=== PATIENT | female | born 2000 | race Caucasian/White ===

== ENCOUNTER 2022-11-22 10:46 | Outpatient (OUT) | payer BC, SELFPAY ==
[2022-11-22 11:11] LABS: Basophils Percent Auto 0.5 % (0.2-2.0); Eosinophils Absolute Auto 0.1 10^3/uL (0.0-0.7); Eosinophils Percent Auto 0.8 % (0.9-7.0); Hematocrit 41.2 % (36.0-48.0); Hemoglobin 14.2 g/dL (12.0-16.0); Immature Granulocytes Abs Auto 0.01 10^3/uL (0.00-0.03); Immature Granulocytes Pct Auto 0.1 % (0.0-0.5); Lymphocytes Absolute Auto 2.6 10^3/uL (1.2-3.8); Lymphocytes Percent Auto 35.6 % (20.5-60.0); Mean Corpuscular HGB Conc 34.5 g/dL (29.9-35.2); Mean Corpuscular Hemoglobin 30.4 pg (26.7-34.0); Mean Corpuscular Volume 88.2 fL (81.0-99.0); Mean Platelet Volume 10.8 fL (9.5-13.5); Monocytes Absolute Auto 0.4 10^3/uL (0.3-0.8); Monocytes Percent Auto 4.9 % (1.7-12.0); Neutrophils Absolute Auto 4.2 10^3/uL (1.4-6.5); Neutrophils Percent Auto 58.1 % (43.0-75.0); Platelet Count 220 10^3/uL (150-450); Red Blood Count 4.67 10^6/uL (4.20-5.40); Red Cell Distribution Width 13.2 % (11.0-15.0); White Blood Count 7.3 10^3/uL (4.0-11.0)
[2022-11-22 11:38] LABS: HCG Quantitative <1 mIU/mL; Thyroid Stimulating Hormone 0.968 uIU/mL (0.358-3.740)
[2022-11-22 12:57] LABS: Free T4 1.05 ng/dL (0.76-1.46)
[2022-11-23 04:10] LABS: FSH 6.8 mIU/mL (.); Luteinizing Hormone(LH) 6.7 mIU/mL (.)
[2022-11-25 09:09] LABS: DHEA, Serum 264 ng/dL (31-701)
== END 2022-11-22 10:47 | disposition home or self-care (01) ==
LOC: LAB 10:49
PROVIDERS: PCP Family Medicine; Visit Provider Obstetrics & Gynecology
DX: N92.6 Irregular menstruation, unspecified (principal)
CPT/HCPCS: 36415; 82626; 82627; 83001; 83002; 84439; 84443; 84702; 85025

== ENCOUNTER 2022-11-30 12:55 | Outpatient (OUT) | payer BC, SELFPAY ==
--- NOTE | 2022-11-30 12:58 | US_ITS ---
The [address] [address] Patient Name: NAFISA RIDDLE MRN: [id number] date: 2000 Sex: F Assigned Patient Location: Current Patient Location: US Accession/Order Number: [id number] Exam Date: 11/30/2022 13:00 Report Date: 11/30/2022 14:36 At the request of: NIDA GREY Procedure: US pelvis w/ transvaginal EXAM: US pelvis w/ transvaginal HISTORY: IRREGULAR MENSES COMPARISON: None. TECHNIQUE: Real-time transabdominal and transvaginal imaging of the pelvis. Findings: The uterus measures 7.4 x 2.9 x 3.6 cm and demonstrates unremarkable parenchymal echotexture. No focal intrauterine mass. The endometrium is 0.6 cm thick. No significant fluid within the endometrial canal. The right and left ovaries measure 3.2 x 1.8 x 3.0 and 3.0 x 1.7 x 2.5 cm. There are multiple follicles bilaterally. Blood flow is identified bilaterally. No adnexal mass or free pelvic fluid. US/US pelvis w/ transvaginal IMPRESSION: 1. Multiple bilateral ovarian follicles. Electronically authenticated by: ALEXA RUANO Date: 11/30/2022 14:36
== END 2022-11-30 12:56 | disposition home or self-care (01) ==
LOC: US 12:55
PROVIDERS: PCP Family Medicine; Visit Provider Obstetrics & Gynecology
DX: N92.6 Irregular menstruation, unspecified (principal)
CPT/HCPCS: 76830; 76856

== ENCOUNTER 2023-03-29 20:11 | Outpatient (REF) | payer BC, SELFPAY ==
--- OUTSIDE RECORDS SUMMARY | 2023-03-30 10:12 | XMS_ITS | CCD ---
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 Name Role Phone HOY, ELMER Admitting Unavailable HOY, ELMER Attending Unavailable HOY, ELMER Primary Care Unavailable HOY, ELMER Consulting Unavailable WESTABEBA V Consulting Unavailable HOY, ELMER Admitting Unavailable HOY, ELMER Attending Unavailable HOY, ELMER Primary Care Unavailable HOY, ELMER Consulting Unavailable ABEBA APODACA V Consulting Unavailable Piedad MCDERMOTT, Richard Ayala Primary Care Provider RICHARD DAI Referring RICHARD Fontana Primary Care UnavailNIDA Noland Attending Unavailable Allergies Allergy Classification Reported Allergen(s) Allergy Type Date of Onset Reaction(s) Facility (1 source) Amoxicillin Drug Allergy 06-26-2018 Nausea And Vomiting [facility] (1 source) fexofenadine Drug Allergy 03-12-2019 [facility] Medications Current Medications Medication Drug Class(es) Dates Sig (Normalized) Sig (Original) Ethinyl Estradiol / Ferrous fumarate / Norethindrone (1 source) Estrogen Norethin Abad-Eth Estrad-FE 1-20 MG-MCG(24) CAPS Take by mouth 0 Active Problems Problem Classification Problem Date Documented Da te Episodic/Chronic Abdominal pain (4 sources) Unspecified abdominal pain; Translations: [UNSPECIFIED ABDOMINAL PAIN] Onset: 01-30-2020 Episodic Results Test Name Value Interpretation Reference Range [facility] sam Hemoglobin A1Con 11-06-2022 Glucose [Mass/Vol] 103 mg/dL Normal [facility] Comment on above: Result Comment: The ADA and AACC recommend providing the estimated average glucose result to permit better patient understanding of their HBA1c result. Performed By: #### T SH, CDP, BMP, LIVP #### [address] [place], [place] [phone] Publishing Manager: Abeba Parra MD #### GLYHGB, LIPR #### [address] [address] Publishing Manager: Chapin Bellamy MD HbA1c (Bld) [Mass fraction] 5.2 % Normal 4.0-6.0 [facility] Comment on above: Performed By: #### T SH, CDP, BMP, LIVP #### [address] [place], [place] [phone] Publishing Manager: Abeba Parra MD #### GLYHGB, LIPR #### [address] [phone] Publishing Manager: Chapin Bellamy MD Lipid Profileon 11-05-2022 Cholesterol [Mass/Vol] 130 mg/dL Normal <200 [facility] Comment on above: Result Comment: Cholesterol Guidelines: <200 Desirable 200-240 Borderline >240 Undesirable Performed By: #### T SH, CDP, BMP, LIVP #### [address] [place], [place] [phone] Publishing Manager: Abeba Parra MD #### GLYHGB, LIPR #### [address] [address] Publishing Manager: Chapin Bellamy MD Cholesterol in HDL [Mass/Vol] 61 mg/dL Normal >40 [facility] Comment on above: Result Comment: HDL Guidelines: <40 Undesirable 40-59 Borderline >59 Desirable Performed By: #### T SH, CDP, BMP, LIVP #### [address] [place], [place] [phone] Publishing Manager: Abeba Parra MD #### GLYHGB, LIPR #### [address] [place], [place] [phone] Publishing Manager: Chapin Bellamy MD Cholesterol in LDL [Mass/Vol] 56 mg/dL Normal 0-130 [facility] Comment on above: Result Comment: LDL Guidelines: <100 Desirable 100-129 Near to/above Desirable 130-159 Borderline >159 Undesirable Direct (measured) LDL and calculated LDL are not interchangeable tests. Performed By: #### T SH, CDP, BMP, LIVP #### [facility] [address] [place], [place] [phone] Publishing Manager: Abeba Parra MD #### GLYHGB, LIPR #### [address] [place], [place] [phone] Publishing Manager: Chapin Bellamy MD Cholesterol.total/Ch olesterol in HDL [Mass ratio] 2.1 {ratio} Normal <5 [facility] Comment on above: Performed By: #### T DESTINI, JOAN, BMP, LIVP #### [facility] [address] [place] [address] [address] [place], [place] [phone] Publishing Manager: Abeba Parra MD #### GLYHGTanya, LIPR #### [facility] [address] [place], [place] [phone] Publishing Manager: Chapin Bellamy MD Triglyceride [Mass/Vol] 64 mg/dL Normal <150 [facility] Comment on above: Result Comment: Triglyceride Guidelines: <150 Desirable 150-199 Borderline 200-499 High >499 Very high Based on AHA Guidelines for fasting triglyceride, January 2012. Performed By: #### T SH, JOAN, BMP, LIVP #### [facility] [address] [place], [place] [phone] Publishing Manager: Abeba Parra MD #### GLYHGB, LIPR #### [facility] [address] [place], [place] [phone] Publishing Manager: Chapin Bellamy MD Basic Metabolic Panelon 07-2 Anion gap [Moles/Vol] 11 mmol/L 9 - 17 mmol/L [facility] Calcium [Mass/Vol] 9.7 mg/dL 8.6 - 10. 4 mg/dL [facility] Chloride [Moles/Vol] 107 mmol/L 98 - 107 mmol/L [facility] CO2 [Moles/Vol] 22 mmol/L 20 - 31 mmol/L [facility] Creatinine [Mass/Vol] 0.6 mg/dL 0.5 - 0.9 mg/dL [facility] GFR/1.73 sq M.predicted MDRD (S/P/Bld) [Vol rate/Area] - PINF [facility] Comment on above: These results are not intended for use in patients <18 years of age. eGFR results are calculated without a race factor using the 2020 CKD-EPI equation. Careful clinical correlation is recommended, particularly when comparing to results calculated using previous equations. The CKD-EPI equation is less accurate in patients with extremes of muscle mass, extra-renal metabolism of creatine, excessive creatine ingestion, or following therapy that affects renal tubular secretion. Glucose [Mass/Vol] 85 mg/dL 70 - 99 mg/dL [facility] Interpretation and review of laboratory results Abnormal [facility] Potassium [Moles/Vol] 3.9 mmol/L 3.7 - 5.3 mmol/L [facility] Sodium [Moles/Vol] 140 mmol/L 135 - 144 mmol/L [facility] Urea nitrogen [Mass/Vol] 18 mg/dL 6 - 20 mg/dL [facility] Urea nitrogen/Creatinine [Mass ratio] 30 mg/mg High 9 - 20 [facility] Basic Metabolic Profon 11-04 Anion gap [Moles/Vol] 11 mmol/L Normal -17 [facility] Comment on above: Performed By: #### T SH, CDP, BMP, LIVP #### [facility] [address] [place] [address] Publishing Manager: Abeba Parra MD #### GLYHGB, LIPR #### [facility] [address] [place] [address] Publishing Manager: Chapin Bellamy MD BUN/CRE Ratio 30 High 9-20 [facility] Comment on above: Performed By: #### T SH, CDP, BMP, LIVP #### [facility] [address] [place] [address] [address] [place], [place] [phone] Publishing Manager: Abeba Parra MD #### GLYHGB, LIPR #### [address] [phone] Publishing Manager: Chapin Bellamy MD Calcium [Mass/Vol] 9.7 mg/dL Normal 8.6-10.4 [facility] Comment on above: Performed By: #### T SH, CDP, BMP, LIVP #### [facility] [address] [place] [address] [address] [place] [phone] Publishing Manager: Abeba Parra MD #### GLYHGB, LIPR #### [address] [phone] Publishing Manager: Chapin Bellamy MD Chloride [Moles/Vol] 107 mmol/L Normal 98-107 [facility] Comment on above: Performed By: #### T SH, CDP, BMP, LIVP #### [address] [place] [address] Publishing Manager: Abeba Parra MD #### GLYHGB, LIPR #### [address] [phone] Publishing Manager: Chapin Bellamy MD CO2 [Moles/Vol] 22 mmol/L Normal 20-[address] [facility] Comment on above: Performed By: #### T SH, CDP, BMP, LIVP #### [facility] [address] [place] [address] [address] [place], [place] [phone] Publishing Manager: Abeba Parra MD #### GLYHGB, LIPR #### [address] [address] Publishing Manager: Chapin Bellamy MD Creatinine [Mass/Vol] 0.6 mg/dL Normal 0.5-0.9 [facility] Comment on above: Performed By: #### T SH, CDP, BMP, LIVP #### [facility] [address] [place] [address] Publishing Manager: Abeba Parra MD #### GLYHGB, LIPR #### [address] [place], [place] [phone] Publishing Manager: Chapin Bellamy MD GFR/1.73 sq M.predicted among non-blacks MDRD (S/P/Bld) [Vol rate/Area] mL/min/{1.73_m2} Normal >60 [facility] Comment on above: Result Comment: These results are not intended for use in patients <18 years of age. eGFR results are calculated without a race factor using the 2020 CKD-EPI equation. Careful clinical correlation is recommended, particularly when comparing to results calculated using previous equations. The CKD-EPI equation is less accurate in patients with extremes of muscle mass, extra-renal metabolism of creatine, excessive creatine ingestion, or following therapy that affects renal tubular secretion. Performed By: #### T SH, CDP, BMP, LIVP #### [facility] [address] [place] [address] Publishing Manager: Abeba Parra MD #### GLYHGB, LIPR #### [address] [place], [place] [phone] Publishing Manager: Chapin Bellamy MD Glucose [Mass/Vol] 85 mg/dL Normal 70-99 [facility] Comment on above: Performed By: #### T SH, CDP, BMP, LIVP #### [facility] [address] [place] [address] Publishing Manager: Abeba Parra MD #### GLYHGB, LIPR #### [address] [place], [place] [phone] Publishing Manager: Chapin Bellamy MD Potassium [Moles/Vol] 3.9 mmol/L Normal 3.7-5.3 [facility] Comment on above: Performed By: #### T SH, CDP, BMP, LIVP #### [facility] [address] [place] [address] Publishing Manager: Abeba Parra MD #### GLYHGB, LIPR #### [address] [place], [place] [phone] Publishing Manager: Chapin Bellamy MD Sodium [Moles/Vol] 140 mmol/L Normal 135-144 [facility] Comment on above: Performed By: #### T SH, CDP, BMP, LIVP #### [facility] [address] [place] [address] Publishing Manager: Abeba Parra MD #### GLYHGB, LIPR #### [address] [place], [place] [phone] Publishing Manager: Chapin Bellamy MD Urea nitrogen [Mass/Vol] 18 mg/dL Normal 6-20 [facility] Comment on above: Performed By: #### T SH, CDP, BMP, LIVP #### [facility] [address] [place] [address] [place] [address] Publishing Manager: Abeba Parra MD #### GLYHGB, LIPR #### [address] [place], [place] [phone] Publishing Manager: Chapin Bellamy MD CBC with Auto Differentialon 11-04-2022 Basophils (Bld) [#/Vol] 0.05 10*3/uL [facility] Basophils/100 WBC (Bld) 1 % 0 - 2 % [facility] Eosinophils (Bld) [#/Vol] 0.06 10*3/uL [facility] Eosinophils/100 WBC (Bld) 1 % 1 - 4 % [facility] Erythrocyte distribution width (RBC) [Ratio] 13.0 % 11.8 - 14.4 % [facility] Hematocrit (Bld) [Volume fraction] 43.3 % 36.3 - 47.1 % [facility] Hemoglobin (Bld) [Mass/Vol] 14.2 g/dL 11.9 - 15.1 g/dL [facility] Immature granulocytes (Bld) [#/Vol] [facility] Immature granulocytes/100 WBC (Bld) 0 % 0 [facility] Lymphocytes/100 WBC (Bld) 30 % 24 - 43 % [facility] Lymphocytes/100 WBC (Bld) 3.22 % [facility] MCH (RBC) [Entitic mass] 30.2 pg 25.2 - 33.5 pg [facility] MCHC (RBC) [Mass/Vol] 32.8 g/dL 28.4 - 34.8 g/dL [facility] MCV (RBC) [Entitic vol] 92.1 fL 82.6 - 102.9 fL [facility] Monocytes/100 WBC (Bld) 5 % 3 - 12 % [facility] Monocytes/100 WBC (Bld) 0.50 % [facility] Neutrophils/100 WBC (Bld) 63 % 36 - 65 % [facility] Nucleated RBC/100 WBC (Bld) [Ratio] 0.0 % 0.0 per 100 WBC [facility] Platelet mean volume (Bld) [Entitic vol] 11.0 fL 8.1 - 13.5 fL [facility] Platelets (Bld) [#/Vol] 264 10*3/uL [facility] RBC (Bld) [#/Vol] 4.70 10*6/uL 3.95 - 5.1 1 m/uL [facility] Segmented neutrophils/100 WBC (Bld) 6.95 % [facility] WBC other (Bld) [#/Vol] 10.8 [facility] CBC with Diffon 11-04-2022 Abs. Basophil 0.05 k/uL Normal 0.00-0.20 [facility] Comment on above: Performed By: #### T SH, CDP, BMP, LIVP #### [facility] [address] [place] [address] Publishing Manager: Abeba Parra MD #### GLYHGB, LIPR #### [place] [phone] Publishing Manager: Chapin Bellamy MD Abs.Imm.Granulocyte <0.03 Normal 0.00-0.30 [facility] Comment on above: Performed By: #### T SH, CDP, BMP, LIVP #### [address] [place] [phone] Publishing Manager: Abeba Parra MD #### GLYHGB, LIPR #### [place] [address] Publishing Manager: Chapin Bellamy MD Abs.Neutrophil (Seg) 6.95 k/uL Normal 1.50-8.10 [facility] Comment on above: Performed By: #### T SH, CDP, BMP, LIVP #### [address] [place] [phone] Publishing Manager: Abeba Parra MD #### GLYHGB, LIPR #### [place] [address] Publishing Manager: Chapin Bellamy MD Basophils/100 WBC (Bld) 1 % Normal 0-2 [facility] Comment on above: Performed By: #### T SH, CDP, BMP, LIVP #### [address] [place] [phone] Publishing Manager: Abeba Parra MD #### GLYHGB, LIPR #### [place] [address] Publishing Manager: Chapin Bellamy MD Eosinophils (Bld) [#/Vol] 0.06 10*3/uL Normal 0.00-0.44 [facility] Comment on above: Performed By: #### T SH, CDP, BMP, LIVP #### [address] [place], [place] [phone] Publishing Manager: Abeba Parra MD #### GLYHGB, LIPR #### [address] [place], [place] [phone] Publishing Manager: Chapin Bellamy MD Eosinophils/100 WBC (Bld) 1 % Normal 1-4 [facility] Comment on above: Performed By: #### T SH, CDP, BMP, LIVP #### [address] [place] [address] Publishing Manager: Abeba Parra MD #### GLYHGB, LIPR #### [address] [phone] Publishing Manager: Chapin Bellamy MD Erythrocyte distribution width (RBC) [Ratio] 13.0 % Normal 11.8-14.4 [facility] Comment on above: Performed By: #### T SH, CDP, BMP, LIVP #### [address] [place], [place] [phone] Publishing Manager: Abeba Parra MD #### GLYHGB, LIPR #### [address] [phone] Publishing Manager: Chapin Bellamy MD Hematocrit (Bld) [Volume fraction] 43.3 % Normal 36.3-47.1 [facility] Comment on above: Performed By: #### T SH, CDP, BMP, LIVP #### [address] [place], [place] [phone] Publishing Manager: Abeba Parra MD #### GLYHGB, LIPR #### [address] [phone] Publishing Manager: Chapin Bellamy MD Hemoglobin (Bld) [Mass/Vol] 14.2 g/dL Normal 11.9-15.1 [facility] Comment on above: Performed By: #### T SH, CDP, BMP, LIVP #### [facility] [address] [place], [place] [phone] Publishing Manager: Abeba Parra MD #### GLYHGB, LIPR #### [address] [phone] Publishing Manager: Chapin Bellamy MD Immature granulocytes/100 WBC (Bld) 0 % Normal 0 [facility] Comment on above: Performed By: #### T SH, CDP, BMP, LIVP #### [facility] [address] [place], [place] 7090483 Publishing Manager: Abeba Parra MD #### GLYHGB, LIPR #### [address] [phone] Publishing Manager: Chapin Bellamy MD Lymphocytes (Bld) [#/Vol] 3.22 10*3/uL Normal 1.10-3.70 [facility] Comment on above: Performed By: #### T SH, CDP, BMP, LIVP #### [facility] [address] [place] [phone] Publishing Manager: Abeba Parra MD #### GLYHGB, LIPR #### [address] [phone] Publishing Manager: Chapin Bellamy MD Lymphocytes/100 WBC (Bld) 30 % Normal 24-43 [facility] Comment on above: Performed By: #### T SH, CDP, BMP, LIVP #### [facility] [address] [place], [place] [phone] Publishing Manager: Abeba Parra MD #### GLYHGB, LIPR #### [address] [phone] Publishing Manager: Chapin Bellamy MD MCH (RBC) [Entitic mass] 30.2 pg Normal 25.2-33.5 [facility] Comment on above: Performed By: #### T SH, CDP, BMP, LIVP #### [address] [place] [phone] Publishing Manager: Abeba Parra MD #### GLYHGB, LIPR #### [address] [phone] Publishing Manager: Chapin Bellamy MD MCHC (RBC) [Mass/Vol] 32.8 g/dL Normal 28.4-34.8 [facility] Comment on above: Performed By: #### T SH, CDP, BMP, LIVP #### [address] [place] [phone] Publishing Manager: Abeba Parra MD #### GLYHGTanya, LIPR #### [place] [address] Publishing Manager: Chapin Bellamy MD MCV (RBC) [Entitic vol] 92.1 fL Normal 82.6-102.9 [facility] Comment on above: Performed By: #### T SH, CDP, BMP, LIVP #### [address] [place] [phone] Publishing Manager: Abeba Parra MD #### GLYHGB, LIPR #### [place] [address] Publishing Manager: Chapin Bellamy MD Monocytes (Bld) [#/Vol] 0.50 10*3/uL Normal 0.10-1.20 [facility] Comment on above: Performed By: #### T SH, CDP, BMP, LIVP #### [address] [place] [phone] Publishing Manager: Abeba Parra MD #### GLYHGB, LIPR #### [place] [address] Publishing Manager: Chapin Bellamy MD Monocytes/100 WBC (Bld) 5 % Normal 3-12 [facility] Comment on above: Performed By: #### T SH, CDP, BMP, LIVP #### [facility] [address] [place], [place] [phone] Publishing Manager: Abeba Parra MD #### GLYHGB, LIPR #### [address] [phone] Publishing Manager: Chapin Bellamy MD Neutrophil (Seg) 63 % Normal 36-65 [facility] Comment on above: Performed By: #### T SH, CDP, BMP, LIVP #### [facility] [address] [place] [address] [place] [address] Publishing Manager: Abeba Parra MD #### DAMIANB, LIPR #### [address] [phone] Publishing Manager: Chapin Bellamy MD NRBC Automated 0.0 per 100 WBC Normal 0.0 [facility] Comment on above: Performed By: #### T SH, CDP, BMP, LIVP #### [address] [place] [address] Publishing Manager: Abeba Parra MD #### GIOVANNI, LIPR #### [address] [phone] Publishing Manager: Chapin Bellamy MD Platelet mean volume (Bld) [Entitic vol] 11.0 fL Normal 8.1-13.5 [facility] Comment on above: Performed By: #### T SH, CDP, BMP, LIVP #### [facility] [address] [place] [address] [place] [address] Publishing Manager: Abeba Parra MD #### GLYHGB, LIPR #### [address] [phone] Publishing Manager: Chapin Bellamy MD Platelets (Bld) [#/Vol] 264 10*3/uL Normal 138-453 [facility] Comment on above: Performed By: #### T SH, CDP, BMP, LIVP #### [address] [place], [place] [phone] Publishing Manager: Abeba Parra MD #### GLYHGB, LIPR #### [address] [place] [address] Publishing Manager: Chapin Bellamy MD RBC (Bld) [#/Vol] 4.70 10*6/uL Normal 3.95-5.11 [facility] Comment on above: Performed By: #### T SH, CDP, BMP, LIVP #### [address] [place], [place] [phone] Publishing Manager: Abeba Parra MD #### VERONICAHGTanya, LIPR #### [address] [address] Publishing Manager: Chapin Bellamy MD WBC (Bld) [#/Vol] 10.8 10*3/uL Normal 3.5-11.3 [facility] Comment on above: Performed By: #### T SH, CDP, BMP, LIVP #### [address] [place] [address] Publishing Manager: Abeba Parra MD #### GLYHGB, LIPR #### [address] [place] [address] Publishing Manager: Chapin Bellamy MD Hepatic Function Panelon Albumin [Mass/Vol] 4.2 g/dL 3.5 - 5.2 g/dL [facility] Albumin/Globulin [Mass ratio] 1.3 {ratio} 1.0 - 2.5 [facility] ALP [Catalytic activity/Vol] 80 U/L 35 - 104 U/L [facility] ALT [Catalytic activity/Vol] 23 U/L 5 - 33 U/L [facility] AST [Catalytic activity/Vol] 22 U/L NINF - 32 U/L [facility] Bilirubin [Mass/Vol] 0.5 mg/dL 0.3 - 1.2 mg/dL [facility] Bilirubin.direct [Mass/Vol] mg/dL NINF - 0.3 mg/dL [facility] Bilirubin.indirect [Mass/Vol] Can not be calculated 0.0 - 1.0 mg/dL [facility] Protein [Mass/Vol] 7.4 g/dL 6.4 - 8.3 g/dL [facility] Lipid Panelon 11-04-2022 Cholesterol [Mass/Vol] 130 mg/dL NINF - 200 mg/dL [facility] Comment on above: Cholesterol Guidelines: <200 Desirable 200-240 Borderline >240 Undesirable Cholesterol in HDL [Mass/Vol] 61 mg/dL 40 - PINF mg/dL [facility] Comment on above: HDL Guidelines: <40 Undesirable 40-59 Borderline >59 Desirable Cholesterol in LDL [Mass/Vol] 56 mg/dL 0 - 130 mg/dL [facility] Comment on above: LDL Guidelines: <100 Desirable 100-129 Near to/above Desirable 130-159 Borderline >159 Undesirable Direct (measured) LDL and calculated LDL are not interchangeable tests. Cholesterol.total/Ch olesterol in HDL [Mass ratio] 2.1 {ratio} NINF - 5 [facility] Triglyceride [Mass/Vol] 64 mg/dL NINF - 150 mg/dL [facility] Comment on above: Triglyceride Guidelines: <150 Desirable 150-199 Borderline 200-499 High >499 Very high Based on AHA Guidelines for fasting triglyceride, January 2012. [facility] Liver Profileon 11-04-2022 Albumin [Mass/Vol] 4.2 g/dL Normal 3.5-5.2 [facility] Comment on above: Performed By: #### T SH, CDP, BMP, LIVP #### [facility] [address] [place], [place] [phone] Publishing Manager: Abeba Parra MD #### GLYHGB, LIPR #### [address] [place], [place] [phone] Publishing Manager: Chapin Bellamy MD Albumin/Glob Ratio 1.3 Normal 1.0-2.5 [facility] Comment on above: Performed By: #### T SH, CDP, BMP, LIVP #### [facility] [address] [place] [address] [address] [place], [place] [phone] Publishing Manager: Abeba Parra MD #### GLYHGB, LIPR #### [address] [place], [place] [phone] Publishing Manager: Chapin Bellamy MD Alkaline Phos 80 U/L Normal 35-104 [facility] Comment on above: Performed By: #### T SH, CDP, BMP, LIVP #### [address] [place] [phone] Publishing Manager: Abeba Parra MD #### GLYHGB, LIPR #### [address] [place], [place] [phone] Publishing Manager: Chapin Bellamy MD ALT [Catalytic activity/Vol] 23 U/L Normal 5-33 [facility] Comment on above: Performed By: #### T SH, CDP, BMP, LIVP #### [facility] [address] [place] [address] [address] [place], [place] [phone] Publishing Manager: Abeba Parra MD #### GLYHGB, LIPR #### [address] [place], [place] [phone] Publishing Manager: Chapin Bellamy MD AST [Catalytic activity/Vol] 22 U/L Normal <32 [facility] Comment on above: Performed By: #### T SH, CDP, BMP, LIVP #### [address] [place], [place] [phone] Publishing Manager: Abeba Parra MD #### GLYHGB, LIPR #### [address] [place] [address] Publishing Manager: Chapin Bellamy MD Bilirubin [Mass/Vol] 0.5 mg/dL Normal 0.3-1.2 [facility] Comment on above: Performed By: #### T SH, CDP, BMP, LIVP #### [address] [place], [place] [id number] Publishing Manager: Abeba Parra MD #### GLYHGB, LIPR #### [address] [place], [place] [id number] Publishing Manager: Chapin Bellamy MD Bilirubin, Indirect Can not be calculated Normal 0.0-1 .0 [facility] Comment on above: Performed By: #### T SH, CDP, BMP, LIVP #### [address] [place] [address] Publishing Manager: Abeba Parra MD #### GLYHGB, LIPR #### [address] [place], [place] [id number] Publishing Manager: Chapin Bellamy MD Bilirubin.indirect [Mass/Vol] mg/dL Normal <0.3 [facility] Comment on above: Performed By: #### T SH, CDP, BMP, LIVP #### [address] [place] [address] Publishing Manager: Abeba Parra MD #### GLYHGB, LIPR #### [address] [place], [place] [id number] Publishing Manager: Chapin Bellamy MD Protein [Mass/Vol] 7.4 g/dL Normal 6.4-8.3 [facility] Comment on above: Performed By: #### T SH, CDP, BMP, LIVP #### [address] [place] [address] Publishing Manager: Abeba Parra MD #### GLYHGB, LIPR #### [employer] [address] [place] [address] Publishing Manager: Chapin Bellamy MD No Panel Informationon 11-04 [facility] TSHon 11-04-2022 TSH Qn 1.57 m[IU]/L [facility] Thyroid Stim. Horm.on 2022 Thyroid Stim. Horm. 1.57 uIU/mL Normal 0.30-5.00 [facility] Comment on above: Performed By: #### T SH, CDP, BMP, LIVP #### [facility] [address] [place] [address] Publishing Manager: Abeba Parra MD #### GLYHGB, LIPR #### [employer] [address] [place] [address] Publishing Manager: Chapin Bellamy MD NM HEPATOBILIARY SCAN W EFon 01-30-2020 NM HEPATOBILIARY SCAN W EF EXAMINATION: NM HEPATOBILIARY SCAN W EF HISTORY: Right upper quadrant pain COMPARISON: No relevant comparison available. TECHNIQUE: Radionuclide hepatobiliary imaging was performed after intravenous injection of 4.9 mCi technetium 99m mebrofenin with sequential acquisitions every 1 minute for one hour. Hepatobiliary imaging with gallbladder ejection fraction analysis was then performed with sequential imaging every 1 minute for 60 minutes simultaneously during infusion of 1.7 mcg Sincalide over 60 minutes. FINDINGS: LIVER: Normal, prompt and uniform radiotracer uptake and clearing. BILIARY DUCTS: Normal radioisotopic biliary excretion. GALLBLADDER: Normal with no evidence of cystic duct obstruction. INTESTINE: Normal with no evidence of common biliary ductal obstruction. EJECTION FRACTION: 80 % within 60 minutes. (Normal EF > 38%). OTHER: Negative. IMPRESSION: Normal examination. Electronically authenticated by: ABEBA APODACA Date: 2020-01-30 09:35 Normal [facility] US SINGLE QUAD RT UPPERon US SINGLE QUAD RT UPPER EXAMINATION: US SINGLE QUAD RT UPPER HISTORY: Abdominal pain COMPARISON: No relevant comparison available. FINDINGS: The visualized pancreas is normal in appearance with no focal mass. The liver is normal in size, contour and echotexture with no focal mass. Normal flow identified in the main portal vein with velocity of 36 cm/s. The gallbladder is normal in size, contour and echotexture. No cholelithiasis, gallbladder sludge or pericholecystic fluid. Negative sonographic Patrick sign. The gallbladder wall measures 1.9 mm, normal. The common bile duct measures 2.9 mm, normal. The right kidney is normal in size, contour and echotexture. 9.9 x 4.2 x 4.7 cm. The left renal cortex measures 1.4 cm thick IMPRESSION: Normal exam Electronically authenticated by: ABEBA APODACA Date: 2020-01-22 11:02 Normal [facility] Encounters Encounter Date Encounter Type Care Provider Facility Start: 02-22-2023 End: 02-22-2023 ambulatory NIDA GREY Not Available Start: 11-04-2022 End: 11-05-2022 [facility] Start: 11-04-2022 End: 11-05-2022 Encounter for general adult medical examination without abnormal findings [facility] Start: 11-04-2022 End: 11-04-2022 Subsequent hospital visit by physician Richard Dai MD Work Phone: [facility] Start: 01-30-2020 End: 01-31-2020 Patient encounter procedure ELMER HOY Facility:[facility] Start: 01-22-2020 End: 01-23-2020 Patient encounter procedure ELMER HO Facility: Procedures Date Procedure Procedure Detail Performing Clinician Start: 11-04-2022 Basic metabolic pane l calcium total Richard Dai MD Work Phone: Start: 11-04-2022 Lipid panel Richard Dai MD Work Phone: Plan of Treatment Date Care Activity Detail Author Start: 11-05-2031 DTaP/Tdap/Td vaccine (8 - Td or Tdap) DTaP/Tdap/Td vaccine (8 - Td or Tdap) [facility] Start: 11-08-2022 Influenza vaccination Flu vaccine (# 1) [facility] Start: 2019 Screening for malign ant neoplasm of cervix Pap smear [facility] Start: 02-10-2016 Hepatitis C screening Hepatitis C sc reen [facility] Start: 2014 Screening for Chlamy zulema trachomatis Chlamydia/GC screen [facility] Start: 2013 HIV screening HIV screen [facility] Start: 2010 Depression Screen Depression Screen [facility] Start: 2009 HPV vaccine (1 - 2-d ose series) HPV vaccine (1 - 2-dose series) [facility] Start: 1999 Varicella vaccine (1 of 2 - 2-dose childhood series) Varicella vaccine (1 of 2 - 2-dose childhood series) [facility] Start: 1998 COVID-19 Vaccine (#1) COVID-19 Vacci ne (#1) [facility] End: 11-04-2022 Hemoglobin A1c/Hemoglobin.total in Blood [facility] Work Phone: Comment on above: Once for 1 Occurrenc es starting 11/04/2022 until 11/04/2022 Immunizations Immunization Date Immunization Notes Care Provider Fa cility 11-04-2021 tetanus toxoid, redu sanya diphtheria toxoid, and acellular pertussis vaccine, adsorbed Richard Dai MD Work Phone: [facility] Payers Date Payer Category Payer Unknown [id number] 1998 Unknown [id number] 1998 Unknown [id number] 1998 Unknown [id number] 1998 Unknown [id number] 1959 Unknown [id number] Social History Date Type Detail Facility [facility] [employer] Start: 1998 Sex Assigned At Not on file [facility] [employer] Summary Purpose Family History No Family History Records FoundNo Family History Records FoundNo Family History Records Found Advance Directives No Advanced Directives Records FoundNo Advanced Directives Records FoundNo Advanced Directives Records Found Additional Source Comments INFORMATION SOURCE (unrecogn ized section and content) DATE CREATED AUTHOR 02/04/2020 [facility] DATE CREATED AUTHOR AUTHOR'S ORGANIZ ATION 11/06/2022 [facility] DATE CREATED AUTHOR AUTHOR'S ORGANIZ ATION 02/24/2023 [facility] [employer] Care Teams (unrecognized sec tion and content) [employer] Relationship Specialty Start Date End Date Richard Dai MD [address] [place] [address] PCP - General Family Medicine 11/04/22 FOR RECORDS PERTAINING TO PATIENTS WHO ARE OR HAVE BEEN ENROLLED IN A CHEMICAL DEPENDENCY/SUBSTANCEABUSE PROGRAM, SOME INFORMATION MAY BE OMITTED. This clinical summary was aggregated from multiple sources. Caution should be exercised in using it in the provision of clinical care. This summary normalizes information from multiple sources, and as a consequence, information in this document may materially change the coding, format and clinical context of patient data. In addition, data may be omitted in some cases. CLINICAL DECISIONS SHOULD BE BASED ON THE PRIMARY CLINICAL RECORDS. [facility]. provides no warranty or guarantee of the accuracy or completeness of information in this document.
[2023-04-05 09:08] LABS: Age Gdln ACOG Testing Note (.); IGP, rfx Aptima HPV ASCU Note (.)
== END 2023-03-29 20:12 | disposition home or self-care (01) ==
LOC: LAB 20:11
PROVIDERS: PCP Family Medicine; Visit Provider Obstetrics & Gynecology
DX: Z01.419 Encounter for gynecological examination (general) (routine) without abnormal findings (principal)
CPT/HCPCS: G0145

== ENCOUNTER 2023-08-10 12:30 | Outpatient (OUT) | payer BC, SELFPAY ==
--- NOTE | 2023-08-10 12:35 | US_ITS ---
[address] [address] Patient Name: NAFISA NUÑEZ MRN: [id number] date: 2000 Sex: F Assigned Patient Location: [facility] Current Patient Location: [facility] Accession/Order Number: [id number] Exam Date: 08/10/2023 12:36 Report Date: 08/10/2023 14:22 At the request of: NIDA GREY Procedure: US OB transvaginal EXAMINATION: US OB transvaginal HISTORY: MISSED MENSES COMPARISON: No relevant comparison available. FINDINGS: Transvaginal images Meraz intrauterine gestation Gestational sac: 3.9 cm, 8 weeks 1 day CRL: 1.3 cm, 7 weeks 5 days Yolk sac: 3.7 mm Heart rate: 150 bpm Cervix: Closed, 3.5 cm The uterus is normal, retroverted, retroflexed The ovaries are normal. Right ovarian corpus luteal cyst Clinical age: 7 weeks 6 days Clinical TEE: 03/22/2024 Ultrasound age: 7 weeks 5 days Ultrasound TEE: 03/23/2024 US/US OB transvaginal IMPRESSION: Viable meraz intrauterine gestation measuring 7 weeks 5 days Electronically authenticated by: ABEBA APODACA Date: 08/10/2023 14:22
--- OUTSIDE RECORDS SUMMARY | 2023-08-10 12:35 | XMS_ITS | CCD ---
Author Organization [facility] Care Team Providers Care Director Of Advertising Sales Name Role Phone HOY, ELMER Admitting Unavailable HOY, ELMER Attending Unavailable HOY, ELMER Primary Care Unavailable HOY, ELMER Consulting Unavailable WEST ABEBA V Consulting Unavailable HOY, ELMER Admitting Unavailable HOY, ELMER Attending Unavailable HOY, ELMER Primary Care Unavailable HOY, ELMER Consulting Unavailable ABEBA APODACA V Consulting Unavailable Richard Dai MD Primary Care Provider RICHARD DAI Referring RICHARD Fontana Primary Care UnavailRICHARD Jennings Attending Unavailable NIDA GREY Attending Unavailable NIDA GREY Attending Unavailable Allergies Allergy Classification Reported Allergen(s) Allergy Type Date of Onset Reaction(s) Facility (1 source) Amoxicillin Drug Allergy 06-26-2018 Nausea And Vomiting [facility] (1 source) fexofenadine Drug Allergy 03-12-2019 [facility] Medications Current Medications Medication Drug Class(es) Dates Sig (Normalized) Sig (Original) Ethinyl Estradiol / Ferrous fumarate / Norethindrone (1 source) Estrogen Norethin Abad-Eth Estrad-FE 1-20 MG-MCG(24) CAPS Take by mouth 0 Active Problems Problem Classification Problem Date Documented Da te Episodic/Chronic Abdominal pain (4 sources) Unspecified abdominal pain; Translations: [UNSPECIFIED ABDOMINAL PAIN] Onset: 01-30-2020 Episodic Results Test Name Value Interpretation Reference Range [facility] Hemoglobin A1Con 11-06-2022 Glucose [Mass/Vol] 103 mg/dL Normal [facility] Comment on above: Result Comment: The ADA and AACC recommend providing the estimated average glucose result to permit better patient understanding of their HBA1c result. Performed By: #### T SH, CDP, BMP, LIVP #### [facility] [address] [place], [place] [phone] Cage Unloader: Abeba Parra MD #### GLYHGB, LIPR #### [address] [place], [place] 2012[address] Cage Unloader: Chapin Bellamy MD HbA1c (Bld) [Mass fraction] 5.2 % Normal 4.0-6.0 [facility] Comment on above: Performed By: #### T SH, CDP, BMP, LIVP #### [address] [place], [place] 8[address]83 Cage Unloader: Abeba Parra MD #### GLYHGB, LIPR #### [address] [address] Cage Unloader: Chapin Bellamy MD Lipid Profileon 11-05-2022 Cholesterol [Mass/Vol] 130 mg/dL Normal <200 [facility] Comment on above: Result Comment: Cholesterol Guidelines: <200 Desirable 200-240 Borderline >240 Undesirable Performed By: #### T SH, CDP, BMP, LIVP #### [address] [place], [place] [phone] Cage Unloader: Abeba Parra MD #### GLYHGB, LIPR #### [address] [address] Cage Unloader: Chapin Bellamy MD Cholesterol in HDL [Mass/Vol] 61 mg/dL Normal >40 [facility] Comment on above: Result Comment: HDL Guidelines: <40 Undesirable 40-59 Borderline >59 Desirable Performed By: #### T SH, CDP, BMP, LIVP #### [address] [place], [place] [phone] Cage Unloader: Abeba Parra MD #### GLYHGB, LIPR #### [address] [place], [place] 1195808 Cage Unloader: Chapin Bellamy MD Cholesterol in LDL [Mass/Vol] 56 mg/dL Normal 0-130 [facility] Comment on above: Result Comment: LDL Guidelines: <100 Desirable 100-129 Near to/above Desirable 130-159 Borderline >159 Undesirable Direct (measured) LDL and calculated LDL are not interchangeable tests. Performed By: #### T SH, CDP, BMP, LIVP #### [facility] [address] [place], [place] [id number] Cage Unloader: Abeba Parra MD #### GLYHGB, LIPR #### [facility] [employer] [facility] [place], [place] [phone] Cage Unloader: Chapin Bellamy MD Cholesterol.total/Ch olesterol in HDL [Mass ratio] 2.1 {ratio} Normal <5 [facility] Comment on above: Performed By: #### T DESTINI, JOAN, BMP, LIVP #### [facility] [address] [place] [address] [place] [address] Cage Unloader: Abeba Parra MD #### GLYHGTanya, LIPR #### [facility] [employer] [facility] [place], [place] [phone] Cage Unloader: Chapin Bellamy MD Triglyceride [Mass/Vol] 64 mg/dL Normal <150 [facility] Comment on above: Result Comment: Triglyceride Guidelines: <150 Desirable 150-199 Borderline 200-499 High >499 Very high Based on AHA Guidelines for fasting triglyceride, January 2012. Performed By: #### T DESTINI, JOAN, BMP, LIVP #### [facility] [address] [place] [address] [place] [address] Cage Unloader: Abeba Parra MD #### GLYHGB, LIPR #### [facility] [employer] [facility] [place], [place] [phone] Cage Unloader: Chapin Bellamy MD Basic Metabolic Panelon 07-2 Anion gap [Moles/Vol] 11 mmol/L 9 - 17 mmol/L [facility] Calcium [Mass/Vol] 9.7 mg/dL 8.6 - 10. 4 mg/dL [facility] Chloride [Moles/Vol] 107 mmol/L 98 - 107 mmol/L [facility] CO2 [Moles/Vol] 22 mmol/L 20 - 31 mmol/L [facility] Creatinine [Mass/Vol] 0.6 mg/dL 0.5 - 0.9 mg/dL [facility] GFR/1.73 sq M.predicted MDRD (S/P/Bld) [Vol rate/Area] - PINF [facility] Comment on above: These results are [...] [Mass/Vol] 85 mg/dL 70 - 99 mg/dL [facility] Interpretation and review of laboratory results Abnormal [facility] Potassium [Moles/Vol] 3.9 mmol/L 3.7 - 5.3 mmol/L [facility] Sodium [Moles/Vol] 140 mmol/L 135 - 144 mmol/L [facility] Urea nitrogen [Mass/Vol] 18 mg/dL 6 - 20 mg/dL [facility] Urea nitrogen/Creatinine [Mass ratio] 30 mg/mg High 9 - 20 [facility] Basic Metabolic Profon 11-04 Anion gap [Moles/Vol] 11 mmol/L Normal -17 [facility] Comment on above: Performed By: #### T SH, CDP, BMP, LIVP #### [facility] [address] [place] [address] Cage Unloader: Abeba Parra MD #### GLYHGB, LIPR #### [facility] [address] [place] [address] Cage Unloader: Chapin Bellamy MD BUN/CRE Ratio 30 High 9-20 [facility] Comment on above: Performed By: #### T SH, CDP, BMP, LIVP #### [facility] [address] [place], [place] 534[address]83 Cage Unloader: Abeba Parra MD #### GLYHGB, LIPR #### [address] [id number] Cage Unloader: Chapin Bellamy MD Calcium [Mass/Vol] 9.7 mg/dL Normal 8.6-10.4 [facility] Comment on above: Performed By: #### T SH, CDP, BMP, LIVP #### [facility] [address] [place], [place] 06[address]83 Cage Unloader: Abeba Parra MD #### GLYHGB, LIPR #### [address] [phone] Cage Unloader: Chapin Bellamy MD Chloride [Moles/Vol] 107 mmol/L Normal 98-107 [facility] Comment on above: Performed By: #### T SH, CDP, BMP, LIVP #### [facility] [address] [place], [place] 2009983 Cage Unloader: Abeba Parra MD #### GLYHGB, LIPR #### [address] [phone] Cage Unloader: Chapin Bellamy MD CO2 [Moles/Vol] 22 mmol/L Normal 20-31 [facility] Comment on above: Performed By: #### T SH, CDP, BMP, LIVP #### [facility] [address] [place], [place] [phone] Cage Unloader: Abeba Parra MD #### GLYHGB, LIPR #### [address] [phone] Cage Unloader: Chapin Bellamy MD Creatinine [Mass/Vol] 0.6 mg/dL Normal 0.5-0.9 [facility] Comment on above: Performed By: #### T SH, CDP, BMP, LIVP #### [facility] [address] [place] [address] Cage Unloader: Abeba Parra MD #### GLYHGTanya, LIPR #### [address] [address] [place], [place] 0326208 Cage Unloader: Chapin Bellamy MD GFR/1.73 sq M.predicted among non-blacks MDRD (S/P/Bld) [Vol rate/Area] mL/min/{1.73_m2} Normal >60 [facility] Comment on above: Result Comment: These [...] #### T SH, CDP, BMP, LIVP #### [facility] [address] [place] [address] [place] [address] Cage Unloader: Abeba Parra MD #### GIOVANNI, LIPR #### [address] [place], [place] [phone] Cage Unloader: Chapin Bellamy MD Glucose [Mass/Vol] 85 mg/dL Normal 70-99 [facility] Comment on above: Performed By: #### T SH, CDP, BMP, LIVP #### [facility] [address] [place] [address] Cage Unloader: Abeba Parra MD #### GLYHGB, LIPR #### [address] [phone] Cage Unloader: Chapin Bellamy MD Potassium [Moles/Vol] 3.9 mmol/L Normal 3.7-5.3 [facility] Comment on above: Performed By: #### T SH, CDP, BMP, LIVP #### [facility] [address] [place] [address] Cage Unloader: Abeba Parra MD #### GLYHGB, LIPR #### [address] [place], [place] 8477308 Cage Unloader: Chapin Bellamy MD Sodium [Moles/Vol] 140 mmol/L Normal 135-144 [facility] Comment on above: Performed By: #### T SH, CDP, BMP, LIVP #### [facility] [address] [place] [address] Cage Unloader: Abeba Parra MD #### GLYHGB, LIPR #### [address] [place], [place] [phone] Cage Unloader: Chapin Bellamy MD Urea nitrogen [Mass/Vol] 18 mg/dL Normal 6-20 [facility] Comment on above: Performed By: #### T SH, CDP, BMP, LIVP #### [facility] [address] [place] [address] Cage Unloader: Abeba Parra MD #### GLYHGB, LIPR #### [address] [place], [place] [phone] Cage Unloader: Chapin Bellamy MD CBC with Auto Differentialon 11-04-2022 Basophils (Bld) [#/Vol] 0.05 10*3/uL [facility] Basophils/100 WBC (Bld) 1 % 0 - 2 % [facility] Eosinophils (Bld) [#/Vol] 0.06 10*3/uL [facility] Eosinophils/100 WBC (Bld) 1 % 1 - 4 % [facility] Erythrocyte distribution width (RBC) [Ratio] 13.0 % 11.8 - 14.4 % [facility] Hematocrit (Bld) [Volume fraction] 43.3 % 36.3 - 47.1 % [facility] Hemoglobin (Bld) [Mass/Vol] 14.2 g/dL 11.9 - 15.1 g/dL [facility] Immature granulocytes (Bld) [#/Vol] [facility] Immature granulocytes/100 WBC (Bld) 0 % 0 [facility] Lymphocytes/100 WBC (Bld) 30 % 24 - 43 % [facility] Lymphocytes/100 WBC (Bld) 3.22 % [facility] MCH (RBC) [Entitic mass] 30.2 pg 25.2 - 33.5 pg [facility] MCHC (RBC) [Mass/Vol] 32.8 g/dL 28.4 - 34.8 g/dL [facility] MCV (RBC) [Entitic vol] 92.1 fL 82.6 - 102.9 fL [facility] Monocytes/100 WBC (Bld) 5 % 3 - 12 % [facility] Monocytes/100 WBC (Bld) 0.50 % [facility] Neutrophils/100 WBC (Bld) 63 % 36 - 65 % [facility] Nucleated RBC/100 WBC (Bld) [Ratio] 0.0 % 0.0 per 100 WBC [facility] Platelet mean volume (Bld) [Entitic vol] 11.0 fL 8.1 - 13.5 fL [facility] Platelets (Bld) [#/Vol] 264 10*3/uL [facility] RBC (Bld) [#/Vol] 4.70 10*6/uL 3.95 - 5.1 1 m/uL [facility] Segmented neutrophils/100 WBC (Bld) 6.95 % [facility] WBC other (Bld) [#/Vol] 10.8 [facility] CBC with Diffon 11-04-2022 Abs. Basophil 0.05 k/uL Normal 0.00-0.20 [facility] Comment on above: Performed By: #### T SH, CDP, BMP, LIVP #### [facility] [address] [place] [address] Cage Unloader: Abeba Parra MD #### GLYHGB, LIPR #### [address] [place] [phone] Cage Unloader: Chapin Bellamy MD Abs.Imm.Granulocyte <0.03 Normal 0.00-0.30 [facility] Comment on above: Performed By: #### T SH, CDP, BMP, LIVP #### [address] [place] [address] Cage Unloader: Abeba Parra MD #### GLYHGB, LIPR #### [phone] Cage Unloader: Chapin Bellamy MD Abs.Neutrophil (Seg) 6.95 k/uL Normal 1.50-8.10 [facility] Comment on above: Performed By: #### T SH, CDP, BMP, LIVP #### [address] [place] [address] Cage Unloader: Abeba Parra MD #### GLYHGB, LIPR #### [place] [address] Cage Unloader: Chapin Bellamy MD Basophils/100 WBC (Bld) 1 % Normal 0-2 [facility] Comment on above: Performed By: #### T SH, CDP, BMP, LIVP #### [address] [place] [phone] Cage Unloader: Abeba Parra MD #### GLYHGB, LIPR #### [phone] Cage Unloader: Chapin Bellamy MD Eosinophils (Bld) [#/Vol] 0.06 10*3/uL Normal 0.00-0.44 [facility] Comment on above: Performed By: #### T SH, CDP, BMP, LIVP #### [address] [place] [phone] Cage Unloader: Abeba Parra MD #### GLYHGB, LIPR #### [address] [phone] Cage Unloader: Chapin Bellamy MD Eosinophils/100 WBC (Bld) 1 % Normal 1-4 [facility] Comment on above: Performed By: #### T SH, CDP, BMP, LIVP #### [address] [place] [phone] Cage Unloader: Abeba Parra MD #### GLYHGB, LIPR #### [phone] Cage Unloader: Chapin Bellamy MD Erythrocyte distribution width (RBC) [Ratio] 13.0 % Normal 11.8-14.4 [facility] Comment on above: Performed By: #### T SH, CDP, BMP, LIVP #### [address] [place] [phone] Cage Unloader: Abeba Parra MD #### GLYHGB, LIPR #### [address] [phone] Cage Unloader: Chapin Bellamy MD Hematocrit (Bld) [Volume fraction] 43.3 % Normal 36.3-47.1 [facility] Comment on above: Performed By: #### T SH, CDP, BMP, LIVP #### [address] [place] [address] Cage Unloader: Abeba Parra MD #### GLYHGB, LIPR #### [address] [phone] Cage Unloader: Chapin Bellamy MD Hemoglobin (Bld) [Mass/Vol] 14.2 g/dL Normal 11.9-15.1 [facility] Comment on above: Performed By: #### T SH, CDP, BMP, LIVP #### [facility] [address] [place], [place] 1066683 Cage Unloader: Abeba Parra MD #### GLYHGB, LIPR #### [address] [phone] Cage Unloader: Chapin Bellamy MD Immature granulocytes/100 WBC (Bld) 0 % Normal 0 [facility] Comment on above: Performed By: #### T SH, CDP, BMP, LIVP #### [facility] [address] [place] [phone] Cage Unloader: Abeba Parra MD #### GLYHGB, LIPR #### [address] [phone] Cage Unloader: Chapin Bellamy MD Lymphocytes (Bld) [#/Vol] 3.22 10*3/uL Normal 1.10-3.70 [facility] Comment on above: Performed By: #### T SH, CDP, BMP, LIVP #### [facility] [address] [place] [phone] Cage Unloader: Abeba Parra MD #### GLYHGB, LIPR #### [address] [phone] Cage Unloader: Chapin Bellamy MD Lymphocytes/100 WBC (Bld) 30 % Normal 24-43 [facility] Comment on above: Performed By: #### T SH, CDP, BMP, LIVP #### [facility] [address] [place] [address] [place]. [place], [place] [phone] Cage Unloader: Abeba Parra MD #### GLYHGB, LIPR #### [address] [phone] Cage Unloader: Chapin Bellamy MD MCH (RBC) [Entitic mass] 30.2 pg Normal 25.2-33.5 [facility] Comment on above: Performed By: #### T SH, CDP, BMP, LIVP #### [address] [place] [address] Cage Unloader: Abeba Parra MD #### GLYHGB, LIPR #### [address] [phone] Cage Unloader: Chapin Bellamy MD MCHC (RBC) [Mass/Vol] 32.8 g/dL Normal 28.4-34.8 [facility] Comment on above: Performed By: #### T SH, CDP, BMP, LIVP #### [address] [place] [phone] Cage Unloader: Abeba Parra MD #### GLYHGB, LIPR #### [address] [phone] Cage Unloader: Chapin Bellamy MD MCV (RBC) [Entitic vol] 92.1 fL Normal 82.6-102.9 [facility] Comment on above: Performed By: #### T SH, CDP, BMP, LIVP #### [address] [place] [address] Cage Unloader: Abeba Parra MD #### GLYHGB, LIPR #### [address] [id number] Cage Unloader: Chapin Bellamy MD Monocytes (Bld) [#/Vol] 0.50 10*3/uL Normal 0.10-1.20 [facility] Comment on above: Performed By: #### T SH, CDP, BMP, LIVP #### [address] [place] [address] Cage Unloader: Abeba Parra MD #### GLYHGB, LIPR #### [address] [place], [place] [phone] Cage Unloader: Chapin Bellamy MD Monocytes/100 WBC (Bld) 5 % Normal 3-12 [facility] Comment on above: Performed By: #### T SH, CDP, BMP, LIVP #### [facility] [address] [place], [place] 2020383 Cage Unloader: Abeba Parra MD #### GLYHGB, LIPR #### [address] [phone] Cage Unloader: Chapin Bellamy MD Neutrophil (Seg) 63 % Normal 36-65 [facility] Comment on above: Performed By: #### T SH, CDP, BMP, LIVP #### [address] [place] [address] Cage Unloader: Abeba Parra MD #### GLYHGB, LIPR #### [address] [phone] Cage Unloader: Chapin Bellamy MD NRBC Automated 0.0 per 100 WBC Normal 0.0 [facility] Comment on above: Performed By: #### T SH, CDP, BMP, LIVP #### [address] [place] [address] Cage Unloader: Abeba Parra MD #### GLYHGB, LIPR #### [address] [phone] Cage Unloader: Chapin Bellamy MD Platelet mean volume (Bld) [Entitic vol] 11.0 fL Normal 8.1-13.5 [facility] Comment on above: Performed By: #### T SH, CDP, BMP, LIVP #### [facility] [address] [place] [address] [place] [address] Cage Unloader: Abeba Parra MD #### GLYHGB, LIPR #### [address] [phone] Cage Unloader: Chapin Bellamy MD Platelets (Bld) [#/Vol] 264 10*3/uL Normal 138-453 [facility] Comment on above: Performed By: #### T SH, CDP, BMP, LIVP #### [facility] [address] [place] [address] [place], [place] [phone] Cage Unloader: Abeba Parra MD #### GLYHGB, LIPR #### [address] [place], [place] 23469[address] Cage Unloader: Chapin Bellamy MD RBC (Bld) [#/Vol] 4.70 10*6/uL Normal 3.95-5.11 [facility] Comment on above: Performed By: #### T SH, CDP, BMP, LIVP #### [address] [place] [phone] Cage Unloader: Abeba Parra MD #### GIOVANNI, LIPR #### [address] [address] Cage Unloader: Chapin Bellamy MD WBC (Bld) [#/Vol] 10.8 10*3/uL Normal 3.5-11.3 [facility] Comment on above: Performed By: #### T SH, CDP, BMP, LIVP #### [address] [place] [phone] Cage Unloader: Abeba Parra MD #### GLYHGB, LIPR #### [address] [place] [address] Cage Unloader: Chapin Bellamy MD Hepatic Function Panelon Albumin [Mass/Vol] 4.2 g/dL 3.5 - 5.2 g/dL [facility] Albumin/Globulin [Mass ratio] 1.3 {ratio} 1.0 - 2.5 [facility] ALP [Catalytic activity/Vol] 80 U/L 35 - 104 U/L [facility] ALT [Catalytic activity/Vol] 23 U/L 5 - 33 U/L [facility] AST [Catalytic activity/Vol] 22 U/L NINF - 32 U/L [facility] Bilirubin [Mass/Vol] 0.5 mg/dL 0.3 - 1.2 mg/dL [facility] Bilirubin.direct [Mass/Vol] mg/dL NINF - 0.3 mg/dL [facility] Bilirubin.indirect [Mass/Vol] Can not be calculated 0.0 - 1.0 mg/dL [facility] Protein [Mass/Vol] 7.4 g/dL 6.4 - 8.3 g/dL [facility] Lipid Panelon 11-04-2022 Cholesterol [Mass/Vol] 130 mg/dL NINF - 200 mg/dL [facility] Comment on above: Cholesterol Guidelines: <200 Desirable 200-240 Borderline >240 Undesirable Cholesterol in HDL [Mass/Vol] 61 mg/dL 40 - PINF mg/dL [facility] Comment on above: HDL Guidelines: <40 Undesirable 40-59 Borderline >59 Desirable Cholesterol in LDL [Mass/Vol] 56 mg/dL 0 - 130 mg/dL [facility] Comment on above: LDL Guidelines: <100 Desirable 100-129 Near to/above Desirable 130-159 Borderline >159 Undesirable Direct (measured) LDL and calculated LDL are not interchangeable tests. Cholesterol.total/Ch olesterol in HDL [Mass ratio] 2.1 {ratio} NINF - 5 [facility] Triglyceride [Mass/Vol] 64 mg/dL NINF - 150 mg/dL [facility] Comment on above: Triglyceride Guidelines: <150 Desirable 150-199 Borderline 200-499 High >499 Very high Based on AHA Guidelines for fasting triglyceride, January 2012. [facility] Liver Profileon 11-04-2022 Albumin [Mass/Vol] 4.2 g/dL Normal 3.5-5.2 [facility] Comment on above: Performed By: #### T SH, CDP, BMP, LIVP #### [facility] [address] [place] [address] Cage Unloader: Abeba Parra MD #### GLYHGB, LIPR #### [facility] [address] [place], [place] [phone] Cage Unloader: Chapin Bellamy MD Albumin/Glob Ratio 1.3 Normal 1.0-2.5 [facility] Comment on above: Performed By: #### T SH, CDP, BMP, LIVP #### [facility] [address] [place], [place] [phone] Cage Unloader: Abeba Parra MD #### GLYHGB, LIPR #### [address] [place], [place] [phone] Cage Unloader: Chapin Bellamy MD Alkaline Phos 80 U/L Normal 35-104 [facility] Comment on above: Performed By: #### T SH, CDP, BMP, LIVP #### [facility] [address] [place] [address] [address], [place] [phone] Cage Unloader: Abeba Parra MD #### GLYHGB, LIPR #### [address] [place], [place] [phone] Cage Unloader: Chapin Bellamy MD ALT [Catalytic activity/Vol] 23 U/L Normal 5-33 [facility] Comment on above: Performed By: #### T SH, CDP, BMP, LIVP #### [facility] [address] [place] [address] [place], [place] [phone] Cage Unloader: Abeba Parra MD #### GLYHGB, LIPR #### [facility] [address] [place], [place] [phone] Cage Unloader: Chapin Bellamy MD AST [Catalytic activity/Vol] 22 U/L Normal <32 [facility] Comment on above: Performed By: #### T SH, CDP, BMP, LIVP #### [facility] [address] [place], [place] [phone] Cage Unloader: Abeba Parra MD #### GLYHGB, LIPR #### [facility] [address] [place] [address] Cage Unloader: Chapin Bellamy MD Bilirubin [Mass/Vol] 0.5 mg/dL Normal 0.3-1.2 [facility] Comment on above: Performed By: #### T SH, CDP, BMP, LIVP #### [facility] [address] [place] [address] [place], [place] [phone] Cage Unloader: Abeba Parra MD #### GLYHGB, LIPR #### [address] [place] [address] Cage Unloader: Chapin Bellamy MD Bilirubin, Indirect Can not be calculated Normal 0.0-1 .0 [facility] Comment on above: Performed By: #### T SH, CDP, BMP, LIVP #### [address] [place] [id number] Cage Unloader: Abeba Parra MD #### GLYHGB, LIPR #### [place] [place], [place] [phone] Cage Unloader: Chapin Bellamy MD Bilirubin.indirect [Mass/Vol] mg/dL Normal <0.3 [facility] Comment on above: Performed By: #### T SH, CDP, BMP, LIVP #### [address] [place] [id number] Cage Unloader: Abeba Parra MD #### GLYHGB, LIPR #### [place] [address] [place], [place] [phone] Cage Unloader: Chapin Bellamy MD Protein [Mass/Vol] 7.4 g/dL Normal 6.4-8.3 [facility] Comment on above: Performed By: #### T SH, CDP, BMP, LIVP #### [address] [place] [address] Cage Unloader: Abeba Parra MD #### GLYHGB, LIPR #### [facility] [address] [place] [address] Cage Unloader: Chapin Bellamy MD No Panel Informationon 11-04 [facility] TSHon 11-04-2022 TSH Qn 1.57 m[IU]/L [facility] Thyroid Stim. Horm.on 2022 Thyroid Stim. Horm. 1.57 uIU/mL Normal 0.30-5.00 [facility] Comment on above: Performed By: #### T SH, CDP, BMP, LIVP #### [facility] [address] [place] [address] Cage Unloader: Abeba Parra MD #### GLYHGTanya, LIPR #### [facility] [address] [place] [address] Cage Unloader: Chapin Bellamy MD [place] HEPATOBILIARY SCAN W [...] by: ABEBA APODACA Date: 2020-01-30 09:35 Normal [facility] US SINGLE QUAD RT UPPERon US SINGLE [...] by: ABEBA APODACA Date: 2020-01-22 11:02 Normal [facility] Encounters Encounter Date Encounter Type Care Provider Facility Start: 04-24-2023 End: 04-24-2023 ambulatory RICHARD DAI Not Available Start: 03-29-2023 End: 03-29-2023 ambulatory NIDA GREY Not Available Start: 02-22-2023 End: 02-22-2023 ambulatory NIDA MATILDA Not Available Start: 11-04-2022 End: 11-05-2022 ambulatory RICHARD DAI [facility] Start: 11-04-2022 End: 11-05-2022 Encounter for general adult medical examination without abnormal findings [facility] Start: 11-04-2022 End: 11-04-2022 Subsequent hospital visit by physician Richard Dai MD Work Phone: [facility] Start: 01-30-2020 End: 01-31-2020 Patient encounter procedure [facility] Facility:[facility] Start: 01-22-2020 End: 01-23-2020 Patient encounter procedure [facility] Facility:[facility] Procedures Date Procedure Procedure Detail Performing Clinician Start: 11-04-2022 Basic metabolic pane l calcium total Richard Dai MD Work Phone: Start: 11-04-2022 Lipid panel Richard Dai MD Work Phone: Plan of Treatment Date Care Activity Detail Author Start: 11-05-2031 DTaP/Tdap/Td vaccine (8 - Td or Tdap) DTaP/Tdap/Td vaccine (8 - Td or Tdap) [facility] Start: 11-08-2022 Influenza vaccination Flu vaccine (# 1) [facility] Start: 2019 Screening for malign ant neoplasm of cervix Pap smear [facility] Start: 02-10-2016 Hepatitis C screening Hepatitis C sc reen [facility] Start: 2014 Screening for Chlamy zulema trachomatis Chlamydia/GC screen [facility] Start: 2013 HIV screening HIV screen [facility] Start: 2010 Depression Screen Depression Screen [facility] Start: 2009 HPV vaccine (1 - 2-d ose series) HPV vaccine (1 - 2-dose series) [facility] Start: 1999 Varicella vaccine (1 of 2 - 2-dose childhood series) Varicella vaccine (1 of 2 - 2-dose childhood series) [facility] Start: 1998 COVID-19 Vaccine (#1) COVID-19 Vacci ne (#1) [facility] End: 11-04-2022 Hemoglobin A1c/Hemoglobin.total in Blood [facility] Work Phone: Comment on above: Once for 1 Occurrenc es starting 11/04/2022 until 11/04/2022 Immunizations Immunization Date Immunization Notes Care Provider Dayami sparks 11-04-2021 tetanus toxoid, redu asnya diphtheria toxoid, and acellular pertussis vaccine, adsorbed Richard Dai MD Work Phone: [facility] Payers Date Payer Category Payer Unknown [id number] 1998 Unknown [id number] 1998 Unknown [id number] [id number] [id number] 1998 Unknown [id number] [id number] 1998 Unknown [id number] 2.16.84 [id number] 1998 Unknown [id number] 1998 Unknown [id number] 1959 Unknown [id number] Social History Date Type Detail Facility Tobacco smoking stat [facility] Tobacco smoking consumption unknown [facility] Start: 2000 Sex Assigned At Not on file [facility] Summary Purpose Family History No Family History Records FoundNo Family History Records FoundNo Family History Records Found Advance Directives No Advanced Directives Records FoundNo Advanced Directives Records FoundNo Advanced Directives Records Found Additional Source Comments INFORMATION SOURCE (unrecogn ized section and content) DATE CREATED AUTHOR 02/04/2020 [facility] DATE CREATED AUTHOR AUTHOR'S ORGANIZ ATION 11/06/2022 [facility] DATE CREATED AUTHOR AUTHOR'S ORGANIZ ATION 04/24/2023 [facility] [employer] Care Teams (unrecognized sec tion and content) 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 [employer] provides no warranty or guarantee of the accuracy or completeness of information in this document.
== END 2023-08-10 12:31 | disposition home or self-care (01) ==
LOC: NOMS 12:31
PROVIDERS: PCP Family Medicine; Visit Provider Obstetrics & Gynecology
DX: Z34.91 Encounter for supervision of normal pregnancy, unspecified, first trimester (principal); Z3A.01 Less than 8 weeks gestation of pregnancy; N92.6 Irregular menstruation, unspecified
CPT/HCPCS: 76817

== ENCOUNTER 2023-08-31 08:30 | Outpatient (OUT) | payer BC, SELFPAY ==
--- OUTSIDE RECORDS SUMMARY | 2023-08-31 08:40 | XMS_ITS | CCD ---
Author Organization [facility] Care Team Providers Care Human Services Program Specialist Name Role Phone HOY ELMER Admitting Unavailable HOY, ELMER Attending Unavailable [...] Amoxicillin Drug Allergy 06-26-2018 Nausea And Vomiting [facility] (1 source) fexofenadine Drug Allergy 03-12-2019 [facility] Medications Current Medications Medication Drug Class(es) Dates Sig (Normalized) Sig (Original) Ethinyl Estradiol / Ferrous fumarate / Norethindrone (1 source) Estrogen Norethin Abad-Eth Estrad-FE 1-20 MG-MCG(24) CAPS Take by mouth 0 Active Problems Problem Classification Problem Date Documented Da te Episodic/Chronic Abdominal pain (4 sources) Unspecified abdominal pain; Translations: [UNSPECIFIED ABDOMINAL PAIN] Onset: 01-30-2020 Episodic Results Test Name Value Interpretation Reference Range Facil ity Hemoglobin A1Con 11-06-2022 Glucose [Mass/Vol] 103 mg/dL Normal [facility] Comment on above: Result Comment: The ADA and AACC recommend providing the estimated average glucose result to permit better patient understanding of their HBA1c result. Performed By: #### T SH, CDP, BMP, LIVP #### [address] [place], [place] [id number] Rig Welder: Abeba Parra MD #### GLYHGB, LIPR #### [address] [address] Rig Welder: Chapin Bellamy MD HbA1c (Bld) [Mass fraction] 5.2 % Normal 4.0-6.0 [facility] Comment on above: Performed By: #### T SH, CDP, BMP, LIVP #### [address] [place], [place] [phone] Rig Welder: Abeba Parra MD #### GLYHGB, LIPR #### [address] [id number] Rig Welder: Chapin Bellamy MD Lipid Profileon 11-05-2022 Cholesterol [Mass/Vol] 130 mg/dL Normal <200 [facility] Comment on above: Result Comment: Cholesterol Guidelines: <200 Desirable 200-240 Borderline >240 Undesirable Performed By: #### T SH, CDP, BMP, LIVP #### [address] [place], [place] [phone] Rig Welder: Abeba Parra MD #### GLYHGB, LIPR #### [address] [address] Rig Welder: Chapin Bellamy MD Cholesterol in HDL [Mass/Vol] 61 mg/dL Normal >40 [facility] Comment on above: Result Comment: HDL Guidelines: <40 Undesirable 40-59 Borderline >59 Desirable Performed By: #### T SH, CDP, BMP, LIVP #### [address] [place], [place] [phone] Rig Welder: Abeba Parra MD #### GLYHGB, LIPR #### [address] [address] [place], [place] [phone] Rig Welder: Chapin Bellamy MD Cholesterol in LDL [Mass/Vol] 56 mg/dL Normal 0-130 [facility] Comment on above: Result Comment: LDL Guidelines: <100 Desirable 100-129 Near to/above Desirable 130-159 Borderline >159 Undesirable Direct (measured) LDL and calculated LDL are not interchangeable tests. Performed By: #### T SH, CDP, BMP, LIVP #### [facility] [address] [place], [place] [phone] Rig Welder: Abeba Parra MD #### GLYHGB, LIPR #### [facility] [address] [place], [place] [phone] Rig Welder: Chapin Bellamy MD Cholesterol.total/Ch olesterol in HDL [Mass ratio] 2.1 {ratio} Normal <5 [facility] Comment on above: Performed By: #### T DESTINI, CDP, BMP, LIVP #### [facility] [address] [place] [address] [place] [address] Rig Welder: Abeba Parra MD #### GLYHGTanya, LIPR #### [facility] [address] [place], [place] [phone] Rig Welder: Chapin Bellamy MD Triglyceride [Mass/Vol] 64 mg/dL Normal <150 [facility] Comment on above: Result Comment: Triglyceride Guidelines: <150 Desirable 150-199 Borderline 200-499 High >499 Very high Based on AHA Guidelines for fasting triglyceride, January 2012. Performed By: #### T DESTINI, JOAN, BMP, LIVP #### [facility] [address] [place] [address] [place] [address] Rig Welder: Abeba Parra MD #### GLYHGB, LIPR #### [facility] [address] [place], [place] [phone] Rig Welder: Chapin Bellamy MD Basic Metabolic Panelon 07-2 Anion gap [Moles/Vol] 11 mmol/L 9 - 17 mmol/L [facility] Calcium [Mass/Vol] 9.7 mg/dL 8.6 - 10. 4 mg/dL [facility] Chloride [Moles/Vol] 107 mmol/L 98 - 107 mmol/L [facility] CO2 [Moles/Vol] 22 mmol/L 20 - 31 mmol/L [facility] Creatinine [Mass/Vol] 0.6 mg/dL 0.5 - 0.9 mg/dL [facility] GFR/1.73 sq M.predicted MDRD (S/P/Bld) [Vol rate/Area] - PINF [facility] Comment on above: These results are not [...] [Mass/Vol] 85 mg/dL 70 - 99 mg/dL [facility] Interpretation and review of laboratory results Abnormal [facility] Potassium [Moles/Vol] 3.9 mmol/L 3.7 - 5.3 mmol/L [facility] Sodium [Moles/Vol] 140 mmol/L 135 - 144 mmol/L [facility] Urea nitrogen [Mass/Vol] 18 mg/dL 6 - 20 mg/dL [facility] Urea nitrogen/Creatinine [Mass ratio] 30 mg/mg High 9 - 20 [facility] Basic Metabolic Profon 11-04 Anion gap [Moles/Vol] 11 mmol/L Normal -17 [facility] Comment on above: Performed By: #### T SH, CDP, BMP, LIVP #### [facility] [address] [place] [address] Rig Welder: Abeba Parra MD #### GLYHGB, LIPR #### [facility] [address] [place] [address] Rig Welder: Chapin Bellamy MD BUN/CRE Ratio 30 High 9-20 [facility] Comment on above: Performed By: #### T SH, CDP, BMP, LIVP #### [facility] [address] [place], [place] [phone] Rig Welder: Abeba Parra MD #### GLYHGB, LIPR #### [address] [phone] Rig Welder: Chapin Bellamy MD Calcium [Mass/Vol] 9.7 mg/dL Normal 8.6-10.4 [facility] Comment on above: Performed By: #### T SH, CDP, BMP, LIVP #### [facility] [address] [place] [phone] Rig Welder: Abeba Parra MD #### GLYHGB, LIPR #### [address] [phone] Rig Welder: Chapin Bellamy MD Chloride [Moles/Vol] 107 mmol/L Normal 98-107 [facility] Comment on above: Performed By: #### T SH, CDP, BMP, LIVP #### [address] [place] [phone] Rig Welder: Abeba Parra MD #### GLYHGB, LIPR #### [address] [phone] Rig Welder: Chapin Bellamy MD CO2 [Moles/Vol] 22 mmol/L Normal 20-31 [facility] Comment on above: Performed By: #### T SH, CDP, BMP, LIVP #### [facility] [address] [place], [place] [phone] Rig Welder: Abeba Parra MD #### GLYHGB, LIPR #### [address] [address] Rig Welder: Chapin Bellamy MD Creatinine [Mass/Vol] 0.6 mg/dL Normal 0.5-0.9 [facility] Comment on above: Performed By: #### T SH, CDP, BMP, LIVP #### [facility] [address] [place] [address] Rig Welder: Abeba Parra MD #### GLYHGB, LIPR #### [address] [place], [place] [phone] Rig Welder: Chapin Bellamy MD GFR/1.73 sq M.predicted among non-blacks MDRD (S/P/Bld) [Vol rate/Area] mL/min/{1.73_m2} Normal >60 [facility] Comment on above: Result Comment: These [...] #### T SH, CDP, BMP, LIVP #### [facility] [address] [place] [address] [place] [address] Rig Welder: Abeba Parra MD #### GLYHGB, LIPR #### [address] [place], [place] [phone] Rig Welder: Chapin Bellamy MD Glucose [Mass/Vol] 85 mg/dL Normal 70-99 [facility] Comment on above: Performed By: #### T SH, CDP, BMP, LIVP #### [facility] [address] [place] [address] [place] [address] Rig Welder: Abeba Parra MD #### GLYHGB, LIPR #### [address] [place], [place] [phone] Rig Welder: Chapin Bellamy MD Potassium [Moles/Vol] 3.9 mmol/L Normal 3.7-5.3 [facility] Comment on above: Performed By: #### T SH, CDP, BMP, LIVP #### [facility] [address] [place] [address] Rig Welder: Abeba Parra MD #### GLYHGB, LIPR #### [address] [phone] Rig Welder: Chapin Bellamy MD Sodium [Moles/Vol] 140 mmol/L Normal 135-144 [facility] Comment on above: Performed By: #### T SH, CDP, BMP, LIVP #### [facility] [address] [place] [address] Rig Welder: Abeba Parra MD #### GLYHGB, LIPR #### [address] [address] Rig Welder: Chapin Bellamy MD Urea nitrogen [Mass/Vol] 18 mg/dL Normal 6-20 [facility] Comment on above: Performed By: #### T SH, CDP, BMP, LIVP #### [facility] [address] [place] [address] Rig Welder: Abeba Parra MD #### GLYHGB, LIPR #### [address] [address] Rig Welder: Chapin Bellamy MD CBC with Auto Differentialon 11-04-2022 Basophils (Bld) [#/Vol] 0.05 10*3/uL [facility] Basophils/100 WBC (Bld) 1 % 0 - 2 % [facility] Eosinophils (Bld) [#/Vol] 0.06 10*3/uL [facility] Eosinophils/100 WBC (Bld) 1 % 1 - 4 % [facility] Erythrocyte distribution width (RBC) [Ratio] 13.0 % 11.8 - 14.4 % [facility] Hematocrit (Bld) [Volume fraction] 43.3 % 36.3 - 47.1 % [facility] Hemoglobin (Bld) [Mass/Vol] 14.2 g/dL 11.9 - 15.1 g/dL [facility] Immature granulocytes (Bld) [#/Vol] [facility] Immature granulocytes/100 WBC (Bld) 0 % 0 [facility] Lymphocytes/100 WBC (Bld) 30 % 24 - 43 % [facility] Lymphocytes/100 WBC (Bld) 3.22 % [facility] MCH (RBC) [Entitic mass] 30.2 pg 25.2 - 33.5 pg [facility] MCHC (RBC) [Mass/Vol] 32.8 g/dL 28.4 - 34.8 g/dL [facility] MCV (RBC) [Entitic vol] 92.1 fL 82.6 - 102.9 fL [facility] Monocytes/100 WBC (Bld) 5 % 3 - 12 % [facility] Monocytes/100 WBC (Bld) 0.50 % [facility] Neutrophils/100 WBC (Bld) 63 % 36 - 65 % [facility] Nucleated RBC/100 WBC (Bld) [Ratio] 0.0 % 0.0 per 100 WBC [facility] Platelet mean volume (Bld) [Entitic vol] 11.0 fL 8.1 - 13.5 fL [facility] Platelets (Bld) [#/Vol] 264 10*3/uL [facility] RBC (Bld) [#/Vol] 4.70 10*6/uL 3.95 - 5.1 1 m/uL [facility] Segmented neutrophils/100 WBC (Bld) 6.95 % [facility] WBC other (Bld) [#/Vol] 10.8 [facility] CBC with Diffon 11-04-2022 Abs. Basophil 0.05 k/uL Normal 0.00-0.20 [facility] Comment on above: Performed By: #### T SH, CDP, BMP, LIVP #### [facility] [address] [place] [address] Rig Welder: Abeba Parra MD #### GLYHGB, LIPR #### [place] [phone] Rig Welder: Chapin Bellamy MD Abs.Imm.Granulocyte <0.03 Normal 0.00-0.30 [facility] Comment on above: Performed By: #### T SH, CDP, BMP, LIVP #### [address] [place] [phone] Rig Welder: Abeba Parra MD #### GLYHGB, LIPR #### [place] [phone] Rig Welder: Chapin Bellamy MD Abs.Neutrophil (Seg) 6.95 k/uL Normal 1.50-8.10 [facility] Comment on above: Performed By: #### T SH, CDP, BMP, LIVP #### [address] [place] [phone] Rig Welder: Abeba Parra MD #### GLYHGB, LIPR #### [place] [address] Rig Welder: Chapin Bellamy MD Basophils/100 WBC (Bld) 1 % Normal 0-2 [facility] Comment on above: Performed By: #### T SH, CDP, BMP, LIVP #### [facility] [address] [place] [address] [place] [phone] Rig Welder: Abeba Parra MD #### GLYHGB, LIPR #### [place] [address] Rig Welder: Chapin Bellamy MD Eosinophils (Bld) [#/Vol] 0.06 10*3/uL Normal 0.00-0.44 [facility] Comment on above: Performed By: #### T SH, CDP, BMP, LIVP #### [facility] [address] [place], [place] [phone] Rig Welder: Abeba Parra MD #### GLYHGB, LIPR #### [address] [place], [place] [phone] Rig Welder: Chapin Bellamy MD Eosinophils/100 WBC (Bld) 1 % Normal 1-4 [facility] Comment on above: Performed By: #### T SH, CDP, BMP, LIVP #### [address] [place] [address] Rig Welder: Abeba Parra MD #### GLYHGB, LIPR #### [address] [phone] Rig Welder: Chapin Bellamy MD Erythrocyte distribution width (RBC) [Ratio] 13.0 % Normal 11.8-14.4 [facility] Comment on above: Performed By: #### T SH, CDP, BMP, LIVP #### [address] [place] [phone] Rig Welder: Abeba Parra MD #### GLYHGB, LIPR #### [address] [phone] Rig Welder: Chapin Bellamy MD Hematocrit (Bld) [Volume fraction] 43.3 % Normal 36.3-47.1 [facility] Comment on above: Performed By: #### T SH, CDP, BMP, LIVP #### [address] [place], [place] 1759183 Rig Welder: Abeba Parra MD #### GLYHGB, LIPR #### [address] [phone] Rig Welder: Chapin Bellamy MD Hemoglobin (Bld) [Mass/Vol] 14.2 g/dL Normal 11.9-15.1 [facility] Comment on above: Performed By: #### T SH, CDP, BMP, LIVP #### [facility] [address] [place], [place] [phone] Rig Welder: Abeba Parra MD #### GLYHGB, LIPR #### [address] [place], [place] [phone] Rig Welder: Chapin Bellamy MD Immature granulocytes/100 WBC (Bld) 0 % Normal 0 [facility] Comment on above: Performed By: #### T SH, CDP, BMP, LIVP #### [facility] [address] [place], [place] [phone] Rig Welder: Abeba Parra MD #### GLYHGB, LIPR #### [address] [phone] Rig Welder: Chapin Bellamy MD Lymphocytes (Bld) [#/Vol] 3.22 10*3/uL Normal 1.10-3.70 [facility] Comment on above: Performed By: #### T SH, CDP, BMP, LIVP #### [facility] [address] [place] [phone] Rig Welder: Abeba Parra MD #### GLYHGB, LIPR #### [address] [address] Rig Welder: Chapin Bellamy MD Lymphocytes/100 WBC (Bld) 30 % Normal 24-43 [facility] Comment on above: Performed By: #### T SH, CDP, BMP, LIVP #### [facility] [address] [place], [place] [phone] Rig Welder: Abeba Parra MD #### GLYHGB, LIPR #### [address] [phone] Rig Welder: Chapin Bellamy MD MCH (RBC) [Entitic mass] 30.2 pg Normal 25.2-33.5 [facility] Comment on above: Performed By: #### T SH, CDP, BMP, LIVP #### [address] [place] [phone] Rig Welder: Abeba Parra MD #### GLYHGB, LIPR #### [address] [phone] Rig Welder: Chapin Bellamy MD MCHC (RBC) [Mass/Vol] 32.8 g/dL Normal 28.4-34.8 [facility] Comment on above: Performed By: #### T SH, CDP, BMP, LIVP #### [address] [place] [phone] Rig Welder: Abeba Parra MD #### GLYHGB, LIPR #### [place] [address] Rig Welder: Chapin Bellamy MD MCV (RBC) [Entitic vol] 92.1 fL Normal 82.6-102.9 [facility] Comment on above: Performed By: #### T SH, CDP, BMP, LIVP #### [address] [place] [phone] Rig Welder: Abeba Parra MD #### GLYHGB, LIPR #### [place] [address] Rig Welder: Chapin Bellamy MD Monocytes (Bld) [#/Vol] 0.50 10*3/uL Normal 0.10-1.20 [facility] Comment on above: Performed By: #### T SH, CDP, BMP, LIVP #### [facility] [address] [place] [address] Dr. [place] [phone] Rig Welder: Abeba Parra MD #### GLYHGB, LIPR #### [place] [phone] Rig Welder: Chapin Bellamy MD Monocytes/100 WBC (Bld) 5 % Normal 3-12 [facility] Comment on above: Performed By: #### T SH, CDP, BMP, LIVP #### [facility] [address] [place] [address] [place] [address] Rig Welder: Abeba Parra MD #### GLYHGB, LIPR #### [address] [phone] Rig Welder: Chapin Bellamy MD Neutrophil (Seg) 63 % Normal 36-65 [facility] Comment on above: Performed By: #### T SH, CDP, BMP, LIVP #### [facility] [address] [place] [address] [place] [address] Rig Welder: Abeba Parra MD #### DAMIANB, LIPR #### [address] [phone] Rig Welder: Chapin Bellamy MD NRBC Automated 0.0 per 100 WBC Normal 0.0 [facility] Comment on above: Performed By: #### T SH, CDP, BMP, LIVP #### [address] [place] [address] Rig Welder: Abeba Parra MD #### VERONICAHGB, LIPR #### [address] [phone] Rig Welder: Chapin Bellamy MD Platelet mean volume (Bld) [Entitic vol] 11.0 fL Normal 8.1-13.5 [facility] Comment on above: Performed By: #### T SH, CDP, BMP, LIVP #### [facility] [address] [place] [address] [place] [address] Rig Welder: Abeba Parra MD #### GLYHGB, LIPR #### [address] [phone] Rig Welder: Chapin Bellamy MD Platelets (Bld) [#/Vol] 264 10*3/uL Normal 138-453 [facility] Comment on above: Performed By: #### T SH, CDP, BMP, LIVP #### [facility] [address] [place] [address] [address]. [place], [place] [phone] Rig Welder: Abeba Parra MD #### GLYHGB, LIPR #### [address] [place], [place] [phone] Rig Welder: Chapin Bellamy MD RBC (Bld) [#/Vol] 4.70 10*6/uL Normal 3.95-5.11 [facility] Comment on above: Performed By: #### T SH, CDP, BMP, LIVP #### [address] [place], [place] [phone] Rig Welder: Abeba Parra MD #### GIOVANNI, LIPR #### [address] [phone] Rig Welder: Chapin Bellamy MD WBC (Bld) [#/Vol] 10.8 10*3/uL Normal 3.5-11.3 [facility] Comment on above: Performed By: #### T SH, CDP, BMP, LIVP #### [address] [place] [phone] Rig Welder: Abeba Parra MD #### GLYHGB, LIPR #### [address] [place], [place] [phone] Rig Welder: Chapin Bellamy MD Hepatic Function Panelon Albumin [Mass/Vol] 4.2 g/dL 3.5 - 5.2 g/dL [facility] Albumin/Globulin [Mass ratio] 1.3 {ratio} 1.0 - 2.5 [facility] ALP [Catalytic activity/Vol] 80 U/L 35 - 104 U/L [facility] ALT [Catalytic activity/Vol] 23 U/L 5 - 33 U/L [facility] AST [Catalytic activity/Vol] 22 U/L NINF - 32 U/L [facility] Bilirubin [Mass/Vol] 0.5 mg/dL 0.3 - 1.2 mg/dL [facility] Bilirubin.direct [Mass/Vol] mg/dL NINF - 0.3 mg/dL [facility] Bilirubin.indirect [Mass/Vol] Can not be calculated 0.0 - 1.0 mg/dL [facility] Protein [Mass/Vol] 7.4 g/dL 6.4 - 8.3 g/dL [facility] Lipid Panelon 11-04-2022 Cholesterol [Mass/Vol] 130 mg/dL NINF - 200 mg/dL [facility] Comment on above: Cholesterol Guidelines: <200 Desirable 200-240 Borderline >240 Undesirable Cholesterol in HDL [Mass/Vol] 61 mg/dL 40 - PINF mg/dL [facility] Comment on above: HDL Guidelines: <40 Undesirable 40-59 Borderline >59 Desirable Cholesterol in LDL [Mass/Vol] 56 mg/dL 0 - 130 mg/dL [facility] Comment on above: LDL Guidelines: <100 Desirable 100-129 Near to/above Desirable 130-159 Borderline >159 Undesirable Direct (measured) LDL and calculated LDL are not interchangeable tests. Cholesterol.total/Ch olesterol in HDL [Mass ratio] 2.1 {ratio} NINF - 5 [facility] Triglyceride [Mass/Vol] 64 mg/dL NINF - 150 mg/dL [facility] Comment on above: Triglyceride Guidelines: <150 Desirable 150-199 Borderline 200-499 High >499 Very high Based on AHA Guidelines for fasting triglyceride, January 2012. [facility] Liver Profileon 11-04-2022 Albumin [Mass/Vol] 4.2 g/dL Normal 3.5-5.2 [facility] Comment on above: Performed By: #### T SH, CDP, BMP, LIVP #### [facility] [address] [place], [place] 2016283 Rig Welder: Abeba Parra MD #### GLYHGB, LIPR #### [address] [place], [place] [phone] Rig Welder: Chapin Bellamy MD Albumin/Glob Ratio 1.3 Normal 1.0-2.5 [facility] Comment on above: Performed By: #### T SH, CDP, BMP, LIVP #### [facility] [address] [place], [place] [phone] Rig Welder: Abeba Parra MD #### GLYHGB, LIPR #### [address] [place], [place] [phone] Rig Welder: Chapin Bellamy MD Alkaline Phos 80 U/L Normal 35-104 [facility] Comment on above: Performed By: #### T SH, CDP, BMP, LIVP #### [address] [place] [phone] Rig Welder: Abeba Parra MD #### GLYHGB, LIPR #### [address] [place], [place] [phone] Rig Welder: Chapin Bellamy MD ALT [Catalytic activity/Vol] 23 U/L Normal 5-33 [facility] Comment on above: Performed By: #### T SH, CDP, BMP, LIVP #### [facility] [address] [place] [address] Dr. [place] [phone] Rig Welder: Aebba Parra MD #### GLYHGB, LIPR #### [address] [place], [place] [phone] Rig Welder: Chapin Bellamy MD AST [Catalytic activity/Vol] 22 U/L Normal <32 [facility] Comment on above: Performed By: #### T SH, CDP, BMP, LIVP #### [facility] [address] [place] [address] [place] [address] Rig Welder: Abeba Parra MD #### GLYHGB, LIPR #### [place] [place] [address] Rig Welder: Chapin Bellamy MD Bilirubin [Mass/Vol] 0.5 mg/dL Normal 0.3-1.2 [facility] Comment on above: Performed By: #### T SH, CDP, BMP, LIVP #### [facility] [address] [place] [address] [address] [place], [place] [phone] Rig Welder: Abeba Parra MD #### GLYHGB, LIPR #### [place] [place] [address] Rig Welder: Chapin Bellamy MD Bilirubin, Indirect Can not be calculated Normal 0.0-1 .0 [facility] Comment on above: Performed By: #### T SH, CDP, BMP, LIVP #### [address] [place] [phone] Rig Welder: Abeba Parra MD #### GLYHGB, LIPR #### [address] [phone] Rig Welder: Chapin Bellamy MD Bilirubin.indirect [Mass/Vol] mg/dL Normal <0.3 [facility] Comment on above: Performed By: #### T SH, CDP, BMP, LIVP #### [address] [place] [phone] Rig Welder: Abeba Parra MD #### GLYHGB, LIPR #### [place] [address] [place], [place] [phone] Rig Welder: Chapin Bellamy MD Protein [Mass/Vol] 7.4 g/dL Normal 6.4-8.3 [facility] Comment on above: Performed By: #### T SH, CDP, BMP, LIVP #### [address] [place] [address] Rig Welder: Abeba Parra MD #### GLYHGTanya, LIPR #### [employer] [address] [place] [address] Rig Welder: Chapin Bellamy MD No Panel Informationon 11-04 [facility] TSHon 11-04-2022 TSH Qn 1.57 m[IU]/L [facility] Thyroid Stim. Horm.on 2022 Thyroid Stim. Horm. 1.57 uIU/mL Normal 0.30-5.00 [facility] Comment on above: Performed By: #### T SH, CDP, BMP, LIVP #### [facility] [address] [place] [address] Rig Welder: Abeba Parra MD #### GLYHGTanya, LIPR #### [employer] [address] [place] [address] Rig Welder: Chapin Bellamy MD [place] HEPATOBILIARY SCAN W [...] by: ABEBA APODACA Date: 2020-01-30 09:35 Normal [facility] US SINGLE QUAD RT UPPERon US SINGLE [...] by: ABEBA APODACA Date: 2020-01-22 11:02 Normal [facility] Encounters Encounter Date Encounter Type Care Provider Facility Start: 08-10-2023 End: 08-10-2023 ambulatory RICHARD DAI Not Available Start: 04-24-2023 End: 04-24-2023 ambulatory RICHARD DAI Not Available Start: 03-29-2023 End: 03-29-2023 ambulatory NIDA MATILDA Not Available Start: 02-22-2023 End: 02-22-2023 ambulatory NIDA MATILDA Not Available Start: 11-04-2022 End: 11-05-2022 ambulatory [facility] Start: 11-04-2022 End: 11-05-2022 Encounter for general adult medical examination without abnormal findings [facility] Start: 11-04-2022 End: 11-04-2022 Subsequent hospital visit by physician Richard Dai MD Work Phone: [facility] Start: 01-30-2020 End: 01-31-2020 Patient encounter [...] DTaP/Tdap/Td vaccine (8 - Td or Tdap) [facility] Start: 11-08-2022 Influenza vaccination Flu vaccine (# 1) [facility] Start: 2019 Screening for malign ant neoplasm of cervix Pap smear [facility] Start: 02-10-2016 Hepatitis C screening Hepatitis C sc reen [facility] Start: 2014 Screening for Chlamy zulema trachomatis Chlamydia/GC screen [facility] Start: 2013 HIV screening HIV screen [facility] Start: 2010 Depression Screen Depression Screen [facility] Start: 2009 HPV vaccine (1 - 2-d ose series) HPV vaccine (1 - 2-dose series) [facility] Start: 1999 Varicella vaccine (1 of 2 - 2-dose childhood series) Varicella vaccine (1 of 2 - 2-dose childhood series) [facility] Start: 1998 COVID-19 Vaccine (#1) COVID-19 Vacci ne (#1) [facility] End: 11-04-2022 Hemoglobin A1c/Hemoglobin.total in Blood [facility] Work Phone: Comment on above: Once for 1 Occurrenc es starting 11/04/2022 until 11/04/2022 Immunizations Immunization Date Immunization Notes Care Provider Fa cility 11-04-2021 tetanus toxoid, redu sanya diphtheria toxoid, and acellular pertussis vaccine, adsorbed Richard Dai MD Work Phone: [facility] Payers Date Payer Category Payer Unknown [id number] 1998 Unknown [id number] 2.16.84 [id number] 1998 Unknown [id number] 2.16.84 [id number] 1998 Unknown [id number] 2.16.8 [id number] 1998 Unknown [id number] 2.16.84 [id number] 1998 Unknown [id number] 2.16.84 [id number] 1998 Unknown [id number] 2.16.840 .[id number] 1998 Unknown [id number] 2.16.840 .[id number] 1959 Unknown [id number] Social History Date Type Detail Facility Tobacco smoking stat [facility] Tobacco smoking consumption unknown [facility] [employer] [facility] Start: 1998 Sex Assigned At Not on file B ON [employer] Summary Purpose Family History No Family History Records FoundNo Family History Records FoundNo Family History Records Found Advance Directives No Advanced Directives Records FoundNo Advanced Directives Records FoundNo Advanced Directives Records Found Additional Source Comments INFORMATION SOURCE (unrecogn ized section and content) DATE CREATED AUTHOR 02/04/2020 [facility] DATE CREATED AUTHOR AUTHOR'S ORGANIZ ATION [facility] DATE CREATED AUTHOR AUTHOR'S ORGANIZ ATION 08/12/2023 [facility] [employer] Care Teams (unrecognized sec tion and content) 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 [employer] [facility] provides no warranty or guarantee of the accuracy or completeness of information in this document.
[2023-08-31 09:05] LABS: Basophils Percent Auto 0.4 % (0.2-2.0); Eosinophils Percent Auto 0.4 % (0.9-7.0); Hemoglobin 13.7 g/dL (12.0-16.0); Immature Granulocytes Abs Auto 0.04 10^3/uL (0.00-0.03); Immature Granulocytes Pct Auto 0.4 % (0.0-0.5); Lymphocytes Absolute Auto 2.7 10^3/uL (1.2-3.8); Mean Corpuscular HGB Conc 34.3 g/dL (29.9-35.2); Mean Corpuscular Hemoglobin 30.2 pg (26.7-34.0); Mean Corpuscular Volume 88.1 fL (81.0-99.0); Monocytes Absolute Auto 0.3 10^3/uL (0.3-0.8); Monocytes Percent Auto 3.5 % (1.7-12.0); Neutrophils Absolute Auto 6.5 10^3/uL (1.4-6.5); Neutrophils Percent Auto 67.3 % (43.0-75.0); Platelet Count 224 10^3/uL (150-450); Red Blood Count 4.54 10^6/uL (4.20-5.40); Red Cell Distribution Width 12.4 % (11.0-15.0); White Blood Count 9.7 10^3/uL (4.0-11.0)
[2023-08-31 09:50] LABS: Estimated Average Glucose 94 mg/dL; Glycohemoglobin A1C 4.9 % (4.5-6.2)
[2023-09-01 06:10] LABS: HBsAg Screen Negative (Negative); HCV Ab Non Reactive (Non Reactive); HIV Ab/p24 Ag Screen Non Reactive (Non Reactive)
[2023-09-01 07:08] LABS: Rubella Antibodies, IgG 1.01 index (Immune >0.99)
[2023-09-01 11:09] LABS: Rapid Plasma Reagin, Quant Non Reactive titer (NonRea<1:1)
== END 2023-08-31 08:31 | disposition home or self-care (01) ==
LOC: LAB 08:31
PROVIDERS: PCP Family Medicine; Visit Provider Obstetrics & Gynecology
DX: N92.6 Irregular menstruation, unspecified (principal)
CPT/HCPCS: 36415; 83036; 85025; 86592; 86762; 86803; 86850; 86900; 86901; 87086; 87340; 87389

== ENCOUNTER 2023-10-08 08:04 | Emergency (ER) | payer BC, SELFPAY ==
[2023-10-08 08:10] VITALS: BP 135/99; PULSE 92; TEMP 36.6; O2SAT 100; BMI 34.9
--- OUTSIDE RECORDS SUMMARY | 2023-10-08 08:14 | XMS_ITS ---
Patient Summarization (C-CDA 2.1 CCD) Created on: October 08, 2023 NAFISA NUÑEZ : 2000 Sex: Female Author Organization Sample organization Care Team Providers Care Cheese Weigher Name Role Phone HOY, ELMER Admitting Unavailable HOY, ELMER Attending Unavailable HOY, ELMER Primary Care Unavailable HOY, ELMER Consulting Unavailable WEST, ABEBA V Consulting Unavailable HOY, ELMER Admitting Unavailable HOY, ELMER Attending Unavailable HOY, ELMER Primary Care Unavailable HOY, ELMER Consulting Unavailable WEST, ABEBA V Consulting Unavailable Suhas MCDERMOTT, Richard Ayala Primary Care Provider RICHARD DAI Referring Unavailregis e SUHAS, RICHARD AYALA Primary Care UnavailRICHARD Jennings Attending Unavailable MATILDA, NIDA Attending Unavailable MATILDA, NIDA Attending Unavailable MATILDA, NIDA Attending Unavailable Allergies Allergy Classification Reported Allergen(s) Allergy Type Date of Onset Reaction(s) Facility (1 source) Amoxicillin Drug Allergy 06-26-[facility] (1 source) fexofenadine Drug Allergy 03-12-2019 [facility] CounterStorm [facility] Encounters Encounter Date Encounter Type Care Provider Facility Start: 09-11-2023 End: 09-11-2023 ambulatory NIDA MATILDA Not Available Start: 08-10-2023 End: 08-10-2023 ambulatory RICHARD DAI Not Available Start: 04-24-2023 End: 04-24-2023 ambulatory RICHARD DAI Not Available Start: 03-29-2023 End: 03-29-2023 ambulatory NIDA MATILDA Not Available Start: 02-22-2023 End: 02-22-2023 ambulatory NIDA MATILDA Not Available Start: 11-04-2022 End: 11-05-2022 ambulatory RICHARD [facility] Start: 11-04-2022 End: 11-05-2022 Encounter for general adult medical examination without abnormal findings RICHARD Lowry[facility] Start: 11-04-2022 End: 11-04-2022 Subsequent hospital visit by physician Richard Dai MD Work Phone: [facility] Start: 01-30-2020 End: 01-31-2020 Patient encounter procedure ELMER WESLEY Facility:[facility]1 Start: 01-22-2020 End: 01-23-2020 Patient encounter procedure ELMER WESLEY Facility:[facility] Immunizations Immunization Date Immunization Notes Care Provider Fa cility 11-04-2021 tetanus toxoid, redu sanya diphtheria toxoid, and acellular pertussis vaccine, adsorbed Richard aDi MD Work Phone: [facility] Medications Current Medications Medication Drug Class(es) Dates Sig (Normalized) Sig (Original) Ethinyl Estradiol / Ferrous fumarate / Norethindrone (1 source) Estrogen Norethin Abad-Eth Estrad-FE 1-20 MG-MCG(24) CAPS Take by mouth 0 Active Payers Date Payer Category Payer Unknown [id number] 2000 Unknown [id number] [id number] [id number] 2000 Unknown [id number] 2.16.84 [id number] 2000 Unknown [id number] 2.16.8 [id number] 2000 Unknown [id number] 2.16.84 [id number] 1998 Unknown [id number] 2.16.84 [id number] 1998 Unknown [id number] 2.16.84 [id number] 1998 Unknown [id number] 1998 Unknown [id number] 1959 Unknown [id number] Plan of Treatment Date Care Activity Detail Author Start: 11-05-2031 DTaP/Tdap/Td vaccine (8 - Td or Tdap) DTaP/Tdap/Td vaccine (8 - Td or Tdap) [facility] Start: 11-08-2022 Influenza vaccination Flu vaccine (# 1) [facility] Start: 2019 Screening for malign ant neoplasm of cervix Pap smear [facility] Start: 02-10-2016 Hepatitis C screening Hepatitis C sc reen [facility] Start: 2014 Screening for Chlamy zulema trachomatis Chlamydia/GC screen [facility] Start: 2013 HIV screening HIV screen [facility] Start: 2010 Depression Screen Depression Screen [facility] Start: 2009 HPV vaccine (1 - 2-d ose series) HPV vaccine (1 - 2-dose series) [facility] Start: 1999 Varicella vaccine (1 of 2 - 2-dose childhood series) Varicella vaccine (1 of 2 - 2-dose childhood series) [facility] Start: 1998 COVID-19 Vaccine (#1) COVID-19 Vacci ne (#1) [facility] End: 11-04-2022 Hemoglobin A1c/Hemoglobin.total in Blood [facility] Work Phone: Comment on above: Once for 1 Occurrenc es starting 11/04/2022 until 11/04/2022 Problems Problem Classification Problem Date Documented Da te Episodic/Chronic Abdominal pain (4 sources) Unspecified abdominal pain; Translations: [UNSPECIFIED ABDOMINAL PAIN] Onset: 01-30-2020 Episodic Procedures Date Procedure Procedure Detail Performing Clinician Start: 11-04-2022 Basic metabolic pane l calcium total Richard Dai MD Work Phone: Start: 11-04-2022 Lipid panel Richard Dai MD Work Phone: Results Test Name Value Interpretation Reference Range Facil ity Hemoglobin A1Con 11-06-2022 Glucose [Mass/Vol] 103 mg/dL Normal [facility] Comment on above: Result Comment: The ADA and AACC recommend providing the estimated average glucose result to permit better patient understanding of their HBA1c result. Performed By: #### T SH, CDP, BMP, LIVP #### [address] [place], [place] [phone] Senior Support Engineer: Abeba Parra MD #### GLYHGB, LIPR #### [address] [address] Senior Support Engineer: Chapin Bellamy MD HbA1c (Bld) [Mass fraction] 5.2 % Normal 4.0-6.0 [facility] Comment on above: Performed By: #### T SH, CDP, BMP, LIVP #### [address] [place] [address] Senior Support Engineer: Abeba Parra MD #### GLYHGB, LIPR #### [address] [address] Senior Support Engineer: Chapin Bellamy MD Lipid Profileon 11-05-2022 Cholesterol [Mass/Vol] 130 mg/dL Normal <200 [facility] Comment on above: Result Comment: Cholesterol Guidelines: <200 Desirable 200-240 Borderline >240 Undesirable Performed By: #### T SH, CDP, BMP, LIVP #### [address] [place], [place] [phone] Senior Support Engineer: Abeba Parra MD #### GLYHGB, LIPR #### [address] [address] Senior Support Engineer: Chapin Bellamy MD Cholesterol in HDL [Mass/Vol] 61 mg/dL Normal >40 [facility] Comment on above: Result Comment: HDL Guidelines: <40 Undesirable 40-59 Borderline >59 Desirable Performed By: #### T SH, CDP, BMP, LIVP #### [address] [place] [address] Senior Support Engineer: Abeba Parra MD #### GLYHGB, LIPR #### [facility] [address] [place] [address] Senior Support Engineer: Chapin Bellamy MD Cholesterol in LDL [Mass/Vol] 56 mg/dL Normal 0-130 [facility] Comment on above: Result Comment: LDL Guidelines: <100 Desirable 100-129 Near to/above Desirable 130-159 Borderline >159 Undesirable Direct (measured) LDL and calculated LDL are not interchangeable tests. Performed By: #### T SH, CDP, BMP, LIVP #### [facility] [address] [place] [address] [place] [address] Senior Support Engineer: Abeba Parra MD #### GLYHGB, LIPR #### [address] [address] Senior Support Engineer: Chapin Bellamy MD Cholesterol.total/Ch olesterol in HDL [Mass ratio] 2.1 {ratio} Normal <5 [facility] Comment on above: Performed By: #### T SH, CDP, BMP, LIVP #### [address] [place], [place] [phone] Senior Support Engineer: Abeba Parra MD #### GLYHGB, LIPR #### [address] [address] Senior Support Engineer: Chapin Bellamy MD Triglyceride [Mass/Vol] 64 mg/dL Normal <150 [facility] Comment on above: Result Comment: Triglyceride Guidelines: <150 Desirable 150-199 Borderline 200-499 High >499 Very high Based on AHA Guidelines for fasting triglyceride, January 2012. Performed By: #### T SH, CDP, BMP, LIVP #### [facility] [address] [place] [address] Senior Support Engineer: Abeba Parra MD #### GLYHGB, LIPR #### [facility] [place] [address] Senior Support Engineer: Chapin Bellamy MD Basic Metabolic Panelon 10-09 Anion gap [Moles/Vol] 11 mmol/L 9 - 17 mmol/L [facility] Calcium [Mass/Vol] 9.7 mg/dL 8.6 - 10. 4 mg/dL [facility] Chloride [Moles/Vol] 107 mmol/L 98 - 107 mmol/L [facility] CO2 [Moles/Vol] 22 mmol/L 20 - 31 mmol/L [facility] Creatinine [Mass/Vol] 0.6 mg/dL 0.5 - 0.9 mg/dL [facility] GFR/1.73 sq M.predicted MDRD (S/P/Bld) [Vol rate/Area] - PINF [facility] Comment on above: These results are not [...] [Mass/Vol] 85 mg/dL 70 - 99 mg/dL [facility] Interpretation and review of laboratory results Abnormal [facility] Potassium [Moles/Vol] 3.9 mmol/L 3.7 - 5.3 mmol/L [facility] Sodium [Moles/Vol] 140 mmol/L 135 - 144 mmol/L [facility] Urea nitrogen [Mass/Vol] 18 mg/dL 6 - 20 mg/dL [facility] Urea nitrogen/Creatinine [Mass ratio] 30 mg/mg High - [facility] Basic Metabolic Profon 11-04 Anion gap [Moles/Vol] 11 mmol/L Normal - [facility] Comment on above: Performed By: #### T SH, CDP, BMP, LIVP #### [facility] [address] [place] [address] Senior Support Engineer: Abeba Parra MD #### GLYHGB, LIPR #### [place] [address] [place] [address] Senior Support Engineer: Chapin Bellamy MD BUN/CRE Ratio 30 High 9-20 [facility] Comment on above: Performed By: #### T SH, CDP, BMP, LIVP #### [facility] [address] [place] [address] [address] [place], [place] [phone] Senior Support Engineer: Abeba Parra MD #### GLYHGB, LIPR #### [address] [address] Senior Support Engineer: Chapin Bellamy MD Calcium [Mass/Vol] 9.7 mg/dL Normal 8.6-10.4 [facility] Comment on above: Performed By: #### T SH, CDP, BMP, LIVP #### [address] [place] [phone] Senior Support Engineer: Abeba Parra MD #### GLYHGB, LIPR #### [address] [phone] Senior Support Engineer: Chapin Bellamy MD Chloride [Moles/Vol] 107 mmol/L Normal 98-107 [facility] Comment on above: Performed By: #### T SH, CDP, BMP, LIVP #### [facility] [address] [place] [address] [address] [phone] Senior Support Engineer: Abeba Parra MD #### GLYHGB, LIPR #### [address] [address] Senior Support Engineer: Chapin Bellamy MD CO2 [Moles/Vol] 22 mmol/L Normal 20-31 [facility] Comment on above: Performed By: #### T SH, CDP, BMP, LIVP #### [facility] [address] [place] [address] [place], [place] [phone] Senior Support Engineer: Abeba Parra MD #### GLYHGB, LIPR #### [address] [place], [place] [phone] Senior Support Engineer: Chapin Bellamy MD Creatinine [Mass/Vol] 0.6 mg/dL Normal 0.5-0.9 [facility] Comment on above: Performed By: #### T SH, CDP, BMP, LIVP #### [facility] [address] [place] [address] [place] [address] Senior Support Engineer: Abeba Parra MD #### GLYHGB, LIPR #### [address] [place] [address] Senior Support Engineer: Chapin Bellamy MD GFR/1.73 sq M.predicted among non-blacks MDRD (S/P/Bld) [Vol rate/Area] mL/min/{1.73_m2} Normal >60 [facility] Comment on above: Result Comment: These [...] #### T SH, CDP, BMP, LIVP #### [address] [place] [address] Senior Support Engineer: Abeba Parra MD #### GLYHGB, LIPR #### [address] [place], [place] [phone] Senior Support Engineer: Chapin Bellamy MD Glucose [Mass/Vol] 85 mg/dL Normal 70-99 [facility] Comment on above: Performed By: #### T SH, CDP, BMP, LIVP #### [address] [place] [address] Senior Support Engineer: Abeba Parra MD #### GLYHGB, LIPR #### [address] [place] [place], [place] [phone] Senior Support Engineer: Chapin Bellamy MD Potassium [Moles/Vol] 3.9 mmol/L Normal 3.7-5.3 [facility] Comment on above: Performed By: #### T SH, CDP, BMP, LIVP #### [facility] [address] [place] [phone] Senior Support Engineer: Abeba Parra MD #### GLYHGB, LIPR #### [address] [phone] Senior Support Engineer: Chapin Bellamy MD Sodium [Moles/Vol] 140 mmol/L Normal 135-144 [facility] Comment on above: Performed By: #### T SH, CDP, BMP, LIVP #### [facility] [address] [place] [address] [place] [phone] Senior Support Engineer: Abeba Parra MD #### GLYHGB, LIPR #### [address] [phone] Senior Support Engineer: Chapin Bellamy MD Urea nitrogen [Mass/Vol] 18 mg/dL Normal 6-20 [facility] Comment on above: Performed By: #### T SH, CDP, BMP, LIVP #### [facility] [address] [place] [address] [place] [address] Senior Support Engineer: Abeba Parra MD #### GLYHGB, LIPR #### [address] [phone] Senior Support Engineer: Chapin Bellamy MD CBC with Auto Differentialon 11-04-2022 Basophils (Bld) [#/Vol] 0.05 10*3/uL [facility] Basophils/100 WBC (Bld) 1 % 0 - 2 % [facility] Eosinophils (Bld) [#/Vol] 0.06 10*3/uL [facility] Eosinophils/100 WBC (Bld) 1 % 1 - 4 % [facility] Erythrocyte distribution width (RBC) [Ratio] 13.0 % 11.8 - 14.4 % [facility] Hematocrit (Bld) [Volume fraction] 43.3 % 36.3 - 47.1 % [facility] Hemoglobin (Bld) [Mass/Vol] 14.2 g/dL 11.9 - 15.1 g/dL [facility] Immature granulocytes (Bld) [#/Vol] [facility] Immature granulocytes/100 WBC (Bld) 0 % 0 [facility] Lymphocytes/100 WBC (Bld) 30 % 24 - 43 % [facility] Lymphocytes/100 WBC (Bld) 3.22 % [facility] MCH (RBC) [Entitic mass] 30.2 pg 25.2 - 33.5 pg [facility] MCHC (RBC) [Mass/Vol] 32.8 g/dL 28.4 - 34.8 g/dL [facility] MCV (RBC) [Entitic vol] 92.1 fL 82.6 - 102.9 fL [facility] Monocytes/100 WBC (Bld) 5 % 3 - 12 % [facility] Monocytes/100 WBC (Bld) 0.50 % [facility] Neutrophils/100 WBC (Bld) 63 % 36 - 65 % [facility] Nucleated RBC/100 WBC (Bld) [Ratio] 0.0 % 0.0 per 100 WBC [facility] Platelet mean volume (Bld) [Entitic vol] 11.0 fL 8.1 - 13.5 fL [facility] Platelets (Bld) [#/Vol] 264 10*3/uL [facility] RBC (Bld) [#/Vol] 4.70 10*6/uL 3.95 - 5.1 1 m/uL [facility] Segmented neutrophils/100 WBC (Bld) 6.95 % [facility] WBC other (Bld) [#/Vol] 10.8 [facility] CBC with Diffon 11-04-2022 Abs. Basophil 0.05 k/uL Normal 0.00-0.20 [facility] Comment on above: Performed By: #### T SH, CDP, BMP, LIVP #### [address] [place] [address] Senior Support Engineer: Abeba Parra MD #### GLYHGB, LIPR #### [address] [address] Senior Support Engineer: Chapin Bellamy MD Abs.Imm.Granulocyte <0.03 Normal 0.00-0.30 [facility] Comment on above: Performed By: #### T SH, CDP, BMP, LIVP #### [address] [place] [address] Senior Support Engineer: Abeba Parra MD #### GLYHGB, LIPR #### [place] [address] Senior Support Engineer: Chapin Bellamy MD Abs.Neutrophil (Seg) 6.95 k/uL Normal 1.50-8.10 [facility] Comment on above: Performed By: #### T SH, CDP, BMP, LIVP #### [address] [place] [place] [address] Senior Support Engineer: Abeba Parra MD #### GLYHGTanya, LIPR #### [place] [address] Senior Support Engineer: Chapin Bellamy MD Basophils/100 WBC (Bld) 1 % Normal 0-2 [facility] Comment on above: Performed By: #### T SH, CDP, BMP, LIVP #### [address] [place] [phone] Senior Support Engineer: Abeba Parra MD #### GLYHGB, LIPR #### [place] [address] Senior Support Engineer: Chapin Bellamy MD Eosinophils (Bld) [#/Vol] 0.06 10*3/uL Normal 0.00-0.44 [facility] Comment on above: Performed By: #### T SH, CDP, BMP, LIVP #### [facility] [address] [place], [place] [phone] Senior Support Engineer: Abeba Parra MD #### GLYHGB, LIPR #### [address] [phone] Senior Support Engineer: Chapin Bellamy MD Eosinophils/100 WBC (Bld) 1 % Normal 1-4 [facility] Comment on above: Performed By: #### T SH, CDP, BMP, LIVP #### [address] [place] [phone] Senior Support Engineer: Abeba Parra MD #### GIOVANNI, LIPR #### [address] [phone] Senior Support Engineer: Chapin Bellamy MD Erythrocyte distribution width (RBC) [Ratio] 13.0 % Normal 11.8-14.4 [facility] Comment on above: Performed By: #### T SH, CDP, BMP, LIVP #### [address] [place] [phone] Senior Support Engineer: Abeba Parra MD #### GLYHGTanya, LIPR #### [address] [phone] Senior Support Engineer: Chapin Bellamy MD Hematocrit (Bld) [Volume fraction] 43.3 % Normal 36.3-47.1 [facility] Comment on above: Performed By: #### T SH, CDP, BMP, LIVP #### [address] [place] [address] Senior Support Engineer: Abeba Parra MD #### GLYHGB, LIPR #### [address] [phone] Senior Support Engineer: Chapin Bellamy MD Hemoglobin (Bld) [Mass/Vol] 14.2 g/dL Normal 11.9-15.1 [facility] Comment on above: Performed By: #### T SH, CDP, BMP, LIVP #### [facility] [address] [place] [address] Dr. [place] [phone] Senior Support Engineer: Abeba Parra MD #### GLYHGB, LIPR #### [address] [address] Senior Support Engineer: Chapin Bellamy MD Immature granulocytes/100 WBC (Bld) 0 % Normal 0 [facility] Comment on above: Performed By: #### T SH, CDP, BMP, LIVP #### [facility] [address] [place] [address] Dr. [place] [phone] Senior Support Engineer: Abeba Parra MD #### GLYHGB, LIPR #### [address] [address] Senior Support Engineer: Chapin Bellamy MD Lymphocytes (Bld) [#/Vol] 3.22 10*3/uL Normal 1.10-3.70 [facility] Comment on above: Performed By: #### T SH, CDP, BMP, LIVP #### [address] [place] [phone] Senior Support Engineer: Abeba Parra MD #### GLYHGB, LIPR #### [address] [phone] Senior Support Engineer: Chapin Bellamy MD Lymphocytes/100 WBC (Bld) 30 % Normal 24-43 [facility] Comment on above: Performed By: #### T SH, CDP, BMP, LIVP #### [facility] [address] [place] [address] Dr. [place] [phone] Senior Support Engineer: Abeba Parra MD #### GLYHGB, LIPR #### [address] [place] [place], [place] [phone] Senior Support Engineer: Chapin Bellamy MD MCH (RBC) [Entitic mass] 30.2 pg Normal 25.2-33.5 [facility] Comment on above: Performed By: #### T SH, CDP, BMP, LIVP #### [address] [place] [address] Senior Support Engineer: Abeba Parra MD #### GLYHGB, LIPR #### [address] [phone] Senior Support Engineer: Chapin Bellamy MD MCHC (RBC) [Mass/Vol] 32.8 g/dL Normal 28.4-34.8 [facility] Comment on above: Performed By: #### T SH, CDP, BMP, LIVP #### [address] [place] [phone] Senior Support Engineer: Abeba Parra MD #### GLYHGB, LIPR #### [place] [phone] Senior Support Engineer: Chapin Bellamy MD MCV (RBC) [Entitic vol] 92.1 fL Normal 82.6-102.9 [facility] Comment on above: Performed By: #### T SH, CDP, BMP, LIVP #### [address] [place] [phone] Senior Support Engineer: Abeba Parra MD #### GLYHGB, LIPR #### [place] [phone] Senior Support Engineer: Chapin Bellamy MD Monocytes (Bld) [#/Vol] 0.50 10*3/uL Normal 0.10-1.20 [facility] Comment on above: Performed By: #### T SH, CDP, BMP, LIVP #### [address] [place] [phone] Senior Support Engineer: Abeba Parra MD #### GLYHGB, LIPR #### [address] [place] [place], [place] [phone] Senior Support Engineer: Chapin Bellamy MD Monocytes/100 WBC (Bld) 5 % Normal 3-12 [facility] Comment on above: Performed By: #### T SH, CDP, BMP, LIVP #### [address] [place] [address] Senior Support Engineer: Abeba Parra MD #### GLYHGB, LIPR #### [address] [phone] Senior Support Engineer: Chapin Bellamy MD Neutrophil (Seg) 63 % Normal 36-65 [facility] Comment on above: Performed By: #### T SH, CDP, BMP, LIVP #### [address] [place] [phone] Senior Support Engineer: Abeba Parra MD #### GLYHGB, LIPR #### [address] [phone] Senior Support Engineer: Chapin Bellamy MD NRBC Automated 0.0 per 100 WBC Normal 0.0 [facility] Comment on above: Performed By: #### T SH, CDP, BMP, LIVP #### [address] [place] [address] Senior Support Engineer: Abeba Parra MD #### GLYHGB, LIPR #### [address] [phone] Senior Support Engineer: Chapin Bellamy MD Platelet mean volume (Bld) [Entitic vol] 11.0 fL Normal 8.1-13.5 [facility] Comment on above: Performed By: #### T SH, CDP, BMP, LIVP #### [address] [place] [phone] Senior Support Engineer: Abeba Parra MD #### GLYHGB, LIPR #### [address] [place] [place] [address] Senior Support Engineer: Chapin Bellamy MD Platelets (Bld) [#/Vol] 264 10*3/uL Normal 138-453 [facility] Comment on above: Performed By: #### T SH, CDP, BMP, LIVP #### [address] [place], [place] [phone] Senior Support Engineer: Abeba Parra MD #### GLYHGB, LIPR #### [address] [place] [place] [address] Senior Support Engineer: Chapin Bellamy MD RBC (Bld) [#/Vol] 4.70 10*6/uL Normal 3.95-5.11 [facility] Comment on above: Performed By: #### T SH, CDP, BMP, LIVP #### [address] [place], [place] [phone] Senior Support Engineer: Abeba Parra MD #### GLYHGB, LIPR #### [address] [place] [place] [address] Senior Support Engineer: Chapin Bellamy MD WBC (Bld) [#/Vol] 10.8 10*3/uL Normal 3.5-11.3 [facility] Comment on above: Performed By: #### T SH, CDP, BMP, LIVP #### [address] [place], [place] [phone] Senior Support Engineer: Abeba Parra MD #### GLYHGB, LIPR #### [address] [place] [place], [place] [phone] Senior Support Engineer: Chapin Bellamy MD Hepatic Function Panelon Albumin [Mass/Vol] 4.2 g/dL 3.5 - 5.2 g/dL [facility] Albumin/Globulin [Mass ratio] 1.3 {ratio} 1.0 - 2.5 [facility] ALP [Catalytic activity/Vol] 80 U/L 35 - 104 U/L [facility] ALT [Catalytic activity/Vol] 23 U/L 5 - 33 U/L [facility] AST [Catalytic activity/Vol] 22 U/L NINF - 32 U/L [facility] Bilirubin [Mass/Vol] 0.5 mg/dL 0.3 - 1.2 mg/dL [facility] Bilirubin.direct [Mass/Vol] mg/dL NINF - 0.3 mg/dL [facility] Bilirubin.indirect [Mass/Vol] Can not be calculated 0.0 - 1.0 mg/dL [facility] Protein [Mass/Vol] 7.4 g/dL 6.4 - 8.3 g/dL [facility] Lipid Panelon 11-04-2022 Cholesterol [Mass/Vol] 130 mg/dL NINF - 200 mg/dL [facility] Comment on above: Cholesterol Guidelines: <200 Desirable 200-240 Borderline >240 Undesirable Cholesterol in HDL [Mass/Vol] 61 mg/dL 40 - PINF mg/dL [facility] Comment on above: HDL Guidelines: <40 Undesirable 40-59 Borderline >59 Desirable Cholesterol in LDL [Mass/Vol] 56 mg/dL 0 - 130 mg/dL [facility] Comment on above: LDL Guidelines: <100 Desirable 100-129 Near to/above Desirable 130-159 Borderline >159 Undesirable Direct (measured) LDL and calculated LDL are not interchangeable tests. Cholesterol.total/Ch olesterol in HDL [Mass ratio] 2.1 {ratio} NINF - 5 [facility] Triglyceride [Mass/Vol] 64 mg/dL NINF - 150 mg/dL [facility] Comment on above: Triglyceride Guidelines: <150 Desirable 150-199 Borderline 200-499 High >499 Very high Based on AHA Guidelines for fasting triglyceride, January 2012. [facility] Liver Profileon 11-04-2022 Albumin [Mass/Vol] 4.2 g/dL Normal 3.5-5.2 [facility] Comment on above: Performed By: #### T SH, CDP, BMP, LIVP #### [facility] [address] [place] [address] Senior Support Engineer: Abeba Parra MD #### GLYHGB, LIPR #### [id number] [place], [place] [id number] Senior Support Engineer: Chapin Bellamy MD Albumin/Glob Ratio 1.3 Normal 1.0-2.5 [facility] Comment on above: Performed By: #### T SH, CDP, BMP, LIVP #### [facility] [address] [place], [place] [id number] Senior Support Engineer: Abeba Parra MD #### GLYHGB, LIPR #### [address] [phone] Senior Support Engineer: Chapin Bellamy MD Alkaline Phos 80 U/L Normal 35-104 [facility] Comment on above: Performed By: #### T SH, CDP, BMP, LIVP #### [facility] [address] [place], [place] [phone] Senior Support Engineer: Abeba Parra MD #### GLYHGB, LIPR #### [address] [place], [place] [id number] Senior Support Engineer: Chapin Bellamy MD ALT [Catalytic activity/Vol] 23 U/L Normal 5-33 [facility] Comment on above: Performed By: #### T SH, CDP, BMP, LIVP #### [facility] [address] [place] [address] Senior Support Engineer: Abeba Parra MD #### GLYHGB, LIPR #### [address] [place] [address] Senior Support Engineer: Chapin Bellamy MD AST [Catalytic activity/Vol] 22 U/L Normal <32 [facility] Comment on above: Performed By: #### T SH, CDP, BMP, LIVP #### [facility] [address] [place] [address] Dr[place], [place] [phone] Senior Support Engineer: Abeba Parra MD #### GLYHGB, LIPR #### [address] [address] Senior Support Engineer: Chapin Bellamy MD Bilirubin [Mass/Vol] 0.5 mg/dL Normal 0.3-1.2 [facility] Comment on above: Performed By: #### T SH, CDP, BMP, LIVP #### [facility] [address] [place] [address] [address] [place], [place] [phone] Senior Support Engineer: Abeba Parra MD #### GLYHGB, LIPR #### [address] [phone] Senior Support Engineer: Chapin Bellamy MD Bilirubin, Indirect Can not be calculated Normal 0.0-1 .0 [facility] Comment on above: Performed By: #### T SH, CDP, BMP, LIVP #### [facility] [address] [place] [address] [address] [place], [place] [phone] Senior Support Engineer: Abeba Parra MD #### GLYHGB, LIPR #### [address] [phone] Senior Support Engineer: Chapin Bellamy MD Bilirubin.indirect [Mass/Vol] mg/dL Normal <0.3 [facility] Comment on above: Performed By: #### T SH, CDP, BMP, LIVP #### [facility] [address] [place] [address] [address] [place], [place] [phone] Senior Support Engineer: Abeba Parra MD #### GLYHGB, LIPR #### [address] [phone] Senior Support Engineer: Chapin Bellamy MD Protein [Mass/Vol] 7.4 g/dL Normal 6.4-8.3 [facility] Comment on above: Performed By: #### T DESTINI, JOAN, BMP, LIVP #### [facility] [address] [place] [address] [place] [address] Senior Support Engineer: Abeba Parra MD #### GIOVANNI, LIPR #### [facility] [place] [address] Senior Support Engineer: Chapin Bellamy MD No Panel Informationon 11-04 [facility] TSHon 11-04-2022 TSH Qn 1.57 m[IU]/L [facility] Thyroid Stim. Horm.on 2022 Thyroid Stim. Horm. 1.57 uIU/mL Normal 0.30-5.00 [facility] Comment on above: Performed By: #### T DESTINI, JOAN, BMP, LIVP #### [address] [place] [address] Senior Support Engineer: Abeba Parra MD #### GIOVANNI, LIPR #### [address] [place] [address] Senior Support Engineer: Chapin Bellamy MD NM HEPATOBILIARY SCAN W [...] by: ABEBA APODACA Date: 2020-01-30 09:35 Normal [facility] QUAD RT UPPERon US SINGLE QUAD RT [...] by: ABEBA APODACA Date: 2020-01-22 11:02 Normal [facility] Social History Date Type Detail Facility Start: 2000 Sex Assigned At Not on file [facility] Tobacco smoking stat [facility] Tobacco smoking consumption unknown [facility] Summary Purpose Family History No Family History Records FoundNo Family History Records FoundNo Family History Records Found Advance Directives No Advanced Directives Records FoundNo Advanced Directives Records FoundNo Advanced Directives Records Found Additional Source Comments INFORMATION SOURCE (unrecogn ized section and content) DATE CREATED AUTHOR 02/04/2020 [facility] DATE CREATED AUTHOR AUTHOR'S ORGANIZ ATION 11/06/2022 [facility] DATE CREATED AUTHOR AUTHOR'S ORGANIZ ATION 09/12/2023 [facility] [employer] Care Teams (unrecognized sec tion and content) 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 [employer] [facility] provides no warranty or guarantee of the accuracy or completeness of information in this document.
--- NOTE | 2023-10-08 08:23 | ED_ITS ---
HPI - General Chief complaint: Vaginal Bleeding Stated complaint: 16 weeks w some bleeding Time Seen by Provider: 10/08/23 08:11 Source: patient and family Mode of arrival: walk-in Limitations: no limitations History of Present Illness HPI Narrative: 23-year-old female who is about 16 weeks presents for vaginal bleeding. Started yesterday after intercourse. She states yesterday it was heavier than a regular period but it lightened up. She does not complain of any lower abdominal pain or cramping. She has had no problems like this feels far in her . No fever or dysuria. Related Data Home Medications ?Medication ?Instructions ?Recorded ?Confirmed No Known Home Medications 10/08/23 10/08/23 Allergies Allergy/AdvReac Type Severity Reaction Status Date / Time amoxicillin AdvReac Mild Verified 10/08/23 08:13 fexofenadine [From Princess] AdvReac Mild Verified 10/08/23 08:13 Review of Systems ROS Narrative A ten point review of systems is negative except as noted above. Exam Narrative Exam Narrative: Nurses note and vital signs reviewed and patient is not hypoxic. General: The patient appears well and in no apparent distress. Patient is resting comfortably on cart. Skin: Warm, dry, no pallor noted. There is no rash noted. Head: Normocephalic, atraumatic Eye: Normal conjunctiva, no drainage Ears, Nose, Mouth, and Throat: oral mucosa is moist. Nares patent. Cardiovascular: Regular Rate and Rhythm Respiratory: Patient is in no distress, no accessory muscle use, lungs are clear to auscultation, no wheezing, rales or rhonchi Back: non-tender GI: Soft and nontender Musculoskeletal: The patient has no evidence of calf tenderness, no pitting edema, symmetrical pulses noted bilaterally Neurological: A&O, normal speech Psychiatric: Cooperative Constitutional Vital Signs, click to edit/add: Last Vital Signs Temp 97.9 F 10/08/23 08:10 Pulse 80 10/08/23 10:43 Resp 18 10/08/23 10:43 BP 123/67 10/08/23 10:43 Pulse Ox 99 10/08/23 10:43 O2 Del Method Room Air 10/08/23 08:10 Course Vital Signs Vital signs: Vital Signs Temperature 97.9 F 10/08/23 08:10 Pulse Rate 92 H 10/08/23 08:10 Respiratory Rate 18 10/08/23 08:10 Blood Pressure 135/99 H 10/08/23 08:10 Pulse Oximetry 100 10/08/23 08:10 Oxygen Delivery Method Room Air 10/08/23 08:10 Temperature 97.9 F 10/08/23 08:10 Pulse Rate 80 10/08/23 10:43 Respiratory Rate 18 10/08/23 10:43 Blood Pressure 123/67 10/08/23 10:43 Pulse Oximetry 99 10/08/23 10:43 Oxygen Delivery Method Room Air 10/08/23 08:10 MDM - OB/Uterine Contractions MDM Narrative Medical decision making narrative: Ultrasound shows no abnormalities. Blood type is a positive. She has an appointment with her director surface transportation in 2 days and she will keep that appointment. Findings are discussed with the patient and her family. Differential Diagnosis Differential diagnosis: Likely other (Miscarriage, threatened miscarriage, vaginal bleeding in ) Lab Data Attestation: I reviewed the patient's lab results. Labs: Lab Results 10/08/23 10/08/23 Range/Units 08:15 08:33 WBC 11.9 H (4.0-11.0) 10^3/uL RBC 4.37 (4.20-5.40) 10^6/uL Hgb 13.3 (12.0-16.0) g/dL Hct 39.4 (36.0-48.0) % MCV 90.2 (81.0-99.0) fL MCH 30.4 (26.7-34.0) pg MCHC 33.8 (29.9-35.2) g/dL RDW 13.1 (11.0-15.0) % Plt Count 204 (150-450) 10^3/uL MPV 11.2 (9.5-13.5) fL Neut % (Auto) 74.5 (43.0-75.0) % Lymph % (Auto) 21.0 (20.5-60.0) % [place] % (Auto) 3.2 (1.7-12.0) % Eos % (Auto) 0.7 L (0.9-7.0) % Baso % (Auto) 0.3 (0.2-2.0) % Neut # (Auto) 8.8 H (1.4-6.5) 10^3/uL Lymph # (Auto) 2.5 (1.2-3.8) 10^3/uL [place] # (Auto) 0.4 (0.3-0.8) 10^3/uL Eos # (Auto) 0.1 (0.0-0.7) 10^3/uL Baso # (Auto) 0.0 (0.0-0.1) 10^3/uL Abs Immat Gran (auto) 0.04 H (0.00-0.03) 10^3/uL Imm/Tot Granulo (auto) 0.3 (0.0-0.5) % Sodium 137 (136-145) mmol/L Potassium 3.6 (3.5-5.1) mmol/L Chloride 104 (98-107) mmol/L Carbon Dioxide 21.1 (21.0-32.0) mmol/L Anion Gap 15.5 BUN 7.0 (7.0-18.0) mg/dL Creatinine 0.62 (0.55-1.02) mg/dL Est GFR ( Amer) >60 (>=60) Est GFR (Non-Af Amer) >60 (>=60) BUN/Creatinine Ratio 11.3 Glucose 90 (74-106) mg/dL Calcium 8.7 (8.5-10.1) mg/dL Urine Color Lt. yellow (YELLOW) Urine Clarity Clear (CLEAR) Urine pH 7.0 (5.0-9.0) Ur Specific [place] 1.020 (1.005-1.025) Urine Protein Negative (NEG/TRACE) mg/dL Urine Glucose (UA) Negative (NEGATIVE) mg/dL Urine Ketones Negative (NEGATIVE) mg/dL Urine Occult Blood Moderate A (NEGATIVE) Urine Nitrite Negative (NEGATIVE) Urine Bilirubin Negative (NEGATIVE) Urine Urobilinogen 0.2 (0.2-1.0) EU/dL Ur Leukocyte Esterase Negative (NEGATIVE) Urine RBC 2-5 A (0-2) #/HPF Urine WBC 2-5 A (NONE SEEN) #/HPF Ur Squamous Epith Cells Rare (NONE/RARE) #/LPF Urine Crystals None seen (None Seen) #/HPF Urine Bacteria Trace A (NONE SEEN) #/HPF Urine Casts None seen (NONE SEEN) #/LPF Urine Mucus None seen (NONE SEEN) Ur Culture Indicated? No Imaging Data Pelvic ultrasound: Radiologist's impression: ITS Impressions Obstetrics Ultrasound 10/08/23 08:50 IMPRESSION: Single viable intrauterine . Recommend dedicated second trimester at 20-22 weeks. Electronically authenticated by: JUAN OMALLEY Date: 10/08/2023 11:01 Discharge Plan Discharge Stand Alone Forms: Portal Instructions Chief Complaint: Vaginal Bleeding Clinical Impression: Vaginal bleeding in Patient Disposition: Home, Self-Care Time of Disposition Decision: 11:40 Condition: Good Mode of Transportation: Private Vehicle Prescriptions / Home Meds: No Action No Known Home Medications Print Language: Slovenian Instructions: Threatened Miscarriage (ED) Referrals: Richard Herbert MD [Primary Care Provider] - 1 week
[2023-10-08 08:46] LABS: Basophils Percent Auto 0.3 % (0.2-2.0); Eosinophils Absolute Auto 0.1 10^3/uL (0.0-0.7); Eosinophils Percent Auto 0.7 % (0.9-7.0); Hematocrit 39.4 % (36.0-48.0); Hemoglobin 13.3 g/dL (12.0-16.0); Immature Granulocytes Abs Auto 0.04 10^3/uL (0.00-0.03); Immature Granulocytes Pct Auto 0.3 % (0.0-0.5); Lymphocytes Absolute Auto 2.5 10^3/uL (1.2-3.8); Mean Corpuscular HGB Conc 33.8 g/dL (29.9-35.2); Mean Corpuscular Hemoglobin 30.4 pg (26.7-34.0); Mean Corpuscular Volume 90.2 fL (81.0-99.0); Mean Platelet Volume 11.2 fL (9.5-13.5); Monocytes Absolute Auto 0.4 10^3/uL (0.3-0.8); Monocytes Percent Auto 3.2 % (1.7-12.0); Neutrophils Absolute Auto 8.8 10^3/uL (1.4-6.5); Neutrophils Percent Auto 74.5 % (43.0-75.0); Platelet Count 204 10^3/uL (150-450); Red Blood Count 4.37 10^6/uL (4.20-5.40); Red Cell Distribution Width 13.1 % (11.0-15.0); White Blood Count 11.9 10^3/uL (4.0-11.0)
--- NOTE | 2023-10-08 08:50 | US_ITS ---
The [address] [address] Patient Name: NAFISA NUÑEZ MRN: [id number] date: 2000 Sex: F Assigned Patient Location: ER Current Patient Location: ER Accession/Order Number: [id number] Exam Date: 10/08/2023 09:40 Report Date: 10/08/2023 11:01 At the request of: AMADO PINK Procedure: US OB limited ULTRASOUND OB LIMITED HISTORY: with vaginal bleeding. COMPARISON: Ultrasound 08/10/2023 FINDINGS: There is a single intrauterine with the fetus in the breech presentation. The placenta is located posteriorly and appears intact. There are heart tones of 150 bpm. The anatomy was not imaged on this exam. US/US OB limited IMPRESSION: Single viable intrauterine . Recommend dedicated second trimester at 20-22 weeks. Electronically authenticated by: JUAN OMALLEY Date: 10/08/2023 11:01
[2023-10-08 08:54] LABS: Anion Gap 15.5; BUN Creatinine Ratio 11.3; Calcium 8.7 mg/dL (8.5-10.1); Carbon Dioxide 21.1 mmol/L (21.0-32.0); Chloride 104 mmol/L (98-107); Estimated GFR (African America >60 (>=60); Estimated GFR (Non-African Ame >60 (>=60); Glucose 90 mg/dL (74-106); Potassium 3.6 mmol/L (3.5-5.1); Sodium 137 mmol/L (136-145)
[2023-10-08 09:08] VITALS: BP 120/82; PULSE 85; O2SAT 99
[2023-10-08 09:54] LABS: Bilirubin Urine NEGATIVE (NEGATIVE); Blood Urine MODERATE (NEGATIVE); Clarity Urine CLEAR (CLEAR); Color Urine LT. YELLOW (YELLOW); Glucose Urine UA NEGATIVE (NEGATIVE); Ketones Urine NEGATIVE (NEGATIVE); Leukocyte Esterase Urine NEGATIVE (NEGATIVE); Nitrite Urine NEGATIVE (NEGATIVE); Protein Urine NEGATIVE (NEG/TRACE); Urobilinogen Urine 0.2 EU/dL (0.2-1.0)
[2023-10-08 09:57] LABS: Urine Microscopic Indicated YES
[2023-10-08 10:11] LABS: Bacteria Urine TRACE #/HPF (NONE SEEN); Cast Seen? NONE SEEN #/LPF (NONE SEEN); Crystals Seen? None Seen #/HPF (None Seen); Mucus Urine NONE SEEN (NONE SEEN); Squamous Epithelial Cell Urine RARE #/LPF (NONE/RARE); Urine Culture Indicated NO
[2023-10-08 10:43] VITALS: BP 123/67; PULSE 80; O2SAT 99
[2023-10-08 11:46] VITALS: BP 115/82; PULSE 84; O2SAT 99
== END 2023-10-08 11:48 | disposition home or self-care (01) ==
PROVIDERS: Emergency Provider Emergency Medicine; PCP Family Medicine
DX: O20.9 Hemorrhage in early pregnancy, unspecified (principal); Z3A.16 16 weeks gestation of pregnancy
CPT/HCPCS: 36415; 76815; 80048; 81001; 85025; 99284

== ENCOUNTER 2023-10-16 08:24 | Outpatient (OUT) | payer BC, SELFPAY ==
--- NOTE | 2023-10-16 08:26 | US_ITS ---
[address] [address] Patient Name: NAFISA NUÑZE MRN: [id number] date: 2000 Sex: F Assigned Patient Location: [facility] Current Patient Location: [facility] Accession/Order Number: [id number] Exam Date: 10/16/2023 08:27 Report Date: 10/16/2023 09:02 At the request of: NIDA GREY Procedure: US OB cervical length EXAMINATION: US OB cervical length HISTORY: VAGINAL SPOTTING COMPARISON: No relevant comparison available. FINDINGS: Closed cervix measuring 3.5 cm in length Clinical age: 17 weeks 3 days US/US OB cervical length IMPRESSION: Closed cervix measuring 3.5 cm Electronically authenticated by: ABEBA APODACA Date: 10/16/2023 09:02
--- OUTSIDE RECORDS SUMMARY | 2023-10-16 08:33 | XMS_ITS ---
Patient Summarization (C-CDA 2.1 CCD) Created on: October 16, 2023 NAFISA NUÑEZ : 2000 Sex: Female Author Organization Sample organization Care Team Providers Care Hvac Installer Name Role Phone HOY, ELMER Admitting Unavailable HOY, ELMER Attending Unavailable HOY, ELMER Primary Care Unavailable HOY, ELMER Consulting Unavailable WEST, ABEBA V Consulting Unavailable HOY, ELMER Admitting Unavailable HOY, ELMER Attending Unavailable HOY, ELMER Primary Care Unavailable HOY, ELMER Consulting Unavailable WEST, ABEBA V Consulting Unavailable Suhas MCDERMOTT, Richard Ayala Primary Care Provider RICHARD DAI Referring Unavailabl e SUHAS, RICHARD AYALA Primary Care Unavailabl e RICHARD DIA Attending Unavailable MATILDA, NIDA Attending Unavailable MATILDA, NIDA Attending Unavailable MATILDA, NIDA Attending Unavailable MATILDA, NIDA Attending Unavailable Allergies Allergy Classification Reported Allergen(s) Allergy Type Date of Onset Reaction(s) Facility (1 source) Amoxicillin Drug Allergy 06-26-2018 Nausea And Vomiting [facility] fexofenadine Drug Allergy 03-12-2019 [facility] Encounters Encounter Date Encounter Type Care Provider Facility Start: 10-10-2023 End: 10-10-2023 ambulatory NIDA MATILDA Not Available Start: 09-11-2023 End: 09-11-2023 ambulatory NIDA MATILDA Not Available Start: 08-10-2023 End: 08-10-2023 ambulatory RICHARD DAI Not Available Start: 04-24-2023 End: 04-24-2023 ambulatory RICHARD DAI Not Available Start: 03-29-2023 End: 03-29-2023 ambulatory NIDA MATILDA Not Available Start: 02-22-2023 End: 02-22-2023 ambulatory NIDA MATILDA Not Available Start: 11-04-2022 End: 11-05-2022 ambulatory RICHARD Mera [facility] Start: 11-04-2022 End: 11-05-2022 Encounter for general adult medical examination without abnormal findings RICHARD Mera [facility] Start: 11-04-2022 End: 11-04-2022 Subsequent hospital visit by physician Richard Dai MD Work Phone: [facility] Start: 01-30-2020 End: 01-31-2020 Patient encounter procedure ELMER WESLEY Facility:H1 Start: 01-22-2020 End: 01-23-2020 Patient encounter procedure ELMER WESLEY Facility:H1 Immunizations Immunization Date Immunization Notes Care Provider Fa cility 11-04-2021 tetanus toxoid, redu sanya diphtheria toxoid, and acellular pertussis vaccine, adsorbed Richard Dai MD Work Phone: [facility] Medications Current Medications Medication Drug Class(es) Dates Sig (Normalized) Sig (Original) Ethinyl Estradiol / Ferrous fumarate / Norethindrone (1 source) Estrogen Norethin Abad-Eth Estrad-FE 1-20 MG-MCG(24) CAPS Take by mouth 0 Active Payers Date Payer Category Payer Unknown [id number] 2000 Unknown [id number] [id number] [id number] 2000 Unknown [id number] 2.16.84 [id number] 2000 Unknown [id number] 2.16.8 [id number] 2000 Unknown [id number] 2.16.84 [id number] 2000 Unknown [id number] 2.16.84 [id number] 2000 Unknown [id number] 2.16.84 [id number] 1998 Unknown [id number] 2.16.84 [id number] 1998 Unknown [id number] 1998 Unknown [id number] 1959 Unknown [id number] Plan of Treatment Date Care Activity Detail Author Start: 11-05-2031 DTaP/Tdap/Td vaccine (8 - Td or Tdap) DTaP/Tdap/Td vaccine (8 - Td or Tdap) [facility] [employer] Start: 11-08-2022 Influenza vaccination Flu vaccine (# 1) [facility] Start: 2019 Screening for malign ant neoplasm of cervix Pap smear [facility] Start: 02-10-2016 Hepatitis C screening Hepatitis C sc reen [facility] Start: 2014 Screening for Chlamy zulema trachomatis Chlamydia/GC screen [facility] Start: 2013 HIV screening HIV screen [facility] Start: 2010 Depression Screen Depression Screen [facility] Start: 2009 HPV vaccine (1 - 2-d ose series) HPV vaccine (1 - 2-dose series) [facility] Start: 1999 Varicella vaccine (1 of 2 - 2-dose childhood series) Varicella vaccine (1 of 2 - 2-dose childhood series) [facility] Start: 1998 COVID-19 Vaccine (#1) COVID-19 Vacci ne (#1) [facility] End: 11-04-2022 Hemoglobin A1c/Hemoglobin.total in Blood [facility] Work Phone: Comment on above: Once for 1 Occurrenc es starting 11/04/2022 until 11/04/2022 Problems Problem Classification Problem Date Documented Da te Episodic/Chronic Abdominal pain (4 sources) Unspecified abdominal pain; Translations: [UNSPECIFIED ABDOMINAL PAIN] Onset: 01-30-2020 Episodic Procedures Date Procedure Procedure Detail Performing Clinician Start: 07-28-2023 Basic metabolic pane l calcium total Richard Spencer Naderer MD Work Phone: Start: 11-04-2022 Lipid panel Richard Dai MD Work Phone: Results Test Name Value Interpretation Reference Range Facil ity Hemoglobin A1Con 11-06-2022 Glucose [Mass/Vol] 103 mg/dL Normal [facility] Comment on above: Result Comment: The ADA and AACC recommend providing the estimated average glucose result to permit better patient understanding of their HBA1c result. Performed By: #### T SH, CDP, BMP, LIVP #### [facility] [address] [place] [address] [place] [address] Casing Runner: Abeba Parra MD #### GLYHGB, LIPR #### [address] [phone] Casing Runner: Chapin Bellamy MD HbA1c (Bld) [Mass fraction] 5.2 % Normal 4.0-6.0 [facility] Comment on above: Performed By: #### T SH, CDP, BMP, LIVP #### [facility] [address] [place] [address] Casing Runner: Abeba Parra MD #### GLYHGB, LIPR #### [address] [phone] Casing Runner: Chapin Bellamy MD Lipid Profileon 11-05-2022 Cholesterol [Mass/Vol] 130 mg/dL Normal <200 [facility] Comment on above: Result Comment: Cholesterol Guidelines: <200 Desirable 200-240 Borderline >240 Undesirable Performed By: #### T SH, CDP, BMP, LIVP #### [facility] [address] [place] [address] Casing Runner: Abeba Parra MD #### GLYHGB, LIPR #### [address] [phone] Casing Runner: Chapin Bellamy MD Cholesterol in HDL [Mass/Vol] 61 mg/dL Normal >40 [facility] Comment on above: Result Comment: HDL Guidelines: <40 Undesirable 40-59 Borderline >59 Desirable Performed By: #### T DESTINI, CDP, BMP, LIVP #### [facility] [address] [place] [address] [address] [place], [place] [phone] Casing Runner: Abeba Parra MD #### GLYHGB, LIPR #### [facility] [employer] [address] [place], [place] [phone] Casing Runner: Chapin Bellamy MD Cholesterol in LDL [Mass/Vol] 56 mg/dL Normal 0-130 [facility] Comment on above: Result Comment: LDL Guidelines: <100 Desirable 100-129 Near to/above Desirable 130-159 Borderline >159 Undesirable Direct (measured) LDL and calculated LDL are not interchangeable tests. Performed By: #### T DESTINI, JOAN, BMP, LIVP #### [address] [place], [place] [phone] Casing Runner: Abeba Parra MD #### GLYHGTanya, LIPR #### [facility] [employer] [facility] [place], [place] [phone] Casing Runner: Chapin Bellamy MD Cholesterol.total/Ch olesterol in HDL [Mass ratio] 2.1 {ratio} Normal <5 [facility] Comment on above: Performed By: #### T DESTINI, JOAN, BMP, LIVP #### [facility] [address] [place] [address] [address]. [place], [place] [phone] Casing Runner: Abeba Parra MD #### GLYHGB, LIPR #### [facility] [employer] [address] [place], [place] [phone] Casing Runner: Chapin Bellamy MD Triglyceride [Mass/Vol] 64 mg/dL Normal <150 [facility] Comment on above: Result Comment: Triglyceride Guidelines: <150 Desirable 150-199 Borderline 200-499 High >499 Very high Based on AHA Guidelines for fasting triglyceride, January 2012. Performed By: #### T SH, CDP, BMP, LIVP #### [facility] [address] [place] [address] Casing Runner: Abeba Parra MD #### GLYHGB, LIPR #### [facility] [address] [place], [place] [phone] Casing Runner: Chapin Bellamy MD Basic Metabolic Panelon - Anion gap [Moles/Vol] 11 mmol/L 9 - 17 mmol/L [facility] [employer] Calcium [Mass/Vol] 9.7 mg/dL 8.6 - 10. 4 mg/dL [facility] Chloride [Moles/Vol] 107 mmol/L 98 - 107 mmol/L [facility] CO2 [Moles/Vol] 22 mmol/L 20 - 31 mmol/L [facility] Creatinine [Mass/Vol] 0.6 mg/dL 0.5 - 0.9 mg/dL [facility] [employer] GFR/1.73 sq M.predicted MDRD (S/P/Bld) [Vol rate/Area] - PINF [facility] Comment on above: These results are [...] [Mass/Vol] 85 mg/dL 70 - 99 mg/dL [facility] [employer] [facility] Interpretation and review of laboratory results Abnormal [facility] [employer] [facility] Potassium [Moles/Vol] 3.9 mmol/L 3.7 - 5.3 mmol/L [facility] Sodium [Moles/Vol] 140 mmol/L 135 - 144 mmol/L [facility] [employer] [facility] Urea nitrogen [Mass/Vol] 18 mg/dL 6 - 20 mg/dL [facility] Urea nitrogen/Creatinine [Mass ratio] 30 mg/mg High 9 - 20 [facility] [employer] [facility] Basic Metabolic Profon 11-04 Anion gap [Moles/Vol] 11 mmol/L Normal 9-17 [facility] Comment on above: Performed By: #### T SH, CDP, BMP, LIVP #### [facility] [address] [place], [place] [phone] Casing Runner: Abeba Parra MD #### GLYHGB, LIPR #### [address] [phone] Casing Runner: Chapin Bellamy MD BUN/CRE Ratio 30 High 9-20 [facility] Comment on above: Performed By: #### T SH, CDP, BMP, LIVP #### [facility] [address] [place], [place] [phone] Casing Runner: Abeba Parra MD #### GLYHGB, LIPR #### [address] [phone] Casing Runner: Chapin Bellamy MD Calcium [Mass/Vol] 9.7 mg/dL Normal 8.6-10.4 [facility] Comment on above: Performed By: #### T SH, CDP, BMP, LIVP #### [address] [place], [place] [phone] Casing Runner: Abeba Parra MD #### GLYHGTanya, LIPR #### [address] [address] Casing Runner: Chapin Bellamy MD Chloride [Moles/Vol] 107 mmol/L Normal 98-107 [facility] Comment on above: Performed By: #### T SH, CDP, BMP, LIVP #### [facility] [address] [place] [address] [address]. [place], [place] [phone] Casing Runner: Abeba Parra MD #### GLYHGB, LIPR #### [address] [phone] Casing Runner: Chapin Bellamy MD CO2 [Moles/Vol] 22 mmol/L Normal 20-31 [facility] Comment on above: Performed By: #### T SH, CDP, BMP, LIVP #### [facility] [address] [place], [place] [phone] Casing Runner: Abeba Parra MD #### GLYHGB, LIPR #### [address] [phone] Casing Runner: Chapin Bellamy MD Creatinine [Mass/Vol] 0.6 mg/dL Normal 0.5-0.9 [facility] Comment on above: Performed By: #### T SH, CDP, BMP, LIVP #### [address] [place] [address] Casing Runner: Abeba Parra MD #### GLYHGB, LIPR #### [address] [phone] Casing Runner: Chapin Bellamy MD GFR/1.73 sq M.predicted among non-blacks MDRD (S/P/Bld) [Vol rate/Area] mL/min/{1.73_m2} Normal >60 [facility] Comment on above: Result Comment: These [...] T SH, CDP, BMP, LIVP #### [facility] [address] [place] [address] Casing Runner: Abeba Parra MD #### GLYHGB, LIPR #### [address] [place], [place] [phone] Casing Runner: Chapin Bellamy MD Glucose [Mass/Vol] 85 mg/dL Normal 70-99 [facility] Comment on above: Performed By: #### T SH, CDP, BMP, LIVP #### [address] [place] [phone] Casing Runner: Abeba Parra MD #### GLYHGB, LIPR #### [address] [phone] Casing Runner: Chapin Bellamy MD Potassium [Moles/Vol] 3.9 mmol/L Normal 3.7-5.3 [facility] Comment on above: Performed By: #### T SH, CDP, BMP, LIVP #### [address] [place] [phone] Casing Runner: Abeba Parra MD #### GLYHGB, LIPR #### [address] [phone] Casing Runner: Chapin Bellamy MD Sodium [Moles/Vol] 140 mmol/L Normal 135-144 [facility] Comment on above: Performed By: #### T SH, CDP, BMP, LIVP #### [address] [place] [phone] Casing Runner: Abeba Parra MD #### GLYHGB, LIPR #### [address] [address] Casing Runner: Chapin Bellamy MD Urea nitrogen [Mass/Vol] 18 mg/dL Normal 6-20 [facility] Comment on above: Performed By: #### T SH, CDP, BMP, LIVP #### [address] [place] [phone] Casing Runner: Abeba Parra MD #### GLYHGB, LIPR #### [address] [phone] Casing Runner: Chapin Bellamy MD CBC with Auto Differentialon 11-04-2022 Basophils (Bld) [#/Vol] 0.05 10*3/uL [facility] Basophils/100 WBC (Bld) 1 % 0 - 2 % [facility] Eosinophils (Bld) [#/Vol] 0.06 10*3/uL [facility] Eosinophils/100 WBC (Bld) 1 % 1 - 4 % [facility] Erythrocyte distribution width (RBC) [Ratio] 13.0 % 11.8 - 14.4 % [facility] Hematocrit (Bld) [Volume fraction] 43.3 % 36.3 - 47.1 % [facility] Hemoglobin (Bld) [Mass/Vol] 14.2 g/dL 11.9 - 15.1 g/dL [facility] Immature granulocytes (Bld) [#/Vol] [facility] Immature granulocytes/100 WBC (Bld) 0 % 0 [facility] Lymphocytes/100 WBC (Bld) 30 % 24 - 43 % [facility] Lymphocytes/100 WBC (Bld) 3.22 % [facility] MCH (RBC) [Entitic mass] 30.2 pg 25.2 - 33.5 pg [facility] MCHC (RBC) [Mass/Vol] 32.8 g/dL 28.4 - 34.8 g/dL [facility] MCV (RBC) [Entitic vol] 92.1 fL 82.6 - 102.9 fL [facility] Monocytes/100 WBC (Bld) 5 % 3 - 12 % [facility] Monocytes/100 WBC (Bld) 0.50 % [facility] Neutrophils/100 WBC (Bld) 63 % 36 - 65 % [facility] Nucleated RBC/100 WBC (Bld) [Ratio] 0.0 % 0.0 per 100 WBC [facility] Platelet mean volume (Bld) [Entitic vol] 11.0 fL 8.1 - 13.5 fL [facility] Platelets (Bld) [#/Vol] 264 10*3/uL [facility] RBC (Bld) [#/Vol] 4.70 10*6/uL 3.95 - 5.1 1 m/uL [facility] Segmented neutrophils/100 WBC (Bld) 6.95 % [facility] WBC other (Bld) [#/Vol] 10.8 [facility] CBC with Diffon 11-04-2022 Abs. Basophil 0.05 k/uL Normal 0.00-0.20 [facility] Comment on above: Performed By: #### T SH, CDP, BMP, LIVP #### [facility] [address] [place] [address] [place] [phone] Casing Runner: Abeba Parra MD #### GLYHGB, LIPR #### [address] [address] Casing Runner: Chapin Bellamy MD Abs.Imm.Granulocyte <0.03 Normal 0.00-0.30 [facility] Comment on above: Performed By: #### T SH, CDP, BMP, LIVP #### [address] [place] [phone] Casing Runner: Abeba Parra MD #### GIOVANNI, LIPR #### [address] [address] Casing Runner: Chapin Bellamy MD Abs.Neutrophil (Seg) 6.95 k/uL Normal 1.50-8.10 [facility] Comment on above: Performed By: #### T SH, CDP, BMP, LIVP #### [address] [place] [address] Casing Runner: Abeba Parra MD #### GLYHGB, LIPR #### [address] [phone] Casing Runner: Chapin Bellamy MD Basophils/100 WBC (Bld) 1 % Normal 0-2 [facility] Comment on above: Performed By: #### T SH, CDP, BMP, LIVP #### [address] [place], [place] [phone] Casing Runner: Abeba Parra MD #### GLYHGB, LIPR #### [place] [phone] Casing Runner: Chapin Bellamy MD Eosinophils (Bld) [#/Vol] 0.06 10*3/uL Normal 0.00-0.44 [facility] Comment on above: Performed By: #### T SH, CDP, BMP, LIVP #### [facility] [address] [place] [address] [place] [phone] Casing Runner: Abeba Parra MD #### GIOVANNI, LIPR #### [place] [phone] Casing Runner: Chapin Bellamy MD Eosinophils/100 WBC (Bld) 1 % Normal 1-4 [facility] Comment on above: Performed By: #### T SH, CDP, BMP, LIVP #### [facility] [address] [place] [address] [place] [phone] Casing Runner: Abeba Parra MD #### VERONICAHGTanya, LIPR #### [place] [address] Casing Runner: Chapin Bellamy MD Erythrocyte distribution width (RBC) [Ratio] 13.0 % Normal 11.8-14.4 [facility] Comment on above: Performed By: #### T SH, CDP, BMP, LIVP #### [facility] [address] [place] [address] [place] [phone] Casing Runner: Abeba Parra MD #### GLYHGB, LIPR #### [place] [phone] Casing Runner: Chapin Bellamy MD Hematocrit (Bld) [Volume fraction] 43.3 % Normal 36.3-47.1 [facility] Comment on above: Performed By: #### T SH, CDP, BMP, LIVP #### [facility] [address] [place], [place] [phone] Casing Runner: Abeba Parra MD #### GLYHGB, LIPR #### [address] [place], [place] [phone] Casing Runner: Chapin Bellamy MD Hemoglobin (Bld) [Mass/Vol] 14.2 g/dL Normal 11.9-15.1 [facility] Comment on above: Performed By: #### T SH, CDP, BMP, LIVP #### [facility] [address] [place], [place] [phone] Casing Runner: Abeba Parra MD #### GLYHGB, LIPR #### [address] [phone] Casing Runner: Chapin Bellamy MD Immature granulocytes/100 WBC (Bld) 0 % Normal 0 [facility] Comment on above: Performed By: #### T SH, CDP, BMP, LIVP #### [facility] [address] [place] [address] Casing Runner: Abeba Parra MD #### GLYHGB, LIPR #### [address] [phone] Casing Runner: Chapin Bellamy MD Lymphocytes (Bld) [#/Vol] 3.22 10*3/uL Normal 1.10-3.70 [facility] Comment on above: Performed By: #### T SH, CDP, BMP, LIVP #### [facility] [address] [place] [address] Casing Runner: Abeba Parra MD #### GLYHGB, LIPR #### [address] [place], [place] 4721708 Casing Runner: Chapin Bellamy MD Lymphocytes/100 WBC (Bld) 30 % Normal 24-43 [facility] Comment on above: Performed By: #### T SH, CDP, BMP, LIVP #### [facility] [address] [place] [address] [place]. [place] [phone] Casing Runner: Abeba Parra MD #### GLYHGB, LIPR #### [address] [phone] Casing Runner: Chapin Bellamy MD MCH (RBC) [Entitic mass] 30.2 pg Normal 25.2-33.5 [facility] Comment on above: Performed By: #### T SH, CDP, BMP, LIVP #### [address] [place] [phone] Casing Runner: Abeba Parra MD #### GLYHGB, LIPR #### [address] [phone] Casing Runner: Chapin Bellamy MD MCHC (RBC) [Mass/Vol] 32.8 g/dL Normal 28.4-34.8 [facility] Comment on above: Performed By: #### T SH, CDP, BMP, LIVP #### [address] [place] [phone] Casing Runner: Abeba Parra MD #### GLYHGB, LIPR #### [address] [phone] Casing Runner: Chapin Bellamy MD MCV (RBC) [Entitic vol] 92.1 fL Normal 82.6-102.9 [facility] Comment on above: Performed By: #### T SH, CDP, BMP, LIVP #### [address] [place] [address] Casing Runner: Abeba Parra MD #### GLYHGB, LIPR #### [address] [phone] Casing Runner: Chapin Bellamy MD Monocytes (Bld) [#/Vol] 0.50 10*3/uL Normal 0.10-1.20 [facility] Comment on above: Performed By: #### T SH, CDP, BMP, LIVP #### [facility] [address] [place], [place] [phone] Casing Runner: Abeba Parra MD #### GLYHGB, LIPR #### [address] [phone] Casing Runner: Chapin Bellamy MD Monocytes/100 WBC (Bld) 5 % Normal 3-12 [facility] Comment on above: Performed By: #### T SH, CDP, BMP, LIVP #### [address] [place] [phone] Casing Runner: Abeba Parra MD #### GLYHGTanya, LIPR #### [address] [phone] Casing Runner: Chapin Bellamy MD Neutrophil (Seg) 63 % Normal 36-65 [facility] Comment on above: Performed By: #### T SH, CDP, BMP, LIVP #### [address] [place] [phone] Casing Runner: Abeba Parra MD #### GLYHGB, LIPR #### [address] [address] Casing Runner: Chapin Bellamy MD NRBC Automated 0.0 per 100 WBC Normal 0.0 [facility] Comment on above: Performed By: #### T SH, CDP, BMP, LIVP #### [address] [place] [phone] Casing Runner: Abeba Parra MD #### GLYHGB, LIPR #### [address] [address] Casing Runner: Chapin Bellamy MD Platelet mean volume (Bld) [Entitic vol] 11.0 fL Normal 8.1-13.5 [facility] Comment on above: Performed By: #### T SH, CDP, BMP, LIVP #### [facility] [address] [place], [place] [phone] Casing Runner: Abeba Parra MD #### GLYHGB, LIPR #### [address] [phone] Casing Runner: Chapin Bellamy MD Platelets (Bld) [#/Vol] 264 10*3/uL Normal 138-453 [facility] Comment on above: Performed By: #### T SH, CDP, BMP, LIVP #### [address] [place] [phone] Casing Runner: Abeba Parra MD #### GLYHGB, LIPR #### [address] [address] Casing Runner: Chapin Bellamy MD RBC (Bld) [#/Vol] 4.70 10*6/uL Normal 3.95-5.11 [facility] Comment on above: Performed By: #### T SH, CDP, BMP, LIVP #### [address] [place], [id number] Casing Runner: Abeba Parra MD #### GLYHGB, LIPR #### [address] [phone] Casing Runner: Chapin Bellamy MD WBC (Bld) [#/Vol] 10.8 10*3/uL Normal 3.5-11.3 [facility] Comment on above: Performed By: #### T SH, CDP, BMP, LIVP #### [facility] [address] [place] [address] [address]. [place] [phone] Casing Runner: Abeba Parra MD #### GLYHGB, LIPR #### [employer] [address] [place] [address] Casing Runner: Chapin Bellamy MD Hepatic Function Panelon Albumin [Mass/Vol] 4.2 g/dL 3.5 - 5.2 g/dL [facility] Albumin/Globulin [Mass ratio] 1.3 {ratio} 1.0 - 2.5 [facility] [employer] ALP [Catalytic activity/Vol] 80 U/L 35 - 104 U/L [facility] ALT [Catalytic activity/Vol] 23 U/L 5 - 33 U/L [facility] AST [Catalytic activity/Vol] 22 U/L NINF - 32 U/L [facility] Bilirubin [Mass/Vol] 0.5 mg/dL 0.3 - 1.2 mg/dL [facility] [employer] Bilirubin.direct [Mass/Vol] mg/dL NINF - 0.3 mg/dL [facility] Bilirubin.indirect [Mass/Vol] Can not be calculated 0.0 - 1.0 mg/dL [facility] [employer] Protein [Mass/Vol] 7.4 g/dL 6.4 - 8.3 g/dL [facility] [employer] Lipid Panelon 11-04-2022 Cholesterol [Mass/Vol] 130 mg/dL NINF - 200 mg/dL [facility] Comment on above: Cholesterol Guidelines: <200 Desirable 200-240 Borderline >240 Undesirable Cholesterol in HDL [Mass/Vol] 61 mg/dL 40 - PINF mg/dL [facility] [employer] Comment on above: HDL Guidelines: <40 Undesirable 40-59 Borderline >59 Desirable Cholesterol in LDL [Mass/Vol] 56 mg/dL 0 - 130 mg/dL [facility] Comment on above: LDL Guidelines: <100 Desirable 100-129 Near to/above Desirable 130-159 Borderline >159 Undesirable Direct (measured) LDL and calculated LDL are not interchangeable tests. Cholesterol.total/Ch olesterol in HDL [Mass ratio] 2.1 {ratio} NINF - 5 [facility] Triglyceride [Mass/Vol] 64 mg/dL NINF - 150 mg/dL [facility] Comment on above: Triglyceride Guidelines: <150 Desirable 150-199 Borderline 200-499 High >499 Very high Based on AHA Guidelines for fasting triglyceride, January 2012. [facility] Liver Profileon 11-04-2022 Albumin [Mass/Vol] 4.2 g/dL Normal 3.5-5.2 [facility] Comment on above: Performed By: #### T SH, CDP, BMP, LIVP #### [facility] [address] [place] [address] [address] [place], [place] [phone] Casing Runner: Abeba Parra MD #### GLYHGB, LIPR #### [id number] [place], [place] [id number] Casing Runner: Chapin Bellamy MD Albumin/Glob Ratio 1.3 Normal 1.0-2.5 [facility] Comment on above: Performed By: #### T SH, CDP, BMP, LIVP #### [address] [place] [address] Casing Runner: Abeba Parra MD #### GLYHGB, LIPR #### [address] [id number] Casing Runner: Chapin Bellamy MD Alkaline Phos 80 U/L Normal 35-104 [facility] Comment on above: Performed By: #### T SH, CDP, BMP, LIVP #### [facility] [address] [place] [address] [address] [place] [phone] Casing Runner: Abeba Parra MD #### GLYHGB, LIPR #### [id number] [place], [place] [phone] Casing Runner: Chapin Bellamy MD ALT [Catalytic activity/Vol] 23 U/L Normal 5-33 [facility] Comment on above: Performed By: #### T SH, CDP, BMP, LIVP #### [facility] [address] [place] [address] [place] [address] Casing Runner: Abeba Parra MD #### GLYHGB, LIPR #### [id number] [place] [address] Casing Runner: Chapin Bellamy MD AST [Catalytic activity/Vol] 22 U/L Normal <32 [facility] Comment on above: Performed By: #### T SH, CDP, BMP, LIVP #### [address] [place], [place] [phone] Casing Runner: Abeba Parra MD #### GLYHGB, LIPR #### [address] [address] Casing Runner: Chapin Bellamy MD Bilirubin [Mass/Vol] 0.5 mg/dL Normal 0.3-1.2 [facility] Comment on above: Performed By: #### T SH, CDP, BMP, LIVP #### [address] [place] [phone] Casing Runner: Abeba Parra MD #### GLYHGB, LIPR #### [address] [address] Casing Runner: Chapin Bellamy MD Bilirubin, Indirect Can not be calculated Normal 0.0-1 .0 [facility] Comment on above: Performed By: #### T SH, CDP, BMP, LIVP #### [address] [place], [place] [phone] Casing Runner: Abeba Parra MD #### GLYHGB, LIPR #### [id number] [place], [place] [phone] Casing Runner: Chapin Bellamy MD Bilirubin.indirect [Mass/Vol] mg/dL Normal <0.3 [facility] Comment on above: Performed By: #### T SH, CDP, BMP, LIVP #### [address] [place], [place] [phone] Casing Runner: Abeba Parra MD #### GLYHGB, LIPR #### [address] [place] [address] Casing Runner: Chapin Bellamy MD Protein [Mass/Vol] 7.4 g/dL Normal 6.4-8.3 [facility] Comment on above: Performed By: #### T DESTINI, CDP, BMP, LIVP #### [address] [place] [address] Casing Runner: Abeba Parra MD #### GLYHGB, LIPR #### [id number] [place] [address] Casing Runner: Chapin Bellamy MD No Panel Informationon 11-04 [facility] TSHon 11-04-2022 TSH Qn 1.57 m[IU]/L [facility] Thyroid Stim. Horm.on 2022 Thyroid Stim. Horm. 1.57 uIU/mL Normal 0.30-5.00 [facility] Comment on above: Performed By: #### T DESTINI, JOAN, BMP, LIVP #### [address] [place] [address] Casing Runner: Abeba Parra MD #### GLYHGB, LIPR #### [address] [place] [address] Casing Runner: Chapin Bellamy MD NM HEPATOBILIARY SCAN W [...] by: ABEBA APODACA Date: 2020-01-30 09:35 Normal [facility] US SINGLE QUAD RT UPPERon US SINGLE [...] by: ABEBA APODACA Date: 2020-01-22 11:02 Normal [facility] Social History Date Type Detail Facility Start: 2000 Sex Assigned At Not on file [facility] Tobacco smoking stat [facility] Tobacco smoking consumption unknown [facility] Summary Purpose Family History No Family History Records FoundNo Family History Records FoundNo Family History Records Found Advance Directives No Advanced Directives Records FoundNo Advanced Directives Records FoundNo Advanced Directives Records Found Additional Source Comments INFORMATION SOURCE (unrecogn ized section and content) DATE CREATED AUTHOR 02/04/2020 [facility] DATE CREATED AUTHOR AUTHOR'S ORGANIZ ATION 11/06/2022 [facility] DATE CREATED AUTHOR AUTHOR'S ORGANIZ ATION 10/12/2023 [facility] [employer] Care Teams (unrecognized sec tion and content) H[employer] Installer Relationship Specialty Start Date End Date Richard Dai MD [address] [place] [address] PCP - General Family Medicine 11/04/22 FOR [...] BE BASED ON THE PRIMARY CLINICAL RECORDS. [facility] [employer] [facility]. provides no warranty or guarantee of the accuracy or completeness of information in this document.
== END 2023-10-16 08:25 | disposition home or self-care (01) ==
LOC: NOMS 08:25
PROVIDERS: PCP Family Medicine; Visit Provider Obstetrics & Gynecology
DX: N89.8 Other specified noninflammatory disorders of vagina (principal); Z36.86 Encounter for antenatal screening for cervical length; N93.9 Abnormal uterine and vaginal bleeding, unspecified; Z3A.17 17 weeks gestation of pregnancy
CPT/HCPCS: 76817

== ENCOUNTER 2023-11-06 14:32 | Outpatient (OUT) | payer BC, SELFPAY ==
--- NOTE | 2023-11-06 14:34 | US_ITS ---
[address] [address] Patient Name: NAFISA NUÑEZ MRN: [id number] date: 2000 Sex: F Assigned [facility] Current Patient Location: Accession/Order Number: [id number] Exam Date: 11/06/2023 14:34 Report Date: 11/07/2023 05:09 At the request of: NIDA GREY Procedure: US OB cervical length EXAMINATION: US OB anatomy, US OB cervical length HISTORY: ANATOMY COMPARISON: No relevant comparison available. TECHNIQUE: Transabdominal sonographic examination was performed for obstetrical and evaluation. FINDINGS: Number: 1 Heart Rate: 154 bpm H.B. /min Amniotic Fluid Volume: Subjectively normal Placental Location: POSTERIOR with lower margin 5.7 cm from os. Cervix Length: 3.96 cm ; closed. ANATOMY: Normal Structures -cerebellum, choroid plexus, cisterna magna, lateral cerebral ventricles, orbits, midline falx, hard palate, stomach, kidneys, bladder, umbilical cord insertion into abdomen, three-vessel cord, cervical spine, thoracic spine, lumbar spine, sacral spine, right upper extremity, left upper extremity, right lower extremity, left lower extremity. SUBOPTIMALLY SEEN: Four-chamber heart and cardiac outflow tracts. ABNORMALITIES: None BIOMETRY: BPD: 4.79 cm; 20 weeks 3 days; 51.90 % HC: 17.97 cm; 20 weeks 3 days; 40.30 % AC: 15.34 cm; 20 weeks 4 days 47.50 % FL: 3.28 cm; 20 weeks 2 days; 35.20 % EFW:360.71 g; 43.90 % FL/AC: 21.38 FL/BPD: 68.48 HC/AC: 1.17 GESTATIONAL AGE: Age by EDC: 20 weeks 3 days Age by current US: 20 weeks 3 days TEE by current US: 2024-03-22 TEE by EDC: 2024-03-22 US/US OB cervical length IMPRESSION: 1. Single live intrauterine with growth detailed above. 2. Suboptimal visualization of the four-chamber heart and cardiac outflow tracts due to position. Electronically authenticated by: CYNTHIA LIMA Date: 11/07/2023 05:09
--- NOTE | 2023-11-06 14:34 | US_ITS ---
[address] [address] Patient Name: NAFISA NUÑEZ MRN: [id number] date: 2000 Sex: F Assigned Patient Location: [facility] Current Patient Location: Accession/Order Number: [id number] Exam Date: 11/06/2023 14:35 Report Date: 11/07/2023 05:09 At the request of: NIDA GREY Procedure: US OB anatomy EXAMINATION: US OB anatomy, US OB cervical length HISTORY: ANATOMY COMPARISON: No relevant comparison available. TECHNIQUE: Transabdominal sonographic examination was performed for obstetrical and evaluation. FINDINGS: Number: 1 Heart Rate: 154 bpm H.B. /min Amniotic Fluid Volume: Subjectively normal Placental Location: POSTERIOR with lower margin 5.7 cm from os. Cervix Length: 3.96 cm ; closed. ANATOMY: Normal Structures -cerebellum, choroid plexus, cisterna magna, lateral cerebral ventricles, orbits, midline falx, hard palate, stomach, kidneys, bladder, umbilical cord insertion into abdomen, three-vessel cord, cervical spine, thoracic spine, lumbar spine, sacral spine, right upper extremity, left upper extremity, right lower extremity, left lower extremity. SUBOPTIMALLY SEEN: Four-chamber heart and cardiac outflow tracts. ABNORMALITIES: None BIOMETRY: BPD: 4.79 cm; 20 weeks 3 days; 51.90 % HC: 17.97 cm; 20 weeks 3 days; 40.30 % AC: 15.34 cm; 20 weeks 4 days 47.50 % FL: 3.28 cm; 20 weeks 2 days; 35.20 % EFW:360.71 g; 43.90 % FL/AC: 21.38 FL/BPD: 68.48 HC/AC: 1.17 GESTATIONAL AGE: Age by EDC: 20 weeks 3 days Age by current US: 20 weeks 3 days TEE by current US: 2024-03-22 TEE by EDC: 2024-03-22 US/US OB anatomy IMPRESSION: 1. Single live intrauterine with growth detailed above. 2. Suboptimal visualization of the four-chamber heart and cardiac outflow tracts due to position. Electronically authenticated by: CYNTHIA LIMA Date: 11/07/2023 05:09
== END 2023-11-06 14:33 | disposition home or self-care (01) ==
LOC: NOMS 14:32
PROVIDERS: PCP Family Medicine; Visit Provider Obstetrics & Gynecology
DX: Z34.92 Encounter for supervision of normal pregnancy, unspecified, second trimester (principal); Z3A.20 20 weeks gestation of pregnancy; Z36.89 Encounter for other specified antenatal screening
CPT/HCPCS: 76805; 76817

== ENCOUNTER 2023-12-22 09:05 | Outpatient (OUT) | payer BC, SELFPAY ==
--- OUTSIDE RECORDS SUMMARY | 2023-12-22 09:21 | XMS_ITS | CCD ---
Author Organization [facility] Inform ion Partnership [facility] Care Team Providers Care Clinical Instructor Name Role Phone HOY, ELMER Admitting Unavailable HOY, ELMER Attending Unavailable HOY, ELMER Primary Care Unavailable HOY, ELMER Consulting Unavailable ABEBA APODACA V Consulting Unavailable HOY, ELMER Admitting Unavailable HOY, ELMER Attending Unavailable HOY, ELMER Primary Care Unavailable HOY, ELMER Consulting Unavailable ABEBA APODACA V Consulting Unavailable Richard Dai MD Primary Care Provider RICHARD DAI Referring Le DAI, RICHARD AYALA Primary Care UnavailRICHARD Jennings Attending Unavailable MATILDA, NIDA Attending Unavailable MATILDA, NIDA Attending Unavailable MATILDA, NIDA Attending Unavailable FRANK VAZQUEZ Attending Unavailable MATILDA, NIDA Attending Unavailable MATILDA, NIDA Attending Unavailable Allergies Allergy Classification Reported Allergen(s) Allergy Type Date of Onset Reaction(s) Facility (1 source) Amoxicillin Drug Allergy 06-26-2018 Nausea And Vomiting [facility] (1 source) fexofenadine Drug Allergy 03-12-2019 [facility] Medications Current Medications Medication Drug [...] A1Con 11-06-2022 Glucose [Mass/Vol] 103 mg/dL Normal [facility] Comment on above: Result Comment: The ADA and AACC recommend providing the estimated average glucose result to permit better patient understanding of their HBA1c result. Performed By: #### T SH, CDP, BMP, LIVP #### [address] [place], [place] [phone] Assessment Expert: Abeba Parra MD #### GLYHGB, LIPR #### [address] [phone] Assessment Expert: Chapin Bellamy MD HbA1c (Bld) [Mass fraction] 5.2 % Normal 4.0-6.0 [facility] Comment on above: Performed By: #### T SH, CDP, BMP, LIVP #### [address] [place], [place] [phone] Assessment Expert: Abeba Parra MD #### GLYHGB, LIPR #### [address] [phone] Assessment Expert: Chapin Bellamy MD Lipid Profileon 11-05-2022 Cholesterol [Mass/Vol] 130 mg/dL Normal <200 [facility] Comment on above: Result Comment: Cholesterol Guidelines: <200 Desirable 200-240 Borderline >240 Undesirable Performed By: #### T SH, CDP, BMP, LIVP #### [address] [place], [place] [phone] Assessment Expert: Abeba Parra MD #### GLYHGB, LIPR #### [address] [address] Assessment Expert: Chapin Bellamy MD Cholesterol in HDL [Mass/Vol] 61 mg/dL Normal >40 [facility] Comment on above: Result Comment: HDL Guidelines: <40 Undesirable 40-59 Borderline >59 Desirable Performed By: #### T SH, CDP, BMP, LIVP #### [address] [place], [place] [phone] Assessment Expert: Abeba Parra MD #### GLYHGB, LIPR #### [facility] [employer] [address] [place] [address] Assessment Expert: Chapin Bellamy MD Cholesterol in LDL [Mass/Vol] 56 mg/dL Normal 0-130 [facility] Comment on above: Result Comment: LDL Guidelines: <100 Desirable 100-129 Near to/above Desirable 130-159 Borderline >159 Undesirable Direct (measured) LDL and calculated LDL are not interchangeable tests. Performed By: #### T SH, CDP, BMP, LIVP #### [facility] [address] [place] [address] Dr[address] [place], [place] [phone] Assessment Expert: Abeba Parra MD #### GLYHGB, LIPR #### [phone] [place] [address] Assessment Expert: Chapin Bellamy MD Cholesterol.total/Ch olesterol in HDL [Mass ratio] 2.1 {ratio} Normal <5 [facility] Comment on above: Performed By: #### T DESTINI, CDP, BMP, LIVP #### [facility] [address] [place] [address] [address] [place], [place] [phone] Assessment Expert: Abeba Parra MD #### VERONICAHGTanya, LIPR #### [facility] [employer] [address] [place] [address] Assessment Expert: Chapin Bellamy MD Triglyceride [Mass/Vol] 64 mg/dL Normal <150 [facility] Comment on above: Result Comment: Triglyceride Guidelines: <150 Desirable 150-199 Borderline 200-499 High >499 Very high Based on AHA Guidelines for fasting triglyceride, January 2012. Performed By: #### T SH, CDP, BMP, LIVP #### [facility] [address] [place] [address] Dr[address] [place], [place] [phone] Assessment Expert: Abeba Parra MD #### GLYHGB, LIPR #### [facility] [address] [place] [address] Assessment Expert: Chapin Bellamy MD Basic Metabolic Panelon 07-2 Anion gap [Moles/Vol] 11 mmol/L 9 - 17 mmol/L [facility] Calcium [Mass/Vol] 9.7 mg/dL 8.6 - 10. 4 mg/dL [facility] Chloride [Moles/Vol] 107 mmol/L 98 - 107 mmol/L [facility] CO2 [Moles/Vol] 22 mmol/L 20 - 31 mmol/L [facility] Creatinine [Mass/Vol] 0.6 mg/dL 0.5 - 0.9 mg/dL [facility] GFR/1.73 sq M.predicted MDRD (S/P/Bld) [Vol rate/Area] - PINF [facility] Comment on above: These results [...] [Mass/Vol] 85 mg/dL 70 - 99 mg/dL [facility] Interpretation and review of laboratory results Abnormal [facility] Potassium [Moles/Vol] 3.9 mmol/L 3.7 - 5.3 mmol/L [facility] Sodium [Moles/Vol] 140 mmol/L 135 - 144 mmol/L [facility] Urea nitrogen [Mass/Vol] 18 mg/dL 6 - 20 mg/dL [facility] Urea nitrogen/Creatinine [Mass ratio] 30 mg/mg High - [facility] Basic Metabolic Profon 11-04 Anion gap [Moles/Vol] 11 mmol/L Normal 12-25 [facility] Comment on above: Performed By: #### T SH, CDP, BMP, LIVP #### [facility] [address] [place] [address] Assessment Expert: Abbea Parra MD #### GLYHGB, LIPR #### [facility] [employer] [address] [place] [address] Assessment Expert: Chapin Bellamy MD BUN/CRE Ratio 30 High 9-20 [facility] Comment on above: Performed By: #### T SH, CDP, BMP, LIVP #### [facility] [address] [place], [place] 1091783 Assessment Expert: Abeba Parra MD #### GLYHGB, LIPR #### [address] [address] Assessment Expert: Chapin Bellamy MD Calcium [Mass/Vol] 9.7 mg/dL Normal 8.6-10.4 [facility] Comment on above: Performed By: #### T SH, CDP, BMP, LIVP #### [facility] [address] [place] [address] [place], [place] [phone] Assessment Expert: Abeba Parra MD #### GLYHGB, LIPR #### [address] [address] Assessment Expert: Chapin Bellamy MD Chloride [Moles/Vol] 107 mmol/L Normal 98-107 [facility] Comment on above: Performed By: #### T SH, CDP, BMP, LIVP #### [facility] [address] [place] [address] [address] [place], [place] [phone] Assessment Expert: Abeba Parra MD #### GLYHGB, LIPR #### [address] [address] Assessment Expert: Chapin Bellamy MD CO2 [Moles/Vol] 22 mmol/L Normal 20-31 [facility] Comment on above: Performed By: #### T SH, CDP, BMP, LIVP #### [facility] [address] [place] [address] Dr. [place], [place] [phone] Assessment Expert: Abeba Parra MD #### GLYHGB, LIPR #### [address] [phone] Assessment Expert: Chapin Bellamy MD Creatinine [Mass/Vol] 0.6 mg/dL Normal 0.5-0.9 [facility] Comment on above: Performed By: #### T SH, CDP, BMP, LIVP #### [facility] [address] [place] [address] Dr. [place], [place] [phone] Assessment Expert: Abeba Parra MD #### GLYHGB, LIPR #### [phone] [place], [place] [phone] Assessment Expert: Chapin Bellamy MD GFR/1.73 sq M.predicted among non-blacks MDRD (S/P/Bld) [Vol rate/Area] mL/min/{1.73_m2} Normal >60 [facility] Comment on above: Result Comment: These results [...] renal tubular secretion. Performed By: #### T DESTINI, CDP, BMP, LIVP #### [address] [place], [place] [phone] Assessment Expert: Abeba Parra MD #### GLYALDEN, LIPR #### [address] [address] Assessment Expert: Chapin Bellamy MD Glucose [Mass/Vol] 85 mg/dL Normal 70-99 [facility] Comment on above: Performed By: #### T SH, CDP, BMP, LIVP #### [address] [place], [place] 2075583 Assessment Expert: Abeba Parra MD #### GLYHGB, LIPR #### [address] [address] Assessment Expert: Chapin Bellamy MD Potassium [Moles/Vol] 3.9 mmol/L Normal 3.7-5.3 [facility] Comment on above: Performed By: #### T SH, CDP, BMP, LIVP #### [facility] [address] [place] [address] Assessment Expert: Abeba Parra MD #### GLYHGB, LIPR #### [address] [place], [place] 3600108 Assessment Expert: Chapin Bellamy MD Sodium [Moles/Vol] 140 mmol/L Normal 135-144 [facility] Comment on above: Performed By: #### T SH, CDP, BMP, LIVP #### [facility] [address] [place] [address] [place] [address] Assessment Expert: Abeba Parra MD #### GLYHGB, LIPR #### [address] [place], [place] [phone] Assessment Expert: Chapin Bellamy MD Urea nitrogen [Mass/Vol] 18 mg/dL Normal 6-20 [facility] Comment on above: Performed By: #### T SH, CDP, BMP, LIVP #### [facility] [address] [place] [address] [place] [address] Assessment Expert: Abeba Parra MD #### GLYHGB, LIPR #### [phone] [place], [place] [phone] Assessment Expert: Chapin Bellamy MD CBC with Auto Differentialon 11-04-2022 Basophils (Bld) [#/Vol] 0.05 10*3/uL [facility] Basophils/100 WBC (Bld) 1 % 0 - 2 % [facility] Eosinophils (Bld) [#/Vol] 0.06 10*3/uL [facility] Eosinophils/100 WBC (Bld) 1 % 1 - 4 % [facility] Erythrocyte distribution width (RBC) [Ratio] 13.0 % 11.8 - 14.4 % [facility] Hematocrit (Bld) [Volume fraction] 43.3 % 36.3 - 47.1 % [facility] Hemoglobin (Bld) [Mass/Vol] 14.2 g/dL 11.9 - 15.1 g/dL [facility] Immature granulocytes (Bld) [#/Vol] [facility] Immature granulocytes/100 WBC (Bld) 0 % 0 [facility] Lymphocytes/100 WBC (Bld) 30 % 24 - 43 % [facility] Lymphocytes/100 WBC (Bld) 3.22 % [facility] MCH (RBC) [Entitic mass] 30.2 pg 25.2 - 33.5 pg [facility] MCHC (RBC) [Mass/Vol] 32.8 g/dL 28.4 - 34.8 g/dL [facility] MCV (RBC) [Entitic vol] 92.1 fL 82.6 - 102.9 fL [facility] Monocytes/100 WBC (Bld) 5 % 3 - 12 % [facility] Monocytes/100 WBC (Bld) 0.50 % [facility] Neutrophils/100 WBC (Bld) 63 % 36 - 65 % [facility] Nucleated RBC/100 WBC (Bld) [Ratio] 0.0 % 0.0 per 100 WBC [facility] Platelet mean volume (Bld) [Entitic vol] 11.0 fL 8.1 - 13.5 fL [facility] Platelets (Bld) [#/Vol] 264 10*3/uL [facility] RBC (Bld) [#/Vol] 4.70 10*6/uL 3.95 - 5.1 1 m/uL [facility] Segmented neutrophils/100 WBC (Bld) 6.95 % [facility] WBC other (Bld) [#/Vol] 10.8 [facility] CBC with Diffon 11-04-2022 Abs. Basophil 0.05 k/uL Normal 0.00-0.20 [facility] Comment on above: Performed By: #### T SH, CDP, BMP, LIVP #### [facility] [address] [place] [address] [address]. [place], [place] [phone] Assessment Expert: Abeba Parra MD #### GLYHGB, LIPR #### [address] [phone] Assessment Expert: Chapin Bellamy MD Abs.Imm.Granulocyte <0.03 Normal 0.00-0.30 [facility] Comment on above: Performed By: #### T SH, CDP, BMP, LIVP #### [address] [place] 0573483 Assessment Expert: Abeba Parar MD #### GLYHGB, LIPR #### [address] [phone] Assessment Expert: Chapin Bellamy MD Abs.Neutrophil (Seg) 6.95 k/uL Normal 1.50-8.10 [facility] Comment on above: Performed By: #### T SH, CDP, BMP, LIVP #### [address] [place] 0573483 Assessment Expert: Abeba Parra MD #### GLYHGB, LIPR #### [address] [address] Assessment Expert: Chapin Bellamy MD Basophils/100 WBC (Bld) 1 % Normal 0-2 [facility] Comment on above: Performed By: #### T SH, CDP, BMP, LIVP #### [address] [place], [place] 8792483 Assessment Expert: Abeba Parra MD #### GLYHGB, LIPR #### [address] [phone] Assessment Expert: Chapin Bellamy MD Eosinophils (Bld) [#/Vol] 0.06 10*3/uL Normal 0.00-0.44 [facility] Comment on above: Performed By: #### T SH, CDP, BMP, LIVP #### [facility] [address] [place] [address] Dr[place] [phone] Assessment Expert: Abeba Parra MD #### GLYHGB, LIPR #### [address] [phone] Assessment Expert: Chapin Bellamy MD Eosinophils/100 WBC (Bld) 1 % Normal 1-4 [facility] Comment on above: Performed By: #### T SH, CDP, BMP, LIVP #### [address] [place] 0573483 Assessment Expert: Abeba Parra MD #### GLYHGB, LIPR #### [address] [phone] Assessment Expert: Chapin Bellamy MD Erythrocyte distribution width (RBC) [Ratio] 13.0 % Normal 11.8-14.4 [facility] Comment on above: Performed By: #### T SH, CDP, BMP, LIVP #### [address] [place] 0573483 Assessment Expert: Abeba Parra MD #### GLYHGB, LIPR #### [address] [phone] Assessment Expert: Chapin Bellamy MD Hematocrit (Bld) [Volume fraction] 43.3 % Normal 36.3-47.1 [facility] Comment on above: Performed By: #### T SH, CDP, BMP, LIVP #### [address] [place] [address] Assessment Expert: Abeba Parra MD #### GLYHGB, LIPR #### [address] [phone] Assessment Expert: Chpain Bellamy MD Hemoglobin (Bld) [Mass/Vol] 14.2 g/dL Normal 11.9-15.1 [facility] Comment on above: Performed By: #### T SH, CDP, BMP, LIVP #### [facility] [address] [place] [address] [place], [place] [phone] Assessment Expert: Abeba Parra MD #### GLYHGB, LIPR #### [address] [phone] Assessment Expert: Chapin Bellamy MD Immature granulocytes/100 WBC (Bld) 0 % Normal 0 [facility] Comment on above: Performed By: #### T SH, CDP, BMP, LIVP #### [address] [place] 0573483 Assessment Expert: Abeba Parra MD #### VERONICAHGTanya, LIPR #### [address] [phone] Assessment Expert: Chapin Bellamy MD Lymphocytes (Bld) [#/Vol] 3.22 10*3/uL Normal 1.10-3.70 [facility] Comment on above: Performed By: #### T SH, CDP, BMP, LIVP #### [address] [place] 0573483 Assessment Expert: Abeba Parra MD #### GLYHGTanya, LIPR #### [address] [address] Assessment Expert: hCapin Bellamy MD Lymphocytes/100 WBC (Bld) 30 % Normal 24-43 [facility] Comment on above: Performed By: #### T SH, CDP, BMP, LIVP #### [address] [place] 0573483 Assessment Expert: Abeba Parra MD #### GLYHGB, LIPR #### [address] [phone] Assessment Expert: Chapin Bellamy MD MCH (RBC) [Entitic mass] 30.2 pg Normal 25.2-33.5 [facility] Comment on above: Performed By: #### T SH, CDP, BMP, LIVP #### [address] [place], [place] 5308883 Assessment Expert: Abeba Parra MD #### GLYHGB, LIPR #### [address] [place], [place] [phone] Assessment Expert: Chapin Bellamy MD MCHC (RBC) [Mass/Vol] 32.8 g/dL Normal 28.4-34.8 [facility] Comment on above: Performed By: #### T SH, CDP, BMP, LIVP #### [address] [place] 0573483 Assessment Expert: Abeba Parra MD #### GLYHGB, LIPR #### [address] [phone] Assessment Expert: Chapin Bellamy MD MCV (RBC) [Entitic vol] 92.1 fL Normal 82.6-102.9 [facility] Comment on above: Performed By: #### T SH, CDP, BMP, LIVP #### [address] [place], [facility] Assessment Expert: Abeba Parra MD #### GLYHGB, LIPR #### [address] [place], [place] 8765808 Assessment Expert: Chapin Bellamy MD Monocytes (Bld) [#/Vol] 0.50 10*3/uL Normal 0.10-1.20 [facility] Comment on above: Performed By: #### T SH, CDP, BMP, LIVP #### [address] [place] 0573483 Assessment Expert: Abeba Parra MD #### GLYHGB, LIPR #### [address] [place], [place] [phone] Assessment Expert: Chapin Bellamy MD Monocytes/100 WBC (Bld) 5 % Normal 3-12 [facility] Comment on above: Performed By: #### T SH, CDP, BMP, LIVP #### [facility] [address] [place] 0573483 Assessment Expert: Abeba Parra MD #### GLYHGB, LIPR #### [address] [phone] Assessment Expert: Chapin Bellamy MD Neutrophil (Seg) 63 % Normal 36-65 [facility] Comment on above: Performed By: #### T SH, CDP, BMP, LIVP #### [facility] [address] [place] [address] [place] 0573483 Assessment Expert: Abeba Prara MD #### GLYHGB, LIPR #### [address] [phone] Assessment Expert: Chapin Bellamy MD NRBC Automated 0.0 per 100 WBC Normal 0.0 [facility] Comment on above: Performed By: #### T SH, CDP, BMP, LIVP #### [facility] [address] [place] [address] [place] [place] [phone] Assessment Expert: Abeba Parra MD #### GLYHGB, LIPR #### [address] [id number] Assessment Expert: Chapin Bellamy MD Platelet mean volume (Bld) [Entitic vol] 11.0 fL Normal 8.1-13.5 [facility] Comment on above: Performed By: #### T SH, CDP, BMP, LIVP #### [facility] [address] [place] [address] Assessment Expert: Abeba Parra MD #### GLYHGB, LIPR #### [facility] [address] [place] [address] Assessment Expert: Chapin Bellamy MD Platelets (Bld) [#/Vol] 264 10*3/uL Normal 138-453 [facility] Comment on above: Performed By: #### T SH, CDP, BMP, LIVP #### [address] [place], [place] 1863683 Assessment Expert: Abeba Parra MD #### GLYHGB, LIPR #### [address] [place], [place] 7944208 Assessment Expert: Chapin Bellamy MD RBC (Bld) [#/Vol] 4.70 10*6/uL Normal 3.95-5.11 [facility] Comment on above: Performed By: #### T SH, CDP, BMP, LIVP #### [address] [place], [place] [phone] Assessment Expert: Abeba Parra MD #### GLYHGB, LIPR #### [address] [place] [address] Assessment Expert: Chapin Bellamy MD WBC (Bld) [#/Vol] 10.8 10*3/uL Normal 3.5-11.3 [facility] Comment on above: Performed By: #### T SH, CDP, BMP, LIVP #### [address] [place], [place] 1555783 Assessment Expert: Abeba Parra MD #### GLYHGB, LIPR #### [address] [place] [address] Assessment Expert: Chapin Bellamy MD Hepatic Function Panelon Albumin [Mass/Vol] 4.2 g/dL 3.5 - 5.2 g/dL [facility] Albumin/Globulin [Mass ratio] 1.3 {ratio} 1.0 - 2.5 [facility] ALP [Catalytic activity/Vol] 80 U/L 35 - 104 U/L [facility] ALT [Catalytic activity/Vol] 23 U/L 5 - 33 U/L [facility] AST [Catalytic activity/Vol] 22 U/L NINF - 32 U/L [facility] Bilirubin [Mass/Vol] 0.5 mg/dL 0.3 - 1.2 mg/dL [facility] Bilirubin.direct [Mass/Vol] mg/dL NINF - 0.3 mg/dL [facility] Bilirubin.indirect [Mass/Vol] Can not be calculated 0.0 - 1.0 mg/dL [facility] Protein [Mass/Vol] 7.4 g/dL 6.4 - 8.3 g/dL [facility] Lipid Panelon 11-04-2022 Cholesterol [Mass/Vol] 130 mg/dL NINF - 200 mg/dL [facility] Comment on above: Cholesterol Guidelines: <200 Desirable 200-240 Borderline >240 Undesirable Cholesterol in HDL [Mass/Vol] 61 mg/dL 40 - PINF mg/dL [facility] Comment on above: HDL Guidelines: <40 Undesirable 40-59 Borderline >59 Desirable Cholesterol in LDL [Mass/Vol] 56 mg/dL 0 - 130 mg/dL [facility] Comment on above: LDL Guidelines: <100 Desirable 100-129 Near to/above Desirable 130-159 Borderline >159 Undesirable Direct (measured) LDL and calculated LDL are not interchangeable tests. Cholesterol.total/Ch olesterol in HDL [Mass ratio] 2.1 {ratio} NINF - 5 [facility] Triglyceride [Mass/Vol] 64 mg/dL NINF - 150 mg/dL [facility] Comment on above: Triglyceride Guidelines: <150 Desirable 150-199 Borderline 200-499 High >499 Very high Based on AHA Guidelines for fasting triglyceride, January 2012. [facility] Liver Profileon 11-04-2022 Albumin [Mass/Vol] 4.2 g/dL Normal 3.5-5.2 [facility] Comment on above: Performed By: #### T SH, CDP, BMP, LIVP #### [facility] [address] [place], [place] [phone] Assessment Expert: Abeba Parra MD #### GLYHGB, LIPR #### [address] [place], [place] 1908908 Assessment Expert: Chapin Bellamy MD Albumin/Glob Ratio 1.3 Normal 1.0-2.5 [facility] Comment on above: Performed By: #### T SH, CDP, BMP, LIVP #### [facility] [address] [place], [place] [phone] Assessment Expert: Abeba Parra MD #### GLYHGB, LIPR #### [address] [phone] Assessment Expert: Chapin Bellamy MD Alkaline Phos 80 U/L Normal 35-104 [facility] Comment on above: Performed By: #### T SH, CDP, BMP, LIVP #### [facility] [address] [place], [place] [phone] Assessment Expert: Abeba Parra MD #### GLYHGB, LIPR #### [address] [place], [place] [phone] Assessment Expert: Chapin Bellamy MD ALT [Catalytic activity/Vol] 23 U/L Normal 5-33 [facility] Comment on above: Performed By: #### T SH, CDP, BMP, LIVP #### [facility] [address] [place], [place] 4789983 Assessment Expert: Abeba Parra MD #### GLYHGB, LIPR #### [address] [place], [place] 2662008 Assessment Expert: Chapin Bellamy MD AST [Catalytic activity/Vol] 22 U/L Normal <32 [facility] Comment on above: Performed By: #### T SH, CDP, BMP, LIVP #### [facility] [address] [place], [place] [phone] Assessment Expert: Abeba Parra MD #### GLYHGB, LIPR #### [address] [id number] Assessment Expert: Chapin Bellamy MD Bilirubin [Mass/Vol] 0.5 mg/dL Normal 0.3-1.2 [facility] Comment on above: Performed By: #### T SH, CDP, BMP, LIVP #### [facility] [address] [place] [address] [place], [place] [phone] Assessment Expert: Abeba Parra MD #### GLYHGB, LIPR #### [address] [phone] Assessment Expert: Chapin Bellamy MD Bilirubin, Indirect Can not be calculated Normal 0.0-1 .0 [facility] Comment on above: Performed By: #### T SH, CDP, BMP, LIVP #### [facility] [address] [place] [address] [place], [place] [phone] Assessment Expert: Abeba Parra MD #### GLYHGB, LIPR #### [address] [phone] Assessment Expert: Chapin Bellamy MD Bilirubin.indirect [Mass/Vol] mg/dL Normal <0.3 [facility] Comment on above: Performed By: #### T SH, CDP, BMP, LIVP #### [facility] [address] [place] [address] [place], [place] [phone] Assessment Expert: Abeba Parra MD #### GLYHGB, LIPR #### [address] [id number] Assessment Expert: Chapin Bellamy MD Protein [Mass/Vol] 7.4 g/dL Normal 6.4-8.3 [facility] Comment on above: Performed By: #### T SH, CDP, BMP, LIVP #### [facility] [address] [place] [address] Assessment Expert: Abeba Parra MD #### GIOVANNI, LIPR #### [facility] [address] [place] [address] Assessment Expert: Chapin Bellamy MD No Panel Informationon 11-04 [facility] TSHon 11-04-2022 TSH Qn 1.57 m[IU]/L [facility] Thyroid Stim. Horm.on 2022 Thyroid Stim. Horm. 1.57 uIU/mL Normal 0.30-5.00 [facility] Comment on above: Performed By: #### T JOAN GEORGES BMP, LIVP #### [address] [address] [place] [address] Assessment Expert: Abeba Parra MD #### GIOVANNI, LIPR #### [facility] [place] [address] Assessment Expert: Chapin Bellamy MD [place] HEPATOBILIARY SCAN W [...] by: ABEBA APODACA Date: 2020-01-30 09:35 Normal [facility] US SINGLE QUAD RT UPPERon [...] by: ABEBA APODACA Date: 2020-01-22 11:02 Normal [facility] Encounters Encounter Date Encounter Type Care Provider Facility Start: 12-04-2023 End: 12-04-2023 ambulatory NIDA MATILDA Not Available Start: 11-06-2023 End: 11-06-2023 ambulatory FRANK VAZQUEZ Not Available Start: 10-10-2023 End: 10-10-2023 ambulatory NIDA MATILDA Not Available Start: 09-11-2023 End: 09-11-2023 ambulatory NIDA MATILDA Not Available Start: 08-10-2023 End: 08-10-2023 ambulatory RICHARD DAI Not Available Start: 04-24-2023 End: 04-24-2023 ambulatory RICHARD DAI Not Available Start: 03-29-2023 End: 03-29-2023 ambulatory NIDA MATILDA Not Available Start: 02-22-2023 End: 02-22-2023 ambulatory NIDA MATILDA Not Available Start: 11-04-2022 End: 11-05-2022 ambulatory RICHARD DAI [facility] Start: 11-04-2022 End: 11-05-2022 Encounter for general adult medical examination without abnormal findings RICHARD DAI [facility] Start: 11-04-2022 End: 11-04-2022 Subsequent hospital visit by physician Richard Dai MD Work Phone: [facility] Start: 01-30-2020 End: 01-31-2020 Patient encounter procedure ELMER HOY Facility:[facility] Start: 01-22-2020 End: 01-23-2020 Patient encounter procedure ELMER WESLEY Facility:[facility] Procedures Date Procedure Procedure Detail Performing Clinician Start: 11-04-2022 Basic metabolic pane l calcium total Richard Dai MD Work Phone: Start: 11-04-2022 Lipid panel Richard Dai MD Work Phone: Plan of Treatment Date Care Activity Detail Author Start: 11-05-2031 DTaP/Tdap/Td vaccine (8 - Td or Tdap) DTaP/Tdap/Td vaccine (8 - Td or Tdap) [facility] Start: 11-08-2022 Influenza vaccination Flu vaccine (# 1) [facility] Start: 2019 Screening for malign ant neoplasm of cervix Pap smear [facility] Start: 02-10-2016 Hepatitis C screening Hepatitis C sc reen [facility] Start: 2014 Screening for Chlamy zulema trachomatis Chlamydia/GC screen [facility] Start: 2013 HIV screening HIV screen [facility] Start: 2010 Depression Screen Depression Screen [facility] Start: 2009 HPV vaccine (1 - 2-d ose series) HPV vaccine (1 - 2-dose series) [facility] Start: 1999 Varicella vaccine (1 of 2 - 2-dose childhood series) Varicella vaccine (1 of 2 - 2-dose childhood series) [facility] Start: 1998 COVID-19 Vaccine (#1) COVID-19 Vacci ne (#1) [facility] End: 11-04-2022 Hemoglobin A1c/Hemoglobin.total in Blood [facility] Work Phone: Comment on above: Once for 1 Occurrenc es starting 11/04/2022 until 11/04/2022 Immunizations Immunization Date Immunization Notes Care Provider Fa cility 11-04-2021 tetanus toxoid, redu sanya diphtheria toxoid, and acellular pertussis vaccine, adsorbed Richard Dai MD Work Phone: [facility] Payers Date Payer Category Payer Unknown [id number] 1998 Unknown [id number] 2.16.84 [id number] 1998 Unknown [id number] 2.16.84 [id number] 1998 Unknown [id number] 2.16.8 [id number] 1998 Unknown [id number] 2.16.84 [id number] 1998 Unknown [id number] 2.16.84 [id number] 1998 Unknown [id number] 2.16.84 [id number] 1998 Unknown [id number] 2.16.84 [id number] 1998 Unknown [id number] 2.16.84 [id number] 1998 Unknown [id number] 2.16.84 [id number] 1998 Unknown [id number] 2.16.840 .[id number] 1998 Unknown [id number] 2.16.840 .[id number] 1959 Unknown [id number] Social History Date Type Detail Facility [facility] Start: 2000 Sex Assigned At Not on file B ON [facility] Summary Purpose Family History No Family History Records FoundNo Family History Records FoundNo Family History Records Found Advance Directives No Advanced Directives Records FoundNo Advanced Directives Records FoundNo Advanced Directives Records Found Additional Source Comments INFORMATION SOURCE (unrecogn ized section and content) DATE CREATED AUTHOR 02/04/2020 [facility] DATE CREATED AUTHOR AUTHOR'S ORGANIZ ATION 11/06/2022 [facility] DATE CREATED AUTHOR AUTHOR'S ORGANIZ ATION 12/06/2023 [facility] [place] Care Teams (unrecognized sec tion and content) Clinical Instructor Relationship Specialty Start Date End Date Richard Dai MD [address] [place] [address] PCP - General Family Medicine 11/04/22 FOR [...] BE BASED ON THE PRIMARY CLINICAL RECORDS. [email or web address] [facility]. provides no warranty or guarantee of the accuracy or completeness of information in this document.
[2023-12-22 09:44] LABS: Basophils Percent Auto 0.3 % (0.2-2.0); Eosinophils Absolute Auto 0.1 10^3/uL (0.0-0.7); Eosinophils Percent Auto 0.5 % (0.9-7.0); Hematocrit 39.8 % (36.0-48.0); Hemoglobin 13.2 g/dL (12.0-16.0); Immature Granulocytes Abs Auto 0.07 10^3/uL (0.00-0.03); Immature Granulocytes Pct Auto 0.6 % (0.0-0.5); Lymphocytes Percent Auto 16.4 % (20.5-60.0); Mean Corpuscular HGB Conc 33.2 g/dL (29.9-35.2); Mean Corpuscular Hemoglobin 31.1 pg (26.7-34.0); Mean Corpuscular Volume 93.9 fL (81.0-99.0); Mean Platelet Volume 10.8 fL (9.5-13.5); Monocytes Absolute Auto 0.4 10^3/uL (0.3-0.8); Monocytes Percent Auto 2.8 % (1.7-12.0); Neutrophils Absolute Auto 9.9 10^3/uL (1.4-6.5); Neutrophils Percent Auto 79.4 % (43.0-75.0); Platelet Count 193 10^3/uL (150-450); Red Blood Count 4.24 10^6/uL (4.20-5.40); Red Cell Distribution Width 13.2 % (11.0-15.0); White Blood Count 12.4 10^3/uL (4.0-11.0)
[2023-12-22 10:34] LABS: Glucose 1 Hour 112 mg/dL (<130)
== END 2023-12-22 09:06 | disposition home or self-care (01) ==
LOC: LAB 09:06
PROVIDERS: PCP Family Medicine; Visit Provider Obstetrics & Gynecology
DX: Z13.1 Encounter for screening for diabetes mellitus (principal)
CPT/HCPCS: 36415; 82950; 85025

== ENCOUNTER 2024-01-15 14:01 | Outpatient (OUT) | payer BC, SELFPAY ==
--- NOTE | 2024-01-15 14:03 | US_ITS ---
[address] [address] Patient Name: NAFISA NUÑEZ MRN: [id number] date: 2000 Sex: F Assigned Patient Location: [facility] Current Patient Location: [facility] Accession/Order Number: [id number] Exam Date: 01/15/2024 14:03 Report Date: 01/15/2024 15:06 At the request of: NIDA GREY Procedure: US OB growth EXAMINATION: US OB growth HISTORY: LARGE FOR GESTATIONAL AGE COMPARISON: No relevant comparison available. FINDINGS: Heart Rate: 154 bpm Amniotic Fluid Volume: 12.2 cm. Largest fluid pocket 4.0 cm Number: 1 Position: CEPHALIC BIOMETRY: BPD: 7.68 cm; 30 weeks 6 days; 50.40 % HC: 28.67 cm; 31 weeks 4 days; 44.50 % AC: 26.45 cm; 30 weeks 4 days; 50 % FL: 5.79 cm; 30 weeks 2 days; 31.40 % EFW: 1602.81 g; 42.80 %, 3 lbs. 9 oz. FL/AC: 21.89 FL/BPD: 75.39 HC/AC: 1.08 GESTATIONAL AGE: Age by EDC: 30 weeks 3 days TEE by EDC: 2024-03-22 Age by US: 30 weeks 6 days TEE by US: 2024-03-19 US/US OB growth IMPRESSION: Normal interval growth Electronically authenticated by: ABEBA APODACA Date: 01/15/2024 15:06
--- NOTE | 2024-01-15 14:03 | US_ITS ---
[address] [address] Patient Name: NAFISA NUÑEZ MRN: [id number] date: 2000 Sex: F Assigned Patient Location: [facility] Current Patient Location: [facility] Accession/Order Number: [id number] Exam Date: 01/15/2024 14:03 Report Date: 01/15/2024 15:06 At the request of: NIDA GREY Procedure: US OB incomplete anatomy EXAM: US OB incomplete anatomy HISTORY: SUBVISUALIZED 4 CHAMBER HEART AND OUTFLOW TRACTS COMPARISON: 11/06/2023. TECHNIQUE: Transabdominal FINDINGS: position: Cephalic presentation, longitudinal lie Heart rate: 154 beats minute Normal observed anatomy: Four-chamber heart, RVOT, LVOT US/US OB incomplete anatomy IMPRESSION: Normal observed anatomy Electronically authenticated by: ABEBA APODACA Date: 01/15/2024 15:06
== END 2024-01-15 14:02 | disposition home or self-care (01) ==
LOC: NOMS 14:01
PROVIDERS: PCP Family Medicine; Visit Provider Obstetrics & Gynecology
DX: O36.63X0 Maternal care for excessive fetal growth, third trimester, not applicable or unspecified (principal); Z3A.30 30 weeks gestation of pregnancy; Z36.2 Encounter for other antenatal screening follow-up
CPT/HCPCS: 76815; 76816

== ENCOUNTER 2024-02-14 08:02 | Outpatient (OUT) | payer BC, SELFPAY ==
--- NOTE | 2024-02-14 | US_ITS ---
[address] [address] Patient Name: NAFISA NUÑEZ MRN: [id number] date: 2000 Sex: F Assigned Patient Location: [facility] Current Patient Location: [facility] Accession/Order Number: [id number] Exam Date: 02/14/2024 08:05 Report Date: 02/14/2024 08:50 At the request of: FRANK VAZQUEZ Procedure: US OB growth EXAMINATION: US OB growth HISTORY: LARGE FOR GESTATIONAL AGE COMPARISON: No relevant comparison available. FINDINGS: Heart Rate: 150 bpm Amniotic Fluid Volume: 14.1 cm, largest fluid pocket 4.5 cm Number: 1 Position: Cephalic presentation, longitudinal lie BIOMETRY: BPD: 8.59 cm; 34 weeks 4 days; 48.60 % HC: 31.67 cm; 35 weeks 4 days; 36.50 % AC: 30.88 cm; 34 weeks 6 days; 59.30 % FL: 6.59 cm; 34 weeks 0 days; 22.60 % EFW: 2485.10 g; 43.60 %, 5 lbs. 8 oz. FL/AC: 21.34 FL/BPD: 76.72 HC/AC: 1.03 GESTATIONAL AGE: Age by EDC: 34 weeks 5 days TEE by EDC: 2024-03-22 Age by US: 34 weeks 5 days TEE by US: 2024-03-22 US/US OB growth IMPRESSION: Normal interval growth Electronically authenticated by: ABEBA APODACA Date: 02/14/2024 08:50
--- OUTSIDE RECORDS SUMMARY | 2024-02-14 08:15 | XMS_ITS | CCD ---
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 Name Role Phone HOY, ELMER Admitting Unavailable HOY, ELMER Attending Unavailable HOY, ELMER Primary Care Unavailable HOY, ELMER Consulting Unavailable WEST, ABEBA V Consulting Unavailable HOY, ELMER Admitting Unavailable HOY, ELMER Attending Unavailable HOY, ELMER Primary Care Unavailable HOY, ELMER Consulting Unavailable WEST, ABEBA V Consulting Unavailable Richard Dai MD Primary Care Provider RICHARD DAI Referring UnavailRICHARD Desai Primary Care UnavailRichard Desai MD Unavailable Richard Dai MD Primary Care Provider [phone] RICHARD DAI Attending Unavailable ALISSON, NIDA Attending Unavailable ALISSON, NIDA Attending Unavailable ALISSON, NIDA Attending Unavailable GEORGE, VENICE Attending Unavailable ALISSON, NIDA Attending Unavailable ALISSON, NIDA Attending Unavailable ALISSON, NIDA Attending Unavailable GEORGE, VENICE Attending Unavailable ALISSON, NIDA Attending Unavailable GEORGE, VENICE Attending Unavailable Allergies Allergy Classification Reported Allergen(s) Allergy Type Date of Onset Reaction(s) Facility (10 sources) Amoxicillin Drug Allergy 9 Nausea And Vomiting, GI intolerance [facility] (10 sources) fexofenadine Drug Allergy 9 GI intolerance [facility] (9 sources) Hypochlorite Drug Allergy 8 Itching, Rash, Swelling [facility] Medications Current Medications Medication Drug Class(es) Dates Sig (Normalized) Sig (Original) Ethinyl Estradiol / Ferrous fumarate / Norethindrone (1 source) Estrogen Norethin Abad-Eth Estrad-FE 1-20 MG-MCG(24) CAPS Take by mouth 0 Active omeprazole 20 mg delayed release oral capsule (9 sources) Proton Pump Inhibitor Start: 12-07-2023 End: 12-06-2024 take 1 capsule by mouth once before mealtime omeprazole (PriLOSEC) [address] capsule Indications: Heartburn during in second trimester Take 1 capsule (20 mg) by mouth in the morning. Take before meals. Do not crush or chew.. 30 capsule 11 12/07/2023 12/06/2024 Active Problems Active Problems Problem Classification Problem Date Documented Da te Episodic/Chronic Abdominal pain (4 sources) Unspecified abdominal pain; Translations: [UNSPECIFIED ABDOMINAL PAIN] Onset: 01-30-2020 Episodic Other complications of (2 sources) Excessive growth affecting management of mother; Translations: [Maternal care for excessive growth, third trimester, not applicable or unspecified] 02-12-2024 Episodic Other endocrine disorders (9 sources) Polycystic ovary syndrome; Translations: [Polycystic ovarian syndrome] Onset: 04-24-2023 04-24-2023 Chronic Other female genital disorders (9 sources) Vaginal bleeding; Translations: [Abnormal uterine and vaginal bleeding, unspecified] Onset: 10-10-2023 10-10-2023 Chronic Other nutritional; endocrine; and metabolic disorders (9 sources) Body mass index 30+ - obesity; Translations: [Obesity, unspecified] Onset: 04-24-2023 04-24-2023 Chronic Other and delivery including normal (8 sources) Third trimester ; Translations: [Encounter for supervision of normal , unspecified, third trimester] Onset: 02-12-2024 01-15-2024 Episodic Other upper respiratory disease (9 sources) Allergic rhinitis due to pollen; Translations: [Allergic rhinitis due to pollen] Onset: 04-24-2023 04-24-2023 Chronic Residual codes; unclassified (2 sources) Gestation period, 30 weeks; Translations: [30 weeks gestation of ] 01-15-2024 Episodic Residual codes; unclassified (7 sources) Gestation period, 32 weeks; Translations: [32 weeks gestation of ] Onset: 01-30-2024 01-29-2024 Episodic Residual codes; unclassified (4 sources) Gestation period, 34 weeks; Translations: [34 weeks gestation of ] Onset: 02-12-2024 02-12-2024 Episodic Past or Other Problems Problem Classification Problem Date Documented Da te Episodic/Chronic Gastritis and duodenitis (9 sources) Acute superficial gastritis; Translations: [Acute gastritis without bleeding] Onset: 04-24-2023 04-24-2023 Episodic Mycoses (9 sources) Mycosis; Translations: [Candidiasis, unspecified] Onset: 09-11-2023 09-11-2023 Episodic Residual codes; unclassified (9 sources) Gestation period, 12 weeks; Translations: [12 weeks gestation of ] Onset: 09-11-2023 09-11-2023 Episodic Sprains and strains (9 sources) Strain of thoracic region; Translations: [Strain of muscle and tendon of back wall of thorax, initial encounter] Onset: 04-24-2023 04-24-2023 Episodic Results Test Name Value Interpretation Reference Range Facility Urinalysis macro (dipstick) panel (U)on 02-12-2024 Bilirubin, UA Negative Negative - 4(70) +++ mg/dL [facility] Blood, UA Negative Negative - 50 Gonzalez/mcL [facility] Clarity, UA Clear [facility] re Color, UA Yellow [facility] Glucose, UA Negative Negative - 1999(110) ++++ mg/dL [facility] Interpretation and review of laboratory results Abnormal [facility] Ketones, UA Negative Negative - 160(16) ++++ mg/dL [facility] Leukocytes, UA Trace Negative - 500+++ Meera/mcL [facility] Nitrite, UA Negative Negative - Positive [facility] pH, UA 6.5 5 - 9 [facility] e Protein, UA Negative Negative - 1999(20) ++++ mg/dL [facility] Spec Grav, UA 1.02 1 - 1.03 [facility] Urobilinogen, UA 0.2 0.2 - 12 mg/dL [facility] Urinalysis macro (dipstick) panel (U)on 01-29-2024 Bilirubin, UA Negative Negative - 4(70) +++ mg/dL [facility] Blood, UA Negative Negative - 50 Gonzalez/mcL [facility] Clarity, UA Clear [facility] re Color, UA Yellow [facility] Glucose, UA Negative Negative - 1999(110) ++++ mg/dL [facility] Interpretation and review of laboratory results Normal [facility] Ketones, UA Negative Negative - 160(16) ++++ mg/dL [facility] Leukocytes, UA Negative Negative - 500+++ Meera/mcL [facility] Healthcare Nitrite, UA Negative Negative - Positive [facility] pH, UA 6.5 5 - 9 [facility] Protein, UA Negative Negative - 1999(20) ++++ mg/dL [facility] Healthcare Spec Grav, UA 1.025 1 - 1.03 [facility] care Urobilinogen, UA 0.2 0.2 - 12 mg/dL [facility] Urinalysis macro (dipstick) panel (U)on 01-15-2024 Bilirubin, UA Negative Negative - 4(70) +++ mg/dL [facility] Blood, UA Negative Negative - 50 Gonzalez/mcL [facility] Clarity, UA Clear [facility] Health[facility] re Color, UA Yellow [facility] Glucose, UA Negative Negative - 1999(110) ++++ mg/dL [facility] Interpretation and review of laboratory results Normal [facility] Ketones, UA Negative Negative - 160(16) ++++ mg/dL [facility] Leukocytes, UA Negative Negative - 500+++ Meera/mcL [facility] Nitrite, UA Negative Negative - Positive [facility] pH, UA 6.5 5 - [address] [facility] Protein, UA Negative Negative - 1999(20) ++++ mg/dL [facility] Spec Grav, UA 1.025 1 - 1.03 [facility] Urobilinogen, UA 0.2 0.2 - 12 mg/dL [facility] Hemoglobin A1Con 11-06-2022 Glucose [Mass/Vol] 103 mg/dL Normal [facility] Comment on above: Result Comment: The ADA and AACC recommend providing the estimated average glucose result to permit better patient understanding of their HBA1c result. Performed By: #### T SH, CDP, BMP, LIVP #### [facility] [address] [place] [address] Fishing Vessel Mate: Abeba Parra MD #### GLYHGB, LIPR #### [address] [address] Fishing Vessel Mate: Chapin Bellamy MD HbA1c (Bld) [Mass fraction] 5.2 % Normal 4.0-6.0 [facility] Comment on above: Performed By: #### T SH, CDP, BMP, LIVP #### [facility] [address] [place] [address] [place] [place], [place] [id number] Fishing Vessel Mate: Abeba Parra MD #### GLYHGB, LIPR #### [address] [place], [place] [id number] Fishing Vessel Mate: Chapin Bellamy MD Lipid Profileon 11-05-2022 Cholesterol [Mass/Vol] 130 mg/dL Normal <200 [facility] Comment on above: Result Comment: Cholesterol Guidelines: <200 Desirable 200-240 Borderline >240 Undesirable Performed By: #### T SH, CDP, BMP, LIVP #### [address] [place], [place] [id number] Fishing Vessel Mate: Abeba Parra MD #### GLYHGB, LIPR #### [address] [place], [place] [phone] Fishing Vessel Mate: Chapin Bellamy MD Cholesterol in HDL [Mass/Vol] 61 mg/dL Normal >40 [facility] Comment on above: Result Comment: HDL Guidelines: <40 Undesirable 40-59 Borderline >59 Desirable Performed By: #### T SH, CDP, BMP, LIVP #### [facility] [address] [place] [address] [address] [place], [place] [id number] Fishing Vessel Mate: Abeba Parra MD #### GLYHGB, LIPR #### [address] [place], [place] [id number] Fishing Vessel Mate: Chapin Bellamy MD Cholesterol in LDL [Mass/Vol] 56 mg/dL Normal 0-130 [facility] Comment on above: Result Comment: LDL Guidelines: <100 Desirable 100-129 Near to/above Desirable 130-159 Borderline >159 Undesirable Direct (measured) LDL and calculated LDL are not interchangeable tests. Performed By: #### T SH, CDP, BMP, LIVP #### [facility] [address] [place], [place] [id number] Fishing Vessel Mate: Abeba Parra MD #### GLYHGB, LIPR #### [facility] [address] [place], [place] [phone] Fishing Vessel Mate: Chapin Bellamy MD Cholesterol.total/Ch olesterol in HDL [Mass ratio] 2.1 {ratio} Normal <5 [facility] Comment on above: Performed By: #### T SH, CDP, BMP, LIVP #### [facility] [address] [place] [address] Fishing Vessel Mate: Abeba Parra MD #### GLYHGB, LIPR #### [address] [place], [place] [id number] Fishing Vessel Mate: Chapin Bellamy MD Triglyceride [Mass/Vol] 64 mg/dL Normal <150 [facility] Comment on above: Result Comment: Triglyceride Guidelines: <150 Desirable 150-199 Borderline 200-499 High >499 Very high Based on AHA Guidelines for fasting triglyceride, January 2012. Performed By: #### T DESTINI, CDP, BMP, LIVP #### [address] [place] [address] Fishing Vessel Mate: Abeba Parra MD #### GLYHGTanya, LIPR #### [facility] [employer] [facility] [place], [place] [id number] Fishing Vessel Mate: Chapin Bellamy MD Basic Metabolic Panelon 07-2 Anion gap [Moles/Vol] 11 mmol/L 9 - 17 mmol/L [facility] Calcium [Mass/Vol] 9.7 mg/dL 8.6 - 10. 4 mg/dL [facility] Chloride [Moles/Vol] 107 mmol/L 98 - 10 7 mmol/L [facility] CO2 [Moles/Vol] 22 mmol/L 20 - 31 mmol/L [facility] Creatinine [Mass/Vol] 0.6 mg/dL 0.5 - 0.9 mg/dL [facility] GFR/1.73 sq M.predicted MDRD (S/P/Bld) [Vol rate/Area] - PINF [facility] Comment on above: These results are [...] [Mass/Vol] 85 mg/dL 70 - 99 mg/dL [facility] Interpretation and review of laboratory results Abnormal [facility] Potassium [Moles/Vol] 3.9 mmol/L 3.7 - 5.3 mmol/L [facility] Sodium [Moles/Vol] 140 mmol/L 135 - 144 mmol/L [facility] Urea nitrogen [Mass/Vol] 18 mg/dL 6 - 20 mg/dL [facility] Urea nitrogen/Creatinine [Mass ratio] 30 mg/mg High 9 - 20 [facility] Basic Metabolic Profon 11-04 Anion gap [Moles/Vol] 11 mmol/L Normal - [facility] Comment on above: Performed By: #### T SH, CDP, BMP, LIVP #### [facility] [address] [place] [address] [place] [address] Fishing Vessel Mate: Abeba Parra MD #### GLYHGB, LIPR #### [facility] [employer] [address] [place] [address] Fishing Vessel Mate: Chapin Bellamy MD BUN/CRE Ratio 30 High -20 [facility] Comment on above: Performed By: #### T SH, CDP, BMP, LIVP #### [facility] [address] [place] [address] Fishing Vessel Mate: Abeba Parra MD #### GLYHGB, LIPR #### [address] [place] [address] Fishing Vessel Mate: Chapin Bellamy MD Calcium [Mass/Vol] 9.7 mg/dL Normal 8.6-10.4 [facility] Comment on above: Performed By: #### T SH, CDP, BMP, LIVP #### [facility] [address] [place], [place] [phone] Fishing Vessel Mate: Abeba Parra MD #### GLYHGB, LIPR #### [address] [place], [place] [phone] Fishing Vessel Mate: Chapin Bellamy MD Chloride [Moles/Vol] 107 mmol/L Normal 98-107 [facility] Comment on above: Performed By: #### T SH, CDP, BMP, LIVP #### [facility] [address] [place] [address] [place] [address] Fishing Vessel Mate: Abeba Parra MD #### GLYHGB, LIPR #### [address] [id number] Fishing Vessel Mate: Chapin Bellamy MD CO2 [Moles/Vol] 22 mmol/L Normal 20-31 [facility] Comment on above: Performed By: #### T SH, CDP, BMP, LIVP #### [facility] [address] [place] [address] [place] [address] Fishing Vessel Mate: Abeba Parra MD #### GLYHGB, LIPR #### [address] [place], [place] [address] Fishing Vessel Mate: Chapin Bellamy MD Creatinine [Mass/Vol] 0.6 mg/dL Normal 0.5-0.9 [facility] Comment on above: Performed By: #### T SH, CDP, BMP, LIVP #### [facility] [address] [place] [address] Fishing Vessel Mate: Abeba Parra MD #### GLYHGB, LIPR #### [address] [place], [place] [phone] Fishing Vessel Mate: Chapin Bellamy MD GFR/1.73 sq M.predicted among non-blacks MDRD (S/P/Bld) [Vol rate/Area] mL/min/{1.73_m2} Normal >60 [facility] Comment on above: Result Comment: [...] #### T SH, CDP, BMP, LIVP #### [address] [place] [address] Fishing Vessel Mate: Abeba Parra MD #### GLYHGB, LIPR #### [address] [address] [place], [place] [phone] Fishing Vessel Mate: Chapin Bellamy MD Glucose [Mass/Vol] 85 mg/dL Normal 70-99 [facility] Comment on above: Performed By: #### T SH, CDP, BMP, LIVP #### [address] [place] [address] Fishing Vessel Mate: Abeba Parra MD #### GLYHGB, LIPR #### [address] [place], [place] [phone] Fishing Vessel Mate: Chapin Bellamy MD Potassium [Moles/Vol] 3.9 mmol/L Normal 3.7-5.3 [facility] Comment on above: Performed By: #### T SH, CDP, BMP, LIVP #### [facility] [address] [place] [address] [place] [address] Fishing Vessel Mate: Abeba Parra MD #### GLYHGB, LIPR #### [address] [place], [place] [phone] Fishing Vessel Mate: Chapin Bellamy MD Sodium [Moles/Vol] 140 mmol/L Normal 135-144 [facility] Comment on above: Performed By: #### T SH, CDP, BMP, LIVP #### [facility] [address] [place], [place] [address] Fishing Vessel Mate: Abeba Prara MD #### GLYHGB, LIPR #### [facility] [employer] [address] [place], [place] [phone] Fishing Vessel Mate: Chapin Bellamy MD Urea nitrogen [Mass/Vol] 18 mg/dL Normal 6-20 [facility] Comment on above: Performed By: #### T SH, CDP, BMP, LIVP #### [facility] [address] [place] [address] Fishing Vessel Mate: Abeba Parra MD #### GLYHGB, LIPR #### [facility] [address] [place], [place] [phone] Fishing Vessel Mate: Chapin Bellamy MD CBC with Auto Differentialon 11-04-2022 Basophils (Bld) [#/Vol] 0.05 10*3/uL [facility] Basophils/100 WBC (Bld) 1 % 0 - 2 % [facility] Eosinophils (Bld) [#/Vol] 0.06 10*3/uL [facility] Eosinophils/100 WBC (Bld) 1 % 1 - 4 % [facility] Erythrocyte distribution width (RBC) [Ratio] 13.0 % 11.8 - 14.4 % [facility] Hematocrit (Bld) [Volume fraction] 43.3 % 36.3 - 47.1 % [facility] Hemoglobin (Bld) [Mass/Vol] 14.2 g/dL 11.9 - 15.1 g/dL [facility] Immature granulocytes (Bld) [#/Vol] [facility] Immature granulocytes/100 WBC (Bld) 0 % 0 [facility] Lymphocytes/100 WBC (Bld) 30 % 24 - 43 % [facility] Lymphocytes/100 WBC (Bld) 3.22 % [facility] MCH (RBC) [Entitic mass] 30.2 pg 25.2 - 33.5 pg [facility] MCHC (RBC) [Mass/Vol] 32.8 g/dL 28.4 - 34.8 g/dL [facility] MCV (RBC) [Entitic vol] 92.1 fL 82.6 - 102.9 fL [facility] Monocytes/100 WBC (Bld) 5 % 3 - 12 % [facility] Monocytes/100 WBC (Bld) 0.50 % [facility] Neutrophils/100 WBC (Bld) 63 % 36 - 65 % [facility] Nucleated RBC/100 WBC (Bld) [Ratio] 0.0 % 0.0 per 100 WBC [facility] Platelet mean volume (Bld) [Entitic vol] 11.0 fL 8.1 - 13.5 fL [facility] Platelets (Bld) [#/Vol] 264 10*3/uL [facility] RBC (Bld) [#/Vol] 4.70 10*6/uL 3.95 - 5.1 1 m/uL [facility] Segmented neutrophils/100 WBC (Bld) 6.95 % [facility] WBC other (Bld) [#/Vol] 10.8 [facility] CBC with Diffon 11-04-2022 Abs. Basophil 0.05 k/uL Normal 0.00-0.20 [facility] Comment on above: Performed By: #### T SH, CDP, BMP, LIVP #### [facility] [address] [place] [address] Fishing Vessel Mate: Abeba Parra MD #### GLYHGB, LIPR #### [facility] [employer] [address] [place] [address] Fishing Vessel Mate: Chapin Bellamy MD Abs.Imm.Granulocyte <0.03 Normal 0.00-0.30 [facility] Comment on above: Performed By: #### T SH, CDP, BMP, LIVP #### [facility] [address] [place] [address] [address] [place] [phone] Fishing Vessel Mate: Abeba Parra MD #### GLYHGB, LIPR #### [address] [id number] Fishing Vessel Mate: Chapin Bellamy MD Abs.Neutrophil (Seg) 6.95 k/uL Normal 1.50-8.10 [facility] Comment on above: Performed By: #### T SH, CDP, BMP, LIVP #### [address] [place] [address]83 Fishing Vessel Mate: Abeba Parra MD #### GLYHGB, LIPR #### [id number] Fishing Vessel Mate: Chapin Bellamy MD Basophils/100 WBC (Bld) 1 % Normal 0-2 [facility] Comment on above: Performed By: #### T SH, CDP, BMP, LIVP #### [address] [place] [address]83 Fishing Vessel Mate: Abeba Parra MD #### GLYHGB, LIPR #### [id number] Fishing Vessel Mate: Chapin Bellamy MD Eosinophils (Bld) [#/Vol] 0.06 10*3/uL Normal 0.00-0.44 [facility] Comment on above: Performed By: #### T SH, CDP, BMP, LIVP #### [address] [place] [address] Fishing Vessel Mate: Abeba Parra MD #### GLYHGB, LIPR #### [address] [id number] Fishing Vessel Mate: Chapin Bellamy MD Eosinophils/100 WBC (Bld) 1 % Normal 1-4 [facility] Comment on above: Performed By: #### T SH, CDP, BMP, LIVP #### [address] [place] [address]83 Fishing Vessel Mate: Abeba Parra MD #### GLYHGB, LIPR #### [address] [id number] Fishing Vessel Mate: Chapin Bellamy MD Erythrocyte distribution width (RBC) [Ratio] 13.0 % Normal 11.8-14.4 [facility] Comment on above: Performed By: #### T SH, CDP, BMP, LIVP #### [address] [place] [address]83 Fishing Vessel Mate: Abeba Parra MD #### GIOVANNI, LIPR #### [address] [phone] Fishing Vessel Mate: Chapin Bellamy MD Hematocrit (Bld) [Volume fraction] 43.3 % Normal 36.3-47.1 [facility] Comment on above: Performed By: #### T SH, CDP, BMP, LIVP #### [address] [place] [address]83 Fishing Vessel Mate: Abeba Parra MD #### GLYALDEN, LIPR #### [address] [address] Fishing Vessel Mate: Chapin Bellamy MD Hemoglobin (Bld) [Mass/Vol] 14.2 g/dL Normal 11.9-15.1 [facility] Comment on above: Performed By: #### T SH, CDP, BMP, LIVP #### [address] [place] [address] Fishing Vessel Mate: Abeba Parra MD #### GLYHGTanya, LIPR #### [address] [address] Fishing Vessel Mate: Chapin Bellamy MD Immature granulocytes/100 WBC (Bld) 0 % Normal 0 [facility] Comment on above: Performed By: #### T SH, CDP, BMP, LIVP #### [facility] [address] [place] [address] [place] [place], [place] [phone] Fishing Vessel Mate: Abeba Parra MD #### GLYHGB, LIPR #### [address] [address] Fishing Vessel Mate: Chapin Bellamy MD Lymphocytes (Bld) [#/Vol] 3.22 10*3/uL Normal 1.10-3.70 [facility] Comment on above: Performed By: #### T SH, CDP, BMP, LIVP #### [facility] [address] [place] [address] [address] [place] [address]7083 Fishing Vessel Mate: Abeba Parra MD #### GLYHGB, LIPR #### [address] [address] Fishing Vessel Mate: Chapin Bellamy MD Lymphocytes/100 WBC (Bld) 30 % Normal 24-43 [facility] Comment on above: Performed By: #### T SH, CDP, BMP, LIVP #### [facility] [address] [place] [address] [address] [place] [address]83 Fishing Vessel Mate: Abeba Parra MD #### GLYHGB, LIPR #### [address] [address] Fishing Vessel Mate: Chapin Bellamy MD MCH (RBC) [Entitic mass] 30.2 pg Normal 25.2-33.5 [facility] Comment on above: Performed By: #### T SH, CDP, BMP, LIVP #### [facility] [address] [place] [address] [address] [place] [address]83 Fishing Vessel Mate: Abeba Parra MD #### GLYHGB, LIPR #### [address] [place], [place] [phone] Fishing Vessel Mate: Chapin Bellamy MD MCHC (RBC) [Mass/Vol] 32.8 g/dL Normal 28.4-34.8 [facility] Comment on above: Performed By: #### T SH, CDP, BMP, LIVP #### [address] [place] [address]7083 Fishing Vessel Mate: Abeba Parra MD #### GLYHGB, LIPR #### [place] [id number] Fishing Vessel Mate: Chapin Bellamy MD MCV (RBC) [Entitic vol] 92.1 fL Normal 82.6-102.9 [facility] Comment on above: Performed By: #### T SH, CDP, BMP, LIVP #### [address] [place] [address]7083 Fishing Vessel Mate: Abeba Parra MD #### GLYHGB, LIPR #### [place] [address] Fishing Vessel Mate: Chapin Bellamy MD Monocytes (Bld) [#/Vol] 0.50 10*3/uL Normal 0.10-1.20 [facility] Comment on above: Performed By: #### T SH, CDP, BMP, LIVP #### [address] [place] [address]7083 Fishing Vessel Mate: Abeba Parra MD #### GLYHGB, LIPR #### [place] [address] Fishing Vessel Mate: Chapin Bellamy MD Monocytes/100 WBC (Bld) 5 % Normal 3-12 [facility] Comment on above: Performed By: #### T SH, CDP, BMP, LIVP #### [address] [place] [address] Fishing Vessel Mate: Abeba Parra MD #### GLYHGB, LIPR #### [address] [place], [place] 150[address]8 Fishing Vessel Mate: Chapin Bellamy MD Neutrophil (Seg) 63 % Normal 36-65 [facility] Comment on above: Performed By: #### T SH, CDP, BMP, LIVP #### [address] [place] [address]7083 Fishing Vessel Mate: Abeba Parra MD #### GLYHGB, LIPR #### [place] [id number] Fishing Vessel Mate: Chapin Bellamy MD NRBC Automated 0.0 per 100 WBC Normal 0.0 [facility] Comment on above: Performed By: #### T SH, CDP, BMP, LIVP #### [address] [place] [address]7083 Fishing Vessel Mate: Abeba Parra MD #### GLYHGB, LIPR #### [place] [id number] Fishing Vessel Mate: Chapin Bellamy MD Platelet mean volume (Bld) [Entitic vol] 11.0 fL Normal 8.1-13.5 [facility] Comment on above: Performed By: #### T SH, CDP, BMP, LIVP #### [address] [place] [address]7083 Fishing Vessel Mate: Abeba Parra MD #### GLYHGB, LIPR #### [place] [phone] Fishing Vessel Mate: Chapin Bellamy MD Platelets (Bld) [#/Vol] 264 10*3/uL Normal 138-453 [facility] Comment on above: Performed By: #### T SH, CDP, BMP, LIVP #### [address] [place] [address] Fishing Vessel Mate: Abeba Parra MD #### GLYHGB, LIPR #### [address] [place], [place] [id number] [employer]ishing [employer]essel Mate: Chapin Bellamy MD RBC (Bld) [#/Vol] 4.70 10*6/uL Normal 3.95-5.11 [facility] Comment on above: Performed By: #### T SH, CDP, BMP, LIVP #### [address] [place] [address] Fishing Vessel Mate: Abeba Parra MD #### GLYHGB, LIPR #### [address] [place], [place] [id number] Fishing [employer]essel Mate: Chapin Bellamy MD WBC (Bld) [#/Vol] 10.8 10*3/uL Normal 3.5-11.3 [facility] Comment on above: Performed By: #### T SH, CDP, BMP, LIVP #### [address] [place] [address] Fishing Vessel Mate: Abeba Parra MD #### GLYHGB, LIPR #### [address] [place], [place] [id number] Fishing Vessel Mate: Chapin Bellamy MD Hepatic Function Panelon Albumin [Mass/Vol] 4.2 g/dL 3.5 - 5.2 g/dL [facility] Albumin/Globulin [Mass ratio] 1.3 {ratio} 1.0 - 2.5 [facility] ALP [Catalytic activity/Vol] 80 U/L 35 - 104 U/L [facility] ALT [Catalytic activity/Vol] 23 U/L 5 - 33 U/L [facility] AST [Catalytic activity/Vol] 22 U/L NINF - 32 U/L [facility] Bilirubin [Mass/Vol] 0.5 mg/dL 0.3 - 1 .2 mg/dL [facility] Bilirubin.direct [Mass/Vol] mg/dL NINF - 0.3 mg/dL [facility] Bilirubin.indirect [Mass/Vol] Can not be calculated 0.0 - 1.0 mg/dL [facility] Protein [Mass/Vol] 7.4 g/dL 6.4 - 8.3 g/dL [facility] Lipid Panelon 11-04-2022 Cholesterol [Mass/Vol] 130 mg/dL NINF - 200 mg/dL [facility] Comment on above: Cholesterol Guidelines: <200 Desirable 200-240 Borderline >240 Undesirable Cholesterol in HDL [Mass/Vol] 61 mg/dL 40 - PINF mg/dL [facility] Comment on above: HDL Guidelines: <40 Undesirable 40-59 Borderline >59 Desirable Cholesterol in LDL [Mass/Vol] 56 mg/dL 0 - 130 mg/dL [facility] Comment on above: LDL Guidelines: <100 Desirable 100-129 Near to/above Desirable 130-159 Borderline >159 Undesirable Direct (measured) LDL and calculated LDL are not interchangeable tests. Cholesterol.total/Ch olesterol in HDL [Mass ratio] 2.1 {ratio} NINF - 5 [facility] Triglyceride [Mass/Vol] 64 mg/dL NINF - 150 mg/dL [facility] Comment on above: Triglyceride Guidelines: <150 Desirable 150-199 Borderline 200-499 High >499 Very high Based on AHA Guidelines for fasting triglyceride, January 2012. [facility] Liver Profileon 11-04-2022 Albumin [Mass/Vol] 4.2 g/dL Normal 3.5-5.2 [facility] Comment on above: Performed By: #### T SH, CDP, BMP, LIVP #### [facility] [address] [place] [address] Fishing Vessel Mate: Abeba Parra MD #### GLYHGB, LIPR #### [facility] [place] [employer] [place] [address] Fishing Vessel Mate: Chapin Bellamy MD Albumin/Glob Ratio 1.3 Normal 1.0-2.5 [facility] Comment on above: Performed By: #### T SH, CDP, BMP, LIVP #### [facility] [address] [place], [place] [id number] Fishing Vessel Mate: Abeba Parra MD #### GLYHGB, LIPR #### [address] [place], [place] [id number] Fishing Vessel Mate: Chapin Bellamy MD Alkaline Phos 80 U/L Normal 35-104 [facility] Comment on above: Performed By: #### T SH, CDP, BMP, LIVP #### [facility] [address] [place], [place] [id number] Fishing Vessel Mate: Abeba Parra MD #### GLYHGB, LIPR #### [address] [id number] Fishing Vessel Mate: Chapin Bellamy MD ALT [Catalytic activity/Vol] 23 U/L Normal 5-33 [facility] Comment on above: Performed By: #### T SH, CDP, BMP, LIVP #### [facility] [address] [place], [place] [id number] Fishing Vessel Mate: Abeba Parra MD #### GLYHGB, LIPR #### [address] [place] [address] Fishing Vessel Mate: Chapin Bellamy MD AST [Catalytic activity/Vol] 22 U/L Normal <32 [facility] Comment on above: Performed By: #### T SH, CDP, BMP, LIVP #### [facility] [address] [place], [place] [phone] Fishing Vessel Mate: Abeba Parra MD #### GLYHGB, LIPR #### [address] [place] [address] Fishing Vessel Mate: Chapin Bellamy MD Bilirubin [Mass/Vol] 0.5 mg/dL Normal 0.3-1.2 [facility] Comment on above: Performed By: #### T SH, CDP, BMP, LIVP #### [facility] [address] [place] [address] Fishing Vessel Mate: Abeba Parra MD #### GLYHGB, LIPR #### [address] [place], [place] [id number] Fishing Vessel Mate: Chapin Bellamy MD Bilirubin, Indirect Can not be calculated Normal 0.0-1 .0 [facility] Comment on above: Performed By: #### T SH, CDP, BMP, LIVP #### [facility] [address] [place] [address] Fishing Vessel Mate: Abeba Parra MD #### GLYHGB, LIPR #### [address] [id number] Fishing Vessel Mate: Chapin Bellamy MD Bilirubin.indirect [Mass/Vol] mg/dL Normal <0.3 [facility] Comment on above: Performed By: #### T SH, CDP, BMP, LIVP #### [facility] [address] [place] [address] Fishing Vessel Mate: Abeba Parra MD #### GLYHGB, LIPR #### [address] [place], [place] [phone] Fishing Vessel Mate: Chapin Bellamy MD Protein [Mass/Vol] 7.4 g/dL Normal 6.4-8.3 [facility] Comment on above: Performed By: #### T SH, CDP, BMP, LIVP #### [facility] [address] [place] [address] Fishing Vessel Mate: Abeba Parra MD #### GLYHGB, LIPR #### [address] [place], [place] [id number] Fishing Vessel Mate: Chapin Bellamy MD No [facility]22 TSH Qn 1.57 m[IU]/L LAFA ESPANA [facility] Thyroid Stim. Horm.on 2022 Thyroid Stim. Horm. 1.57 uIU/mL Normal 0.30-5.00 [facility] Comment on above: Performed By: #### T SH, CDP, BMP, LIVP #### [facility] [address] [place] [address] Fishing Vessel Mate: Abeba Parra MD #### GLYHGB, LIPR #### [facility] [place] [employer] [address] [place], [place] [phone] Fishing Vessel Mate: Chapin Bellamy MD [place] HEPATOBILIARY SCAN W [...] by: ABEBA APODACA Date: 2020-01-30 09:35 Normal [facility] US SINGLE QUAD RT UPPERon US [...] by: ABEBA APODACA Date: 2020-01-22 11:02 Normal [facility] Vital Signs Date Time Vital Sign Value Performing Clinician Peteri melba 02-12-2024 16:31-0500 Body mass index (BMI) [Ratio] 39.77 kg/m2 [employer] Work Phone: [facility] 02-12-2024 16:31-0500 Body weight 108.41 kg [employer] Work Phone: [facility] 02-12-2024 16:31-0500 Diastolic blood pressure 78 mm[Hg] [employer] Work Phone: [facility] 02-12-2024 16:31-0500 Systolic blood pressure 124 mm[Hg] [employer] Work Phone: [facility] 01-29-2024 16:01-0400 Body mass index (BMI) [Ratio] 38.77 kg/m2 Nida Alisson DO Work Phone: [facility] 01-29-2024 16:01-0400 Body weight 105.69 kg Nida Alisson DO Work Phone: [facility] 01-29-2024 16:01-0400 Diastolic blood pressure 70 mm[Hg] Nida Alisson DO Work Phone: [facility] 01-29-2024 16:01-0400 Systolic blood pressure 118 mm[Hg] Nida Alisson DO Work Phone: [facility] 01-15-2024 14:56-0400 Body mass index (BMI) [Ratio] 38.11 kg/m2 [employer] Work Phone: [facility] 01-15-2024 14:56-0400 Body weight 103.87 kg [employer] Work Phone: [facility] 01-15-2024 14:56-0400 Diastolic blood pressure 74 mm[Hg] [employer] Work Phone: [facility] 01-15-2024 14:56-0400 Systolic blood pressure 120 mm[Hg] [employer] Work Phone: [facility] Encounters Encounter Date Encounter Type Care Provider Facility Start: 02-12-2024 End: 02-12-2024 flow sheet [employer] Work Phone: [facility] Comment on above: 34 weeks gestation o f ; Third trimester ; Excessive growth affecting management of in third trimester, single or unspecified fetus Start: 02-12-2024 End: 02-12-2024 ambulatory VENICE VAZQUEZ Not Available Start: 02-12-2024 End: 02-12-2024 Bamboo flowsheet [employer] Work Phone: [facility] Start: 02-12-2024 End: 02-12-2024 Bamboo flowsheet [employer] Work Phone: [facility] Start: 01-29-2024 End: 01-29-2024 ambulatory NIDA ALISSON Not Available Start: 01-29-2024 End: 01-29-2024 flow sheet Nida Alisson DO Work Phone: [facility] Comment on above: Third trimester preg yefri; 32 weeks gestation of Start: 01-29-2024 End: 01-29-2024 Bamboo flowsheet Nida Alisson DO Work Phone: [facility] Start: 01-29-2024 End: 01-29-2024 Bamboo flowsheet Nida Alisson DO Work Phone: [facility] Start: 01-15-2024 End: 01-15-2024 flow sheet [employer] Work Phone: [facility] Comment on above: 30 weeks gestation o f ; Third trimester Start: 01-15-2024 End: 01-15-2024 ambulatory VENICE VAZQUEZ Not Available Start: 01-15-2024 End: 01-15-2024 Bamboo flowsheet [employer] Work Phone: [facility] Start: 01-15-2024 End: 01-15-2024 Bamboo flowsheet [employer] Work Phone: [facility] Start: 01-01-2024 End: 01-01-2024 ambulatory NIDA ALISSON Not Available Start: 12-04-2023 End: 12-04-2023 ambulatory NIDA ALISSON Not Available Start: 11-06-2023 End: 11-06-2023 ambulatory VENICE VAZQUEZ Not Available Start: 10-10-2023 End: 10-10-2023 ambulatory NIDA ALISSON Not Available Start: 09-11-2023 End: 09-11-2023 ambulatory NIDA ALISSON Not Available Start: 08-10-2023 End: 08-10-2023 ambulatory RICHARD DAI Not Available Start: 04-24-2023 End: 04-24-2023 ambulatory RICHARD DAI Not Available Start: 03-29-2023 End: 03-29-2023 ambulatory NIDA ALISSON Not Available Start: 02-22-2023 End: 02-22-2023 ambulatory NIDA ALISSON Not Available Start: 11-04-2022 End: 11-05-2022 ambulatory RICHARD DAI [facility] Start: 11-04-2022 End: 11-05-2022 Encounter for general adult medical examination without abnormal findings RICHARD DAI [facility] Start: 11-04-2022 End: 11-04-2022 Subsequent hospital visit by physician Richard Dai MD Work Phone: [facility] Start: 01-30-2020 End: 01-31-2020 Patient encounter procedure ELMER HOY Facility:[facility] Start: 01-22-2020 End: 01-23-2020 Patient encounter procedure ELMER HOY Facility:[facility] Procedures Date Procedure Procedure Detail Performing Clinician Start: 02-12-2024 Urnls dip stick/tabl et rgnt non-auto w/o micrscp [employer] Work Phone: Start: 01-29-2024 Urnls dip stick/tabl et rgnt non-auto w/o micrscp Nida Vinson DO Work Phone: Start: 01-15-2024 Urnls dip stick/tabl et rgnt non-auto w/o micrscp [employer] Work Phone: Start: 11-04-2022 Basic metabolic pane l calcium total Richard Dai MD Work Phone: Start: 11-04-2022 Lipid panel Richard Dai MD Work Phone: Plan of Treatment Date Care Activity Detail Author Start: 11-05-2031 DTaP/Tdap/Td vaccine (8 - Td or Tdap) DTaP/Tdap/Td vaccine (8 - Td or Tdap) [facility] Start: 04-18-2024 End: 04-18-2024 Patient encounter procedure 04/18/2024 11:00 AM EST Office Visit [facility] [address] [place] [phone] Nida Vinson, DO [address] [place] [address] [facility] Start: 02-28-2024 End: 02-28-2024 Patient encounter procedure 02/28/2024 8:30 AM EST Routine [facility] [address] [place], [place] [phone] [place] [employer] PA [address] [place] [place] [address] [facility] Start: 02-26-2024 End: 02-26-2024 Patient encounter procedure 02/26/2024 1:30 PM EST Routine [facility] [address] [place], [place] [phone] Nida Vinson, DO [address] [place] [address] [facility] Start: 02-14-2024 End: 02-14-2024 Professional / ancillary services management 02/14/2024 8:00 AM EST Ancillary Procedure [facility] [address] [place] [phone] [facility] Start: 02-12-2024 End: 02-12-2024 Patient encounter procedure [facility] Comment on above: Arrived Start: 02-12-2024 End: 02-11-2025 US for US OB SCAN FOR GROWTH Imaging Routine Excessive growth affecting management of in third trimester, single or unspecified fetus Expected: 02/12/2024 (Approximate), Expires: 02/11/2025 [facility] Work Phone: Comment on above: Expected: 02/12/2024 (Approximate), Expires: 02/11/2025 Start: 01-29-2024 End: 01-29-2024 Patient encounter procedure 01/29/2024 3:10 PM EDT Routine [facility] [address] [place] [phone] Nida Vinson DO [address] [place], [place] [phone] [facility] Start: 01-15-2024 End: 01-15-2024 Patient encounter procedure 01/15/2024 3:20 PM EDT Routine [facility] [address] [place] [phone] [place] Vazquez PA [address] [place] [address] Arrived [facility] Comment on above: Arrived Start: 12-10-2023 Influenza vaccination Influenza Vacc ine (#1) [facility] Start: 11-08-2022 Influenza vaccination Flu vaccine (# 1) [facility] Start: 2019 Screening for malign ant neoplasm of cervix Pap smear [facility] Start: 02-10-2016 Hepatitis C screening Hepatitis C sc reen [facility] Start: 2014 Screening for Chlamy zulema trachomatis Chlamydia/GC screen [facility] Start: 2013 HIV screening HIV screen [facility] Start: 2010 Depression Screen Depression Screen [facility] Start: 2009 HPV vaccine (1 - 2-d ose series) HPV vaccine (1 - 2-dose series) [facility] Start: 1999 Varicella vaccine (1 of 2 - 2-dose childhood series) Varicella vaccine (1 of 2 - 2-dose childhood series) [facility] Start: 1998 COVID-19 Vaccine (#1) COVID-19 Vacci ne (#1) [facility] End: 11-04-2022 Hemoglobin A1c/Hemoglobin.total in Blood [facility] Work Phone: Comment on above: Once for 1 Occurrenc es starting 11/04/2022 until 11/04/2022 Immunizations Immunization Date Immunization Notes Care Provider Fa [facility] 11-04-2021 tetanus toxoid, redu sanya diphtheria toxoid, and acellular pertussis vaccine, adsorbed Richard Dai MD Work Phone: [facility] 11-12-2015 meningococcal polysaccharide (groups A, C, Y and W-135) diphtheria toxoid conjugate vaccine (MCV4P) [employer] Work Phone: [facility] 05-24-2011 poliovirus vaccine, inactivated [employer] Work Phone: [facility] 07-19-2010 tetanus toxoid, redu sanya diphtheria toxoid, and acellular pertussis vaccine, adsorbed [employer] Work Phone: [facility] 08-13-2003 diphtheria, tetanus toxoids and acellular pertussis vaccine, unspecified formulation [employer] Work Phone: [facility] 08-13-2003 measles, mumps and rubella virus vaccine [employer] Work Phone: [facility] 09-15-1999 diphtheria, tetanus toxoids and acellular pertussis vaccine, unspecified formulation [employer] Work Phone: [facility] 09-15-1999 haemophilus influenz ae type b vaccine, HbOC conjugate [employer] Work Phone: [facility] 02-24-1999 measles, mumps and rubella virus vaccine [employer] Work Phone: [facility] 02-24-1999 trivalent poliovirus vaccine, live, oral [employer] Work Phone: [facility] 1998 diphtheria, tetanus toxoids and acellular pertussis vaccine, unspecified formulation [employer] Work Phone: [facility] 1998 haemophilus influenz ae type b conjugate and Hepatitis B vaccine [employer] Work Phone: [facility] 1998 trivalent poliovirus vaccine, live, oral [employer] Work Phone: [facility] 1998 diphtheria, tetanus toxoids and acellular pertussis vaccine, unspecified formulation [employer] Work Phone: [facility] 1998 haemophilus influenz ae type b vaccine, HbOC conjugate [employer] Work Phone: [facility] 1998 trivalent poliovirus vaccine, live, oral [employer] Work Phone: [facility] 1998 diphtheria, tetanus toxoids and acellular pertussis vaccine, unspecified formulation [employer] Work Phone: [facility] 1998 haemophilus influenz ae type b vaccine, conjugate unspecified formulation [employer] Work Phone: [facility] 1998 hepatitis B vaccine, pediatric or pediatric/adolescent dosage [employer] Work Phone: [facility] 1998 poliovirus vaccine, inactivated [employer] Work Phone: [facility] 1998 hepatitis B vaccine, pediatric or pediatric/adolescent dosage [employer] Work Phone: [facility] Payers Date Payer Category Payer [employer] BCBS [id number] 2022 Unknown BCBS BCBS [id number] 2022-Present [phone] [id number] [place] [id number] 2022 Unknown [id number]. [id number] 1998 Unknown [id number] 2.16.840.1.928437.3.579. 2.593 1998 Unknown [id number] 2.16.840.1.321638.3.579. 2.593 1998 Unknown [id number] 2.16.840.1.567122.3.579. 2.173 1998 Unknown [id number] 2.16.840.1.808628.3.579. 2.1259 1998 Unknown [id number] 2.16.840.1.869515.3.579. 2.1259 1998 Unknown [id number] 2.16.840.1.905575.3.579. 2.1259 1998 Unknown [id number] 2.16.840.1.826884.3.579. 2.1259 1998 Unknown [id number] 2.16.840.1.867937.3.579. 2.9 1998 Unknown [id number] 2.16.840.1.066075.3.579. 2.1259 1998 Unknown [id number] 2.16.840.1.229441.3.579. 2.9 1998 Unknown [id number] 2.16.840.1.920866.3.579. 2.9 1998 Unknown [id number] 2.16.840.1.477426.3.579. 2.1259 1998 Unknown [id number] 2.16.840.1.198854.3.579. 2.9 1998 Unknown [id number] 2.16.840.1.461645.3.579. 2.9 1998 Unknown [id number] 2.16.840.1.731167.3.579. 2.1259 1959 Unknown [id number] Social History Date Type Detail Facility Tobacco smoking stat [facility] Tobacco smoking consumption [facility] Start: 1998 Sex Assigned At Not on file [facility] Start: 11-18-2022 Tobacco smoking status [facility] Never smoked tobacco [facility] Start: 11-18-2022 Tobacco use and exposure Smokeless tobacco non-user [facility] Start: 01-01-2024 End: 01-15-2024 Alcoholic beverage intake [facility]-drinker (finding) [facility] Start: 04-20-2023 End: 04-24-2023 History of Social function [facility] Start: 04-20-2023 End: 04-24-2023 Humiliation, Afraid, Rape, and Kick questionnaire [HARK] [facility] Within the last year , have you been afraid of your partner or ex-partner? No [facility] Do you belong to any clubs or organizations such as taoist groups, unions, fraternal or athletic groups, or school groups? Yes [facility] Are you now , , , , never or living with a partner? [facility] How often to you hav e a drink containing alcohol? Monthly or less [facility] How many standard dr inks containing alcohol do you have on a typical day? Patient does not drink [facility] How often do you hav e 6 or more drinks on 1 occasion? Never [facility] How hard is it for y ou to pay for the very basics like food, housing, medical care, and heating Not very hard [facility] Do you feel stress - tense, restless, nervous, or anxious, or unable to sleep at night because your mind is troubled all the time - these days [OSQ] Very much [facility] (I/We) worried wheth er (my/our) food would run out before (I/we) got money to buy more. Never true [facility] Start: 11-18-2022 Alcohol Comment Caffeine: coffee on occasion [facility] Start: 06-30-2023 [facility] History of Present illness Narrative 02-12-2024 DEEPA An - 02/12/2024 3:30 PM EST Note Date & Type Note Facility 02-12-2024 History of Presen t illness Narrative Reason for Appointment: Patient ID: Yenny Nuñez is a 24 y.o. female who presents for No chief complaint on file. Patient presents today for Return OB appointment. MEDICATIONS Current Outpatient Medications Medication Instructions omeprazole (PRILOSEC) 20 mg, Oral, Daily before breakfast, Do not crush or chew. ALLERGIES Allergies Allergen Reactions Princess [Fexofenadine] GI intolerance Amoxicillin GI intolerance Shakes, chills Sodium Hypochlorite Itching, Rash and Swelling PROBLEMS Active Ambulatory Problems Diagnosis Date Noted Obesity (BMI 30-39.9) 04/24/2023 PCOS (polycystic ovarian syndrome) 04/24/2023 Seasonal allergic rhinitis due to pollen 04/24/2023 Rhomboid muscle strain, initial encounter 04/24/2023 Acute superficial gastritis without hemorrhage 04/24/2023 Yeast infection 09/11/2023 12 weeks gestation of 09/11/2023 Vaginal spotting 10/10/2023 32 weeks gestation of 01/30/2024 34 weeks gestation of 02/12/2024 Third trimester 02/12/2024 Resolved Ambulatory Problems Diagnosis Date Noted No Resolved Ambulatory Problems Past Medical History: Diagnosis Date Depression (CMS/HCC) Scoliosis HISTORY PAST MEDICAL HISTORY SOCIAL HISTORY Past Medical History: Diagnosis Date Depression (CMS/HCC) PCOS (polycystic ovarian syndrome) Scoliosis Seasonal allergic rhinitis due to pollen Social History Tobacco Use Smoking status: Never Smokeless tobacco: Never Substance Use Topics Alcohol use: Not Currently Comment: Caffeine: coffee on occasion Drug use: Never FAMILY HISTORY Family History Problem Relation Name Age of Onset Diabetes Father Orestes Gar Depression Father Orestes Gar Other (spinal stenosis) Father Orestes Gar Asthma Father Orestes Gar Depression Brother Sulaiman Gar Depression Paternal Grandfather Arpan Gar SURGICAL HISTORY Past Surgical History: Procedure Laterality Date EXCISION INGROWN TOENAIL Bilateral PAP SMEAR 03/10/2021 nilm REVIEW OF SYSTEMS Review of Systems: Review of Systems Constitutional: Negative. HENT: Negative. Eyes: Negative. Respiratory: Negative. Cardiovascular: Negative. Gastrointestinal: Negative. Genitourinary: Negative. Musculoskeletal: Negative. Skin: Negative. Neurological: Negative. All other systems reviewed and are negative. Hematological: Negative. Endocrine: Negative. Allergic/Immunologic: Negative. OBJECTIVE Objective: Physical Exam Constitutional: Appearance: Normal appearance. She is well-developed and normal weight. HENT: Head: Normocephalic. Cardiovascular: Rate and Rhythm: Normal rate and regular rhythm. Pulses: Normal pulses. Pulmonary: Effort: Pulmonary effort is normal. Breath sounds: Normal breath sounds. Abdominal: General: Bowel sounds are normal. There is no distension. Palpations: Abdomen is soft. Tenderness: There is no abdominal tenderness. There is no guarding or rebound. Musculoskeletal: General: No swelling. Normal range of motion. Right lower leg: No edema. Left lower leg: No edema. Neurological: General: No focal deficit present. Mental Status: She is alert and oriented to person, place, and time. Skin: General: Skin is warm and dry. Psychiatric: Mood and Affect: Mood normal. Behavior: Behavior normal. Thought Content: Thought content normal. Judgment: Judgment normal. Vitals and nursing note reviewed. Exam conducted with a psychological science professor present. Vitals: Estimated body mass index is 39.77 kg/m as calculated from the following: Height as of 04/24/23: 5' 5 . Weight as of this encounter: 239 lb. BP: 124/78 Patient's last menstrual period was 06/16/2023. ASSESSMENT & PLAN ICD-10-CM 1. 34 weeks gestation of Z3A.34 2. Third trimester Z34.93 Return OB: Patient presents today for a routine obstetrics appointment. Patient is currently 34w3d . Patient states she is doing well but has complaints of being tired due to current . Patient has verbalizes frequent movement. Pt complains of having severe depression and crying spells more than the norm. Pt states that since she started Omeprazole she noticed those symptoms and as soon as she stopped it last week no more symptoms. Pt did state she has H/O depression in college however, never took medication. Pt was advised if she would want to be put on Celexa while and she declined to be put on any medication. labor precautions was discussed/given and patient was instructed to perform kick counts three times a day. No orders of the defined types were placed in this encounter. Follow Up: Patient is to return to office in 2 week for routine OB appointment. Documented by Jaymie Shaw LPN on behalf of: DEEPA An documented in this encounter [facility] History of Present illness Narrative 01-29-2024 Jaymie Shaw LPN - 01/29/2024 3:10 PM EDT Note Date & Type Note Facility 01-29-2024 History of Presen t illness Narrative Reason for Appointment: Patient ID: Yenny Nuñez is a 23 y.o. female who presents for Routine Visit Patient presents today for Return OB appointment. MEDICATIONS Current Outpatient Medications Medication Instructions omeprazole (PRILOSEC) 20 mg, Oral, Daily before breakfast, Do not crush or chew. ALLERGIES Allergies Allergen Reactions Princess [Fexofenadine] GI intolerance Amoxicillin GI intolerance Shakes, chills Sodium Hypochlorite Itching, Rash and Swelling PROBLEMS Active Ambulatory Problems Diagnosis Date Noted Obesity (BMI 30-39.9) 04/24/2023 PCOS (polycystic ovarian syndrome) 04/24/2023 Seasonal allergic rhinitis due to pollen 04/24/2023 Rhomboid muscle strain, initial encounter 04/24/2023 Acute superficial gastritis without hemorrhage 04/24/2023 Yeast infection 09/11/2023 12 weeks gestation of 09/11/2023 Vaginal spotting 10/10/2023 Resolved Ambulatory Problems Diagnosis Date Noted No Resolved Ambulatory Problems Past Medical History: Diagnosis Date Depression (CMS/HCC) Scoliosis HISTORY PAST MEDICAL HISTORY SOCIAL HISTORY Past Medical History: Diagnosis Date Depression (CMS/HCC) PCOS (polycystic ovarian syndrome) Scoliosis Seasonal allergic rhinitis due to pollen Social History Tobacco Use Smoking status: Never Smokeless tobacco: Never Substance Use Topics Alcohol use: Not Currently Comment: Caffeine: coffee on occasion Drug use: Never FAMILY HISTORY Family History Problem Relation Name Age of Onset Diabetes Father Orestes Gar Depression Father Orestes Gar Other (spinal stenosis) Father Orestes Gar Asthma Father Orestes Gar Depression Brother Sulaiman Gar Depression Paternal Grandfather Arpan Gar SURGICAL HISTORY Past Surgical History: Procedure Laterality Date EXCISION INGROWN TOENAIL Bilateral PAP SMEAR 03/10/2021 nilm REVIEW OF SYSTEMS Review of Systems: Review of Systems All other systems reviewed and are negative. OBJECTIVE Objective: Physical Exam Constitutional: Appearance: Normal appearance. She is well-developed. Cardiovascular: Rate and Rhythm: Normal rate and regular rhythm. Pulmonary: Effort: Pulmonary effort is normal. Breath sounds: Normal breath sounds. Abdominal: General: Bowel sounds are normal. There is no distension. Palpations: Abdomen is soft. Tenderness: There is no abdominal tenderness. There is no guarding or rebound. Musculoskeletal: General: No swelling. Normal range of motion. Right lower leg: No edema. Left lower leg: No edema. Neurological: Mental Status: She is alert and oriented to person, place, and time. Skin: General: Skin is warm and dry. Psychiatric: Mood and Affect: Mood normal. Behavior: Behavior normal. Vitals and nursing note reviewed. Exam conducted with a psychological science professor present. Vitals: Estimated body mass index is 38.77 kg/m as calculated from the following: Height as of 04/24/23: 5' 5 . Weight as of this encounter: 233 lb. BP: 118/70 Patient's last menstrual period was 06/16/2023. ASSESSMENT & PLAN ICD-10-CM 1. Third trimester Z34.93 POCT urinalysis dipstick manually resulted 2. 32 weeks gestation of Z3A.32 POCT urinalysis dipstick manually resulted Patient presents today for a routine obstetrics appointment. Patient is currently 32w3d with a Estimated Date of Delivery: 03/22/24. Patient had growth scan done on 01/15/24. Patient to return to clinic in 2 weeks. Discussed items in regards to delivery. Patient desires to try Nitrous for pain control. Patient inquired about Vitamin K injection or oral. Discussed Tdap with patient and spouse. Patient and spouse advised that they can obtain vaccine at their local pharmacy. Discussed kick counts. Discussed long distance drives for work, and patient advised if she is able to work remotely after 36 weeks that is beneficial, but if patient is unable to it is understandable. Documented by Jaymie Shaw LPN on behalf of: Nida Vinson DO documented in this encounter [facility] Evaluation note Note Date & Type Note Facility Evaluation note Diagnosis 30 weeks gestation of Third trimester state, incidental documented in this encounter [facility] Evaluation note Note Date & Type Note Facility Evaluation note Diagnosis Rhomboid muscle strain, initial encounter- Primary Acute superficial gastritis without hemorrhage Third trimester state, incidental 32 weeks gestation of documented in this encounter [facility] Evaluation note Note Date & Type Note Facility Evaluation note Diagnosis Rhomboid muscle strain, initial encounter- Primary Acute superficial gastritis without hemorrhage 34 weeks gestation of Third trimester state, incidental Excessive growth affecting management of in third trimester, single or unspecified fetus documented in this encounter [facility] History of Present illness Narrative DEEPA An - 01/15/2024 3:20 PM EDT Note Date & Type Note Facility History of Present illness Narrative Reason for Appointment: Patient ID: Yenny Nuñez is a 23 y.o. female who presents for Routine Visit Patient presents today for Return OB appointment. MEDICATIONS Current Outpatient Medications Medication Instructions omeprazole (PRILOSEC) 20 mg, Oral, Daily before breakfast, Do not crush or chew. ALLERGIES Allergies Allergen Reactions Princess [Fexofenadine] GI intolerance Amoxicillin GI intolerance Shakes, chills Sodium Hypochlorite Itching, Rash and Swelling PROBLEMS Active Ambulatory Problems Diagnosis Date Noted Obesity (BMI 30-39.9) 04/24/2023 PCOS (polycystic ovarian syndrome) 04/24/2023 Seasonal allergic rhinitis due to pollen 04/24/2023 Rhomboid muscle strain, initial encounter 04/24/2023 Acute superficial gastritis without hemorrhage 04/24/2023 Yeast infection 09/11/2023 12 weeks gestation of 09/11/2023 Vaginal spotting 10/10/2023 Resolved Ambulatory Problems Diagnosis Date Noted No Resolved Ambulatory Problems Past Medical History: Diagnosis Date Depression (CMS/HCC) Scoliosis HISTORY PAST MEDICAL HISTORY SOCIAL HISTORY Past Medical History: Diagnosis Date Depression (CMS/HCC) PCOS (polycystic ovarian syndrome) Scoliosis Seasonal allergic rhinitis due to pollen Social History Tobacco Use Smoking status: Never Smokeless tobacco: Never Substance Use Topics Alcohol use: Not Currently Comment: Caffeine: coffee on occasion Drug use: Never FAMILY HISTORY Family History Problem Relation Name Age of Onset Diabetes Father Orestes Gar Depression Father Orestes Gar Other (spinal stenosis) Father Orestes Gar Asthma Father Orestes Gar Depression Brother Sulaiman Gar Depression Paternal Grandfather Arpan Gar SURGICAL HISTORY Past Surgical History: Procedure Laterality Date EXCISION INGROWN TOENAIL Bilateral PAP SMEAR 03/10/2021 nilm REVIEW OF SYSTEMS Review of Systems: Review of Systems Constitutional: Negative. HENT: Negative. Eyes: Negative. Respiratory: Negative. Cardiovascular: Negative. Gastrointestinal: Negative. Genitourinary: Negative. Musculoskeletal: Negative. Skin: Negative. Neurological: Negative. All other systems reviewed and are negative. Hematological: Negative. Endocrine: Negative. Allergic/Immunologic: Negative. OBJECTIVE Objective: Physical Exam Constitutional: Appearance: Normal appearance. She is well-developed. Cardiovascular: Rate and Rhythm: Normal rate and regular rhythm. Pulmonary: Effort: Pulmonary effort is normal. Breath sounds: Normal breath sounds. Abdominal: General: Bowel sounds are normal. There is no distension. Palpations: Abdomen is soft. Tenderness: There is no abdominal tenderness. There is no guarding or rebound. Musculoskeletal: General: No swelling. Normal range of motion. Right lower leg: No edema. Left lower leg: No edema. Neurological: Mental Status: She is alert and oriented to person, place, and time. Skin: General: Skin is warm and dry. Psychiatric: Mood and Affect: Mood normal. Behavior: Behavior normal. Vitals and nursing note reviewed. Exam conducted with a psychological science professor present. Vitals: Estimated body mass index is 38.11 kg/m as calculated from the following: Height as of 04/24/23: 5' 5 . Weight as of this encounter: 229 lb. BP: 120/74 Patient's last menstrual period was 06/16/2023. ASSESSMENT & PLAN ICD-10-CM 1. 30 weeks gestation of Z3A.30 POCT urinalysis dipstick manually resulted 2. Third trimester Z34.93 POCT urinalysis dipstick manually resulted Return OB: Patient presents today for a routine obstetrics appointment. Patient is currently 30w3d . Patient states she is doing well but has complaints of being tired due to current . Patient has verbalizes frequent movement. labor precautions was discussed/given and patient was instructed to perform kick counts three times a day. Orders Placed This Encounter Procedures POCT urinalysis dipstick manually resulted Follow Up: Patient is to return to office in 2 week for routine OB appointment. Documented by Rosi Martinez LPN on behalf of: DEEPA An documented in this encounter [facility] Summary Purpose Family History No Family History Records FoundNo Family History Records FoundNo Family History Records Found Advance Directives No Advanced Directives Records FoundNo Advanced Directives Records FoundNo Advanced Directives Records Found Additional Source Comments INFORMATION SOURCE (unrecogn ized section and content) DATE CREATED AUTHOR 02/04/2020 [facility] DATE CREATED AUTHOR AUTHOR'S ORGANIZ ATION 11/06/2022 [facility] DATE CREATED AUTHOR AUTHOR'S ORGANIZ ATION 02/13/2024 [facility] Care Teams (unrecognized sec tion and content) [employer] Relationship Specialty Start Date End Date Richard Dai MD [address] [place] [address] PCP - General Family Medicine 11/04/22 [employer] Relationship Specialty Start Date End Date Richard Dai MD [address] [place] [address] PCP - [facility] 03/10/23 Richard Dai MD [address] [place] [address] PCP - General Family Medicine 09/11/23 [employer] Relationship Specialty Start Date End Date Richard Dai MD [address] [place] [address] PCP - [facility] 03/10/23 Richard Dai MD [address] [place] [address] PCP - General Family Medicine 09/11/23 [employer] Relationship Specialty Start Date End Date Richard Dai MD [address] [place] [phone] PCP - [facility] 03/10/23 Richard Dai MD [address] [place] [phone] PCP - General Family Medicine 09/11/23 [employer] Relationship Specialty Start Date End Date Richard Dia MD [address] [place] [phone] PCP - [facility] 03/10/23 Richard Dai MD [address] [place] [address] PCP - General Family Medicine 09/11/23 [employer] Relationship Specialty Start Date End Date Richard Dai MD [address] [place] [address] PCP - [facility] [employer] 03/10/23 Richard Dai MD [address] [place] [address] PCP - General Family Medicine 09/11/23 Reason for Visit (unrecogniz ed section and content) Reason Comments Routine Visit FOR RECORDS PERTAINING TO PATIENTS WHO ARE [...] BE BASED ON THE PRIMARY CLINICAL RECORDS. [email or web address] provides no warranty or guarantee of the accuracy or completeness of information in this document.
== END 2024-02-14 08:03 | disposition home or self-care (01) ==
LOC: NOMS 08:02
PROVIDERS: PCP Family Medicine; Visit Provider Physician Assistant
DX: O36.63X0 Maternal care for excessive fetal growth, third trimester, not applicable or unspecified (principal); Z3A.34 34 weeks gestation of pregnancy
CPT/HCPCS: 76816

== ENCOUNTER 2024-02-26 21:20 | Outpatient (REF) | payer BC, SELFPAY ==
--- OUTSIDE RECORDS SUMMARY | 2024-02-26 21:24 | XMS_ITS | CCD ---
Author Organization [facility] Care Team Providers Care Dental Detail Representative Name Role Phone HOY, ELMER Admitting Unavailable [...] Dai MD Primary Care Provider RICHARD DAI Attending Unavailable ALISSON, NIDA Attending [...] Allergy 9 Nausea And Vomiting, GI intolerance [facility] (10 sources) fexofenadine Drug Allergy 9 GI intolerance [facility] (9 sources) Hypochlorite Drug Allergy 8 [...] UA Negative Negative - 4(70) +++ mg/dL [facility] Blood, UA Negative Negative - 50 Gonzalez/mcL [facility] Clarity, UA Clear [facility] Healthca re Color, UA Yellow [facility] Healthcar e Glucose, UA Negative Negative - 1999(110) ++++ mg/dL [facility] Interpretation and review of laboratory results Abnormal [facility] Ketones, UA Negative Negative - 160(16) ++++ mg/dL [facility] Leukocytes, UA Trace Negative - 500+++ Meera/mcL [facility] Nitrite, UA Negative Negative - Positive [facility] pH, UA 6.5 5 - 9 [facility] with [facility] e Protein, UA Negative Negative - 1999(20) ++++ mg/dL [facility] Spec Grav, UA 1.02 1 - 1.03 [facility] Urobilinogen, UA 0.2 0.2 - 12 mg/dL [facility] Urinalysis macro (dipstick) panel (U)on 01-29-2024 Bilirubin, UA Negative Negative - 4(70) +++ mg/dL [facility] Blood, UA Negative Negative - 50 Gonzalez/mcL [facility] Clarity, UA Clear [facility] Healthca re Color, UA Yellow [facility] Health[facility] e Glucose, UA Negative Negative - 1999(110) ++++ mg/dL [facility] Interpretation and review of laboratory results Normal [facility] Ketones, UA Negative Negative - 160(16) ++++ mg/dL [facility] Leukocytes, UA Negative Negative - 500+++ Meera/mcL [facility] Healthcare Nitrite, UA Negative Negative - Positive [facility] pH, UA 6.5 5 - 9 [facility] Health[facility] e Protein, UA Negative Negative - 1999(20) ++++ mg/dL [facility] Healthcare Spec Grav, UA 1.025 1 - 1.03 [facility] care Urobilinogen, UA 0.2 0.2 - 12 mg/dL [facility] Urinalysis macro (dipstick) panel (U)on 01-15-2024 Bilirubin, UA Negative Negative - 4(70) +++ mg/dL [facility] Blood, UA Negative Negative - 50 Gonzalez/mcL [facility] Clarity, UA Clear [facility] Healtht[facility] re Color, UA Yellow [facility] Health[facility] e Glucose, UA Negative Negative - 1999(110) ++++ mg/dL [facility] Interpretation and review of laboratory results Normal [facility] Ketones, UA Negative Negative - 160(16) ++++ mg/dL [facility] Leukocytes, UA Negative Negative - 500+++ Meera/mcL [facility] Nitrite, UA Negative Negative - Positive [facility] pH, UA 6.5 5 - 9 [facility] Health[facility] e Protein, UA Negative Negative - 1999(20) ++++ mg/dL [facility] Spec Grav, UA 1.025 1 - 1.03 [facility] Urobilinogen, UA 0.2 0.2 - 12 mg/dL [facility] Hemoglobin A1Con 11-06-2022 Glucose [Mass/Vol] 103 mg/dL Normal [facility] Comment on above: Result Comment: The ADA and AACC recommend providing the estimated average glucose result to permit better patient understanding of their HBA1c result. Performed By: #### T SH, CDP, BMP, LIVP #### [facility] [address] [place] [address] It Architecture Analyst: Abeba Parra MD #### GLYHGB, LIPR #### [address] [address] It Architecture Analyst: Chapin Bellamy MD HbA1c (Bld) [Mass fraction] 5.2 % Normal 4.0-6.0 [facility] Comment on above: Performed By: #### T SH, CDP, BMP, LIVP #### [facility] [address] [place] [address] Dr. [place], [place] [id number] It Architecture Analyst: Abeba Parra MD #### GLYHGB, LIPR #### [address] [place], [place] [address] It Architecture Analyst: Chapin Bellamy MD Lipid Profileon 11-05-2022 Cholesterol [Mass/Vol] 130 mg/dL Normal <200 [facility] Comment on above: Result Comment: Cholesterol Guidelines: <200 Desirable 200-240 Borderline >240 Undesirable Performed By: #### T SH, CDP, BMP, LIVP #### [address] [place], [place] [id number] It Architecture Analyst: Abeba Parra MD #### GLYHGB, LIPR #### [address] [place], [place] [id number] It Architecture Analyst: Chapin Bellamy MD Cholesterol in HDL [Mass/Vol] 61 mg/dL Normal >40 [facility] Comment on above: Result Comment: HDL Guidelines: <40 Undesirable 40-59 Borderline >59 Desirable Performed By: #### T SH, CDP, BMP, LIVP #### [facility] [address] [place] [address] Dr. [place], [place] [id number] It Architecture Analyst: Abeba Parra MD #### GLYHGB, LIPR #### [address] [place], [place] [id number] It Architecture Analyst: Chapin Bellamy MD Cholesterol in LDL [Mass/Vol] 56 mg/dL Normal 0-130 [facility] Comment on above: Result Comment: LDL Guidelines: <100 Desirable 100-129 Near to/above Desirable 130-159 Borderline >159 Undesirable Direct (measured) LDL and calculated LDL are not interchangeable tests. Performed By: #### T SH, CDP, BMP, LIVP #### [facility] [address] [place], [place] [id number] It Architecture Analyst: Abeba Parra MD #### GLYHGB, LIPR #### [facility] [address] [place], [place] [id number] It Architecture Analyst: Chapin Bellamy MD Cholesterol.total/Ch olesterol in HDL [Mass ratio] 2.1 {ratio} Normal <5 [facility] Comment on above: Performed By: #### T SH, CDP, BMP, LIVP #### [facility] [address] [place] [address] It Architecture Analyst: Abeba Parra MD #### GLYHGB, LIPR #### [address] [place], [place] [id number] It Architecture Analyst: Chapin Bellamy MD Triglyceride [Mass/Vol] 64 mg/dL Normal <150 [facility] Comment on above: Result Comment: Triglyceride Guidelines: <150 Desirable 150-199 Borderline 200-499 High >499 Very high Based on AHA Guidelines for fasting triglyceride, January 2012. Performed By: #### T DESTINI, CDP, BMP, LIVP #### [address] [place] [address] It Architecture Analyst: Abeba Parra MD #### GLYHGTanya, LIPR #### [facility] [employer] [facility] [place], [place] [id number] It Architecture Analyst: Chapin Bellamy MD Basic Metabolic Panelon 07-2 Anion gap [Moles/Vol] 11 mmol/L 9 - 17 mmol/L [facility] Calcium [Mass/Vol] 9.7 mg/dL 8.6 - 10. 4 mg/dL [facility] Chloride [Moles/Vol] 107 mmol/L 98 - 10 7 mmol/L [facility] CO2 [Moles/Vol] 22 mmol/L 20 - 31 mmol/L [facility] Creatinine [Mass/Vol] 0.6 mg/dL 0.5 - 0.9 mg/dL [facility] GFR/1.73 sq M.predicted MDRD (S/P/Bld) [Vol rate/Area] - PINF [facility] Comment on above: These results are [...] [Mass/Vol] 85 mg/dL 70 - 99 mg/dL [facility] Interpretation and review of laboratory results Abnormal [facility] Potassium [Moles/Vol] 3.9 mmol/L 3.7 - 5.3 mmol/L [facility] Sodium [Moles/Vol] 140 mmol/L 135 - 144 mmol/L [facility] Urea nitrogen [Mass/Vol] 18 mg/dL 6 - 20 mg/dL [facility] Urea nitrogen/Creatinine [Mass ratio] 30 mg/mg High 9 - 20 [facility] Basic Metabolic Profon 11-04 Anion gap [Moles/Vol] 11 mmol/L Normal - [facility] Comment on above: Performed By: #### T SH, CDP, BMP, LIVP #### [facility] [address] [place] [address] [place] [address] It Architecture Analyst: Abeba Parra MD #### GLYHGB, LIPR #### [facility] [employer] [address] [place] [address] It Architecture Analyst: Chapin Bellamy MD BUN/CRE Ratio 30 High -20 [facility] Comment on above: Performed By: #### T SH, CDP, BMP, LIVP #### [facility] [address] [place] [address] It Architecture Analyst: Abeba Parra MD #### GLYHGB, LIPR #### [address] [place] [address] It Architecture Analyst: Chapin Bellamy MD Calcium [Mass/Vol] 9.7 mg/dL Normal 8.6-10.4 [facility] Comment on above: Performed By: #### T SH, CDP, BMP, LIVP #### [facility] [address] [place], [place] [id number] It Architecture Analyst: Abeba Parra MD #### GLYHGB, LIPR #### [address] [place], [place] [id number] It Architecture Analyst: Chapin Bellamy MD Chloride [Moles/Vol] 107 mmol/L Normal 98-107 [facility] Comment on above: Performed By: #### T SH, CDP, BMP, LIVP #### [facility] [address] [place] [address] [place] [address] It Architecture Analyst: Abeba Parra MD #### GLYHGB, LIPR #### [address] [id number] It Architecture Analyst: Chapin Bellamy MD CO2 [Moles/Vol] 22 mmol/L Normal 20-31 [facility] Comment on above: Performed By: #### T SH, CDP, BMP, LIVP #### [facility] [address] [place] [address] [place] [address] It Architecture Analyst: Abeba Parra MD #### GLYHGB, LIPR #### [address] [place], [place] [id number] It Architecture Analyst: Chapin Bellamy MD Creatinine [Mass/Vol] 0.6 mg/dL Normal 0.5-0.9 [facility] Comment on above: Performed By: #### T SH, CDP, BMP, LIVP #### [facility] [address] [place] [address] It Architecture Analyst: Abeba Parra MD #### GLYHGB, LIPR #### [address] [address] [place], [place] 8590808 It Architecture Analyst: Chapin Bellamy MD GFR/1.73 sq M.predicted among non-blacks MDRD (S/P/Bld) [Vol rate/Area] mL/min/{1.73_m2} Normal >60 [facility] Comment on above: Result Comment: These [...] #### T SH, CDP, BMP, LIVP #### [address] [place] [address] It Architecture Analyst: Abeba Parra MD #### GLYHGB, LIPR #### [address] [place], [place] [phone] It Architecture Analyst: Chapin Bellamy MD Glucose [Mass/Vol] 85 mg/dL Normal 70-99 [facility] Comment on above: Performed By: #### T SH, CDP, BMP, LIVP #### [address] [place] [address] It Architecture Analyst: Abeba Parra MD #### GLYHGB, LIPR #### [address] [place], [place] 17901[address] It Architecture Analyst: Chapin Bellamy MD Potassium [Moles/Vol] 3.9 mmol/L Normal 3.7-5.3 [facility] Comment on above: Performed By: #### T SH, CDP, BMP, LIVP #### [facility] [address] [place] [address] [place] [address] It Architecture Analyst: Abeba Parra MD #### GLYHGB, LIPR #### [address] [place], [place] [id number] It Architecture Analyst: Chapin Bellamy MD Sodium [Moles/Vol] 140 mmol/L Normal 135-144 [facility] Comment on above: Performed By: #### T SH, CDP, BMP, LIVP #### [facility] [address] [place], [place] [phone] It Architecture Analyst: Abeba Parra MD #### GLYHGB, LIPR #### [facility] [employer] [address] [place], [place] [id number] It Architecture Analyst: Chapin Bellamy MD Urea nitrogen [Mass/Vol] 18 mg/dL Normal 6-20 [facility] Comment on above: Performed By: #### T SH, CDP, BMP, LIVP #### [facility] [address] [place] [address] It Architecture Analyst: Abeba Parra MD #### GLYHGB, LIPR #### [facility] [address] [place], [place] [id number] It Architecture Analyst: Chapin Bellamy MD CBC with Auto Differentialon 11-04-2022 Basophils (Bld) [#/Vol] 0.05 10*3/uL [facility] Basophils/100 WBC (Bld) 1 % 0 - 2 % [facility] Eosinophils (Bld) [#/Vol] 0.06 10*3/uL [facility] Eosinophils/100 WBC (Bld) 1 % 1 - 4 % [facility] Erythrocyte distribution width (RBC) [Ratio] 13.0 % 11.8 - 14.4 % [facility] Hematocrit (Bld) [Volume fraction] 43.3 % 36.3 - 47.1 % [facility] Hemoglobin (Bld) [Mass/Vol] 14.2 g/dL 11.9 - 15.1 g/dL [facility] Immature granulocytes (Bld) [#/Vol] [facility] Immature granulocytes/100 WBC (Bld) 0 % 0 [facility] Lymphocytes/100 WBC (Bld) 30 % 24 - 43 % [facility] Lymphocytes/100 WBC (Bld) 3.22 % [facility] MCH (RBC) [Entitic mass] 30.2 pg 25.2 - 33.5 pg [facility] MCHC (RBC) [Mass/Vol] 32.8 g/dL 28.4 - 34.8 g/dL [facility] MCV (RBC) [Entitic vol] 92.1 fL 82.6 - 102.9 fL [facility] Monocytes/100 WBC (Bld) 5 % 3 - 12 % [facility] Monocytes/100 WBC (Bld) 0.50 % [facility] Neutrophils/100 WBC (Bld) 63 % 36 - 65 % [facility] Nucleated RBC/100 WBC (Bld) [Ratio] 0.0 % 0.0 per 100 WBC [facility] Platelet mean volume (Bld) [Entitic vol] 11.0 fL 8.1 - 13.5 fL [facility] Platelets (Bld) [#/Vol] 264 10*3/uL [facility] RBC (Bld) [#/Vol] 4.70 10*6/uL 3.95 - 5.1 1 m/uL [facility] Segmented neutrophils/100 WBC (Bld) 6.95 % [facility] WBC other (Bld) [#/Vol] 10.8 [facility] CBC with Diffon 11-04-2022 Abs. Basophil 0.05 k/uL Normal 0.00-0.20 [facility] Comment on above: Performed By: #### T SH, CDP, BMP, LIVP #### [facility] [address] [place] [address] It Architecture Analyst: Abeba Parra MD #### GLYHGB, LIPR #### [facility] [employer] [address] [place] [address] It Architecture Analyst: Chapin Bellamy MD Abs.Imm.Granulocyte <0.03 Normal 0.00-0.30 [facility] Comment on above: Performed By: #### T SH, CDP, BMP, LIVP #### [facility] [address] [place] [address] Dr[address] [place] [id number] It Architecture Analyst: Abeba Parra MD #### GLYHGB, LIPR #### [address] [id number] It Architecture Analyst: Chapin Bellamy MD Abs.Neutrophil (Seg) 6.95 k/uL Normal 1.50-8.10 [facility] Comment on above: Performed By: #### T SH, CDP, BMP, LIVP #### [address] [place] [id number] It Architecture Analyst: Abeba Parra MD #### GLYHGB, LIPR #### [id number] It Architecture Analyst: Chapin Bellamy MD Basophils/100 WBC (Bld) 1 % Normal 0-2 [facility] Comment on above: Performed By: #### T SH, CDP, BMP, LIVP #### [address] [place] [id number] It Architecture Analyst: Abeba Parra MD #### GLYHGB, LIPR #### [id number] It Architecture Analyst: Chapin Bellamy MD Eosinophils (Bld) [#/Vol] 0.06 10*3/uL Normal 0.00-0.44 [facility] Comment on above: Performed By: #### T SH, CDP, BMP, LIVP #### [address] [place] [address] It Architecture Analyst: Abeba Parra MD #### GLYHGB, LIPR #### [address] [id number] It Architecture Analyst: Chapin Bellamy MD Eosinophils/100 WBC (Bld) 1 % Normal 1-4 [facility] Comment on above: Performed By: #### T SH, CDP, BMP, LIVP #### [address] [place] [id number] It Architecture Analyst: Abeba Parra MD #### GLYHGB, LIPR #### [address] [id number] It Architecture Analyst: Chapin Bellamy MD Erythrocyte distribution width (RBC) [Ratio] 13.0 % Normal 11.8-14.4 [facility] Comment on above: Performed By: #### T SH, CDP, BMP, LIVP #### [address] [place] [id number] It Architecture Analyst: Abeba Parra MD #### GIOVANNI, LIPR #### [address] [id number] It Architecture Analyst: Chapin Bellamy MD Hematocrit (Bld) [Volume fraction] 43.3 % Normal 36.3-47.1 [facility] Comment on above: Performed By: #### T SH, CDP, BMP, LIVP #### [address] [place] [id number] It Architecture Analyst: Abeba Parra MD #### GLYALDEN, LIPR #### [address] [address] It Architecture Analyst: Chapin Bellamy MD Hemoglobin (Bld) [Mass/Vol] 14.2 g/dL Normal 11.9-15.1 [facility] Comment on above: Performed By: #### T SH, CDP, BMP, LIVP #### [address] [place] [address] It Architecture Analyst: Abeba Parra MD #### GLYHGTanya, LIPR #### [address] [address] It Architecture Analyst: Chapin Bellamy MD Immature granulocytes/100 WBC (Bld) 0 % Normal 0 [facility] Comment on above: Performed By: #### T SH, CDP, BMP, LIVP #### [facility] [address] [place] [address] Dr. [place], [place] [id number] It Architecture Analyst: Abeba Parra MD #### GLYHGB, LIPR #### [address] [address] It Architecture Analyst: Chapin Bellamy MD Lymphocytes (Bld) [#/Vol] 3.22 10*3/uL Normal 1.10-3.70 [facility] Comment on above: Performed By: #### T SH, CDP, BMP, LIVP #### [facility] [address] [place] [address] Dr. [place] [id number] It Architecture Analyst: Abeba Parra MD #### GLYHGB, LIPR #### [address] [address] It Architecture Analyst: Chapin Bellamy MD Lymphocytes/100 WBC (Bld) 30 % Normal 24-43 [facility] Comment on above: Performed By: #### T SH, CDP, BMP, LIVP #### [facility] [address] [place] [address] Dr. [place] [id number] It Architecture Analyst: Abeba Parra MD #### GLYHGB, LIPR #### [address] [address] It Architecture Analyst: Chapin Bellamy MD MCH (RBC) [Entitic mass] 30.2 pg Normal 25.2-33.5 [facility] Comment on above: Performed By: #### T SH, CDP, BMP, LIVP #### [facility] [address] [place] [address] Dr. [place] [id number] It Architecture Analyst: Abeba Parra MD #### GLYHGB, LIPR #### [address] [place], [place] [address] It Architecture Analyst: Chapin Bellamy MD MCHC (RBC) [Mass/Vol] 32.8 g/dL Normal 28.4-34.8 [facility] Comment on above: Performed By: #### T SH, CDP, BMP, LIVP #### [address] [place] [id number] It Architecture Analyst: Abeba Parra MD #### GLYHGB, LIPR #### [place] [id number] It Architecture Analyst: Chapin Bellamy MD MCV (RBC) [Entitic vol] 92.1 fL Normal 82.6-102.9 [facility] Comment on above: Performed By: #### T SH, CDP, BMP, LIVP #### [address] [place] [id number] It Architecture Analyst: Abeba Parra MD #### GLYHGB, LIPR #### [place] [address] It Architecture Analyst: Chapin Bellamy MD Monocytes (Bld) [#/Vol] 0.50 10*3/uL Normal 0.10-1.20 [facility] Comment on above: Performed By: #### T SH, CDP, BMP, LIVP #### [address] [place] [id number] It Architecture Analyst: Abeba Parra MD #### GLYHGB, LIPR #### [place] [address] It Architecture Analyst: Chapin Bellamy MD Monocytes/100 WBC (Bld) 5 % Normal 3-12 [facility] Comment on above: Performed By: #### T SH, CDP, BMP, LIVP #### [address] [place] [address] It Architecture Analyst: Abeba Parra MD #### GLYHGB, LIPR #### [address] [place], [place] [phone] It Architecture Analyst: Chapin Bellamy MD Neutrophil (Seg) 63 % Normal 36-65 [facility] Comment on above: Performed By: #### T SH, CDP, BMP, LIVP #### [address] [place] [id number] It Architecture Analyst: Abeba Parra MD #### GLYHGB, LIPR #### [place] [id number] It Architecture Analyst: Chapin Bellamy MD NRBC Automated 0.0 per 100 WBC Normal 0.0 [facility] Comment on above: Performed By: #### T SH, CDP, BMP, LIVP #### [address] [place] [id number] It Architecture Analyst: Abeba Parra MD #### GLYHGB, LIPR #### [place] [id number] It Architecture Analyst: Chapin Bellamy MD Platelet mean volume (Bld) [Entitic vol] 11.0 fL Normal 8.1-13.5 [facility] Comment on above: Performed By: #### T SH, CDP, BMP, LIVP #### [address] [place] [id number] It Architecture Analyst: Abeba Parra MD #### GLYHGB, LIPR #### [place] [id number] It Architecture Analyst: Chapin Bellamy MD Platelets (Bld) [#/Vol] 264 10*3/uL Normal 138-453 [facility] Comment on above: Performed By: #### T SH, CDP, BMP, LIVP #### [address] [place] [address] It Architecture Analyst: Abeba Parra MD #### GLYHGB, LIPR #### [address] [place], [place] [phone] It Architecture Analyst: Chapin Bellamy MD RBC (Bld) [#/Vol] 4.70 10*6/uL Normal 3.95-5.11 [facility] Comment on above: Performed By: #### T SH, CDP, BMP, LIVP #### [address] [place] [address] It Architecture Analyst: Abeba Parra MD #### GLYHGB, LIPR #### [address] [place], [place] [phone] It Architecture Analyst: Chapin Bellamy MD WBC (Bld) [#/Vol] 10.8 10*3/uL Normal 3.5-11.3 [facility] Comment on above: Performed By: #### T SH, CDP, BMP, LIVP #### [address] [place] [address] It Architecture Analyst: Abeba Parra MD #### GLYHGB, LIPR #### [address] [place], [place] [id number] It Architecture Analyst: Chapin Bellamy MD Hepatic Function Panelon Albumin [Mass/Vol] 4.2 g/dL 3.5 - 5.2 g/dL [facility] Albumin/Globulin [Mass ratio] 1.3 {ratio} 1.0 - 2.5 [facility] ALP [Catalytic activity/Vol] 80 U/L 35 - 104 U/L [facility] ALT [Catalytic activity/Vol] 23 U/L 5 - 33 U/L [facility] AST [Catalytic activity/Vol] 22 U/L NINF - 32 U/L [facility] Bilirubin [Mass/Vol] 0.5 mg/dL 0.3 - 1 .2 mg/dL [facility] Bilirubin.direct [Mass/Vol] mg/dL NINF - 0.3 mg/dL [facility] Bilirubin.indirect [Mass/Vol] Can not be calculated 0.0 - 1.0 mg/dL [facility] Protein [Mass/Vol] 7.4 g/dL 6.4 - 8.3 g/dL [facility] Lipid Panelon 11-04-2022 Cholesterol [Mass/Vol] 130 mg/dL NINF - 200 mg/dL [facility] Comment on above: Cholesterol Guidelines: <200 Desirable 200-240 Borderline >240 Undesirable Cholesterol in HDL [Mass/Vol] 61 mg/dL 40 - PINF mg/dL [facility] Comment on above: HDL Guidelines: <40 Undesirable 40-59 Borderline >59 Desirable Cholesterol in LDL [Mass/Vol] 56 mg/dL 0 - 130 mg/dL [facility] Comment on above: LDL Guidelines: <100 Desirable 100-129 Near to/above Desirable 130-159 Borderline >159 Undesirable Direct (measured) LDL and calculated LDL are not interchangeable tests. Cholesterol.total/Ch olesterol in HDL [Mass ratio] 2.1 {ratio} NINF - 5 [facility] Triglyceride [Mass/Vol] 64 mg/dL NINF - 150 mg/dL [facility] Comment on above: Triglyceride Guidelines: <150 Desirable 150-199 Borderline 200-499 High >499 Very high Based on AHA Guidelines for fasting triglyceride, January 2012. [facility] Liver Profileon 11-04-2022 Albumin [Mass/Vol] 4.2 g/dL Normal 3.5-5.2 [facility] Comment on above: Performed By: #### T SH, CDP, BMP, LIVP #### [facility] [address] [place] [address] It Architecture Analyst: Abeba Parra MD #### GLYHGB, LIPR #### [facility] [employer] [address] [place] [address] It Architecture Analyst: Chapin Bellamy MD Albumin/Glob Ratio 1.3 Normal 1.0-2.5 [facility] Comment on above: Performed By: #### T SH, CDP, BMP, LIVP #### [facility] [address] [place], [place] [id number] It Architecture Analyst: Abeba Parra MD #### GLYHGB, LIPR #### [address] [place], [place] [id number] It Architecture Analyst: Chapin Bellamy MD Alkaline Phos 80 U/L Normal 35-104 [facility] Comment on above: Performed By: #### T SH, CDP, BMP, LIVP #### [facility] [address] [place], [place] [id number] It Architecture Analyst: Abeba Parra MD #### GLYHGB, LIPR #### [address] [id number] It Architecture Analyst: Chapin Bellamy MD ALT [Catalytic activity/Vol] 23 U/L Normal 5-33 [facility] Comment on above: Performed By: #### T SH, CDP, BMP, LIVP #### [facility] [address] [place], [place] [id number] It Architecture Analyst: Abeba Parra MD #### GLYHGB, LIPR #### [address] [place] [address] It Architecture Analyst: Chapin Bellamy MD AST [Catalytic activity/Vol] 22 U/L Normal <32 [facility] Comment on above: Performed By: #### T SH, CDP, BMP, LIVP #### [facility] [address] [place], [place] [id number] It Architecture Analyst: Abeba Parra MD #### GLYHGB, LIPR #### [address] [place] [address] It Architecture Analyst: Chapin Bellamy MD Bilirubin [Mass/Vol] 0.5 mg/dL Normal 0.3-1.2 [facility] Comment on above: Performed By: #### T SH, CDP, BMP, LIVP #### [facility] [address] [place] [address] It Architecture Analyst: Abeba Parra MD #### GLYHGB, LIPR #### [address] [place], [place] [id number] It Architecture Analyst: Chapin Bellamy MD Bilirubin, Indirect Can not be calculated Normal 0.0-1 .0 [facility] Comment on above: Performed By: #### T SH, CDP, BMP, LIVP #### [facility] [address] [place] [address] It Architecture Analyst: Abeba Parra MD #### GLYHGB, LIPR #### [address] [id number] It Architecture Analyst: Chapin Bellamy MD Bilirubin.indirect [Mass/Vol] mg/dL Normal <0.3 [facility] Comment on above: Performed By: #### T SH, CDP, BMP, LIVP #### [facility] [address] [place] [address] It Architecture Analyst: Abeba Parra MD #### GLYHGB, LIPR #### [address] [place], [place] [address] It Architecture Analyst: Chapin Bellamy MD Protein [Mass/Vol] 7.4 g/dL Normal 6.4-8.3 [facility] Comment on above: Performed By: #### T SH, CDP, BMP, LIVP #### [facility] [address] [place] [address] It Architecture Analyst: Abeba Parra MD #### GLYHGB, LIPR #### [address] [place], [place] [id number] It Architecture Analyst: Chapin Bellamy MD No [facility]22 TSH Qn 1.57 m[IU]/L ALFA ESPANA [facility] Thyroid Stim. Horm.on 2022 Thyroid Stim. Horm. 1.57 uIU/mL Normal 0.30-5.00 [facility] Comment on above: Performed By: #### T SH, CDP, BMP, LIVP #### [facility] [address] [place] [address] It Architecture Analyst: Abeba Parra MD #### GLYHGB, LIPR #### [facility] [employer] [address] [place], [place] [id number] It Architecture Analyst: Chapin Bellamy MD NM HEPATOBILIARY SCAN W [...] by: ABEBA APODACA Date: 2020-01-30 09:35 Normal [facility] US SINGLE QUAD RT UPPERon US SINGLE [...] by: ABEBA APODACA Date: 2020-01-22 11:02 Normal [facility] Vital Signs Date Time Vital Sign Value Performing Clinician Peteri melba 02-12-2024 16:31-0500 Body mass index (BMI) [Ratio] 39.77 kg/m2 [employer] Work Phone: [facility] 02-12-2024 16:31-0500 Body weight 108.41 kg [employer] Work Phone: [facility] 02-12-2024 16:31-0500 Diastolic blood pressure 78 mm[Hg] [employer] Work Phone: [facility] 02-12-2024 16:31-0500 Systolic blood pressure 124 mm[Hg] [employer] Work Phone: [facility] 01-29-2024 16:01-0400 Body mass index (BMI) [Ratio] 38.77 kg/m2 Nida Alisson DO Work Phone: [facility] 01-29-2024 16:01-0400 Body weight 105.69 kg Nida Alisson DO Work Phone: [facility] 01-29-2024 16:01-0400 Diastolic blood pressure 70 mm[Hg] Nida Alisson DO Work Phone: [facility] 01-29-2024 16:01-0400 Systolic blood pressure 118 mm[Hg] Nida Alisson DO Work Phone: [facility] 01-15-2024 14:56-0400 Body mass index (BMI) [Ratio] 38.11 kg/m2 [employer] Work Phone: [facility] 01-15-2024 14:56-0400 Body weight 103.87 kg [employer] Work Phone: [facility] 01-15-2024 14:56-0400 Diastolic blood pressure 74 mm[Hg] [employer] Work Phone: [facility] 01-15-2024 14:56-0400 Systolic blood pressure 120 mm[Hg] [employer] Work Phone: [facility] Encounters Encounter Date Encounter Type Care Provider Facility Start: 02-12-2024 End: 02-12-2024 flow sheet [employer] Work Phone: [facility] Comment on above: 34 weeks gestation o f ; Third trimester ; Excessive growth affecting management of in third trimester, single or unspecified fetus Start: 02-12-2024 End: 02-12-2024 ambulatory VENICE VAZQUEZ Not Available Start: 02-12-2024 End: 02-12-2024 Bamboo flowsheet [employer] Work Phone: [facility] Start: 02-12-2024 End: 02-12-2024 Bamboo flowsheet [employer] Work Phone: [facility] Start: 01-29-2024 End: 01-29-2024 ambulatory NIDA ALISSON Not Available Start: 01-29-2024 End: 01-29-2024 flow sheet Nida Alisson DO Work Phone: [facility] Comment on above: Third trimester preg yefri; 32 weeks gestation of Start: 01-29-2024 End: 01-29-2024 Bamboo flowsheet Nida Alisson DO Work Phone: [facility] Start: 01-29-2024 End: 01-29-2024 Bamboo flowsheet Nida Alisson DO Work Phone: [facility] Start: 01-15-2024 End: 01-15-2024 flow sheet [employer] Work Phone: [facility] Comment on above: 30 weeks gestation o f ; Third trimester Start: 01-15-2024 End: 01-15-2024 ambulatory VENICE VAZQUEZ Not Available Start: 01-15-2024 End: 01-15-2024 Bamboo flowsheet [employer] Work Phone: [facility] Start: 01-15-2024 End: 01-15-2024 Bamboo flowsheet [employer] Work Phone: [facility] Start: 01-01-2024 End: 01-01-2024 ambulatory NIDA ALISOSN Not Available Start: 12-04-2023 End: 12-04-2023 ambulatory [...] Start: 11-04-2022 End: 11-05-2022 ambulatory RICHARD DAI [facility] Start: 11-04-2022 End: 11-05-2022 Encounter for general adult medical examination without abnormal findings RICHARD DAI [facility] Start: 11-04-2022 End: 11-04-2022 Subsequent hospital visit by physician Richard Dai MD Work Phone: [facility] Start: 01-30-2020 End: 01-31-2020 Patient [...] DTaP/Tdap/Td vaccine (8 - Td or Tdap) [facility] Start: 04-18-2024 End: 04-18-2024 Patient encounter procedure 04/18/2024 11:00 AM EST Office Visit [facility] [address] [place] [phone] Nida Vinson, DO [address] [place] [address] [facility] Start: 02-28-2024 End: 02-28-2024 Patient encounter procedure 02/28/2024 8:30 AM EST Routine [facility] [address] [place], [place] [address] [facility] [employer] PA [address] [place] [place] [address] [facility] Start: 02-26-2024 End: 02-26-2024 Patient encounter procedure 02/26/2024 1:30 PM EST Routine [facility] [address] [place], [place] [phone] Nida Vinson, DO [address] [place] [address] [facility] Start: 02-14-2024 End: 02-14-2024 Professional / ancillary services management 02/14/2024 8:00 AM EST Ancillary Procedure [facility] [address] [place] [place] [phone] [facility] Start: 02-12-2024 End: 02-12-2024 Patient encounter procedure [facility] Comment on above: Arrived Start: 02-12-2024 End: 02-11-2025 US for US OB SCAN FOR GROWTH Imaging Routine Excessive growth affecting management of in third trimester, single or unspecified fetus Expected: 02/12/2024 (Approximate), Expires: 02/11/2025 [facility] Work Phone: Comment on above: Expected: 02/12/2024 (Approximate), Expires: 02/11/2025 Start: 01-29-2024 End: 01-29-2024 Patient encounter procedure 01/29/2024 3:10 PM EDT Routine [facility] [address] [place] [place] [phone] Nida Vinson DO [address] [facility] [address] [place], [place] [id number] [facility] Start: 01-15-2024 End: 01-15-2024 Patient encounter procedure 01/15/2024 3:20 PM EDT Routine [facility] [address] [place] [place] [phone] Venice Vazquez PA [address] [place] [address] Arrived [facility] Comment on above: Arrived Start: 12-10-2023 Influenza vaccination Influenza Vacc ine (#1) [facility] Start: 11-08-2022 Influenza vaccination Flu vaccine (# 1) [facility] Start: 2019 Screening for malign ant neoplasm of cervix Pap smear [facility] Start: 02-10-2016 Hepatitis C screening Hepatitis C sc reen [facility] Start: 2014 Screening for Chlamy zulema trachomatis Chlamydia/GC screen [facility] Start: 2013 HIV screening HIV screen [facility] Start: 2010 Depression Screen Depression Screen [facility] Start: 2009 HPV vaccine (1 - 2-d ose series) HPV vaccine (1 - 2-dose series) [facility] Start: 1999 Varicella vaccine (1 of 2 - 2-dose childhood series) Varicella vaccine (1 of 2 - 2-dose childhood series) [facility] Start: 1998 COVID-19 Vaccine (#1) COVID-19 Vacci ne (#1) [facility] End: 11-04-2022 Hemoglobin A1c/Hemoglobin.total in Blood [facility] Work Phone: Comment on above: Once for 1 Occurrenc es starting 11/04/2022 until 11/04/2022 Immunizations Immunization Date Immunization Notes Care Provider Fa [facility] 11-04-2021 tetanus toxoid, redu sanya diphtheria toxoid, and acellular pertussis vaccine, adsorbed Richard Dai MD Work Phone: [facility] 11-12-2015 meningococcal polysaccharide (groups A, C, Y and W-135) diphtheria toxoid conjugate vaccine (MCV4P) [employer] Work Phone: [facility] 05-24-2011 poliovirus vaccine, inactivated [employer] Work Phone: [facility] 07-19-2010 tetanus toxoid, redu sanya diphtheria toxoid, and acellular pertussis vaccine, adsorbed [employer] Work Phone: [facility] 08-13-2003 diphtheria, tetanus toxoids and acellular pertussis vaccine, unspecified formulation [employer] Work Phone: [facility] 08-13-2003 measles, mumps and rubella virus vaccine [employer] Work Phone: [facility] 09-15-1999 diphtheria, tetanus toxoids and acellular pertussis vaccine, unspecified formulation [employer] Work Phone: [facility] 09-15-1999 haemophilus influenz ae type b vaccine, HbOC conjugate [employer] Work Phone: [facility] 02-24-1999 measles, mumps and rubella virus vaccine [employer] Work Phone: [facility] 02-24-1999 trivalent poliovirus vaccine, live, oral [employer] Work Phone: [facility] 1998 diphtheria, tetanus toxoids and acellular pertussis vaccine, unspecified formulation [employer] Work Phone: [facility] 1998 haemophilus influenz ae type b conjugate and Hepatitis B vaccine [employer] Work Phone: [facility] 1998 trivalent poliovirus vaccine, live, oral [employer] Work Phone: [facility] 1998 diphtheria, tetanus toxoids and acellular pertussis vaccine, unspecified formulation [employer] Work Phone: [facility] 1998 haemophilus influenz ae type b vaccine, HbOC conjugate [employer] Work Phone: [facility] 1998 trivalent poliovirus vaccine, live, oral [employer] Work Phone: [facility] 1998 diphtheria, tetanus toxoids and acellular pertussis vaccine, unspecified formulation [employer] Work Phone: [facility] 1998 haemophilus influenz ae type b vaccine, conjugate unspecified formulation [employer] Work Phone: [facility] 1998 hepatitis B vaccine, pediatric or pediatric/adolescent dosage [employer] Work Phone: [facility] 1998 poliovirus vaccine, inactivated [employer] Work Phone: [facility] 1998 hepatitis B vaccine, pediatric or pediatric/adolescent dosage [employer] Work Phone: [facility] Payers Date Payer Category Payer [employer] [id number] 2022 Unknown BCBS BCBS [id number] 2022-Present [phone] [id number] [place] [id number] 2022 Unknown [id number] [id number]. [id number] 1998 Unknown [id number] 2.16.840.1.669882.3.579. 2.593 1998 Unknown [id number] 2.16.840.1.288254.3.579. 2.593 1998 Unknown [id number] 2.16.840.1.961994.3.579. 2.173 1998 Unknown [id number] 2.16.840.1.085016.3.579. 2.1259 1998 Unknown [id number] 2.16.840.1.624288.3.579. 2.1259 1998 Unknown [id number] 2.16.840.1.591042.3.579. 2.1259 1998 Unknown [id number] 2.16.840.1.930968.3.579. 2.1259 1998 Unknown [id number] 2.16.840.1.831104.3.579. 2.9 1998 Unknown [id number] 2.16.840.1.864193.3.579. 2.1259 1998 Unknown [id number] 2.16.840.1.104352.3.579. 2.9 1998 Unknown [id number] 2.16.840.1.710132.3.579. 2.9 1998 Unknown [id number] 2.16.840.1.205933.3.579. 2.1259 1998 Unknown [id number] 2.16.840.1.486506.3.579. 2.9 1998 Unknown [id number] 2.16.840.1.522553.3.579. 2.9 1998 Unknown [id number] 2.16.840.1.863437.3.579. 2.1259 1959 Unknown [id number] Social History Date Type Detail Facility Tobacco smoking stat [facility] Start: 1998 Sex Assigned At Not on file [facility] Start: 11-18-2022 Tobacco smoking status [facility] Never smoked tobacco [facility] Start: 11-18-2022 [...] to any clubs or organizations such as gnosticist groups, unions, fraternal or athletic groups, or [...] illness Narrative Reason for Appointment: Patient ID: Yenyn Nuñez is a 24 y.o. female who [...] nursing note reviewed. Exam conducted with a water treatment plant operator present. Vitals: Estimated body mass index is [...] nursing note reviewed. Exam conducted with a water treatment plant operator present. Vitals: Estimated body mass index is [...] Nida Vinson DO documented in this encounter [facility] Evaluation note Note Date & Type Note Facility Evaluation note Diagnosis 30 weeks gestation of Third trimester state, incidental documented in this encounter [facility] Evaluation note Note Date & Type Note Facility Evaluation note Diagnosis Rhomboid muscle strain, initial encounter- Primary Acute superficial gastritis without hemorrhage Third trimester state, incidental 32 weeks gestation of documented in this encounter [facility] Evaluation note Note Date & Type Note Facility Evaluation note Diagnosis Rhomboid muscle strain, initial encounter- Primary Acute superficial gastritis without hemorrhage 34 weeks gestation of Third trimester state, incidental Excessive growth affecting management of in third trimester, single or unspecified fetus documented in this encounter [facility] History of Present illness Narrative DEEPA [...] nursing note reviewed. Exam conducted with a water treatment plant operator present. Vitals: Estimated body mass index is [...] DATE CREATED AUTHOR AUTHOR'S ORGANIZ ATION 02/13/2024 [facility] dical Specialists [facility] Care Teams (unrecognized sec tion and content) Dental Detail Representative Relationship Specialty Start Date End Date Richard Dai MD [address] [place] [address] PCP - General Family Medicine 11/04/22 Dental Detail Representative Relationship Specialty Start Date End Date Richard Dai MD [address] [place] [address] PCP - [facility] 03/10/23 Richard Dai MD [address] [place] [address] PCP - General Family Medicine 09/11/23 Dental Detail Representative Relationship Specialty Start Date End Date Richard Dai MD [address] [place] [address] PCP - [facility] 03/10/23 Richard Dai MD [address] [place] [address] PCP - General Family Medicine 09/11/23 Dental Detail Representative Relationship Specialty Start Date End Date Richard Dai MD [address] [place] [phone] PCP - [facility] 03/10/23 Richard Dai MD [address] [place] [phone] PCP - General Family Medicine 09/11/23 Dental Detail Representative Relationship Specialty Start Date End Date Richard Dai MD [address] [place] [phone] PCP - [facility] 03/10/23 Richard Dai MD [address] [place] [address] PCP - General Family Medicine 09/11/23 Dental Detail Representative Relationship Specialty Start Date End Date Richard Dai MD [address] [place] [address] PCP - [facility] 03/10/23 Richard Dai MD [address] [place] [address] PCP - General Family Medicine 09/11/23 Reason [...] BE BASED ON THE PRIMARY CLINICAL RECORDS. [employer] provides no warranty or guarantee of the accuracy or completeness of information in this document.
== END 2024-02-26 21:21 | disposition home or self-care (01) ==
LOC: LAB 21:20
PROVIDERS: PCP Family Medicine; Visit Provider Obstetrics & Gynecology
DX: Z34.93 Encounter for supervision of normal pregnancy, unspecified, third trimester (principal)
CPT/HCPCS: 87081; 87150

== ENCOUNTER 2024-03-20 12:58 | Inpatient (IN) | payer BC, SELFPAY ==
[2024-03-20] VITALS (11 sets, daily range): BP systolic 135–152; BP diastolic 83–98; PULSE 63–102; TEMP 36.7–37.4
[2024-03-20] MEDS: VANCOMYCIN HCL 1,000 MG in 0.9 % SODIUM CHLORIDE 250 ML 250 MG IV (13:56)
[2024-03-20] MEDS: 0.9 % SODIUM CHLORIDE 1,000 ML 125 ML IV ×2 (14:02→22:45)
[2024-03-20 14:14] LABS: Hematocrit 37.6 % (36.0-48.0); Hemoglobin 12.8 g/dL (12.0-16.0); Mean Corpuscular Hemoglobin 30.6 pg (26.7-34.0); Mean Platelet Volume 11.8 fL (9.5-13.5); Platelet Count 222 10^3/uL (150-450); Red Blood Count 4.18 10^6/uL (4.20-5.40)
[2024-03-20] MEDS: OXYTOCIN/0.9 % SODIUM CHLORIDE 10 UNITS/500 ML PLAST..BAG 6 UNIT IV (14:22)
[2024-03-20 14:30] LABS: Amphetamine Screen Urine NEGATIVE (NEGATIVE); Barbiturates Screen Urine NEGATIVE (NEGATIVE); Benzodiazepines Screen Urine NEGATIVE (NEGATIVE); Buprenorphine Screen Urine NEGATIVE (NEGATIVE); Cannabinoid Screen Urine NEGATIVE (NEGATIVE); Cocaine Screen Urine NEGATIVE (NEGATIVE); Methadone Screen Urine NEGATIVE (NEGATIVE); Methamphetamines Screen Urine NEGATIVE (NEGATIVE); Opiate Screen Urine NEGATIVE (NEGATIVE); Oxycodone Screen Urine NEGATIVE (NEGATIVE); Phencyclidine Screen Urine NEGATIVE (NEGATIVE); Tricyclic Antidepressant Urine NEGATIVE (NEGATIVE)
[2024-03-21] VITALS (47 sets, daily range): BP systolic 110–171; BP diastolic 61–95; PULSE 67–105; TEMP 36.1–37.2; O2SAT 94–100
[2024-03-21] MEDS: 0.9 % SODIUM CHLORIDE 1,000 ML 125 ML IV (02:00)
[2024-03-21] MEDS: VANCOMYCIN HCL 1,000 MG in 0.9 % SODIUM CHLORIDE 250 ML 250 MG IV (02:31)
[2024-03-21] MEDS: OXYTOCIN/0.9 % SODIUM CHLORIDE 10 UNITS/500 ML PLAST..BAG 30 UNIT IV (04:51)
[2024-03-21] MEDS: FAMOTIDINE/PF 20 MG/2 ML VIAL IV (07:00)
[2024-03-21] MEDS: CITRIC ACID/SODIUM CITRATE 30 ML SOLUTION ORACIT SHOHL'S SOLN PO (07:00)
[2024-03-21] MEDS: METOCLOPRAMIDE HCL 10 MG/2 ML VIAL IVP (07:00)
[2024-03-21] MEDS: CEFAZOLIN SODIUM/DEXTROSE,ISO 2 GM/50 ML PIGGYBACK IV ×2 (07:01→13:06)
[2024-03-21] MEDS: OXYTOCIN/0.9 % SODIUM CHLORIDE 20 UNITS/1,000 ML PLAST..BAG 125 UNIT IV (07:35)
[2024-03-21] MEDS: LACTATED RINGER'S SOLUTION 1,000 ML 50 ML IV (07:38)
--- NOTE | 2024-03-21 07:56 | P.ON_ITS ---
Brief Operative Note Date of procedure: 03/21/24 Pre-op diagnosis general: iup at 39 6/7wks, srom, failure to induce, recurrent variables Post-op diagnosis: same as pre-op Procedure: NAME OF PROCEDURE: [ section ] PROCEDURE: Patient was taken back to the Operating Room where she was given a spinal anesthesia with Duramorph without difficulty. She was prepped and draped in the normal sterile fashion. A Pfannenstiel skin incision was then made 2 cm above the symphysis pubis and carried down to underlying rectus fascia using a Bovie. The fascia was incised in the midline and extended laterally using Dickinson scissors. Two Megan clamps were placed on the superior aspect of the fascia and dissected off the underlying rectus muscles. The same was performed on the inferior aspect as well. The muscles were then in the midline. Peritoneum was identified and entered bluntly. The peritoneum was then extended superiorly and inferiorly with good visualization of the bladder. The bladder blade was inserted. A low transverse incision was made on the patient's uterus and extended laterally digitally. The infant was then delivered atraumatically after the bladder blade was removed in the cephalic position. The cord was clamped and cut. Cord blood was obtained. The infant was handed off to awaiting team. The patient's placenta was spontaneously delivered. The uterus was then exteriorized. The uterus was cleared of all clots and debris. The bladder blade was reinserted. The patient's uterine incision was closed using #0 Vicryl in a running lock fashion. Excellent hemostasis was assured. The uterus was then returned to the patient's abdomen. The patient's abdomen was copiously irrigated using warm saline. Peritoneal gutters were cleared of all clots and debris. Again excellent hemostasis was assured. The patient's peritoneum was closed using 3-0 Vicryl in a running fashion. The patient's fascia was closed using #0 Vicryl in a running fashion. The patient's skin was closed using 4-0 Vicryl subcuticularly. The patient tolerated the procedure well. Sponge, lap, and needle counts were correct x2. The patient was taken to the Recovery Room in stable condition. Anesthesia: spinal Surgeon: Jacob Vinson Inorganic Chemical Technician: Ashley Lamb Estimated blood loss (mL): 575 Pathology: none sent Condition: stable Disposition: PACU Urinary Catheter Management Urinary Catheter Management Urethral: Cath placed during this visit: no
--- NOTE | 2024-03-21 07:59 | P.OBPRC_ITS ---
Procedure Pre-op/Post-op diagnoses: Pre-Op/Post-Op Diagnoses Operation Date: 03/21/24 06:30 <No data on this case meets the specified criteria> Procedure: Procedures Operation Date: 03/21/24 06:30 Actual Procedure Side Surgeon p Not Applicable Jacob Vinson DO Behavioral Intervention Specialist: Ashley Lamb Estimated blood loss (mL): 575 Disposition: PACU Anesthesia type: Spinal
[2024-03-21] MEDS: KETOROLAC TROMETHAMINE 30 MG/ML VIAL IVP ×2 (15:05→22:15)
--- NOTE | 2024-03-21 17:46 | RESP.RT ---
done per nursing
--- NOTE | 2024-03-21 19:12 | W.PC.ACHO ---
Registration Status: ADM IN Primary Language: [place]araguan Preferred Language: [place]araguan Report given on post C/S status, roberson out, Sl, & fundus/ bleeding. Active Medications Generic Name Dose Route Start Last Admin Trade Name Freq PRN Reason Stop Dose Admin Al Hydroxide/Mg Hydroxide 2,400 mg 03/21/24 07:57 Magnesium Hydroxide 2,400 Mg/10 Ml Oral.Susp PO Q6H PRN Dyspepsia Carboprost Tromethamine 250 mcg 03/20/24 13:18 Carboprost Tromethamine 250 Mcg/Ml 1 Ml Vial IM 03/22/24 13:19 Q15M PRN Bleeding Diphenhydramine HCl 25 mg 03/21/24 07:57 Diphenhydramine Hcl 50 Mg/Ml Vial IV 03/22/24 07:57 Q6H PRN Itching Diphtheria/Pertussis/Tetanus Vacc 0.5 ml 03/23/24 09:00 Adacel Diph,Pertuss(Acell),Tet Vac/Pf 0.5 Ml Adult Syringe IM 03/23/24 09:01 .ONCE ONE Docusate Sodium 100 mg 03/22/24 09:00 Docusate Sodium 100 Mg Capsule PO BID ALEN Enoxaparin Sodium 40 mg 03/21/24 19:00 Enoxaparin Sodium 40 Mg/0.4 Ml Syringe SUBQ Q24H ALEN Tranexamic Acid 1,000 mg/ 110 mls @ 440 mls/hr 03/20/24 13:18 Sodium Chloride IV 03/22/24 13:19 ONCE PRN Uterine Bleeding Sodium Chloride 1,000 mls @ 125 mls/hr 03/20/24 14:00 03/21/24 07:35 Sodium Chloride 0.9% 1,000 Ml IV Infused .Q8H ALEN Infusion Oxytocin/Sodium Chloride 10 units in 500 mls @ 6 mls/hr 03/20/24 13:30 03/21/24 05:08 Pitocin 10 Unit/500 Ml-Ns IV Infused TITR ALEN Infusion Protocol 2 MILLIUNIT/MIN Lactated Ringer's 1,000 mls @ 50 mls/hr 03/21/24 08:00 03/21/24 08:25 Lactated Ringers IV Infused .Q20H ALEN Infusion Promethazine HCl 25 mg/ Sodium 51 mls @ 204 mls/hr 03/21/24 07:57 Chloride IV Q6H PRN Nausea And Vomiting Lactated Ringer's 1,000 mls @ 125 mls/hr 03/21/24 07:57 Lactated Ringers IV .Q8H PRN IF NOT TOLERATING PO FLUIDS OR Ibuprofen 800 mg 03/21/24 07:57 Ibuprofen 400 Mg Tablet PO Q8H PRN Pain Ketorolac Tromethamine 30 mg 03/21/24 07:57 03/21/24 15:05 Ketorolac Tromethamine 30 Mg/Ml Vial IVP 03/23/24 07:58 30 mg Q6H PRN Administration Pain Lidocaine 1 ml 03/20/24 13:18 Lidocaine Hcl 1% 200 Mg/20 Ml Mdv INJ 03/22/24 13:20 ONCE PRN Pain Methylergonovine Maleate 0.2 mg 03/20/24 13:18 Methylergonovine Maleate 0.2 Mg/Ml Ampule IM 03/22/24 13:19 ONCE PRN Uterine Contractility/Contract Methylergonovine Maleate 0.2 mg 03/20/24 13:18 Methylergonovine Maleate 0.2 Mg Tablet PO 03/22/24 13:19 Q4H PRN Uterine Contractility/Contract Misoprostol 600 mcg 03/20/24 13:18 Misoprostol 100 Mcg Tablet PO 03/22/24 13:19 ONCE PRN Uterine Bleeding Misoprostol 800 mcg 03/20/24 13:18 Misoprostol 100 Mcg Tablet SL 03/22/24 13:19 ONCE PRN Uterine Bleeding Misoprostol 1,000 mcg 03/20/24 13:18 Misoprostol 100 Mcg Tablet [place] 03/22/24 13:19 ONCE PRN Uterine Bleeding Nalbuphine HCl 10 mg 03/20/24 13:18 Nalbuphine Hcl 10 Mg/Ml Ampule IV Q3H PRN Pain Nalbuphine HCl 10 mg 03/21/24 07:57 Nalbuphine Hcl 10 Mg/Ml Ampule IV 03/22/24 07:57 Q3H PRN Itching Ondansetron HCl 4 mg 03/20/24 13:18 Ondansetron Pf 4 Mg/2 Ml Vial IV Q6H PRN Nausea And Vomiting Ondansetron HCl 4 mg 03/20/24 13:18 Ondansetron 4 Mg Rapdis Tablet SL Q6H PRN Nausea And Vomiting Ondansetron HCl 4 mg 03/21/24 07:57 Ondansetron Pf 4 Mg/2 Ml Vial IV Q6H PRN Nausea And Vomiting Ondansetron HCl 4 mg 03/21/24 07:57 Ondansetron 4 Mg Rapdis Tablet PO Q6H PRN Nausea And Vomiting Oxycodone/Acetaminophen 1 tab 03/21/24 07:57 Oxycodone Hcl/Acetaminophen 5mg/325mg PO Q4H PRN Pain Scale 4-6 Oxycodone/Acetaminophen 2 tab 03/21/24 07:57 Oxycodone Hcl/Acetaminophen 5mg/325mg PO Q4H PRN Pain Scale 7-10 Oxytocin 10 unit 03/20/24 13:18 Oxytocin 10 Unit/Ml Vial IM 03/22/24 13:19 ONCE PRN Bleeding Senna 17.2 mg 03/21/24 20:00 Sennosides 8.6 Mg Tablet PO QHS PRN Constipation Simethicone 80 mg 03/21/24 07:57 Simethicone 80 Mg Tab.Chew PO QID PRN Abdominal Distention Diet Category Date Time Status Regular Consistency Diet Diet 03/21/24 07:57 Active Consults Category Date Time Status Consult to Anesthesiology Routine Cons 03/21/24 Ordered Neurology Yousif coma scale total score 15 [place] coma scale total score 15 Yousif coma scale total score 15 Respiratory Pulse Oximetry 98 Pulse Oximetry 96 Pulse Oximetry 94 Pulse Oximetry 97 Pulse Oximetry 97 Pulse Oximetry 97 Pulse Oximetry 99 Pulse Oximetry 100 Pulse Oximetry 100 Pulse Oximetry 98 Pulse Oximetry 98 Pulse Oximetry 98 Pulse Oximetry 98 Pulse Oximetry 99 Pulse Oximetry 97 Oxygen Delivery Method Room Air Oxygen Delivery Method Room Air Oxygen Delivery Method Room Air Oxygen Delivery Method Room Air Oxygen Delivery Method Room Air Oxygen Delivery Method Room Air Oxygen Delivery Method Room Air Oxygen Delivery Method Room Air Oxygen Delivery Method Room Air Oxygen Delivery Method Room Air Bowels Bowel Pattern No Bowel Movement Renal Bladder Pattern Continent Catheter Urinary Catheter Date of 03/21/24 Insertion [Urethral] Urinary Catheter Time of 06:40 Insertion [Urethral] Date Urinary Catheter Removed 03/21/24 [Urethral] Time Urinary Catheter 16:30 Discontinued [Urethral]
--- NOTE | 2024-03-22 03:57 | P.OBPN_ITS ---
OB - PN: Subj Subjective Patient comments: no complaints and pain well controlled [place] status: doing well Exam Constitutional Vital Signs, click to edit/add: Last Vital Signs Temp 99.0 F 03/21/24 16:30 Pulse 69 03/21/24 22:12 Resp 18 03/21/24 16:30 BP 138/70 03/21/24 22:12 Pulse Ox 98 03/21/24 09:50 O2 Del Method Room Air 03/21/24 22:12 Documenting provider has reviewed patient's vital signs: yes Common normals: no apparent distress Respiratory Common normals: normal respiratory effort and clear to auscultation bilaterally Cardio Common normals: regular rate and regular rhythm GI Common normals: Normal to inspection, nondistended, normoactive bowel sounds present Extremity Common normals: no calf tenderness Urinary Catheter Management Urinary Catheter Management Urethral: Cath placed during this visit: yes, but has since been removed by the nurse Insertion date: 03/21/24 Insertion time: 06:40 Removal date: 03/21/24 Removal time: 16:30 OB - PN: A/P Plan - day: 1 Plan: routine postop care Time Spent with Patient Time: Total time spent is greater than 50% in coordination of care (as documented) at patient's floor/unit and/or counseling patient: Total time spent with greater than 50% in coordination of care (as documented) at patient's floor/unit and/or counseling patient: less than 15 minutes
[2024-03-22 04:20] VITALS: BP 128/66; PULSE 78; TEMP 36.9
[2024-03-22] MEDS: ACETAMINOPHEN 500 MG TABLET 1000 MG PO ×2 (04:40→13:15)
[2024-03-22] MEDS: KETOROLAC TROMETHAMINE 30 MG/ML VIAL IVP ×2 (04:43→10:54)
[2024-03-22] MEDS: ENOXAPARIN SODIUM 40 MG/0.4 ML SYRINGE SUBQ (04:47)
[2024-03-22 06:36] LABS: Basophils Absolute Auto 0.1 10^3/uL (0.0-0.1); Basophils Percent Auto 0.3 % (0.2-2.0); Eosinophils Percent Auto 0.2 % (0.9-7.0); Hematocrit 31.8 % (36.0-48.0); Hemoglobin 10.7 g/dL (12.0-16.0); Immature Granulocytes Abs Auto 0.16 10^3/uL (0.00-0.03); Immature Granulocytes Pct Auto 0.8 % (0.0-0.5); Lymphocytes Absolute Auto 3.1 10^3/uL (1.2-3.8); Lymphocytes Percent Auto 16.7 % (20.5-60.0); Mean Corpuscular HGB Conc 33.6 g/dL (29.9-35.2); Mean Corpuscular Hemoglobin 30.8 pg (26.7-34.0); Mean Corpuscular Volume 91.6 fL (81.0-99.0); Mean Platelet Volume 11.4 fL (9.5-13.5); Monocytes Percent Auto 5.2 % (1.7-12.0); Neutrophils Absolute Auto 14.5 10^3/uL (1.4-6.5); Neutrophils Percent Auto 76.8 % (43.0-75.0); Platelet Count 169 10^3/uL (150-450); Red Blood Count 3.47 10^6/uL (4.20-5.40); Red Cell Distribution Width 14.1 % (11.0-15.0); White Blood Count 18.9 10^3/uL (4.0-11.0)
[2024-03-22 09:35] VITALS: TEMP 36.2
[2024-03-22 09:41] VITALS: BP 139/75; PULSE 75
[2024-03-22] MEDS: DOCUSATE SODIUM 100 MG CAPSULE PO ×2 (10:48→20:03)
--- NOTE | 2024-03-22 15:26 | RESP.RT ---
done per nursing
[2024-03-22 16:36] VITALS: BP 137/90; PULSE 93
[2024-03-22 16:43] VITALS: TEMP 36.8
[2024-03-22] MEDS: IBUPROFEN 400 MG TABLET 800 MG PO (20:03)
--- NOTE | 2024-03-22 20:37 | W.PC.ACHO ---
Registration Status: ADM IN Primary Language: British Preferred Language: British 1904- Report given to Ezekiel PARMAR.Care relinquished. Active Medications Generic Name Dose Route Start Last Admin Trade Name Freq PRN Reason Stop Dose Admin Acetaminophen 1,000 mg 03/21/24 19:57 03/22/24 13:15 Acetaminophen 500 Mg Tablet PO 1,000 mg Q8H PRN Administration Mild pain Al Hydroxide/Mg Hydroxide 2,400 mg 03/21/24 07:57 Magnesium Hydroxide 2,400 Mg/10 Ml Oral.Susp PO Q6H PRN Dyspepsia Diphtheria/Pertussis/Tetanus Vacc 0.5 ml 03/23/24 09:00 Adacel Diph,Pertuss(Acell),Tet Vac/Pf 0.5 Ml Adult Syringe IM 03/23/24 09:01 .ONCE ONE Docusate Sodium 100 mg 03/22/24 09:00 03/22/24 20:03 Docusate Sodium 100 Mg Capsule PO 100 mg BID ALEN Administration Enoxaparin Sodium 40 mg 03/23/24 05:00 Enoxaparin Sodium 40 Mg/0.4 Ml Syringe SUBQ Q24H ALEN Sodium Chloride 1,000 mls @ 125 mls/hr 03/20/24 14:00 03/21/24 07:35 Sodium Chloride 0.9% 1,000 Ml IV Infused .Q8H ALEN Infusion Oxytocin/Sodium Chloride 10 units in 500 mls @ 6 mls/hr 03/20/24 13:30 03/21/24 05:08 Pitocin 10 Unit/500 Ml-Ns IV Infused TITR ALEN Infusion Protocol 2 MILLIUNIT/MIN Lactated Ringer's 1,000 mls @ 50 mls/hr 03/21/24 08:00 03/21/24 08:25 Lactated Ringers IV Infused .Q20H ALEN Infusion Promethazine HCl 25 mg/ Sodium 51 mls @ 204 mls/hr 03/21/24 07:57 Chloride IV Q6H PRN Nausea And Vomiting Lactated Ringer's 1,000 mls @ 125 mls/hr 03/21/24 07:57 Lactated Ringers IV .Q8H PRN IF NOT TOLERATING PO FLUIDS OR Ibuprofen 800 mg 03/21/24 07:57 03/22/24 20:03 Ibuprofen 400 Mg Tablet PO 800 mg Q8H PRN Administration Pain Ketorolac Tromethamine 30 mg 03/21/24 07:57 03/22/24 10:54 Ketorolac Tromethamine 30 Mg/Ml Vial IVP 03/23/24 07:58 30 mg Q6H PRN Administration Pain Nalbuphine HCl 10 mg 03/20/24 13:18 Nalbuphine Hcl 10 Mg/Ml Ampule IV Q3H PRN Pain Ondansetron HCl 4 mg 03/20/24 13:18 Ondansetron Pf 4 Mg/2 Ml Vial IV Q6H PRN Nausea And Vomiting Ondansetron HCl 4 mg 03/20/24 13:18 Ondansetron 4 Mg Rapdis Tablet SL Q6H PRN Nausea And Vomiting Ondansetron HCl 4 mg 03/21/24 07:57 Ondansetron Pf 4 Mg/2 Ml Vial IV Q6H PRN Nausea And Vomiting Ondansetron HCl 4 mg 03/21/24 07:57 Ondansetron 4 Mg Rapdis Tablet PO Q6H PRN Nausea And Vomiting Oxycodone/Acetaminophen 1 tab 03/21/24 07:57 Oxycodone Hcl/Acetaminophen 5mg/325mg PO Q4H PRN Pain Scale 4-6 Oxycodone/Acetaminophen 2 tab 03/21/24 07:57 Oxycodone Hcl/Acetaminophen 5mg/325mg PO Q4H PRN Pain Scale 7-10 Senna 17.2 mg 03/21/24 20:00 Sennosides 8.6 Mg Tablet PO QHS PRN Constipation Simethicone 80 mg 03/21/24 07:57 Simethicone 80 Mg Tab.Chew PO QID PRN Abdominal Distention Respiratory Oxygen Delivery Method Room Air Oxygen Delivery Method Room Air Renal Bladder Pattern Continent Catheter Urinary Catheter Date of 03/21/24 Insertion [Urethral] Urinary Catheter Time of 06:40 Insertion [Urethral] Date Urinary Catheter Removed 03/21/24 [Urethral] Time Urinary Catheter 16:30 Discontinued [Urethral]
[2024-03-22 23:59] VITALS: BP 149/74; PULSE 90; TEMP 36.6
[2024-03-23] MEDS: ACETAMINOPHEN 500 MG TABLET 1000 MG PO ×2 (00:26→11:03)
[2024-03-23 03:37] VITALS: BP 134/88; PULSE 86
[2024-03-23 03:42] VITALS: BP 144/68; PULSE 86
[2024-03-23] MEDS: ENOXAPARIN SODIUM 40 MG/0.4 ML SYRINGE SUBQ (05:00)
[2024-03-23] MEDS: IBUPROFEN 400 MG TABLET 800 MG PO ×2 (06:26→12:55)
--- NOTE | 2024-03-23 09:28 | P.OBPN_ITS ---
OB - PN: Subj Subjective Patient comments: no complaints [place] status: doing well feeding status: exclusively Exam Constitutional Vital Signs, click to edit/add: Last Vital Signs Temp 97.8 F 03/22/24 23:59 Pulse 86 03/23/24 03:42 Resp 16 03/23/24 00:00 BP 144/68 H 03/23/24 03:42 Pulse Ox 98 03/21/24 09:50 O2 Del Method Room Air 03/23/24 00:00 Documenting provider has reviewed patient's vital signs: yes Common normals: no apparent distress Orientation/consciousness: Yes awake, Yes oriented to person, Yes oriented to place and Yes oriented to time HENMT Common normals: normocephalic Eye Common normals: EOMs intact bilaterally Neck & C-Spine Common normals: no lymphadenopathy Lymph Lymphatic: no lymphadenopathy noted Chest Common normals: inspection of chest normal Respiratory Common normals: normal respiratory effort Effort & inspection: able to speak in complete sentences Auscultation: clear to auscultation bilaterally Cardio Common normals: regular rate and regular rhythm Rate: regular rate Rhythm: regular rhythm GI Common normals: Normal to inspection, nondistended, normoactive bowel sounds present Inspection: normal to inspection Palpation: soft Back & Pelvis Common normals: no CVA tenderness Thoracic spine/upper back: normal to inspection Extremity Common normals: normal to inspection Neuro Common normals: oriented x3 Sensorium/orientation: awake, alert, oriented to person, oriented to place and oriented to time Psych Common normals: mental status grossly normal, thought process normal, cooperative, affect normal, speech normal, activity/motor behavior normal, denies hallucinations, denies homicidal ideation and denies suicidal ideation Attitude: calm Thought process: normal thought process Urinary Catheter Management Urinary Catheter Management Urethral: Cath placed during this visit: yes, but has since been removed by the nurse Insertion date: 03/21/24 Insertion time: 06:40 Removal date: 03/21/24 Removal time: 16:30 OB - PN: A/P Plan - day: 2 Plan: discharge home Time Spent with Patient Time: Total time spent is greater than 50% in coordination of care (as documented) at patient's floor/unit and/or counseling patient: Total time spent with greater than 50% in coordination of care (as documented) at patient's floor/unit and/or counseling patient: less than 15 minutes
[2024-03-23 10:48] VITALS: BP 133/63; PULSE 87
[2024-03-23 10:54] VITALS: TEMP 36.2
[2024-03-23] MEDS: DOCUSATE SODIUM 100 MG CAPSULE PO (11:03)
--- NOTE | 2024-03-23 16:00 | DS_ITS ---
DISCHARGE DATE: ??03/23/2024 ? PRIMARY DIAGNOSES: 1.? Intrauterine at 39 6/7 weeks. 2.? Spontaneous rupture of membranes. 3.? Failure to induce. 4.? Recurrent variables. ? PROCEDURE:? section. ? HOSPITAL COURSE:? As expected.? Please see chart for full details.? ? LABORATORY DATA:? Please see chart. ? COMPLICATIONS:? None. ? DISCHARGE CONDITION:? Stable. ? CONSULTATION:? Anesthesia. ? DISCHARGE INSTRUCTIONS: 1.? Diet:? Regular. 2.? Medications: a.? Percocet 5/325 one to two p.o. every 4-6 hours p.r.n. pain. b.? Motrin 800 one p.o. every 8 hours p.r.n. pain. 3.? Followup in one week.Restrictions:? Pelvic rest for 6 weeks.? No heavy lifting.? May drive when pain free and no longer on narcotics. MTDD
== END 2024-03-23 16:00 | disposition home or self-care (01) | DRG 788 ==
PROVIDERS: Admitting Provider Obstetrics & Gynecology; PCP Family Medicine; Visit Provider Obstetrics & Gynecology
PROC: 10D00Z1 Extraction of Products of Conception, Low, Open Approach (ICD-10-PCS; CPT 59514; principal; 2024-03-21 06:30)
DX: O99.214 Obesity complicating childbirth (principal); O61.0 Failed medical induction of labor; Z37.0 Single live birth; Z3A.39 39 weeks gestation of pregnancy; Z88.0 Allergy status to penicillin
CPT/HCPCS: 36415; 59050; 80307; 85025; 85027; 86850; 86900; 86901; 94667; 94668; J0690; J1100; J1650; J1885; J2274; J2371; J2405; J2765; J3370

== ENCOUNTER 2024-03-26 08:39 | Outpatient (OUT) | payer BC, SELFPAY ==
--- NOTE | 2024-03-26 17:10 | PC.NURSE ---
Yenny Yobani and 5 day old Ben arrive for follow up appointment. Parents admit to being tired, yet happy with transitions to being a parent. States we really love him Yenny states is recovering well, only concern is edema in pannus / abdomen above incision. Area soft to palpation, no redness noted, non tender. Edema noted to be non pitting, incision clean and dry with steri strips intact. Taking Motrin and Tylenol as needed for discomfort. VSS and assessment WNL. Both Yenny and Yobani state are sorting out feelings after experience as did not go as planned and are coming to terms with some aspects of not having immediate bonding in [place]. Feelings validated and support offered. Ben doing well , reported to eat frequently and requires multiple diaper changes. Feeds every 1.5-3 hours, usually closer to 2 hours. Nursing well, nipples tender as had difficulty latching during height of engorgement. Doing better now.VSS and assessment WNL. Weight up from discharge and is now only 2.4% below weight. Parents excited for weight increase. Yenny states I think I have a good supply Baby to breast, initial latch shallow and tender for mom. Shown to asymmetrically latch for increased comfort and change in baby sucking pattern. Yenny states I can hardly feel him Encouraged to feed from both breasts a feed and burp in between to wake baby if sleepy. Parents doing well. Denies need to return for support, but will call as needed. Aware of MOMS group and plans to attend. Family leaves for home. No further questions.
[2024-03-26 17:11] VITALS: BP 135/84; PULSE 84; TEMP 36.5; O2SAT 97
== END 2024-03-26 17:15 | disposition home or self-care (01) ==
LOC: FBCO 08:40
PROVIDERS: PCP Family Medicine; Visit Provider Obstetrics & Gynecology
DX: Z39.1 Encounter for care and examination of lactating mother (principal)

== ENCOUNTER 2024-04-12 08:27 | Outpatient (OUT) | payer BC, SELFPAY ==
--- OUTSIDE RECORDS SUMMARY | 2024-04-12 08:39 | XMS_ITS | CCD ---
Author Organization [facility] Inform ion Partnership [facility] Care Team Providers [employer] Professional Name Role Phone HOY, ELMER Admitting Unavailable [...] Unavailable Richard Dai MD Primary Care Provider [phone] RICHARD DAI Attending Unavailable ALISSON, NIDA Attending Unavailable ALISSON, NIDA Attending Unavailable GEORGE, VENICE Attending Unavailable ALISSON, NIDA Attending Unavailable ALISSON, NIDA Attending Unavailable GEORGE, VENICE Attending Unavailable ALISSON, NIDA Attending Unavailable GEORGE, VENICE Attending Unavailable ALISSON, NIDA Attending Unavailable ALISSON, NIDA Attending Unavailable GEORGE, VENICE Attending Unavailable GEORGE, VENICE Attending Unavailable GEORGE, VENICE Attending Unavailable Allergies Allergy Classification Reported Allergen(s) Allergy Type Date of Onset Reaction(s) Facility (7 sources) Amoxicillin Drug Allergy 9 Nausea And Vomiting, GI intolerance [facility] (7 sources) fexofenadine Drug Allergy 9 GI intolerance [facility] (6 sources) Hypochlorite Drug Allergy 8 Itching, Rash, Swelling [facility] Medications Current Medications Medication Drug Class(es) Dates Sig (Normalized) Sig (Original) Ethinyl Estradiol / Ferrous fumarate / Norethindrone (1 source) Estrogen Norethin Abad-Eth Estrad-FE 1-20 MG-MCG(24) CAPS Take by mouth 0 Active omeprazole 20 mg delayed release oral capsule (6 sources) Proton Pump Inhibitor Start: 12-07-2023 End: [...] [UNSPECIFIED ABDOMINAL PAIN] Onset: 01-30-2020 Episodic Other endocrine disorders (6 sources) Polycystic ovary syndrome; Translations: [Polycystic ovarian syndrome] Onset: 04-24-2023 04-24-2023 Chronic Other female genital disorders (6 sources) Vaginal bleeding; Translations: [Abnormal uterine and vaginal bleeding, unspecified] Onset: 10-10-2023 10-10-2023 Chronic Other nutritional; endocrine; and metabolic disorders (6 sources) Body mass index 30+ - obesity; Translations: [Obesity, unspecified] Onset: 04-24-2023 04-24-2023 Chronic Other and delivery including normal (4 sources) Third trimester ; Translations: [Encounter for supervision of normal , unspecified, third trimester] 01-15-2024 Episodic Other upper respiratory disease (6 sources) Allergic rhinitis due to pollen; Translations: [Allergic rhinitis due to pollen] Onset: 04-24-2023 04-24-2023 Chronic Residual codes; unclassified (2 sources) Gestation period, 30 weeks; Translations: [30 weeks gestation of ] 01-15-2024 Episodic Residual codes; unclassified (4 sources) Gestation period, 32 weeks; Translations: [32 weeks gestation of ] Onset: 01-30-2024 01-29-2024 Episodic Past or Other Problems Problem Classification Problem Date Documented Da te Episodic/Chronic Gastritis and duodenitis (6 sources) Acute superficial gastritis; Translations: [Acute gastritis without bleeding] Onset: 04-24-2023 04-24-2023 Episodic Mycoses (6 sources) Mycosis; Translations: [Candidiasis, unspecified] Onset: 09-11-2023 09-11-2023 Episodic Residual codes; unclassified (6 sources) Gestation period, 12 weeks; Translations: [12 weeks gestation of ] Onset: 09-11-2023 09-11-2023 Episodic Sprains and strains (6 sources) Strain of thoracic region; Translations: [Strain of muscle and tendon of back wall of thorax, initial encounter] Onset: 04-24-2023 04-24-2023 Episodic Results Test Name Value Interpretation Reference Range Facility Urinalysis macro (dipstick) panel (U)on 01-29-2024 Bilirubin, UA Negative Negative - 4(70) +++ mg/dL [facility] Blood, UA Negative Negative - 50 Gonzalez/mcL [facility] Clarity, UA Clear [facility] Color, UA Yellow [facility] Glucose, UA Negative Negative - 1999(110) ++++ mg/dL [facility] Interpretation and review of laboratory results Normal [facility] Ketones, UA Negative Negative - 160(16) ++++ mg/dL [facility] Leukocytes, UA Negative Negative - 500+++ Meera/mcL [facility] Nitrite, UA Negative Negative - Positive [facility] pH, UA 6.5 5 - 9 [facility] Protein, UA Negative Negative - 1999(20) ++++ mg/dL [facility] Spec Grav, UA 1.025 1 - 1.[address] [facility] Urobilinogen, UA 0.2 0.2 - 12 mg/dL [facility] Urinalysis macro (dipstick) panel (U)on 01-15-2024 Bilirubin, UA Negative Negative - 4(70) +++ mg/dL [facility] Blood, UA Negative Negative - 50 Gonzalez/mcL [facility] Healthcare Clarity, UA Clear [facility] Color, UA Yellow [facility] Glucose, UA Negative Negative - 1999(110) ++++ mg/dL [facility] Interpretation and review of laboratory results Normal [facility] Ketones, UA Negative Negative - 160(16) ++++ mg/dL [facility] Leukocytes, UA Negative Negative - 500+++ Meera/mcL [facility] Healthcare Nitrite, UA Negative Negative - Positive [facility] pH, UA 6.5 5 - 9 [facility] Protein, UA Negative Negative - 2000(20) ++++ mg/dL [facility] Spec Grav, UA 1.025 1 - 1.[address] [facility] Urobilinogen, UA 0.2 0.2 - 12 mg/dL [facility] Hem[facility] A1Con 11-06-2022 Glucose [Mass/Vol] 103 mg/dL Normal [facility] Comment on above: Result Comment: The ADA and AACC recommend providing the estimated average glucose result to permit better patient understanding of their HBA1c result. Performed By: #### T SH, CDP, BMP, LIVP #### [facility] [address] [place] [address] Dr. [place], [place] [phone] Assistant Professor Of Marine Biology: Abeba Parra MD #### VERONICAHGTanya, LIPR #### [address] [phone] Assistant Professor Of Marine Biology: Chapin Bellamy MD HbA1c (Bld) [Mass fraction] 5.2 % Normal 4.0-6.0 [facility] Comment on above: Performed By: #### T DESTINI, CDP, BMP, LIVP #### [facility] [address] [place] [address] [place] [address] Assistant Professor Of Marine Biology: Abeba Parra MD #### GIOVANNI, LIPR #### [address] [phone] Assistant Professor Of Marine Biology: Chapin Bellamy MD Lipid Profileon 11-05-2022 Cholesterol [Mass/Vol] 130 mg/dL Normal <200 [facility] Comment on above: Result Comment: Cholesterol Guidelines: <200 Desirable 200-240 Borderline >240 Undesirable Performed By: #### T DESTINI, CDP, BMP, LIVP #### [facility] [address] [place] [address] [place] [address] Assistant Professor Of Marine Biology: Abeba Parra MD #### GLYHGB, LIPR #### [id number] [place], [place] [phone] Assistant Professor Of Marine Biology: Chapin Bellamy MD Cholesterol in HDL [Mass/Vol] 61 mg/dL Normal >40 [facility] Comment on above: Result Comment: HDL Guidelines: <40 Undesirable 40-59 Borderline >59 Desirable Performed By: #### T DESTINI, JOAN, BMP, LIVP #### [facility] [address] [place] [phone] Assistant Professor Of Marine Biology: Abeba Parra MD #### GLYHGB, LIPR #### [facility] [employer] [facility] [place], [place] [phone] Assistant Professor Of Marine Biology: Chapin Bellamy MD Cholesterol in LDL [Mass/Vol] 56 mg/dL Normal 0-130 [facility] Comment on above: Result Comment: LDL Guidelines: <100 Desirable 100-129 Near to/above Desirable 130-159 Borderline >159 Undesirable Direct (measured) LDL and calculated LDL are not interchangeable tests. Performed By: #### T DESTINI, JOAN, BMP, LIVP #### [facility] [address] [place] [address] Dr. [place] [phone] Assistant Professor Of Marine Biology: Abeba Parra MD #### GLYHGB, LIPR #### [facility] [employer] [facility] [place], [place] [phone] Assistant Professor Of Marine Biology: Chapin Bellamy MD Cholesterol.total/Ch olesterol in HDL [Mass ratio] 2.1 {ratio} Normal <5 [facility] Comment on above: Performed By: #### T DESTINI, JOAN, BMP, LIVP #### [facility] [address] [place] [address] Dr. [place] [phone] Assistant Professor Of Marine Biology: Abeba Parra MD #### GLYHGB, LIPR #### [facility] [employer] [address] [place], [place] [phone] Assistant Professor Of Marine Biology: Chapin Bellamy MD Triglyceride [Mass/Vol] 64 mg/dL Normal <150 [facility] Comment on above: Result Comment: Triglyceride Guidelines: <150 Desirable 150-199 Borderline 200-499 High >499 Very high Based on AHA Guidelines for fasting triglyceride, January 2012. Performed By: #### T DESTINI, CDP, BMP, LIVP #### [facility] [address] [place] [address] Assistant Professor Of Marine Biology: Abeba Parra MD #### GLYHGB, LIPR #### [facility] [address] [place] [address] Assistant Professor Of Marine Biology: Chapin Bellamy MD Basic Metabolic Panelon 10-09 Anion gap [Moles/Vol] 11 mmol/L 9 - 17 mmol/L [facility] [employer] Calcium [Mass/Vol] 9.7 mg/dL 8.6 - 10. 4 mg/dL [facility] Chloride [Moles/Vol] 107 mmol/L 98 - 10 7 mmol/L [facility] CO2 [Moles/Vol] 22 mmol/L 20 - 31 mmol/L [facility] Creatinine [Mass/Vol] 0.6 mg/dL 0.5 - 0.9 mg/dL [facility] [employer] [facility] GFR/1.73 sq M.predicted MDRD (S/P/Bld) [Vol rate/Area] - PINF [facility] Comment on above: These results [...] 85 mg/dL 70 - 99 mg/dL [facility] [employer] [facility] Interpretation and review of laboratory results Abnormal [facility] [employer] [facility] Potassium [Moles/Vol] 3.9 mmol/L 3.7 - 5.3 mmol/L [facility] [employer] [facility] Sodium [Moles/Vol] 140 mmol/L 135 - 144 mmol/L [facility] [employer] [facility] Urea nitrogen [Mass/Vol] 18 mg/dL 6 - 20 mg/dL [facility] Urea nitrogen/Creatinine [Mass ratio] 30 mg/mg High 9 - [facility] [employer] [facility] Basic Metabolic Profon 11-04 Anion gap [Moles/Vol] 11 mmol/L Normal 9-17 [facility] Comment on above: Performed By: #### T SH, CDP, BMP, LIVP #### [facility] [address] [place], [place] [phone] Assistant Professor Of Marine Biology: Abeba Parra MD #### GLYHGB, LIPR #### [address] [phone] Assistant Professor Of Marine Biology: Chapin Bellamy MD BUN/CRE Ratio 30 High 9-20 [facility] Comment on above: Performed By: #### T SH, CDP, BMP, LIVP #### [facility] [address] [place] [address] Dr. [place] [phone] ( Assistant Professor Of Marine Biology: Abeba Parra MD #### GLYHGB, LIPR #### [address] [phone] Assistant Professor Of Marine Biology: Chapin Bellamy MD Calcium [Mass/Vol] 9.7 mg/dL Normal 8.6-10.4 [facility] Comment on above: Performed By: #### T SH, CDP, BMP, LIVP #### [address] [place], [place] [phone] Assistant Professor Of Marine Biology: Abeba Parra MD #### GLYHGB, LIPR #### [address] [phone] Assistant Professor Of Marine Biology: Chapin Bellamy MD Chloride [Moles/Vol] 107 mmol/L Normal 98-107 [facility] Comment on above: Performed By: #### T SH, CDP, BMP, LIVP #### [facility] [address] [place] [address] Dr. [place], [place] [phone] Assistant Professor Of Marine Biology: Abeba Parra MD #### GLYHGB, LIPR #### [address] [phone] Assistant Professor Of Marine Biology: Chapin Bellamy MD CO2 [Moles/Vol] 22 mmol/L Normal 20-31 [facility] Comment on above: Performed By: #### T SH, CDP, BMP, LIVP #### [facility] [address] [place] [address] Assistant Professor Of Marine Biology: Abeba Parra MD #### GLYHGB, LIPR #### [id number] [place], [place] [phone] Assistant Professor Of Marine Biology: Chapin Bellamy MD Creatinine [Mass/Vol] 0.6 mg/dL Normal 0.5-0.9 [facility] Comment on above: Performed By: #### T SH, CDP, BMP, LIVP #### [address] [place] [address] Assistant Professor Of Marine Biology: Abeba Parra MD #### GLYHGB, LIPR #### [id number] [place], [place] [phone] Assistant Professor Of Marine Biology: Chapin Bellamy MD GFR/1.73 sq M.predicted among non-blacks MDRD (S/P/Bld) [Vol rate/Area] mL/min/{1.73_m2} Normal >60 [facility] Comment on above: Result Comment: [...] #### T SH, CDP, BMP, LIVP #### [facility] [address] [place] [address] Assistant Professor Of Marine Biology: Abeba Parra MD #### GLYHGB, LIPR #### [facility] [address] [place], [place] [phone] Assistant Professor Of Marine Biology: Chapin Bellamy MD Glucose [Mass/Vol] 85 mg/dL Normal 70-99 [facility] Comment on above: Performed By: #### T SH, CDP, BMP, LIVP #### [facility] [address] [place] [address] Dr. [place] [phone] ( Assistant Professor Of Marine Biology: Abeba Parra MD #### GLYHGB, LIPR #### [address] [phone] Assistant Professor Of Marine Biology: Chapin Bellamy MD Potassium [Moles/Vol] 3.9 mmol/L Normal 3.7-5.3 [facility] Comment on above: Performed By: #### T SH, CDP, BMP, LIVP #### [address] [place] [phone] Assistant Professor Of Marine Biology: Abeba Parra MD #### GLYHGB, LIPR #### [address] [phone] Assistant Professor Of Marine Biology: Chapin Bellamy MD Sodium [Moles/Vol] 140 mmol/L Normal 135-144 [facility] Comment on above: Performed By: #### T SH, CDP, BMP, LIVP #### [address] [place] [phone] Assistant Professor Of Marine Biology: Abeba Parra MD #### GLYHGB, LIPR #### [address] [phone] Assistant Professor Of Marine Biology: Chapin Bellamy MD Urea nitrogen [Mass/Vol] 18 mg/dL Normal 6-20 [facility] Comment on above: Performed By: #### T SH, CDP, BMP, LIVP #### [facility] [address] [place] [address] Dr. [place] [phone] Assistant Professor Of Marine Biology: Abeba Parra MD #### GLYHGB, LIPR #### [address] [id number] Assistant Professor Of Marine Biology: Chapin Bellamy MD CBC with Auto Differentialon 11-04-2022 Basophils (Bld) [#/Vol] 0.05 10*3/uL [facility] Basophils/100 WBC (Bld) 1 % 0 - 2 % [facility] Eosinophils (Bld) [#/Vol] 0.06 10*3/uL [facility] Eosinophils/100 WBC (Bld) 1 % 1 - 4 % [facility] Erythrocyte distribution width (RBC) [Ratio] 13.0 % 11.8 - 14.4 % [facility] Hematocrit (Bld) [Volume fraction] 43.3 % 36.3 - 47.1 % [facility] Hemoglobin (Bld) [Mass/Vol] 14.2 g/dL 11.9 - 15.1 g/dL [facility] Immature granulocytes (Bld) [#/Vol] [facility] Immature granulocytes/100 WBC (Bld) 0 % 0 [facility] Lymphocytes/100 WBC (Bld) 30 % 24 - 43 % [facility] Lymphocytes/100 WBC (Bld) 3.22 % [facility] MCH (RBC) [Entitic mass] 30.2 pg 25.2 - 33.5 pg [facility] MCHC (RBC) [Mass/Vol] 32.8 g/dL 28.4 - 34.8 g/dL [facility] MCV (RBC) [Entitic vol] 92.1 fL 82.6 - 102.9 fL [facility] Monocytes/100 WBC (Bld) 5 % 3 - 12 % [facility] Monocytes/100 WBC (Bld) 0.50 % [facility] Neutrophils/100 WBC (Bld) 63 % 36 - 65 % [facility] Nucleated RBC/100 WBC (Bld) [Ratio] 0.0 % 0.0 per 100 WBC [facility] Platelet mean volume (Bld) [Entitic vol] 11.0 fL 8.1 - 13.5 fL [facility] Platelets (Bld) [#/Vol] 264 10*3/uL [facility] RBC (Bld) [#/Vol] 4.70 10*6/uL 3.95 - 5.1 1 m/uL [facility] Segmented neutrophils/100 WBC (Bld) 6.95 % [facility] WBC other (Bld) [#/Vol] 10.8 [facility] CBC with Diffon 11-04-2022 Abs. Basophil 0.05 k/uL Normal 0.00-0.20 [facility] Comment on above: Performed By: #### T SH, CDP, BMP, LIVP #### [address] [place] [phone] Assistant Professor Of Marine Biology: Abeba Parra MD #### GIOVANNI, LIPR #### [place] [phone] Assistant Professor Of Marine Biology: Chapin Bellamy MD Abs.Imm.Granulocyte <0.03 Normal 0.00-0.30 [facility] Comment on above: Performed By: #### T DESTINI, CDP, BMP, LIVP #### [address] [place] [phone] Assistant Professor Of Marine Biology: Abeba Parra MD #### GIOVANNI, LIPR #### [place] [phone] Assistant Professor Of Marine Biology: Chapin Bellamy MD Abs.Neutrophil (Seg) 6.95 k/uL Normal 1.50-8.10 [facility] Comment on above: Performed By: #### T SH, CDP, BMP, LIVP #### [address] [place] [phone] Assistant Professor Of Marine Biology: Abeba Parra MD #### GIOVANNI, LIPR #### [place] [phone] Assistant Professor Of Marine Biology: Chapin Bellamy MD Basophils/100 WBC (Bld) 1 % Normal 0-2 [facility] Comment on above: Performed By: #### T SH, CDP, BMP, LIVP #### [address] [place] [phone] Assistant Professor Of Marine Biology: Abeba Parra MD #### GLYHGB, LIPR #### [address] [phone] Assistant Professor Of Marine Biology: Chapin Bellamy MD Eosinophils (Bld) [#/Vol] 0.06 10*3/uL Normal 0.00-0.44 [facility] Comment on above: Performed By: #### T SH, CDP, BMP, LIVP #### [address] [place] [phone] Assistant Professor Of Marine Biology: Abeba Parra MD #### GLYHGB, LIPR #### [address] [phone] Assistant Professor Of Marine Biology: Chapin Bellamy MD Eosinophils/100 WBC (Bld) 1 % Normal 1-4 [facility] Comment on above: Performed By: #### T SH, CDP, BMP, LIVP #### [address] [place] [phone] Assistant Professor Of Marine Biology: Abeba Parra MD #### VERONICAHGB, LIPR #### [address] [phone] Assistant Professor Of Marine Biology: Chapin Bellamy MD Erythrocyte distribution width (RBC) [Ratio] 13.0 % Normal 11.8-14.4 [facility] Comment on above: Performed By: #### T SH, CDP, BMP, LIVP #### [address] [place] [phone] Assistant Professor Of Marine Biology: Abeba Parra MD #### GLYHGB, LIPR #### [address] [phone] Assistant Professor Of Marine Biology: Chapin Bellamy MD Hematocrit (Bld) [Volume fraction] 43.3 % Normal 36.3-47.1 [facility] Comment on above: Performed By: #### T SH, CDP, BMP, LIVP #### [facility] [address] [place], [place] [phone] Assistant Professor Of Marine Biology: Abeba Parra MD #### GLYHGB, LIPR #### [id number] [place], [place] [phone] Assistant Professor Of Marine Biology: Chapin Bellamy MD Hemoglobin (Bld) [Mass/Vol] 14.2 g/dL Normal 11.9-15.1 [facility] Comment on above: Performed By: #### T SH, CDP, BMP, LIVP #### [facility] [address] [place], [place] [phone] Assistant Professor Of Marine Biology: Abeba Parra MD #### GLYHGB, LIPR #### [address] [phone] Assistant Professor Of Marine Biology: Chapin Bellamy MD Immature granulocytes/100 WBC (Bld) 0 % Normal 0 [facility] Comment on above: Performed By: #### T SH, CDP, BMP, LIVP #### [address] [place], [place] [phone] Assistant Professor Of Marine Biology: Abeba Parra MD #### GLYHGB, LIPR #### [address] [phone] Assistant Professor Of Marine Biology: Chapin Bellamy MD Lymphocytes (Bld) [#/Vol] 3.22 10*3/uL Normal 1.10-3.70 [facility] Comment on above: Performed By: #### T SH, CDP, BMP, LIVP #### [facility] [address] [place] [address] Assistant Professor Of Marine Biology: Abeba Parra MD #### GLYHGB, LIPR #### [address] [phone] Assistant Professor Of Marine Biology: Chapin Bellamy MD Lymphocytes/100 WBC (Bld) 30 % Normal 24-43 [facility] Comment on above: Performed By: #### T SH, CDP, BMP, LIVP #### [address] [place] [phone] Assistant Professor Of Marine Biology: Abeba Parra MD #### GLYHGB, LIPR #### [address] [phone] Assistant Professor Of Marine Biology: Chapin Bellamy MD MCH (RBC) [Entitic mass] 30.2 pg Normal 25.2-33.5 [facility] Comment on above: Performed By: #### T SH, CDP, BMP, LIVP #### [address] [place] [phone] Assistant Professor Of Marine Biology: Abeba Parra MD #### GLYHGB, LIPR #### [place] [address] Assistant Professor Of Marine Biology: Chapin Bellamy MD MCHC (RBC) [Mass/Vol] 32.8 g/dL Normal 28.4-34.8 [facility] Comment on above: Performed By: #### T SH, CDP, BMP, LIVP #### [address] [place] [phone] Assistant Professor Of Marine Biology: Abeba Parra MD #### GLYHGB, LIPR #### [place] [address] Assistant Professor Of Marine Biology: Chapin Bellamy MD MCV (RBC) [Entitic vol] 92.1 fL Normal 82.6-102.9 [facility] Comment on above: Performed By: #### T SH, CDP, BMP, LIVP #### [address] [place] [phone] Assistant Professor Of Marine Biology: Abeba Parra MD #### GLYHGB, LIPR #### [address] [phone] Assistant Professor Of Marine Biology: Chapin Bellamy MD Monocytes (Bld) [#/Vol] 0.50 10*3/uL Normal 0.10-1.20 [facility] Comment on above: Performed By: #### T SH, CDP, BMP, LIVP #### [facility] [address] [place], [place] [phone] Assistant Professor Of Marine Biology: Abeba Parra MD #### GLYHGB, LIPR #### [address] [phone] Assistant Professor Of Marine Biology: Chapin Bellamy MD Monocytes/100 WBC (Bld) 5 % Normal 3-12 [facility] Comment on above: Performed By: #### T SH, CDP, BMP, LIVP #### [facility] [address] [place] [address] Dr. [place] [phone] Assistant Professor Of Marine Biology: Abeba Parra MD #### GLYHGB, LIPR #### [address] [phone] Assistant Professor Of Marine Biology: Chapin Bellamy MD Neutrophil (Seg) 63 % Normal 36-65 [facility] Comment on above: Performed By: #### T SH, CDP, BMP, LIVP #### [address] [place], [place] [phone] Assistant Professor Of Marine Biology: Abeba Parra MD #### GLYHGTanya, LIPR #### [address] [address] Assistant Professor Of Marine Biology: Chapin Bellamy MD NRBC Automated 0.0 per 100 WBC Normal 0.0 [facility] Comment on above: Performed By: #### T SH, CDP, BMP, LIVP #### [address] [place], [place] [phone] Assistant Professor Of Marine Biology: Abeba Parra MD #### GLYHGB, LIPR #### [address] [address] Assistant Professor Of Marine Biology: Chapin Bellamy MD Platelet mean volume (Bld) [Entitic vol] 11.0 fL Normal 8.1-13.5 [facility] Comment on above: Performed By: #### T SH, CDP, BMP, LIVP #### [facility] [address] [place], [place] [phone] Assistant Professor Of Marine Biology: Abeba Parra MD #### GLYHGB, LIPR #### [address] [id number] Assistant Professor Of Marine Biology: Chapin Bellamy MD Platelets (Bld) [#/Vol] 264 10*3/uL Normal 138-453 [facility] Comment on above: Performed By: #### T SH, CDP, BMP, LIVP #### [address] [place] [id number] Assistant Professor Of Marine Biology: Abeba Parra MD #### GIOVANNI, LIPR #### [address] [address] Assistant Professor Of Marine Biology: Chapin Bellamy MD RBC (Bld) [#/Vol] 4.70 10*6/uL Normal 3.95-5.11 [facility] Comment on above: Performed By: #### T SH, CDP, BMP, LIVP #### [address] [place] [id number] Assistant Professor Of Marine Biology: Abeba Parra MD #### GLYHGB, LIPR #### [address] [address] Assistant Professor Of Marine Biology: Chapin Bellamy MD WBC (Bld) [#/Vol] 10.8 10*3/uL Normal 3.5-11.3 [facility] Comment on above: Performed By: #### T SH, CDP, BMP, LIVP #### [facility] [address] [place] [phone] Assistant Professor Of Marine Biology: Abeba Parra MD #### GLYHGB, LIPR #### [employer] [address] [place] [address] Assistant Professor Of Marine Biology: Chapin Bellamy MD Hepatic Function Panelon Albumin [Mass/Vol] 4.2 g/dL 3.5 - 5.2 g/dL [facility] [employer] Albumin/Globulin [Mass ratio] 1.3 {ratio} 1.0 - 2.5 [facility] ALP [Catalytic activity/Vol] 80 U/L 35 - 104 U/L [facility] ALT [Catalytic activity/Vol] 23 U/L 5 - 33 U/L [facility] [employer] [facility] AST [Catalytic activity/Vol] 22 U/L NINF - 32 U/L [facility] [employer] Bilirubin [Mass/Vol] 0.5 mg/dL 0.3 - 1 .2 mg/dL [facility] [employer] Bilirubin.direct [Mass/Vol] mg/dL NINF - 0.3 mg/dL [facility] [employer] Bilirubin.indirect [Mass/Vol] Can not be calculated 0.0 - 1.0 mg/dL [facility] Protein [Mass/Vol] 7.4 g/dL 6.4 - 8.3 g/dL [facility] Lipid Panelon 11-04-2022 Cholesterol [Mass/Vol] 130 mg/dL NINF - 200 mg/dL [facility] Comment on above: Cholesterol Guidelines: <200 Desirable 200-240 Borderline >240 Undesirable Cholesterol in HDL [Mass/Vol] 61 mg/dL 40 - PINF mg/dL [facility] [employer] Comment on above: HDL Guidelines: <40 Undesirable 40-59 Borderline >59 Desirable Cholesterol in LDL [Mass/Vol] 56 mg/dL 0 - 130 mg/dL [facility] Comment on above: LDL Guidelines: <100 Desirable 100-129 Near to/above Desirable 130-159 Borderline >159 Undesirable Direct (measured) LDL and calculated LDL are not interchangeable tests. Cholesterol.total/Ch olesterol in HDL [Mass ratio] 2.1 {ratio} NINF - 5 [facility] Triglyceride [Mass/Vol] 64 mg/dL NINF - 150 mg/dL [facility] Comment on above: Triglyceride Guidelines: <150 Desirable 150-199 Borderline 200-499 High >499 Very high Based on AHA Guidelines for fasting triglyceride, January 2012. [facility] Liver Profileon 11-04-2022 Albumin [Mass/Vol] 4.2 g/dL Normal 3.5-5.2 [facility] Comment on above: Performed By: #### T SH, CDP, BMP, LIVP #### [facility] [address] [place] [address] Dr[address] [place] [phone] Assistant Professor Of Marine Biology: Abeba Parra MD #### GLYHGB, LIPR #### [place] [address] [place], [place] [phone] Assistant Professor Of Marine Biology: Chapin Bellamy MD Albumin/Glob Ratio 1.3 Normal 1.0-2.5 [facility] Comment on above: Performed By: #### T SH, CDP, BMP, LIVP #### [address] [place] [phone] Assistant Professor Of Marine Biology: Abeba Parra MD #### GLYHGB, LIPR #### [address] [phone] Assistant Professor Of Marine Biology: Chapin Bellamy MD Alkaline Phos 80 U/L Normal 35-104 [facility] Comment on above: Performed By: #### T SH, CDP, BMP, LIVP #### [address] [place] [phone] Assistant Professor Of Marine Biology: Abeba Parra MD #### GLYHGB, LIPR #### [place] [address] [place], [place] [phone] Assistant Professor Of Marine Biology: Chapin Bellamy MD ALT [Catalytic activity/Vol] 23 U/L Normal 5-33 [facility] Comment on above: Performed By: #### T SH, CDP, BMP, LIVP #### [address] [place] [address] Assistant Professor Of Marine Biology: Abeba Parra MD #### GLYHGB, LIPR #### [place] [address] [place], [place] [phone] Assistant Professor Of Marine Biology: Chapin Bellamy MD AST [Catalytic activity/Vol] 22 U/L Normal <32 [facility] Comment on above: Performed By: #### T SH, CDP, BMP, LIVP #### [address] [place], [place] [phone] Assistant Professor Of Marine Biology: Abeba Parra MD #### GLYHGB, LIPR #### [address] [id number] Assistant Professor Of Marine Biology: Chapin Bellamy MD Bilirubin [Mass/Vol] 0.5 mg/dL Normal 0.3-1.2 [facility] Comment on above: Performed By: #### T SH, CDP, BMP, LIVP #### [address] [place] [phone] Assistant Professor Of Marine Biology: Abeba Parra MD #### GLYHGB, LIPR #### [address] [address] Assistant Professor Of Marine Biology: Chapin Bellamy MD Bilirubin, Indirect Can not be calculated Normal 0.0-1 .0 [facility] Comment on above: Performed By: #### T SH, CDP, BMP, LIVP #### [address] [place], [place] [phone] Assistant Professor Of Marine Biology: Abeba Parra MD #### GLYHGB, LIPR #### [place] [address] [place], [place] [phone] Assistant Professor Of Marine Biology: Chapin Bellamy MD Bilirubin.indirect [Mass/Vol] mg/dL Normal <0.3 [facility] Comment on above: Performed By: #### T SH, CDP, BMP, LIVP #### [address] [place], [place] [phone] Assistant Professor Of Marine Biology: Abeba Parra MD #### GLYHGB, LIPR #### [facility] [address] [place] [address] Assistant Professor Of Marine Biology: Chapin Bellamy MD Protein [Mass/Vol] 7.4 g/dL Normal 6.4-8.3 [facility] Comment on above: Performed By: #### T DESTINI, CDP, BMP, LIVP #### [facility] [address] [place] [address] Assistant Professor Of Marine Biology: Abeba Parra MD #### GLYHGB, LIPR #### [facility] [address] [place] [address] Assistant Professor Of Marine Biology: Chapin Bellamy MD No Panel Informationon 11-04 [facility] TSHon 11-04-2022 TSH Qn 1.57 m[IU]/L [facility] Thyroid Stim. Horm.on 2022 Thyroid Stim. Horm. 1.57 uIU/mL Normal 0.30-5.00 [facility] Comment on above: Performed By: #### T DESTINI, JOAN, BMP, LIVP #### [address] [place] [address] Assistant Professor Of Marine Biology: Abeba Parra MD #### GLYHGB, LIPR #### [place] [address] [place] [address] Assistant Professor Of Marine Biology: Chapin Bellamy MD NM HEPATOBILIARY SCAN W [...] by: ABEBA APODACA Date: 2020-01-30 09:35 Normal [facility] US SINGLE QUAD RT UPPERon US [...] by: ABEBA APODACA Date: 2020-01-22 11:02 Normal [facility] Vital Signs Date Time Vital Sign Value Performing Clinician Vinnie reilly 01-29-2024 16:01-0400 Body mass index (BMI) [Ratio] 38.77 kg/m2 LP Amina Work Phone: [facility] 01-29-2024 16:01-0400 Body weight 105.69 kg LP Amina Work Phone: [facility] 01-29-2024 16:01-0400 Diastolic blood pressure 70 mm[Hg] LP Amina Work Phone: [facility] 01-29-2024 16:01-0400 Systolic blood pressure 118 mm[Hg] LP Amina Work Phone: [facility] 01-15-2024 14:56-0400 Body mass index (BMI) [Ratio] 38.11 kg/m2 [employer] Work Phone: [facility] 01-15-2024 14:56-0400 Body weight 103.87 kg [employer] Work Phone: [facility] 01-15-2024 14:56-0400 Diastolic blood pressure 74 mm[Hg] [employer] Work Phone: [facility] 01-15-2024 14:56-0400 Systolic blood pressure 120 mm[Hg] [employer] Work Phone: [facility] Healthcare Encounters Encounter Date Encounter Type Care Provider Facility Start: 03-27-2024 End: 03-27-2024 ambulatory VENICE GEORGE Not Available Start: 03-20-2024 End: 03-20-2024 ambulatory VENICE GEORGE Not Available Start: 03-11-2024 End: 03-11-2024 ambulatory VENICE GEORGE Not Available Start: 03-04-2024 End: 03-04-2024 ambulatory NIDA ALISSON Not Available Start: 02-26-2024 End: 02-26-2024 ambulatory NIDA ALISSON Not Available Start: 02-12-2024 End: 02-12-2024 ambulatory VENICE GEORGE Not Available Start: 01-29-2024 End: 01-29-2024 ambulatory NIDA ALISSON Not Available Start: 01-29-2024 End: 01-29-2024 flow sheet Nida Alisson DO Work Phone: [facility] Comment on above: Third trimester preg yefri; 32 weeks gestation of Start: 01-29-2024 End: 01-29-2024 Bamboo flowsheet Nida Alisson DO Work Phone: [facility] Start: 01-29-2024 End: 01-29-2024 Bamboo flowsheet Nida Alisson DO Work Phone: [facility] Start: 01-15-2024 End: 01-15-2024 flow sheet [employer] Work Phone: [facility] Comment on above: 30 weeks gestation o f ; Third trimester Start: 01-15-2024 End: 01-15-2024 ambulatory VENICE GEORGE Not Available Start: 01-15-2024 End: 01-15-2024 Bamboo [...] Available Start: 08-10-2023 End: 08-10-2023 ambulatory RICHARD SUHAS Not Available Start: 04-24-2023 End: 04-24-2023 ambulatory RICHARD DAI Not Available Start: 11-04-2022 End: 11-05-2022 ambulatory RICHARD DAI [facility] Start: 11-04-2022 End: 11-05-2022 Encounter for general adult medical examination without abnormal findings RICHARD DAI [facility] Start: 11-04-2022 End: 11-04-2022 Subsequent hospital visit by physician Richard Dai MD Work Phone: [facility] Start: 01-30-2020 End: 01-31-2020 Patient encounter procedure ELMER HOY Facility:[facility] Start: 01-22-2020 End: 01-23-2020 Patient encounter procedure ELMER HOY Facility:[facility] Procedures Date Procedure Procedure Detail Performing Clinician Start: 01-29-2024 Urnls dip stick/tabl et rgnt non-auto w/o micrscp Nida Alisson DO Work Phone: Start: 01-15-2024 Urnls dip stick/tabl et rgnt non-auto w/o micrscp [employer] Work Phone: Start: 11-04-2022 Basic metabolic pane l calcium total Richard Dai MD Work Phone: Start: 11-04-2022 Lipid panel Richard Dai MD Work Phone: Plan of Treatment Date Care Activity Detail Author Start: 11-05-2031 DTaP/Tdap/Td vaccine (8 - Td or Tdap) DTaP/Tdap/Td vaccine (8 - Td or Tdap) [facility] Start: 04-18-2024 End: 04-18-2024 Patient encounter procedure 04/18/2024 11:00 AM EST Office Visit [facility] [address] [place] [phone] Nida Vinson, [address] [place] [address] [facility] Start: 02-28-2024 End: 02-28-2024 Patient encounter procedure 02/28/2024 8:30 AM EST Routine [facility] [address] [place] [id number] [place] [employer], [place] [address] [place] [address] [facility] Start: 02-12-2024 End: 02-12-2024 Patient encounter procedure 02/12/2024 3:30 PM EST Routine [facility] [address] [place] [phone] [place], [place] [address] [place] [address] [facility] Start: 01-29-2024 End: 01-29-2024 Patient encounter procedure 01/29/2024 3:10 PM EDT Routine [facility] [address] [place] [phone] Nida Vinson, [address] [place] [address] [facility] Start: 01-15-2024 End: 01-15-2024 Patient encounter procedure 01/15/2024 3:20 PM EDT Routine [facility] [address] [facility] [place] [phone] [place] Vazquez PA [address] [facility] [place] [address] Arrived [facility] Comment on above: Arrived Start: 12-10-2023 Influenza vaccination Influenza Vacc ine (#1) [facility] Start: 11-08-2022 Influenza vaccination Flu vaccine (# 1) [facility] Start: 2019 Screening for malign ant neoplasm of cervix Pap smear [facility] Start: 02-10-2016 Hepatitis C screening Hepatitis C sc reen [facility] Start: 2014 Screening for Chlamy zulema trachomatis Chlamydia/GC screen [facility] Start: 2013 HIV screening HIV screen [facility] Start: 2010 Depression Screen Depression Screen [facility] Start: 2009 HPV vaccine (1 - 2-d ose series) HPV vaccine (1 - 2-dose series) [facility] Start: 1999 Varicella vaccine (1 of 2 - 2-dose childhood series) Varicella vaccine (1 of 2 - 2-dose childhood series) [facility] Start: 1998 COVID-19 Vaccine (#1) COVID-19 Vacci ne (#1) [facility] End: 11-04-2022 Hemoglobin A1c/Hemoglobin.total in Blood [facility] Work Phone: Comment on above: Once for 1 Occurrenc es starting 11/04/2022 until 11/04/2022 Immunizations Immunization Date Immunization Notes Care Provider Fa cility 11-04-2021 tetanus toxoid, redu sanya diphtheria toxoid, and acellular pertussis vaccine, adsorbed Richard Dai MD Work Phone: [facility] 11-12-2015 meningococcal polysaccharide (groups A, C, Y and W-135) diphtheria toxoid conjugate vaccine (MCV4P) [employer] Work Phone: [facility] 05-24-2011 poliovirus vaccine, inactivated [employer] Work Phone: [facility] 07-19-2010 tetanus toxoid, redu sanya diphtheria toxoid, and acellular pertussis vaccine, adsorbed [employer] Work Phone: [facility] 08-13-2003 diphtheria, tetanus toxoids and acellular pertussis vaccine, unspecified formulation [employer] Work Phone: [facility] 08-13-2003 measles, mumps and rubella virus vaccine [employer] Work Phone: [facility] 09-15-1999 diphtheria, tetanus toxoids and acellular pertussis vaccine, unspecified formulation [employer] Work Phone: [facility] 09-15-1999 haemophilus influenz ae type b vaccine, HbOC conjugate [employer] Work Phone: [facility] 02-24-1999 measles, mumps and rubella virus vaccine [employer] Work Phone: [facility] 02-24-1999 trivalent poliovirus vaccine, live, oral [employer] Work Phone: [facility] 1998 diphtheria, tetanus toxoids and acellular pertussis vaccine, unspecified formulation [employer] Work Phone: [facility] 1998 haemophilus influenz ae type b conjugate and Hepatitis B vaccine [employer] Work Phone: [facility] 1998 trivalent poliovirus vaccine, live, oral [employer] Work Phone: [facility] 1998 diphtheria, tetanus toxoids and acellular pertussis vaccine, unspecified formulation [employer] Work Phone: [facility] 1998 haemophilus influenz ae type b vaccine, HbOC conjugate [employer] Work Phone: [facility] 1998 trivalent poliovirus vaccine, live, oral [employer] Work Phone: [facility] 1998 diphtheria, tetanus toxoids and acellular pertussis vaccine, unspecified formulation [employer] Work Phone: [facility] 1998 haemophilus influenz ae type b vaccine, conjugate unspecified formulation [employer] Work Phone: [facility] 1998 hepatitis B vaccine, pediatric or pediatric/adolescent dosage [employer] Work Phone: [facility] 1998 poliovirus vaccine, inactivated [employer] Work Phone: [facility] 1998 hepatitis B vaccine, pediatric or pediatric/adolescent dosage [employer] Work Phone: [facility] Payers Date [facility]ayer Category [facility] [id number] 2022 Unknown [id number] 2022-Present [phone] [id number] [place], [place] [address] [id number] [id number] 2022 Unknown [id number] [id number]. [id number] 1998 Unknown [id number] 2.16.840.1.496448.3.579. 2.593 1998 Unknown [id number] 2.16.840.1.054542.3.579. 2.593 1998 Unknown [id number] 2.16.840.1.063129.3.579. 2.173 1998 Unknown [id number] 2.16.840.1.008151.3.579. 2.1259 1998 Unknown [id number] 2.16.840.1.904341.3.579. 2.9 1998 Unknown [id number] 2.16.840.1.336569.3.579. 2.9 1998 Unknown [id number] 2.16.840.1.866954.3.579. 2.9 1998 Unknown [id number] 2.16.840.1.584595.3.579. 2.1259 1998 Unknown [id number] 2.16.840.1.619000.3.579. 2.9 1998 Unknown [id number] 2.16.840.1.321931.3.579. 2.9 1998 Unknown [id number] 2.16.840.1.843434.3.579. 2.9 1998 Unknown [id number] 2.16.840.1.330116.3.579. 2.1259 1998 Unknown [id number] 2.16.840.1.801933.3.579. 2.1258 1998 Unknown [id number] 2.16.840.1.880350.3.579. 2.1259 1998 Unknown [id number] 2.16.840.1.897491.3.579. 2.9 1998 Unknown [id number] 2.16.840.1.461766.3.579. 2.1259 1998 Unknown [id number] 2.16.840.1.144686.3.579. 2.1259 1998 Unknown [id number] 2.16.840.1.540947.3.579. 2.1259 1959 Unknown [id number] Social History Date Type Detail Facility Tobacco smoking stat [facility] Tobacco smoking consumption unknown [facility] [employer] [facility] Start: 1998 Sex Assigned At Not on file [facility] [employer] Start: 11-18-2022 Tobacco smoking status OKIS Never smoked tobacco [facility] Start: 11-18-2022 Tobacco use and exposure Smokeless tobacco non-user [facility] Start: 01-01-2024 End: 01-15-2024 Alcoholic beverage intake Ex-drinker (finding) [facility] Start: 04-20-2023 End: 04-24-2023 History of Social function [facility] Start: 04-20-2023 End: 04-24-2023 Humiliation, Afraid, Rape, and Kick questionnaire [HARK] [facility] Within the last year , have you been afraid of your partner or ex-partner? No [facility] Do you belong to any clubs or organizations such as gnosticism groups, unions, fraternal or athletic groups, or [...] [OSQ] Very much [facility] (I/We) worried manav er (my/our) food would run out before (I/we) got money to buy more. Never true [facility] Start: 11-18-2022 Alcohol Comment Caffeine: coffee on occasion [facility] Start: 06-30-2023 [facility] History of Present illness Narrative 01-29-2024 Jaymie Shaw, COST ACCOUNTING MANAGER - 01/29/2024 3:10 PM EDT Note Date [...] nursing note reviewed. Exam conducted with a sander setter present. Vitals: Estimated body mass index is [...] Nida Vinson DO documented in this encounter [facility] Evaluation note Note Date & Type Note Facility Evaluation note Diagnosis 30 weeks gestation of Third trimester state, incidental documented in this encounter [facility] Evaluation note Note Date & Type Note Facility Evaluation note Diagnosis Rhomboid muscle strain, initial encounter- Primary Acute superficial gastritis without hemorrhage Third trimester state, incidental 32 weeks gestation of documented in this encounter [facility] History of Present illness Narrative DEEPA [...] nursing note reviewed. Exam conducted with a sander setter present. Vitals: Estimated body mass index is [...] pital DATE CREATED AUTHOR AUTHOR'S ORGANIZ ATION 03/31/2024 [facility] Care Teams (unrecognized sec tion and content) [employer] Professional Relationship Specialty Start Date End Date Richard Dai MD [address] [place] [address] PCP - General Family Medicine 11/04/22 [employer] Professional Relationship Specialty Start Date End Date Richard Dai MD [address] [place] [phone] PCP - [employer] 03/10/23 Richard Dai MD [address] [place] [phone] PCP - General Family Medicine 09/11/23 [employer] Professional Relationship Specialty Start Date End Date Richard Dai MD [address] [place] [phone] PCP - [employer] 03/10/23 Richard Dai MD [address] [place] [phone] PCP - General Family Medicine 09/11/23 [employer] Professional Relationship Specialty Start Date End Date Richard Dai MD [address] [place] [phone] PCP - [employer] 03/10/23 Richard Dai MD [address] [place] [phone] PCP - General Family Medicine 09/11/23 [employer] Professional Relationship Specialty Start Date End Date Richard Dai MD [address] [place] [phone] [facility] 03/10/23 Richard Dai MD [address] [place] [phone] PCP - General Family Medicine 09/11/23 Reason [...] BE BASED ON THE PRIMARY CLINICAL RECORDS. [facility] [employer] [facility]. provides no warranty or guarantee of the accuracy or completeness of information in this document.
--- NOTE | 2024-04-12 14:09 | PC.NURSE ---
Yobani Ramon and 3 week old Ben arrive for support. Parents state it was going really well, then this last week it fell apart Both parents appear stressed and tired. Admit to having little sleep, as baby cries non-stop for hours at a time. Infant evaluated by peds prior to arrival to . Was given prescription for diaper rash, and everything else checked out fine . Infant is gaining well as was 8-14 to peds. Mom reports over supply due to heavy let downs, baby fussy during let down and pulls off until milk stops spraying. Baby is bothered by large burps during the fed. No evidence of tongue tie noted. Discussed management of heavy letdown and mom to gentle massage, allow let down and catch milk to save or into towel prior to latching. Infant also placed in forward facing upright position. Handles milk well, does start gulping and becomes upset. Mom moves infant from breast, burps and soothes baby then returns to feeding. Baby does fuss and struggle with heavy flow of milk. Moved to laid back position and infant does better with heavy flow of milk. Mom only pumps 1X every other day. obtains 1 oz in 2 minutes time from each breast. Discussed signs and symptoms of colic in as peds suggested as possibility. Referenced Period of purple cry video and booklet sent home with parents at discharge. Demo of soothing, burping, swaying and ways to hold and comfort a baby. Both interested and asking good questions. Baby feeds well, diaper changed for full wet, and large yellow stool Bottom raw, excoriated, open areas noted. Discussed tepid water rinses to bottom at diaper changes, letting diaper open when napping for air flow and use of prescription cream. Also to use Aquaphor for barrier on skin with diaper changes. Verbalize understanding. Home together, will return 04/18/2024 for follow up on feeding.
== END 2024-04-12 14:24 ==
LOC: FBCO 08:30
PROVIDERS: PCP Family Medicine; Visit Provider Obstetrics & Gynecology
DX: Z39.1 Encounter for care and examination of lactating mother (principal)

== ENCOUNTER 2024-04-18 08:17 | Outpatient (OUT) | payer BC, SELFPAY ==
--- NOTE | 2024-04-18 14:05 | PC.NURSE ---
Yobani Ramon and baby Ben arrive for support. Parents report infant is settling better, less gassy and easier to lay down. Mom has removed obvious dairy from diet, is using forward facing latch or laid back latching for feeds. able to manage heavy let down easier. continues to be under care of PCP for significant diaper rash, will see tomorrow for same. Infant noted to have cobblestone lips, more than before. Slight tongue tie noted previous, able to roll lip back. Tongue tie suspected at this time as possible posterior involvement. Able to lift edge of tongue but cup shape in middle. Very strong suction on gloved finger. Mother open to further evaluation, we just need to figure this baby out . Given referral list for pediatric dentist for evaluation of lip and tongue tie. Parents will discuss and follow up. Dad shown to slow pace bottle feed baby, does so confidently. Of note: baby very loud with feeds with swallow. Initially thought to be related to heavy let down during as struggles with keeping up with flow. Now with slow paced laterally positioned feed, continues to gulp, and have adventitious sound with more concern with upper airway and lower airway. IDANIA recommended parents feed infant at PCP appointment tomorrow so doctor can evaluate. Baby has appointment for severe diaper rash follow up. Parents agreeable, and deny having feed baby in presence of PCP at other appointments. Brief discussion on returning to work and feeding baby. Voiced understanding. Family leaves ambulatory, will make follow up appointment with IDANIA once evaluated by pediatric dentist. Aware to call prior of concerns arise.
== END 2024-04-18 14:28 | disposition home or self-care (01) ==
LOC: FBCO 08:17
PROVIDERS: PCP Family Medicine; Visit Provider Obstetrics & Gynecology
DX: Z39.1 Encounter for care and examination of lactating mother (principal)

== ENCOUNTER 2024-04-29 08:45 | Outpatient (OUT) | payer BC, SELFPAY ==
--- OUTSIDE RECORDS SUMMARY | 2024-04-29 08:55 | XMS_ITS | CCD ---
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 Role Phone HOY, ELMER Admitting [...] Unavailable Richard Dai MD Primary Care Provider [phone] RICHARD DAI Attending Unavailable ALISSON, NIDA Attending [...] Allergy 9 Nausea And Vomiting, GI intolerance [facility] (7 sources) fexofenadine Drug Allergy 9 GI intolerance [facility] (6 sources) Hypochlorite Drug Allergy 8 Itching, [...] Negative Negative - 4(70) +++ mg/dL [facility] Blood, UA Negative Negative - 50 Gonzalez/mcL [facility] Clarity, UA Clear [facility] Healthca re Color, UA Yellow [facility] Healthcar e Glucose, UA Negative Negative - 1999(110) ++++ mg/dL [facility] Interpretation and review of laboratory results Normal [facility] Ketones, UA Negative Negative - 160(16) ++++ mg/dL [facility] Leukocytes, UA Negative Negative - 500+++ Meera/mcL [facility] Nitrite, UA Negative Negative - Positive [facility] pH, UA 6.5 5 - 9 [facility] Health[facility] Protein, UA Negative Negative - 1999(20) ++++ mg/dL [facility] Spec Grav, UA 1.025 1 - 1.03 [facility] Urobilinogen, UA 0.2 0.2 - 12 mg/dL [facility]inalysis macro (dipstick) panel (U)on 01-15-2024 Bilirubin, UA Negative Negative - 4(70) +++ mg/dL [facility] Blood, UA Negative Negative - 50 Gonzalez/mcL [facility] Healthcare Clarity, UA Clear [facility] Healthca re Color, UA Yellow [facility] Healthcar e Glucose, UA Negative Negative - 1999(110) ++++ mg/dL [facility] Interpretation and review of laboratory results Normal [facility] Ketones, UA Negative Negative - 160(16) ++++ mg/dL [facility] Leukocytes, UA Negative Negative - 500+++ Meera/mcL [facility] Healthcare Nitrite, UA Negative Negative - Positive [facility] pH, UA 6.5 5 - 9 [facility] Health[facility] e Protein, UA Negative Negative - 2000(20) ++++ mg/dL [facility] Spec Grav, UA 1.025 1 - 1.03 [facility] Urobilinogen, UA 0.2 0.2 - 12 mg/dL [facility] e Hemoglobin A1Con 11-06-2022 Glucose [Mass/Vol] 103 mg/dL Normal [facility] Comment on above: Result Comment: The ADA and AACC recommend providing the estimated average glucose result to permit better patient understanding of their HBA1c result. Performed By: #### T SH, CDP, BMP, LIVP #### [facility] [address] [place] [address] Dr. [place], [place] [phone] Development Geologist: Abeba Parra MD #### VERONICAHGTanya, LIPR #### [address] [phone] Development Geologist: Chapin Bellamy MD HbA1c (Bld) [Mass fraction] 5.2 % Normal 4.0-6.0 [facility] Comment on above: Performed By: #### T DESTINI, CDP, BMP, LIVP #### [facility] [address] [place] [address] [place] [address] Development Geologist: Abeba Parra MD #### GIOVANNI, LIPR #### [address] [phone] Development Geologist: Chapin Bellamy MD Lipid Profileon 11-05-2022 Cholesterol [Mass/Vol] 130 mg/dL Normal <200 [facility] Comment on above: Result Comment: Cholesterol Guidelines: <200 Desirable 200-240 Borderline >240 Undesirable Performed By: #### T DESTINI, CDP, BMP, LIVP #### [facility] [address] [place] [address] [place] [address] Development Geologist: Abeba Parra MD #### GLYHGB, LIPR #### [place] [place], [place] [phone] Development Geologist: Chapin Bellamy MD Cholesterol in HDL [Mass/Vol] 61 mg/dL Normal >40 [facility] Comment on above: Result Comment: HDL Guidelines: <40 Undesirable 40-59 Borderline >59 Desirable Performed By: #### T DESTINI, JOAN, BMP, LIVP #### [facility] [address] [place] [phone] Development Geologist: Abeba Parra MD #### GLYHGB, LIPR #### [facility] [place], [place] [phone] Development Geologist: Chapin Bellamy MD Cholesterol in LDL [Mass/Vol] 56 mg/dL Normal 0-130 [facility] Comment on above: Result Comment: LDL Guidelines: <100 Desirable 100-129 Near to/above Desirable 130-159 Borderline >159 Undesirable Direct (measured) LDL and calculated LDL are not interchangeable tests. Performed By: #### T DESTINI, JOAN, BMP, LIVP #### [facility] [address] [place] [address] Dr. [place] [phone] Development Geologist: Abeba Parra MD #### GLYHGB, LIPR #### [facility] [place], [place] [phone] Development Geologist: Chapin Bellamy MD Cholesterol.total/Ch olesterol in HDL [Mass ratio] 2.1 {ratio} Normal <5 [facility] Comment on above: Performed By: #### T DESTINI, JOAN, BMP, LIVP #### [facility] [address] [place] [address] Dr. [place] [phone] Development Geologist: Abeba Parra MD #### GLYHGB, LIPR #### [facility] [address] [place], [place] [phone] Development Geologist: Chapin Bellamy MD Triglyceride [Mass/Vol] 64 mg/dL Normal <150 [facility] Comment on above: Result Comment: Triglyceride Guidelines: <150 Desirable 150-199 Borderline 200-499 High >499 Very high Based on AHA Guidelines for fasting triglyceride, January 2012. Performed By: #### T DESTINI, CDP, BMP, LIVP #### [facility] [address] [place] [address] Development Geologist: Abeba Parra MD #### GLYHGB, LIPR #### [facility] [address] [place] [address] Development Geologist: Chapin Bellamy MD Basic Metabolic Panelon 10-09 Anion gap [Moles/Vol] 11 mmol/L 9 - 17 mmol/L [facility] [employer] Calcium [Mass/Vol] 9.7 mg/dL 8.6 - 10. 4 mg/dL [facility] Chloride [Moles/Vol] 107 mmol/L 98 - 10 7 mmol/L [facility] CO2 [Moles/Vol] 22 mmol/L 20 - 31 mmol/L [facility] Creatinine [Mass/Vol] 0.6 mg/dL 0.5 - 0.9 mg/dL [facility] [employer] [facility] GFR/1.73 sq M.predicted MDRD (S/P/Bld) [Vol rate/Area] - [facility] Comment on above: These results are not [...] [Mass/Vol] 85 mg/dL 70 - 99 mg/dL [facility] [employer] [facility] Interpretation and review of laboratory results Abnormal [facility] [employer] [facility] Potassium [Moles/Vol] 3.9 mmol/L 3.7 - 5.3 mmol/L [facility] [employer] [facility] Sodium [Moles/Vol] 140 mmol/L 135 - 144 mmol/L [facility] [employer] [facility] Urea nitrogen [Mass/Vol] 18 mg/dL 6 - 20 mg/dL [facility] Urea nitrogen/Creatinine [Mass ratio] 30 mg/mg High 9 - [facility] [employer] [facility] Basic Metabolic Profon 11-04 Anion gap [Moles/Vol] 11 mmol/L Normal 9-17 [facility] Comment on above: Performed By: #### T SH, CDP, BMP, LIVP #### [facility] [address] [place], [place] [phone] Development Geologist: Abeba Parra MD #### GLYHGB, LIPR #### [address] [phone] Development Geologist: Chapin Bellamy MD BUN/CRE Ratio 30 High 9-20 [facility] Comment on above: Performed By: #### T SH, CDP, BMP, LIVP #### [facility] [address] [place] [address] Dr. [place] [phone] ( Development Geologist: Abeba Parra MD #### GLYHGB, LIPR #### [address] [phone] Development Geologist: Chapin Bellamy MD Calcium [Mass/Vol] 9.7 mg/dL Normal 8.6-10.4 [facility] Comment on above: Performed By: #### T SH, CDP, BMP, LIVP #### [address] [place], [place] [phone] Development Geologist: Abeba Parra MD #### GLYHGB, LIPR #### [address] [phone] Development Geologist: Chapin Bellamy MD Chloride [Moles/Vol] 107 mmol/L Normal 98-107 [facility] Comment on above: Performed By: #### T SH, CDP, BMP, LIVP #### [facility] [address] [place] [address] Dr. [place], [place] [phone] Development Geologist: Abeba Parra MD #### GLYHGB, LIPR #### [address] [phone] Development Geologist: Chapin Bellamy MD CO2 [Moles/Vol] 22 mmol/L Normal 20-31 [facility] Comment on above: Performed By: #### T SH, CDP, BMP, LIVP #### [facility] [address] [place] [address] Development Geologist: Abeba Parra MD #### GLYHGB, LIPR #### [address] [place], [place] [phone] Development Geologist: Chapin Bellamy MD Creatinine [Mass/Vol] 0.6 mg/dL Normal 0.5-0.9 [facility] Comment on above: Performed By: #### T SH, CDP, BMP, LIVP #### [address] [place] [address] Development Geologist: Abeba Parra MD #### GLYHGB, LIPR #### [address] [place], [place] [phone] Development Geologist: Chapin Bellamy MD GFR/1.73 sq M.predicted among non-blacks MDRD (S/P/Bld) [Vol rate/Area] mL/min/{1.73_m2} Normal >60 [facility] Comment on above: Result Comment: These [...] [facility] [address] [place] [address] Development Geologist: Abeba Parra MD #### GLYHGB, LIPR #### [facility] [address] [place], [place] [phone] Development Geologist: Chapin Bellamy MD Glucose [Mass/Vol] 85 mg/dL Normal 70-99 [facility] Comment on above: Performed By: #### T SH, CDP, BMP, LIVP #### [facility] [address] [place] [address] Dr. [place] [phone] ( Development Geologist: Abeba Parra MD #### GLYHGB, LIPR #### [address] [phone] Development Geologist: Chapin Bellamy MD Potassium [Moles/Vol] 3.9 mmol/L Normal 3.7-5.3 [facility] Comment on above: Performed By: #### T SH, CDP, BMP, LIVP #### [address] [place] [phone] Development Geologist: Abeba Parra MD #### GLYHGB, LIPR #### [address] [phone] Development Geologist: Chapin Bellamy MD Sodium [Moles/Vol] 140 mmol/L Normal 135-144 [facility] Comment on above: Performed By: #### T SH, CDP, BMP, LIVP #### [address] [place] [phone] Development Geologist: Abeba Parra MD #### GLYHGB, LIPR #### [address] [phone] Development Geologist: Chapin Bellamy MD Urea nitrogen [Mass/Vol] 18 mg/dL Normal 6-20 [facility] Comment on above: Performed By: #### T SH, CDP, BMP, LIVP #### [facility] [address] [place] [address] Dr. [place] [phone] Development Geologist: Abeba Parra MD #### GLYHGB, LIPR #### [address] [phone] Development Geologist: Chapin Bellamy MD CBC with Auto Differentialon 11-04-2022 Basophils (Bld) [#/Vol] 0.05 10*3/uL [facility] Basophils/100 WBC (Bld) 1 % 0 - 2 % [facility] Eosinophils (Bld) [#/Vol] 0.06 10*3/uL [facility] Eosinophils/100 WBC (Bld) 1 % 1 - 4 % [facility] Erythrocyte distribution width (RBC) [Ratio] 13.0 % 11.8 - 14.4 % [facility] Hematocrit (Bld) [Volume fraction] 43.3 % 36.3 - 47.1 % [facility] Hemoglobin (Bld) [Mass/Vol] 14.2 g/dL 11.9 - 15.1 g/dL [facility] Immature granulocytes (Bld) [#/Vol] [facility] Immature granulocytes/100 WBC (Bld) 0 % 0 [facility] Lymphocytes/100 WBC (Bld) 30 % 24 - 43 % [facility] Lymphocytes/100 WBC (Bld) 3.22 % [facility] MCH (RBC) [Entitic mass] 30.2 pg 25.2 - 33.5 pg [facility] MCHC (RBC) [Mass/Vol] 32.8 g/dL 28.4 - 34.8 g/dL [facility] MCV (RBC) [Entitic vol] 92.1 fL 82.6 - 102.9 fL [facility] Monocytes/100 WBC (Bld) 5 % 3 - 12 % [facility] Monocytes/100 WBC (Bld) 0.50 % [facility] Neutrophils/100 WBC (Bld) 63 % 36 - 65 % [facility] Nucleated RBC/100 WBC (Bld) [Ratio] 0.0 % 0.0 per 100 WBC [facility] Platelet mean volume (Bld) [Entitic vol] 11.0 fL 8.1 - 13.5 fL [facility] Platelets (Bld) [#/Vol] 264 10*3/uL [facility] RBC (Bld) [#/Vol] 4.70 10*6/uL 3.95 - 5.1 1 m/uL [facility] Segmented neutrophils/100 WBC (Bld) 6.95 % [facility] WBC other (Bld) [#/Vol] 10.8 [facility] CBC with Diffon 11-04-2022 Abs. Basophil 0.05 k/uL Normal 0.00-0.20 [facility] Comment on above: Performed By: #### T SH, CDP, BMP, LIVP #### [address] [place] [phone] Development Geologist: Abeba Parra MD #### GIOVANNI, LIPR #### [place] [phone] Development Geologist: Chapin Bellamy MD Abs.Imm.Granulocyte <0.03 Normal 0.00-0.30 [facility] Comment on above: Performed By: #### T DESTINI, CDP, BMP, LIVP #### [address] [place] [phone] Development Geologist: Abeba Parra MD #### GIOVANNI, LIPR #### [place] [phone] Development Geologist: Chapin Bellamy MD Abs.Neutrophil (Seg) 6.95 k/uL Normal 1.50-8.10 [facility] Comment on above: Performed By: #### T SH, CDP, BMP, LIVP #### [address] [place] [phone] Development Geologist: Abeba Parra MD #### GIOVANNI, LIPR #### [place] [phone] Development Geologist: Chapin Bellamy MD Basophils/100 WBC (Bld) 1 % Normal 0-2 [facility] Comment on above: Performed By: #### T SH, CDP, BMP, LIVP #### [address] [place] [phone] Development Geologist: Abeba Parra MD #### GLYHGB, LIPR #### [address] [phone] Development Geologist: Chapin Bellamy MD Eosinophils (Bld) [#/Vol] 0.06 10*3/uL Normal 0.00-0.44 [facility] Comment on above: Performed By: #### T SH, CDP, BMP, LIVP #### [address] [place] [phone] Development Geologist: Abeba Parra MD #### GLYHGB, LIPR #### [address] [phone] Development Geologist: Chapin Bellamy MD Eosinophils/100 WBC (Bld) 1 % Normal 1-4 [facility] Comment on above: Performed By: #### T SH, CDP, BMP, LIVP #### [address] [place] [phone] Development Geologist: Abeba Parra MD #### VERONICAHGB, LIPR #### [address] [phone] Development Geologist: Chapin Bellamy MD Erythrocyte distribution width (RBC) [Ratio] 13.0 % Normal 11.8-14.4 [facility] Comment on above: Performed By: #### T SH, CDP, BMP, LIVP #### [address] [place] [phone] Development Geologist: Abeba Parra MD #### GLYHGB, LIPR #### [address] [phone] Development Geologist: Chapin Bellamy MD Hematocrit (Bld) [Volume fraction] 43.3 % Normal 36.3-47.1 [facility] Comment on above: Performed By: #### T SH, CDP, BMP, LIVP #### [facility] [address] [place], [place] [phone] Development Geologist: Abeba Parra MD #### GLYHGB, LIPR #### [address] [place], [place] [phone] Development Geologist: Chapin Bellamy MD Hemoglobin (Bld) [Mass/Vol] 14.2 g/dL Normal 11.9-15.1 [facility] Comment on above: Performed By: #### T SH, CDP, BMP, LIVP #### [facility] [address] [place], [place] [phone] Development Geologist: Abeba Parra MD #### GLYHGB, LIPR #### [address] [phone] Development Geologist: Chapin Bellamy MD Immature granulocytes/100 WBC (Bld) 0 % Normal 0 [facility] Comment on above: Performed By: #### T SH, CDP, BMP, LIVP #### [address] [place], [place] [phone] Development Geologist: Abeba Parra MD #### GLYHGB, LIPR #### [address] [phone] Development Geologist: Chapin Bellamy MD Lymphocytes (Bld) [#/Vol] 3.22 10*3/uL Normal 1.10-3.70 [facility] Comment on above: Performed By: #### T SH, CDP, BMP, LIVP #### [facility] [address] [place] [address] Development Geologist: Abeba Parra MD #### GLYHGB, LIPR #### [address] [phone] Development Geologist: Chapin Bellamy MD Lymphocytes/100 WBC (Bld) 30 % Normal 24-43 [facility] Comment on above: Performed By: #### T SH, CDP, BMP, LIVP #### [address] [place] [phone] Development Geologist: Abeba Parra MD #### GLYHGB, LIPR #### [address] [phone] Development Geologist: Chapin Bellamy MD MCH (RBC) [Entitic mass] 30.2 pg Normal 25.2-33.5 [facility] Comment on above: Performed By: #### T SH, CDP, BMP, LIVP #### [address] [place] [phone] Development Geologist: Abeba Parra MD #### GLYHGB, LIPR #### [place] [address] Development Geologist: Chapin Bellamy MD MCHC (RBC) [Mass/Vol] 32.8 g/dL Normal 28.4-34.8 [facility] Comment on above: Performed By: #### T SH, CDP, BMP, LIVP #### [address] [place] [phone] Development Geologist: Abeba Parra MD #### GLYHGB, LIPR #### [place] [address] Development Geologist: Chapin Bellamy MD MCV (RBC) [Entitic vol] 92.1 fL Normal 82.6-102.9 [facility] Comment on above: Performed By: #### T SH, CDP, BMP, LIVP #### [address] [place] [phone] Development Geologist: Abeba Parra MD #### GLYHGB, LIPR #### [address] [phone] Development Geologist: Chapin Bellamy MD Monocytes (Bld) [#/Vol] 0.50 10*3/uL Normal 0.10-1.20 [facility] Comment on above: Performed By: #### T SH, CDP, BMP, LIVP #### [facility] [address] [place], [place] [phone] Development Geologist: Abeba Parra MD #### GLYHGB, LIPR #### [address] [phone] Development Geologist: Chapin Bellamy MD Monocytes/100 WBC (Bld) 5 % Normal 3-12 [facility] Comment on above: Performed By: #### T SH, CDP, BMP, LIVP #### [facility] [address] [place] [address] Dr. [place] [phone] Development Geologist: Abeba Parra MD #### GLYHGB, LIPR #### [address] [phone] Development Geologist: Chapin Bellamy MD Neutrophil (Seg) 63 % Normal 36-65 [facility] Comment on above: Performed By: #### T SH, CDP, BMP, LIVP #### [address] [place], [place] [phone] Development Geologist: Abeba Parra MD #### GLYHGTanya, LIPR #### [address] [phone] Development Geologist: Chapin Bellamy MD NRBC Automated 0.0 per 100 WBC Normal 0.0 [facility] Comment on above: Performed By: #### T SH, CDP, BMP, LIVP #### [address] [place], [place] [phone] Development Geologist: Abeba Parra MD #### GLYHGB, LIPR #### [address] [phone] Development Geologist: Chapin Bellamy MD Platelet mean volume (Bld) [Entitic vol] 11.0 fL Normal 8.1-13.5 [facility] Comment on above: Performed By: #### T SH, CDP, BMP, LIVP #### [facility] [address] [place], [place] [phone] Development Geologist: Abeba Parra MD #### GLYHGB, LIPR #### [address] [phone] Development Geologist: Chapin Bellamy MD Platelets (Bld) [#/Vol] 264 10*3/uL Normal 138-453 [facility] Comment on above: Performed By: #### T SH, CDP, BMP, LIVP #### [address] [place] [phone] Development Geologist: Abeba Parra MD #### GIOVANNI, LIPR #### [address] [phone] Development Geologist: Chapin Bellamy MD RBC (Bld) [#/Vol] 4.70 10*6/uL Normal 3.95-5.11 [facility] Comment on above: Performed By: #### T SH, CDP, BMP, LIVP #### [address] [place] [phone] Development Geologist: Abeba Parra MD #### GLYHGB, LIPR #### [address] [phone] Development Geologist: Chapin Bellamy MD WBC (Bld) [#/Vol] 10.8 10*3/uL Normal 3.5-11.3 [facility] Comment on above: Performed By: #### T SH, CDP, BMP, LIVP #### [facility] [address] [place] [phone] Development Geologist: Abeba Parra MD #### GLYHGB, LIPR #### [employer] [address] [place] [address] Development Geologist: Chapin Bellamy MD Hepatic Function Panelon Albumin [Mass/Vol] 4.2 g/dL 3.5 - 5.2 g/dL [facility] [employer] Albumin/Globulin [Mass ratio] 1.3 {ratio} 1.0 - 2.5 [facility] ALP [Catalytic activity/Vol] 80 U/L 35 - 104 U/L [facility] ALT [Catalytic activity/Vol] 23 U/L 5 - 33 U/L [facility] [employer] [facility] AST [Catalytic activity/Vol] 22 U/L NINF - 32 U/L [facility] [employer] Bilirubin [Mass/Vol] 0.5 mg/dL 0.3 - 1 .2 mg/dL [facility] [employer] Bilirubin.direct [Mass/Vol] mg/dL NINF - 0.3 mg/dL [facility] [employer] Bilirubin.indirect [Mass/Vol] Can not be calculated 0.0 - 1.0 mg/dL [email or web address] Protein [Mass/Vol] 7.4 g/dL 6.4 - 8.3 g/dL [email or web address] Lipid Panelon 11-04-2022 Cholesterol [Mass/Vol] 130 mg/dL NINF - 200 mg/dL [email or web address] Comment on above: Cholesterol Guidelines: <200 Desirable 200-240 Borderline >240 Undesirable Cholesterol in HDL [Mass/Vol] 61 mg/dL 40 - PINF mg/dL [facility] [employer] Comment on above: HDL Guidelines: <40 Undesirable 40-59 Borderline >59 Desirable Cholesterol in LDL [Mass/Vol] 56 mg/dL 0 - 130 mg/dL [email or web address] Comment on above: LDL Guidelines: <100 Desirable 100-129 Near to/above Desirable 130-159 Borderline >159 Undesirable Direct (measured) LDL and calculated LDL are not interchangeable tests. Cholesterol.total/Ch olesterol in HDL [Mass ratio] 2.1 {ratio} NINF - 5 [email or web address] Triglyceride [Mass/Vol] 64 mg/dL NINF - 150 mg/dL [facility] Comment on above: Triglyceride Guidelines: <150 Desirable 150-199 Borderline 200-499 High >499 Very high Based on AHA Guidelines for fasting triglyceride, January 2012. [facility] Liver Profileon 11-04-2022 Albumin [Mass/Vol] 4.2 g/dL Normal 3.5-5.2 [facility] Comment on above: Performed By: #### T SH, CDP, BMP, LIVP #### [facility] [address] [place] [address] Dr. [place] [phone] Development Geologist: Abeba Parar MD #### GLYHGB, LIPR #### [place] [id number] [place], [place] [phone] Development Geologist: Chapin Bellamy MD Albumin/Glob Ratio 1.3 Normal 1.0-2.5 [facility] Comment on above: Performed By: #### T SH, CDP, BMP, LIVP #### [address] [place] [id number] Development Geologist: Abeba Parra MD #### GLYHGB, LIPR #### [address] [id number] Development Geologist: Chapin Bellamy MD Alkaline Phos 80 U/L Normal 35-104 [facility] Comment on above: Performed By: #### T SH, CDP, BMP, LIVP #### [address] [place] [id number] Development Geologist: Abeba Parra MD #### GLYHGB, LIPR #### [place] [address] [place], [place] [phone] Development Geologist: Chapin Bellamy MD ALT [Catalytic activity/Vol] 23 U/L Normal 5-33 [facility] Comment on above: Performed By: #### T SH, CDP, BMP, LIVP #### [address] [place] [address] Development Geologist: Abeba Parra MD #### GLYHGB, LIPR #### [place] [address] [place], [place] [id number] Development Geologist: Chapin Bellamy MD AST [Catalytic activity/Vol] 22 U/L Normal <32 [facility] Comment on above: Performed By: #### T SH, CDP, BMP, LIVP #### [address] [place], [place] [id number] Development Geologist: Abeba Parra MD #### GLYHGB, LIPR #### [address] [id number] Development Geologist: Chapin Bellamy MD Bilirubin [Mass/Vol] 0.5 mg/dL Normal 0.3-1.2 [facility] Comment on above: Performed By: #### T SH, CDP, BMP, LIVP #### [address] [place] [id number] Development Geologist: Abeba Parra MD #### GLYHGB, LIPR #### [address] [address] Development Geologist: Chapin Bellamy MD Bilirubin, Indirect Can not be calculated Normal 0.0-1 .0 [facility] Comment on above: Performed By: #### T SH, CDP, BMP, LIVP #### [address] [place], [place] [id number] Development Geologist: Abeba Parra MD #### GLYHGB, LIPR #### [place] [address] [place], [place] [phone] Development Geologist: Chapin Bellamy MD Bilirubin.indirect [Mass/Vol] mg/dL Normal <0.3 [facility] Comment on above: Performed By: #### T SH, CDP, BMP, LIVP #### [address] [place], [place] [phone] Development Geologist: Abeba Parra MD #### GLYHGB, LIPR #### [facility] [address] [place] [address] Development Geologist: Chapin Bellamy MD Protein [Mass/Vol] 7.4 g/dL Normal 6.4-8.3 [facility] Comment on above: Performed By: #### T DESTINI, CDP, BMP, LIVP #### [facility] [address] [place] [address] Development Geologist: Abeba Parra MD #### GLYHGB, LIPR #### [facility] [address] [place] [address] Development Geologist: Chapin Bellamy MD No Panel Informationon 11-04 [facility] TSHon 11-04-2022 TSH Qn 1.57 m[IU]/L [facility] Thyroid Stim. Horm.on 2022 Thyroid Stim. Horm. 1.57 uIU/mL Normal 0.30-5.00 [facility] Comment on above: Performed By: #### T DESTINI, JOAN, BMP, LIVP #### [address] [place] [address] Development Geologist: Abeba Parra MD #### GLYHGB, LIPR #### [place] [address] [place] [address] Development Geologist: Chapin Bellamy MD NM HEPATOBILIARY SCAN W [...] IMPRESSION: Normal examination. Electronically authenticated by: ABEBA APODCAA Date: 2020-01-30 09:[address] [facility] US SINGLE QUAD RT UPPERon US [...] by: ABEBA APODACA Date: 2020-01-22 11:[address] [facility] Vital Signs Date Time Vital Sign Value Performing Clinician Vinnie reilly 01-29-2024 16:01-0400 Body mass index (BMI) [Ratio] 38.77 kg/m2 [employer] Work Phone: [facility] 01-29-2024 16:01-0400 Body weight 105.69 kg [employer] Work Phone: [facility] 01-29-2024 16:01-0400 Diastolic blood pressure 70 mm[Hg] [employer] Work Phone: [facility] 01-29-2024 16:01-0400 Systolic blood pressure 118 mm[Hg] [employer] Work Phone: [facility] 01-15-2024 14:56-0400 Body mass index (BMI) [Ratio] 38.11 kg/m2 [employer] Work Phone: [facility] 01-15-2024 14:56-0400 Body weight 103.87 kg [employer] Work Phone: [facility] 01-15-2024 14:56-0400 Diastolic blood pressure 74 mm[Hg] [employer] Work Phone: [facility] 01-15-2024 14:56-0400 Systolic blood pressure 120 mm[Hg] [employer] Work Phone: [facility] Healthcare Encounters Encounter Date Encounter Type Care Provider Facility Start: 03-27-2024 End: 03-27-2024 ambulatory VENICE GEORGE Not Available Start: 03-20-2024 End: 03-20-2024 ambulatory VENICE GEORGE Not Available Start: 03-11-2024 End: 03-11-2024 ambulatory VENICE GEROGE Not Available Start: 03-04-2024 End: 03-04-2024 ambulatory NIDA ALISSON Not Available Start: 02-26-2024 End: 02-26-2024 ambulatory NIDA ALISSON Not Available Start: 02-12-2024 End: 02-12-2024 ambulatory VENICE GEORGE Not Available Start: 01-29-2024 End: 01-29-2024 ambulatory NIDA ALISSON Not Available Start: 01-29-2024 End: 01-29-2024 flow sheet Nida Alisson DO Work Phone: [facility] Comment on above: Third trimester preg yefri; 32 weeks gestation of Start: 01-29-2024 End: 01-29-2024 Bamboo flowsheet Nida Alisson DO Work Phone: [facility] Start: 01-29-2024 End: 01-29-2024 Bamboo flowsheet Nida Alisson DO Work Phone: [facility] Start: 01-15-2024 End: 01-15-2024 flow sheet [employer] Work Phone: [facility] Comment on above: 30 weeks [...] Start: 11-04-2022 End: 11-05-2022 ambulatory RICHARD DAI [facility] Start: 11-04-2022 End: 11-05-2022 Encounter for general adult medical examination without abnormal findings RICHARD DAI [facility] Start: 11-04-2022 End: 11-04-2022 Subsequent hospital visit by physician Richard Dai MD Work Phone: [facility] Laboratory Start: 01-30-2020 End: 01-31-2020 Patient encounter [...] Td or Tdap) [facility] Start: 04-18-2024 End: 04-18-2024 Patient encounter procedure 04/18/2024 11:00 AM EST Office Visit [facility] [address] [place] [phone] Nida Vinson, [address] [place] [address] [facility] Start: 02-28-2024 End: 02-28-2024 Patient encounter procedure 02/28/2024 8:30 AM EST Routine [facility] [address] [place] [phone] [place] [employer], [place] [address] [place] [address] [facility] Start: 02-12-2024 End: 02-12-2024 Patient encounter procedure 02/12/2024 3:30 PM EST Routine [facility] [address] [place] [phone] [place] Vaz[place], [place] [address] [place] [address] [facility] Start: 01-29-2024 End: 01-29-2024 Patient encounter procedure 01/29/2024 3:10 PM EDT Routine [facility] [address] [place] [phone] Nida Vinson, [address] [place] [address] [facility] Start: 01-15-2024 End: 01-15-2024 Patient encounter procedure 01/15/2024 3:20 PM EDT Routine [facility] [address] [place] [phone] Venice Vazquez PA [address] [place] [address] Arrived [facility] Comment on above: Arrived Start: 12-10-2023 Influenza vaccination Influenza Vacc ine (#1) [facility] Start: 11-08-2022 Influenza vaccination Flu vaccine (# 1) [facility] Start: 2019 Screening for malign ant neoplasm of cervix Pap smear [facility] Start: 02-10-2016 Hepatitis C screening Hepatitis C sc reen [facility] Start: 2014 Screening for Chlamy zulema trachomatis Chlamydia/GC screen [facility] Start: 2013 HIV screening HIV screen [facility] Start: 2010 Depression Screen Depression Screen [facility] Start: 2009 HPV vaccine (1 - 2-d ose series) HPV vaccine (1 - 2-dose series) [facility] Start: 1999 Varicella vaccine (1 of 2 - 2-dose childhood series) Varicella vaccine (1 of 2 - 2-dose childhood series) [facility] Start: 1998 COVID-19 Vaccine (#1) COVID-19 Vacci ne (#1) [facility] End: 11-04-2022 Hemoglobin A1c/Hemoglobin.total in Blood [facility] Work Phone: Comment on above: Once for 1 Occurrenc es starting 11/04/2022 until 11/04/2022 Immunizations Immunization Date Immunization Notes Care Provider Fa cility 11-04-2021 tetanus toxoid, redu sanya diphtheria toxoid, and acellular pertussis vaccine, adsorbed Richard Dai MD Work Phone: [facility] 11-12-2015 meningococcal polysaccharide (groups A, C, Y and W-135) diphtheria toxoid conjugate vaccine (MCV4P) [employer] Work Phone: [facility] 05-24-2011 poliovirus vaccine, inactivated [employer] Work Phone: [facility] 07-19-2010 tetanus toxoid, redu sanya diphtheria toxoid, and acellular pertussis vaccine, adsorbed [employer] Work Phone: [facility] 08-13-2003 diphtheria, tetanus toxoids and acellular pertussis vaccine, unspecified formulation [employer] Work Phone: [facility] 08-13-2003 measles, mumps and rubella virus vaccine [employer] Work Phone: [facility] 09-15-1999 diphtheria, tetanus toxoids and acellular pertussis vaccine, unspecified formulation [employer] Work Phone: [facility] 09-15-1999 haemophilus influenz ae type b vaccine, HbOC conjugate [employer] Work Phone: [facility] 02-24-1999 measles, mumps and rubella virus vaccine [employer] Work Phone: [facility] 02-24-1999 trivalent poliovirus vaccine, live, oral [employer] Work Phone: [facility] 1998 diphtheria, tetanus toxoids and acellular pertussis vaccine, unspecified formulation [employer] Work Phone: [facility] 1998 haemophilus influenz ae type b conjugate and Hepatitis B vaccine [employer] Work Phone: [facility] 1998 trivalent poliovirus vaccine, live, oral [employer] Work Phone: [facility] 1998 diphtheria, tetanus toxoids and acellular pertussis vaccine, unspecified formulation [employer] Work Phone: [facility] 1998 haemophilus influenz ae type b vaccine, HbOC conjugate [employer] Work Phone: [facility] 1998 trivalent poliovirus vaccine, live, oral [employer] Work Phone: [facility] 1998 diphtheria, tetanus toxoids and acellular pertussis vaccine, unspecified formulation [employer] Work Phone: [facility] 1998 haemophilus influenz ae type b vaccine, conjugate unspecified formulation [employer] Work Phone: [facility] 1998 hepatitis B vaccine, pediatric or pediatric/adolescent dosage [employer] Work Phone: [facility] 1998 poliovirus vaccine, inactivated [employer] Work Phone: [facility] 1998 hepatitis B vaccine, pediatric or pediatric/adolescent dosage [employer] Work Phone: [facility] Payers Date Payer Category [facility] [id number] 2022 [id number] 2022-Present [phone] [id number] [place], [place] [id number] 2022 Unknown [id number] [id number]. [id number] 1998 Unknown [id number] 2.16.840.1.993766.3.579. 2.593 1998 Unknown [id number] 2.16.840.1.299323.3.579. 2.593 1998 Unknown [id number] 2.16.840.1.626417.3.579. 2.173 1998 Unknown [id number] 2.16.840.1.623472.3.579. 2.1259 1998 Unknown [id number] 2.16.840.1.956897.3.579. 2.9 1998 Unknown [id number] 2.16.840.1.649877.3.579. 2.9 1998 Unknown [id number] 2.16.840.1.969086.3.579. 2.9 1998 Unknown [id number] 2.16.840.1.350312.3.579. 2.1259 1998 Unknown [id number] 2.16.840.1.270976.3.579. 2.9 1998 Unknown [id number] 2.16.840.1.680600.3.579. 2.9 1998 Unknown [id number] 2.16.840.1.810060.3.579. 2.9 1998 Unknown [id number] 2.16.840.1.121368.3.579. 2.1259 1998 Unknown [id number] 2.16.840.1.845233.3.579. 2.1258 1998 Unknown [id number] 2.16.840.1.659316.3.579. 2.1259 1998 Unknown [id number] 2.16.840.1.882788.3.579. 2.9 1998 Unknown [id number] 2.16.840.1.321887.3.579. 2.1259 1998 Unknown [id number] 2.16.840.1.589324.3.579. 2.1259 1998 Unknown [id number] 2.16.840.1.198804.3.579. 2.1259 1959 Unknown [id number] Social History Date Type Detail Facility Tobacco smoking stat [facility] Tobacco smoking consumption unknown [facility] Start: 1998 Sex Assigned At Not on file [facility] [employer] Start: 11-18-2022 Tobacco smoking status WIIS Never smoked tobacco [facility] Start: 11-18-2022 Tobacco use and exposure Smokeless tobacco non-user [facility] Start: 01-01-2024 End: 01-15-2024 Alcoholic beverage intake Ex-drinker (finding) [facility] Start: 04-20-2023 End: 04-24-2023 History of Social function [facility] Start: 04-20-2023 End: 04-24-2023 Humiliation, Afraid, Rape, and Kick questionnaire [HARK] [facility] Within the last year , have you been afraid of your partner or ex-partner? No [facility] Do you belong to any clubs or organizations such as buddhist groups, unions, fraternal or athletic groups, or [...] of Present illness Narrative 01-29-2024 Jaymie Shaw, MICROBIOLOGY LAB ANALYST - 01/29/2024 3:10 PM EDT Note Date [...] nursing note reviewed. Exam conducted with a structures mechanic present. Vitals: Estimated body mass index is [...] nursing note reviewed. Exam conducted with a structures mechanic present. 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 Relationship Specialty Start Date End Date Richard Dai MD [address] [place] [phone] PCP - [employer] 03/10/23 Richard Dai MD [address] [place] [phone] PCP - General Family Medicine 09/11/23 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 Relationship Specialty Start Date End Date Richard Dai MD [address] [place] [phone] PCP - [employer] 03/10/23 Richard Dai MD [address] [place] [phone] PCP - General Family Medicine 09/11/23 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 [facility] [employer] [facility]. provides no warranty or guarantee of the accuracy or completeness of information in this document.
== END 2024-04-29 13:49 | disposition home or self-care (01) ==
LOC: FBCO 08:51
PROVIDERS: PCP Family Medicine; Visit Provider Obstetrics & Gynecology
DX: Z39.1 Encounter for care and examination of lactating mother (principal)

== ENCOUNTER 2024-06-10 14:51 | Outpatient (REF) | payer BC, SELFPAY ==
[2024-06-13 10:15] LABS: Age Gdln ACOG Testing Note (.); IGP, rfx Aptima HPV ASCU Note (.)
== END 2024-06-10 14:52 | disposition home or self-care (01) ==
LOC: LAB 14:51
PROVIDERS: PCP Family Medicine; Visit Provider Obstetrics & Gynecology
DX: Z01.419 Encounter for gynecological examination (general) (routine) without abnormal findings (principal)
CPT/HCPCS: 88175

== ENCOUNTER 2024-11-27 08:49 | Outpatient (OUT) | payer BC, SELFPAY ==
--- OUTSIDE RECORDS SUMMARY | 2024-11-27 08:57 | XMS_ITS | CCD ---
Author Organization [facility] Care Team Providers Care Healthcare Marketer Name Role Phone HOY, ELMER Admitting Unavailable [...] Unavailable Richard Dai MD Primary Care Provider [phone] ALISSON, NIDA Attending Unavailable ALISSON, NIDA Attending Unavailable ALISSON, NIDA Attending Unavailable ALISSON, NIDA Referring Unavailable ALISSON, NIDA Attending Unavailable ALISSON, NIDA Attending Unavailable ALISSON, NIDA Attending Unavailable GEORGE, VENICE Attending Unavailable ALISSON, NIDA Attending Unavailable GEORGE, VENICE Attending Unavailable ALISSON, NIDA Attending Unavailable ALISSON, NIDA Attending Unavailable GEORGE, VENICE Attending Unavailable GEORGE, VENICE Attending Unavailable GEORGE, VENICE Attending Unavailable Allergies Allergy Classification Reported Allergen(s) Allergy Type Date of Onset Reaction(s) Facility (20 sources) Amoxicillin Drug Allergy 9 Nausea And Vomiting, GI intolerance [facility] (20 sources) fexofenadine Drug Allergy 9 GI intolerance [facility] (20 sources) Hypochlorite Drug Allergy 8 Itching, Rash, Swelling [facility] Medications Current Medications Medication Drug Class(es) Dates Sig (Normalized) Sig (Original) acetaminophen 325 mg / oxyCODONE hydrochloride 5 mg oral tablet (11 sources) Opioid Agonist Start: 03-24-2024 End: 10-23-2024 take 1 tablet by mouth every eight hours oxyCODONE-acetamino phen (Percocet) 5-325 MG tablet Take 1 tablet by mouth every 8 (eight) hours 03/24/2024 10/23/2024 Discontinued Docusate (11 sources) Start: 03-24-2024 End: 10-23-2024 Docusate Sodium (COLACE PO) Take 1 capsule by mouth if needed (constipation) 03/24/2024 10/23/2024 Discontinued Start: 03-24-2024 Docusate Sodiu m (COLACE PO) Take 1 capsule by mouth if needed (constipation) 03/24/2024 Active Ethinyl Estradiol / Ferrous fumarate / Norethindrone (1 source) Estrogen Norethin Abad-Eth Estrad-FE 1-20 MG-MCG(24) CAPS Take by mouth 0 Active ibuprofen 400 mg oral tablet (11 sources) Nonsteroidal Anti-inflammatory Drug Start: 03-24-20 End: 10-24-19 25 take 1 tablet by mouth every six hours as needed for pain ibuprofen 400 MG tablet Take 400 mg by mouth every 6 (six) hours if needed for moderate pain 03/24/2024 10/23/2024 Discontinued omeprazole 20 mg delayed release oral capsule (19 sources) Proton Pump Inhibitor Start: 10-10-19 End: 12-07-19 25 take 1 capsule by mouth once before mealtime omeprazole (PriLOSEC) [address] capsule Indications: Heartburn during in second trimester Take 1 capsule (20 mg) by mouth in the morning. Take before meals. Do not crush or chew.. 30 capsule 12/07/2023 12/06/2024 Active MV-Min-Fe Fum-FA-DHA ( 1 PO) (20 sources) End: 10-24-19 25 MV-Min-Fe Fum-FA-DHA ( 1 PO) Take 1 tablet by mouth Daily 10/23/2024 Discontinued MV-Min- Fe Fum-FA-DHA ( 1 PO) Take 1 tablet by mouth Daily Active Problems Active Problems Problem Classification Problem Date Documented Date Episodic/Chronic Abdominal pain (6 sources) Unspecified abdominal pain; Translations: [Pain in pelvis] Onset: 01-30-2020 11-18-2024 Episodic Menstrual disorders (2 sources) Menometrorrhagia; Translations: [Excessive and frequent menstruation with irregular cycle] 11-18-2024 Chronic Other aftercare (2 sources) Surgical follow-up; Translations: [Encounter for follow-up examination after completed treatment for conditions other than malignant neoplasm] 03-27-2024 Episodic Other complications of (4 sources) Excessive growth affecting management of mother; Translations: [Maternal care for excessive growth, third trimester, not applicable or unspecified] 02-12-2024 Episodic Other endocrine disorders (20 sources) Polycystic ovary syndrome; Translations: [Polycystic ovarian syndrome] Onset: 04-24-2023 04-24-2023 Chronic Other female genital disorders (20 sources) Vaginal bleeding; Translations: [Abnormal uterine and vaginal bleeding, unspecified] Onset: 10-10-2023 10-10-2023 Chronic Other nervous system disorders (2 sources) Postoperative pain ; Translations: [Other acute postprocedural pain] 10-23-2024 Episodic Other nutritional; endocrine; and metabolic disorders (20 sources) Body mass index 30+ - obesity; Translations: [Obesity, unspecified] Onset: 04-24-2023 04-24-2023 Chronic Other screening for suspected conditions (not mental disorders or infectious disease) (2 sources) Endometrium thickened; Translations: [Abnormal findings on diagnostic imaging of other specified body structures] 11-18-2024 Chronic Other screening for suspected conditions (not mental disorders or infectious disease) (6 sources) Patient encounter status; Translations: [Encounter for screening for diabetes mellitus] 12-04-2023 Episodic Other upper respiratory disease (20 sources) Allergic rhinitis due to pollen; Translations: [Allergic rhinitis due to pollen] Onset: 04-24-2023 04-24-2023 Chronic Previous (2 sources) Previous delivery, unspecified as to episode of care or not applicable; Translations: [Isthmocele] 11-18-2024 Episodic Residual codes; unclassified (2 sources) Gestation period, 30 weeks; Translations: [30 weeks gestation of ] 01-15-2024 Episodic Residual codes; unclassified (2 sources) Gestation period, 36 weeks; Translations: [36 weeks gestation of ] 02-26-2024 Episodic Residual codes; unclassified (2 sources) Gestation period, 38 weeks; Translations: [38 weeks gestation of ] 03-11-2024 Episodic Residual codes; unclassified (2 sources) Gestation period, 39 weeks; Translations: [39 weeks gestation of ] 03-20-2024 Episodic Residual codes; unclassified (2 sources) Gestation period, 28 weeks; Translations: [28 weeks gestation of ] 01-01-2024 Episodic Past or Other Problems Problem Classification Problem Date Documented Date Episodic/Chronic Fetopelvic disproportion; obstruction (14 sources) Cephalopelvic disproportion; Translations: [Maternal care for disproportion, unspecified] Onset: 05-02-2024 05-02-2024 Episodic Gastritis and duodenitis (20 sources) Acute superficial gastritis; Translations: [Acute gastritis without bleeding] Onset: 04-24-2023 04-24-2023 Episodic Mycoses (20 sources) Mycosis; Translations: [Candidiasis, unspecified] Onset: 09-11-2023 09-11-2023 Episodic Other and delivery including normal (20 sources) Third trimester ; Translations: [Encounter for supervision of normal , unspecified, third trimester] Onset: 02-12-2024 Resolved: 03-20-2024 01-15-2024 Episodic Residual codes; unclassified (20 sources) Gestation period, 12 weeks; Translations: [12 weeks gestation of ] Onset: 09-11-2023 Resolved: 03-20-2024 09-11-2023 Episodic Residual codes; unclassified (20 sources) Gestation period, 32 weeks; Translations: [32 weeks gestation of ] Onset: 01-30-2024 Resolved: 03-20-2024 01-29-2024 Episodic Residual codes; unclassified (20 sources) Gestation period, 34 weeks; Translations: [34 weeks gestation of ] Onset: 02-12-2024 Resolved: 03-20-2024 02-12-2024 Episodic Residual codes; unclassified (20 sources) Gestation period, 37 weeks; Translations: [37 weeks gestation of ] Onset: 03-04-2024 Resolved: 03-20-2024 03-04-2024 Episodic Residual codes; unclassified (2 sources) Gestation period, 24 weeks; Translations: [24 weeks gestation of ] 08-26-2024 Episodic Sprains and strains (20 sources) Strain of thoracic region; Translations: [Strain of muscle and tendon of back wall of thorax, initial encounter] Onset: 04-24-2023 04-24-2023 Episodic Results Test Name Value Interpretation Reference Range Facility US PELVIC COMPLETE W/ TVon 0 11-05-2024 US PELVIC COMPLETE W/ TV EXAM: US PELVIC COMPLETE W/ TV HISTORY: Pelvic pain near scar, tugging/tearing sensation. COMPARISON: None available. TECHNIQUE: Two-dimensional transabdominal grayscale ultrasound imaging of the pelvis was performed. Color flow Doppler imaging of the ovaries was also performed. Transvaginal was performed. FINDINGS: UTERUS 9.0 x 3.1 x 4.3 cm The uterus is anteflexed in position and demonstrates a normal, homogeneous echotexture. There is a cesarian section scar niche visualized with a small amount of fluid. This fluid measures 0.5 cm. ENDOMETRIUM 0.6 cm The endometrium demonstrates a normal, homogeneous echotexture. RIGHT OVARY 2.7 x 1.7 x 1.8 cm The right ovary demonstrates a normal echotexture. There is normal color Doppler flow. LEFT OVARY 2.8 x 1.9 x 2.4 cm The left ovary demonstrates a normal echotexture. There is normal color Doppler flow. No fluid is present within the cul-de-sac. IMPRESSION: 1. Cesarian scar niche with a small amount of fluid. 2. Normal color Doppler flow within the bilateral ovaries. Interpreted by: Electronically signed by ALEXA ARNOLD II, MD, PHD at 06-Nov-2024 07:34:57 AM [facility] Normal Not Available Comment on above: Order Comment: US PE LVIS-TRANSVAG IF INDICATED Patient's last menstrual period was 10/02/2024. IGP,APTIMA HPV,AGE GDLNon AGE GDLN ACOG TESTING Note . [facility] Comment on above: TESTS RESULT FLAG UN ITS REF RANGE LAB Clinician Provided Cytology Information Source.............Cervix;Endocervix No. of containers..01 ThinPrep Vial Age Chelsea SMITH Elisa... FLAG LEGEND: L-Low Normal,H-High Normal,LL-Alert Low,HH-Alert High <-Panic Low,>-Panic High,A-Abnormal,AA-Critical Abnormal Performed at: 01 =G [facility] [address] [place] [address] Rachel Berman MD, IGP, RFX APTIMA HPV ASCU Note . [facility] Comment on above: TESTS RESULT FLAG UN ITS REF RANGE LAB DIAGNOSIS: 02 NEGATIVE FOR INTRAEPITHELIAL LESION OR MALIGNANCY. Specimen adequacy: 02 Satisfactory for evaluation. Endocervical and/or squamous metaplastic cells (endocervical component) are present. Performed by: Nelson Sapp, Box Spring Maker ([facility]) . 02 Note: Note 02 The Pap smear is a screening test designed to aid in the detection of premalignant and malignant conditions of the uterine cervix. It is not a diagnostic procedure and should not be used as the sole means of detecting cervical cancer. Both false-positive and false-negative reports do occur. Test Methodology: Note 02 This liquid based ThinPrep(R) pap test was screened with the use of an image guided system. . 02 The HPV DNA reflex criteria were not met with this specimen result therefore, no HPV testing was performed. FLAG LEGEND: L-Low Normal,H-High Normal,LL-Alert Low,HH-Alert High <-Panic Low,>-Panic High,A-Abnormal,AA-Critical Abnormal Performed at: [address] [id number] Rachel Berman MD, Performed at: = - [facility] [id number] Stock Preparation Operator: Rachel Berman MD, Phone: [phone] Performed at: [facility] [address] [id number] Stock Preparation Operator: Rachel Berman MD, Phone: [phone] [facility]-SPATULA CERVIX ENDOCERVIX [facility] Healthcar e ALL CBC WITH AUTO DIFFon BASOPHILS ABSOLUTE AUTO 0.1 [facility] Basophils/100 WBC (Bld) 0.3 % 0.2 - 2.0 % [facility] Eosinophils/100 WBC (Bld) 0.2 % Low 0.9 - 7.0 % [facility] Erythrocyte distribution width (RBC) [Ratio] 14.1 % 11.0 - 15.0 % [facility] [employer] Hematocrit (Bld) [Volume fraction] 31.8 % Low 36.0 - 48.0 % [facility] [employer] Hemoglobin (Bld) [Mass/Vol] 10.7 g/dL Low 12.0 - 16.0 g/dL [facility] IMMATURE GRANULOCYTES ABS AUTO 0.[address] [facility] [employer] Immature granulocytes/100 WBC (Bld) 0.8 % High 0.0 - 0.5 % [facility] Interpretation and review of laboratory results Abnormal [facility] LYMPHOCYTES ABSOLUTE AUTO 3.1 [facility] Lymphocytes/100 WBC (Bld) 16.7 % Low 20.5 - 60.0 % [facility] MCH (RBC) [Entitic mass] 30.8 pg 26.7 - 34.0 pg [facility] MCHC (RBC) [Mass/Vol] 33.6 g/dL 29.9 - 35.2 g/dL [facility] MCV (RBC) [Entitic vol] 91.6 fL 81.0 - 99.0 fL [facility] MONOCYTES ABSOLUTE AUTO 1 High [facility] Monocytes/100 WBC (Bld) 5.2 % 1.7 - 12.0 % [facility] NEUTROPHILS ABSOLUTE AUTO 14.5 High [facility] Neutrophils/100 WBC (Bld) 76.8 % High 43.0 - 75.0 % [facility] Platelet mean volume (Bld) [Entitic vol] 11.4 fL 9.5 - 13.[address] [facility] are TBH EO # 0 [facility] PLT 169 [facility] RBC 3.47 Low [facility] TB[facility] WBC 18.[address] [facility] Healthcar e [facility] Healthcar e HMHP CBC WITH PLATELET NO DI FFERENTIALon 03-20-2024 Erythrocyte distribution width (RBC) [Ratio] 14 % 11.0 - 15.0 % [facility] Hematocrit (Bld) [Volume fraction] 37.6 % 36.0 - 48.0 % [facility] Hemoglobin (Bld) [Mass/Vol] 12.8 g/dL 12.0 - 16.0 g/dL [facility] Interpretation and review of laboratory results Abnormal [facility] MCH (RBC) [Entitic mass] 30.6 pg 26.7 - 34.0 pg [facility] MCHC (RBC) [Mass/Vol] 34 g/dL 29.9 - 35.2 g/dL [facility] MCV (RBC) [Entitic vol] 90 fL 81.0 - 99.0 fL [facility] Platelet mean volume (Bld) [Entitic vol] 11.8 fL 9.5 - 13.[address] [facility] are TBH PLT 222 [facility] TBH RBC 4.18 Low [facility] TB WBC 15 High [facility] Healthcar e [facility] Health[facility] e Urinalysis macro (dipstick) panel (U)on 03-20-2024 Bilirubin, UA Negative Negative - 4(70) +++ mg/dL [facility] Blood, UA Negative Negative - 50 Gonzalez/mcL [facility] Healthcare Clarity, UA Clear [facility] Color, UA Adilia [facility] Glucose, UA Negative Negative - 1999(110) ++++ mg/dL [facility] Interpretation and review of laboratory results Normal [facility] Ketones, UA Negative Negative - 160(16) ++++ mg/dL [facility] Leukocytes, UA Negative Negative - 500+++ Meera/mcL [facility] Nitrite, UA Negative Negative - Positive [facility] pH, UA 6.5 5 - 9 [facility] Protein, UA Negative Negative - 1999(20) ++++ mg/dL [facility] Spec Grav, UA 1.025 1 - 1.03 [facility] Urobilinogen, UA 0.2 0.2 - 12 mg/dL [facility] Urinalysis macro (dipstick) panel (U)on 03-11-2024 Bilirubin, UA Negative Negative - 4(70) +++ mg/dL [facility] Blood, UA Negative Negative - 50 Gonzalez/mcL [facility] Healthcare Clarity, UA Clear [facility] Color, UA Yellow [facility] Healthcar e Glucose, UA Negative Negative - 1999(110) ++++ mg/dL [facility] Interpretation and review of laboratory results Abnormal [facility] Ketones, UA Negative Negative - 160(16) ++++ mg/dL [facility] Leukocytes, UA Positive Negative - 500+++ Meera/mcL [facility] Healthcare Comment on above: small Nitrite, UA Negative Negative - Positive [facility] pH, UA 7 5 - 9 [facility] Protein, UA Negative Negative - 1999(20) ++++ mg/dL [facility] Spec Grav, UA 1.025 1 - 1.03 [facility] care Urobilinogen, UA 0.2 0.2 - 12 mg/dL [facility] Urinalysis macro (dipstick) panel (U)on 03-04-2024 Bilirubin, UA Negative Negative - 4(70) +++ mg/dL [facility] Blood, UA Negative Negative - 50 Gonzalez/mcL [facility] Healthcare Clarity, UA Clear [facility] Color, UA Yellow [facility] Glucose, UA Negative Negative - 1999(110) ++++ mg/dL [facility] Interpretation and review of laboratory results Normal [facility] Ketones, UA Negative Negative - 160(16) ++++ mg/dL [facility] Leukocytes, UA Negative Negative - 500+++ Meera/mcL [facility] Nitrite, UA Negative Negative - Positive [facility] pH, UA 0.2 5 - 9 [facility] Protein, UA Negative Negative - 1999(20) ++++ mg/dL [facility] Spec Grav, UA 1.015 1 - 1.03 [facility] Urobilinogen, UA 0.2 0.2 - 12 mg/dL [facility] STREP GP B NAAon 02-29-2024 STREP GP B JAMIL Strep Gp B JAMIL [facility] STREP GP B JAMIL *ABNORMAL* [facility] STRE[facility] GP B JAMIL Positive [facility] STREP GP B JAMIL Centers for Disease Control and Prevention (CDC) and [facility] STREP GP B JAMIL [employer] [facility] Healthcare STREP GP B JAMIL (ACOG) guidelines fo r prevention of group B [facility] STREP GP B JAMIL streptococcal (GBS) disease specify co-collection of [facility] Healthcare STREP GP B JAMIL a vaginal and rectal swab specimen to maximize [facility] Healthcare STREP GP B JAMIL sensitivity of GBS detection. Per the CDC and ACOG, [facility] STREP GP B JAMIL swabbing both the lower vagina and rectum [facility] STREP GP B JAMIL substantially increases the yield of detection [facility] STREP GP B JAMIL compared with sampling the vagina alone. [facility] STREP GP B JAMIL Penicillin G, ampicillin, or cefazolin are indicated [facility] STREP [facility] B JAM[facility] for intrapartum prophylaxis of GBS [facility] STREP [facility] B JAM[facility] colonization. Reflex susceptibility testing should be [facility] STREP GP B JAMIL performed prior to use of clindamycin only on GBS [facility] Healthcare STREP GP B JAMLI isolates from penicillin-allergic women who are [facility] STREP GP B JAMIL considered a high risk for anaphylaxis. Treatment with [facility] STREP GP B JAMIL vancomycin without additional testing is warranted if [facility] STREP GP B JAMIL resistance to clindamycin is noted. [facility] Healthcare STREP GP B JAMIL [facility]: [facility] ST[facility]P GP B JAM[facility] [address], [place] [id number] [facility] STREP GP B JAMIL Stock Preparation Operator: Timmy Orellana PhD, Phone: [phone] [facility] Urinalysis macro (dipstick) panel (U)on 02-26-2024 Bilirubin, UA Negative Negative - 4(70) +++ mg/dL [facility] Blood, UA Negative Negative - 50 Gonzalez/mcL [facility] Clarity, UA Clear [facility] Color, UA Yellow [facility] Glucose, UA Negative Negative - 1999(110) ++++ mg/dL [facility] Interpretation and review of laboratory results Abnormal [facility] Ketones, UA Positive Negative - 160(16) ++++ mg/dL [facility] Leukocytes, UA Negative Negative - 500+++ Meera/mcL [facility] Healthcare Nitrite, UA Negative Negative - Positive [facility] pH, UA 60 5 - 9 [facility] Protein, UA Negative Negative - 1999(20) ++++ mg/dL [facility] Healthcare Spec Grav, UA 1.02 1 - 1.03 [facility] Urobilinogen, UA 1.0 0.2 - 12 mg/dL [facility] Urinalysis macro (dipstick) panel (U)on 02-12-2024 Bilirubin, UA Negative Negative - 4(70) +++ mg/dL [facility] Blood, UA Negative Negative - 50 Gonzalez/mcL [facility] Healthcare Clarity, UA Clear [facility] Healthca re Color, UA Yellow [facility] Health[facility] e Glucose, UA Negative Negative - 1999(110) ++++ mg/dL [facility] Interpretation and review of laboratory results Abnormal [facility] Ketones, UA Negative Negative - 160(16) ++++ mg/dL [facility] Leukocytes, UA Trace Negative - 500+++ Meera/mcL [facility] Healthcare Nitrite, UA Negative Negative - Positive [facility] pH, UA 6.5 5 - 9 [facility] Protein, UA Negative Negative - 1999(20) ++++ mg/dL [facility] Healthcare Spec Grav, UA 1.02 1 - 1.03 [facility] Urobilinogen, UA 0.2 0.2 - 12 mg/dL [facility] Urinalysis macro (dipstick) panel (U)on 01-29-2024 Bilirubin, UA Negative Negative - 4(70) +++ mg/dL [facility] Blood, UA Negative Negative - 50 Gonzalez/mcL [facility] Clarity, UA Clear [facility] Color, UA Yellow [facility] Glucose, UA Negative Negative - 1999(110) ++++ mg/dL [facility] Interpretation and review of laboratory results Normal [facility] Ketones, UA Negative Negative - 160(16) ++++ mg/dL [facility] Leukocytes, UA Negative Negative - 500+++ Meera/mcL [facility] Healthcare Nitrite, UA Negative Negative - Positive [facility] pH, UA 6.5 5 - 9 [facility] Protein, UA Negative Negative - 1999(20) ++++ mg/dL [facility] Spec Grav, UA 1.025 1 - 1.03 [facility] Urobilinogen, UA 0.2 0.2 - 12 mg/dL [facility] Urinalysis macro (dipstick) panel (U)on 01-15-2024 Bilirubin, UA Negative Negative - 4(70) +++ mg/dL [facility] Blood, UA Negative Negative - 50 Gonzalez/mcL [facility] Healthcare Clarity, UA Clear [facility] Color, UA Yellow [facility] Health[facility] e Glucose, UA Negative Negative - 1999(110) ++++ mg/dL [facility] Interpretation and review of laboratory results Normal [facility] Ketones, UA Negative Negative - 160(16) ++++ mg/dL [facility] Leukocytes, UA Negative Negative - 500+++ Meera/mcL [facility] Healthcare Nitrite, UA Negative Negative - Positive [facility] pH, UA 6.5 5 - 9 [facility] Health[facility] e Protein, UA Negative Negative - 1999(20) ++++ mg/dL [facility] Spec Grav, UA 1.025 1 - 1.03 [facility] care Urobilinogen, UA 0.2 0.2 - 12 mg/dL [facility] Urinalysis macro (dipstick) panel (U)on 01-01-2024 Bilirubin, UA Negative Negative - 4(70) +++ mg/dL [facility] Blood, UA Negative Negative - 50 Gonzalez/mcL [facility] Clarity, UA Clear [facility] Color, UA Yellow [facility] Glucose, UA Negative Negative - 1999(110) ++++ mg/dL [facility] Interpretation and review of laboratory results Normal [facility] Ketones, UA Negative Negative - 160(16) ++++ mg/dL [facility] Leukocytes, UA Negative Negative - 500+++ Meera/mcL [facility] Nitrite, UA Negative Negative - Positive [facility] pH, UA 5.5 5 - 9 [facility] Protein, UA Negative Negative - 1999(20) ++++ mg/dL [facility] Spec Grav, UA 1.025 1 - 1.03 [facility] Urobilinogen, UA 0.2 0.2 - 12 mg/[facility] WITH AUTO DIFFon BASOPHILS ABSOLUTE AUTO 0.0 [facility] Basophils/100 WBC (Bld) 0.3 % 0.2 - 2.0 % [facility] Eosinophils/100 WBC (Bld) 0.5 % Low 0.9 - 7.0 % [facility] Erythrocyte distribution width (RBC) [Ratio] 13.2 % 11.0 - 15.0 % [facility] Hematocrit (Bld) [Volume fraction] 39.8 % 36.0 - 48.0 % [facility] e Hemoglobin (Bld) [Mass/Vol] 13.2 g/dL 12.0 - 16.0 g/dL [facility] IMMATURE GRANULOCYTES ABS AUTO 0.07 High [facility] Immature granulocytes/100 WBC (Bld) 0.6 % High 0.0 - 0.5 % [facility] Interpretation and review of laboratory results Abnormal [facility] LYMPHOCYTES ABSOLUTE AUTO 2.0 [facility] Lymphocytes/100 WBC (Bld) 16.4 % Low 20.5 - 60.0 % [facility] MCH (RBC) [Entitic mass] 31.1 pg 26.7 - 34.0 pg [facility] MCHC (RBC) [Mass/Vol] 33.2 g/dL 29.9 - 35.2 g/dL [facility] MCV (RBC) [Entitic vol] 93.9 fL 81.0 - 99.0 fL [facility] MONOCYTES ABSOLUTE AUTO 0.4 [facility] Monocytes/100 WBC (Bld) 2.8 % 1.7 - 12.0 % [facility] NEUTROPHILS ABSOLUTE AUTO 9.9 High [facility] Neutrophils/100 WBC (Bld) 79.4 % High 43.0 - 75.0 % [facility] Platelet mean volume (Bld) [Entitic vol] 10.8 fL 9.5 - 13.[address] [facility] are TBH EO # 0.1 [facility] PLT [address] [facility] TBH RBC 4.24 [facility] WBC 12.[address] [facility] Hemoglobin A1Con 11-06-2022 Glucose [Mass/Vol] 103 mg/dL Normal [facility] Comment on above: Result Comment: The ADA and AACC recommend providing the estimated average glucose result to permit better patient understanding of their HBA1c result. Performed By: #### T JOAN GEORGES, BMP, LIVP #### [facility] [address] [place] [address] [place] [address] Stock Preparation Operator: Abeba Parra MD #### GIOVANNI, LIPR #### [facility] [email or web address] Application [address] [place], [place] [phone] Stock Preparation Operator: Chapin Bellamy MD HbA1c (Bld) [Mass fraction] 5.2 % Normal 4.0-6.0 [facility] Comment on above: Performed By: #### T JOAN GEORGES BMP, LIVP #### [address] [place] [phone] Stock Preparation Operator: Abeba Parra MD #### GIOVANNI, LIPR #### [address] [phone] Stock Preparation Operator: Chapin Bellamy MD Lipid Profileon 11-05-2022 Cholesterol [Mass/Vol] 130 mg/dL Normal <200 [facility] Comment on above: Result Comment: Cholesterol Guidelines: <200 Desirable 200-240 Borderline >240 Undesirable Performed By: #### T DESTINI, JOAN, BMP, LIVP #### [facility] [address] [place] [address] [place] [address] Stock Preparation Operator: Abeba Parra MD #### GLYALDEN, LIPR #### [facility] [email or web address] Application [address] [place] [address] Stock Preparation Operator: Chapin Bellamy MD Cholesterol in HDL [Mass/Vol] 61 mg/dL Normal >40 [facility] Comment on above: Result Comment: HDL Guidelines: <40 Undesirable 40-59 Borderline >59 Desirable Performed By: #### T SH, CDP, BMP, LIVP #### [facility] [address] [place] [address] Dr. [place], [place] [phone] Stock Preparation Operator: Abeba Parra MD #### GLYHGB, LIPR #### [address] [place], [place] [phone] Stock Preparation Operator: Chapin Bellamy MD Cholesterol in LDL [Mass/Vol] 56 mg/dL Normal 0-130 [facility] Comment on above: Result Comment: LDL Guidelines: <100 Desirable 100-129 Near to/above Desirable 130-159 Borderline >159 Undesirable Direct (measured) LDL and calculated LDL are not interchangeable tests. Performed By: #### T SH, CDP, BMP, LIVP #### [address] [place], [place] [phone] Stock Preparation Operator: Abeba Parra MD #### GLYHGB, LIPR #### [address] [place], [place] [phone] Stock Preparation Operator: Chapin Bellamy MD Cholesterol.total/Ch olesterol in HDL [Mass ratio] 2.1 {ratio} Normal <5 [facility] Comment on above: Performed By: #### T SH, CDP, BMP, LIVP #### [facility] [address] [place] [address] [place] [address] Stock Preparation Operator: Abeba Parra MD #### GLYHGB, LIPR #### [address] [place], [place] [phone] Stock Preparation Operator: Chapin Bellamy MD Triglyceride [Mass/Vol] 64 mg/dL Normal <150 [facility] Comment on above: Result Comment: Triglyceride Guidelines: <150 Desirable 150-199 Borderline 200-499 High >499 Very high Based on AHA Guidelines for fasting triglyceride, January 2012. Performed By: #### T SH, CDP, BMP, LIVP #### [facility] [address] [place] [address] Stock Preparation Operator: Abeba Parra MD #### GLYHGB, LIPR #### [facility] [address] [place], [place] [phone] Stock Preparation Operator: Chapin Bellamy MD Basic Metabolic Panelon - Anion gap [Moles/Vol] 11 mmol/L 9 - 17 mmol/L [facility] [employer] Calcium [Mass/Vol] 9.7 mg/dL 8.6 - 10. 4 mg/dL [facility] Chloride [Moles/Vol] 107 mmol/L 98 - 10 7 mmol/L [facility] CO2 [Moles/Vol] 22 mmol/L 20 - 31 mmol/L [facility] Creatinine [Mass/Vol] 0.6 mg/dL 0.5 - 0.9 mg/dL [facility] [employer] GFR/1.73 sq M.predicted MDRD (S/P/Bld) [Vol rate/Area] - PINF [facility] Comment on above: These results are not [...] [Mass/Vol] 85 mg/dL 70 - 99 mg/dL [facility] [employer] [facility] [employer] Interpretation and review of laboratory results Abnormal [facility] Potassium [Moles/Vol] 3.9 mmol/L 3.7 - 5.3 mmol/L [facility] Sodium [Moles/Vol] 140 mmol/L 135 - 144 mmol/L [facility] Urea nitrogen [Mass/Vol] 18 mg/dL 6 - 20 mg/dL [facility] Urea nitrogen/Creatinine [Mass ratio] 30 mg/mg High 9 - 20 [facility] Basic Metabolic Profon 11-04 Anion gap [Moles/Vol] 11 mmol/L Normal - [facility] Comment on above: Performed By: #### T SH, CDP, BMP, LIVP #### [facility] [address] [place] [address] Stock Preparation Operator: Abeba Parra MD #### GLYHGB, LIPR #### [facility] [address] [place], [place] [phone] Stock Preparation Operator: Chapin Bellamy MD BUN/CRE Ratio 30 High - [facility] Comment on above: Performed By: #### T SH, CDP, BMP, LIVP #### [facility] [address] [place] [address] Stock Preparation Operator: Abeba Parra MD #### GLYHGB, LIPR #### [facility] [address] [place], [place] [phone] Stock Preparation Operator: Chapin Bellamy MD Calcium [Mass/Vol] 9.7 mg/dL Normal 8.6-10.4 [facility] Comment on above: Performed By: #### T SH, CDP, BMP, LIVP #### [facility] [address] [place] [address] Stock Preparation Operator: Abeba Parra MD #### GLYHGB, LIPR #### [facility] [address] [place], [place] [phone] Stock Preparation Operator: Chapin Bellamy MD Chloride [Moles/Vol] 107 mmol/L Normal 98-107 [facility] Comment on above: Performed By: #### T SH, CDP, BMP, LIVP #### [facility] [address] [place] [address] Stock Preparation Operator: Abeba Parra MD #### GLYHGB, LIPR #### [address] [place], [place] [phone] Stock Preparation Operator: Chapin Bellamy MD CO2 [Moles/Vol] 22 mmol/L Normal 20-31 [facility] Comment on above: Performed By: #### T SH, CDP, BMP, LIVP #### [facility] [address] [place], [place] [phone] Stock Preparation Operator: Abeba Parra MD #### GLYHGB, LIPR #### [address] [place], [place] [phone] Stock Preparation Operator: Chapin Bellamy MD Creatinine [Mass/Vol] 0.6 mg/dL Normal 0.5-0.9 [facility] Comment on above: Performed By: #### T SH, CDP, BMP, LIVP #### [facility] [address] [place], [place] [phone] Stock Preparation Operator: Abeba Parra MD #### GLYHGB, LIPR #### [address] [phone] Stock Preparation Operator: Chapin Bellamy MD GFR/1.73 sq M.predicted among non-blacks MDRD (S/P/Bld) [Vol rate/Area] mL/min/{1.73_m2} Normal >60 [facility] Comment on above: Result Comment: [...] #### T SH, CDP, BMP, LIVP #### [facility] [address] [place], [place] [phone] Stock Preparation Operator: Abeba Parra MD #### GLYHGB, LIPR #### [address] [place] [address] Stock Preparation Operator: Chapin Bellamy MD Glucose [Mass/Vol] 85 mg/dL Normal 70-99 [facility] Comment on above: Performed By: #### T SH, CDP, BMP, LIVP #### [facility] [address] [place] [address] Dr. [place], [place] [phone] Stock Preparation Operator: Abeba Parra MD #### GLYHGB, LIPR #### [address] [phone] Stock Preparation Operator: Chapin Bellamy MD Potassium [Moles/Vol] 3.9 mmol/L Normal 3.7-5.3 [facility] Comment on above: Performed By: #### T SH, CDP, BMP, LIVP #### [facility] [address] [place] [address] Dr. [place], [place] [phone] Stock Preparation Operator: Abeba Parra MD #### GLYHGB, LIPR #### [address] [id number] Stock Preparation Operator: Chapin Bellamy MD Sodium [Moles/Vol] 140 mmol/L Normal 135-144 [facility] Comment on above: Performed By: #### T SH, CDP, BMP, LIVP #### [address] [place], [place] 1865383 Stock Preparation Operator: Abeba Parra MD #### GLYHGB, LIPR #### [address] [place] [address] Stock Preparation Operator: Chapin Bellamy MD Urea nitrogen [Mass/Vol] 18 mg/dL Normal 6-20 [facility] Comment on above: Performed By: #### T SH, CDP, BMP, LIVP #### [facility] [address] [place] [address] Dr. [place], [place] [phone] Stock Preparation Operator: Abeba Parra MD #### GLYHGB, LIPR #### [address] [place] [address] Stock Preparation Operator: Chapin Bellamy MD CBC with Auto Differentialon 11-04-2022 Basophils (Bld) [#/Vol] 0.05 10*3/uL [facility] Basophils/100 WBC (Bld) 1 % 0 - 2 % [facility] Eosinophils (Bld) [#/Vol] 0.06 10*3/uL [facility] Eosinophils/100 WBC (Bld) 1 % 1 - 4 % [facility] Erythrocyte distribution width (RBC) [Ratio] 13.0 % 11.8 - 14.4 % [facility] Hematocrit (Bld) [Volume fraction] 43.3 % 36.3 - 47.1 % [facility] Hemoglobin (Bld) [Mass/Vol] 14.2 g/dL 11.9 - 15.1 g/dL [facility] Immature granulocytes (Bld) [#/Vol] [facility] Immature granulocytes/100 WBC (Bld) 0 % 0 [facility] Lymphocytes/100 WBC (Bld) 30 % 24 - 43 % [facility] Lymphocytes/100 WBC (Bld) 3.22 % [facility] MCH (RBC) [Entitic mass] 30.2 pg 25.2 - 33.5 pg [facility] MCHC (RBC) [Mass/Vol] 32.8 g/dL 28.4 - 34.8 g/dL [facility] MCV (RBC) [Entitic vol] 92.1 fL 82.6 - 102.9 fL [facility] Monocytes/100 WBC (Bld) 5 % 3 - 12 % [facility] Monocytes/100 WBC (Bld) 0.50 % [facility] Neutrophils/100 WBC (Bld) 63 % 36 - 65 % [facility] Nucleated RBC/100 WBC (Bld) [Ratio] 0.0 % 0.0 per 100 WBC [facility] Platelet mean volume (Bld) [Entitic vol] 11.0 fL 8.1 - 13.5 fL [facility] Platelets (Bld) [#/Vol] 264 10*3/uL [facility] RBC (Bld) [#/Vol] 4.70 10*6/uL 3.95 - 5.1 1 m/uL [facility] Segmented neutrophils/100 WBC (Bld) 6.95 % [facility] WBC other (Bld) [#/Vol] 10.8 [facility] CBC with Diffon 11-04-2022 Abs. Basophil 0.05 k/uL Normal 0.00-0.20 [facility] Comment on above: Performed By: #### T SH, CDP, BMP, LIVP #### [facility] [address] [place] [address] [place] [address] Stock Preparation Operator: Abeba Parra MD #### GLYHGB, LIPR #### [place] [phone] Stock Preparation Operator: Chapin Bellamy MD Abs.Imm.Granulocyte <0.03 Normal 0.00-0.30 [facility] Comment on above: Performed By: #### T SH, CDP, BMP, LIVP #### [address] [place] [phone] Stock Preparation Operator: Abeba Parra MD #### GLYHGTanya, LIPR #### [place] [phone] Stock Preparation Operator: Chapin Bellamy MD Abs.Neutrophil (Seg) 6.95 k/uL Normal 1.50-8.10 [facility] Comment on above: Performed By: #### T SH, CDP, BMP, LIVP #### [facility] [address] [place] [address] [place] [address] Stock Preparation Operator: Abeba Parra MD #### GLYHGB, LIPR #### [address] [phone] Stock Preparation Operator: Chapin Bellamy MD Basophils/100 WBC (Bld) 1 % Normal 0-2 [facility] Comment on above: Performed By: #### T SH, CDP, BMP, LIVP #### [address] [place] [phone] Stock Preparation Operator: Abeba Parra MD #### GLYHGB, LIPR #### [place] [phone] Stock Preparation Operator: Chapin Bellamy MD Eosinophils (Bld) [#/Vol] 0.06 10*3/uL Normal 0.00-0.44 [facility] Comment on above: Performed By: #### T SH, CDP, BMP, LIVP #### [address] [place] [place] [address] Stock Preparation Operator: Abeba Parra MD #### GLYHGTanya, LIPR #### [place] [address] Stock Preparation Operator: Chapin Bellamy MD Eosinophils/100 WBC (Bld) 1 % Normal 1-4 [facility] Comment on above: Performed By: #### T SH, CDP, BMP, LIVP #### [address] [place] [phone] Stock Preparation Operator: Abeba Parra MD #### GLYHGTanya, LIPR #### [place] [address] Stock Preparation Operator: Chapin Bellamy MD Erythrocyte distribution width (RBC) [Ratio] 13.0 % Normal 11.8-14.4 [facility] Comment on above: Performed By: #### T SH, CDP, BMP, LIVP #### [address] [place] [phone] Stock Preparation Operator: Abeba Parra MD #### GLYHGB, LIPR #### [place] [phone] Stock Preparation Operator: Chapin Bellamy MD Hematocrit (Bld) [Volume fraction] 43.3 % Normal 36.3-47.1 [facility] Comment on above: Performed By: #### T SH, CDP, BMP, LIVP #### [facility] [address] [place] [address] [place] [phone] Stock Preparation Operator: bAeba Parra MD #### GLYHGB, LIPR #### [address] [phone] Stock Preparation Operator: Chapin Bellamy MD Hemoglobin (Bld) [Mass/Vol] 14.2 g/dL Normal 11.9-15.1 [facility] Comment on above: Performed By: #### T SH, CDP, BMP, LIVP #### [address] [place] [phone] Stock Preparation Operator: Abeba Parra MD #### GLYHGB, LIPR #### [place] [phone] Stock Preparation Operator: Chapin Bellamy MD Immature granulocytes/100 WBC (Bld) 0 % Normal 0 [facility] Comment on above: Performed By: #### T SH, CDP, BMP, LIVP #### [address] [place] [phone] Stock Preparation Operator: Abeba Parra MD #### GLYHGB, LIPR #### [place] [address] Stock Preparation Operator: Chapin Bellamy MD Lymphocytes (Bld) [#/Vol] 3.22 10*3/uL Normal 1.10-3.70 [facility] Comment on above: Performed By: #### T SH, CDP, BMP, LIVP #### [facility] [address] [place] [address] [place] [phone] Stock Preparation Operator: Abeba Parra MD #### GLYHGB, LIPR #### [address] [place], [place] [phone] Stock Preparation Operator: Chapin Bellamy MD Lymphocytes/100 WBC (Bld) 30 % Normal 24-43 [facility] Comment on above: Performed By: #### T SH, CDP, BMP, LIVP #### [facility] [address] [place] [address] Dr. [place] [phone] Stock Preparation Operator: Abeba Parra MD #### GLYHGB, LIPR #### [address] [id number] Stock Preparation Operator: Chapin Bellamy MD MCH (RBC) [Entitic mass] 30.2 pg Normal 25.2-33.5 [facility] Comment on above: Performed By: #### T SH, CDP, BMP, LIVP #### [address] [place] [phone] Stock Preparation Operator: Abeba Parra MD #### GLYHGB, LIPR #### [address] [phone] Stock Preparation Operator: Chapin Bellamy MD MCHC (RBC) [Mass/Vol] 32.8 g/dL Normal 28.4-34.8 [facility] Comment on above: Performed By: #### T SH, CDP, BMP, LIVP #### [address] [place] [phone] Stock Preparation Operator: Abeba Parra MD #### GLYHGB, LIPR #### [address] [phone] Stock Preparation Operator: Chapin Bellamy MD MCV (RBC) [Entitic vol] 92.1 fL Normal 82.6-102.9 [facility] Comment on above: Performed By: #### T SH, CDP, BMP, LIVP #### [address] [place] [place] [address] Stock Preparation Operator: Abeba Parra MD #### GLYHGB, LIPR #### [address] [address] Stock Preparation Operator: Chapin Bellamy MD Monocytes (Bld) [#/Vol] 0.50 10*3/uL Normal 0.10-1.20 [facility] Comment on above: Performed By: #### T SH, CDP, BMP, LIVP #### [address] [place] [address] Stock Preparation Operator: Abeba Parra MD #### GLYHGB, LIPR #### [place] [address] Stock Preparation Operator: Chapin Bellamy MD Monocytes/100 WBC (Bld) 5 % Normal 3-12 [facility] Comment on above: Performed By: #### T SH, CDP, BMP, LIVP #### [address] [place] [place] [address] Stock Preparation Operator: Abeba Parra MD #### GLYHGB, LIPR #### [place] [address] Stock Preparation Operator: Chapin Bellamy MD Neutrophil (Seg) 63 % Normal 36-65 [facility] Comment on above: Performed By: #### T SH, CDP, BMP, LIVP #### [address] [place] [phone] Stock Preparation Operator: Abeba Parra MD #### GLYHGB, LIPR #### [place] [address] Stock Preparation Operator: Chapin Bellamy MD NRBC Automated 0.0 per 100 WBC Normal 0.0 [facility] Comment on above: Performed By: #### T SH, CDP, BMP, LIVP #### [address] [place] [phone] ( Stock Preparation Operator: Abeba Parra MD #### GLYHGB, LIPR #### [address] [place], [place] [phone] Stock Preparation Operator: Chapin Bellamy MD Platelet mean volume (Bld) [Entitic vol] 11.0 fL Normal 8.1-13.5 [facility] Comment on above: Performed By: #### T SH, CDP, BMP, LIVP #### [address] [place] [phone] Stock Preparation Operator: Abeba Parra MD #### GLYHGB, LIPR #### [place] [address] Stock Preparation Operator: Chapin Bellamy MD Platelets (Bld) [#/Vol] 264 10*3/uL Normal 138-453 [facility] Comment on above: Performed By: #### T SH, CDP, BMP, LIVP #### [address] [place] [phone] Stock Preparation Operator: Abeba Parra MD #### VERONICAHGTanya, LIPR #### [place] [address] Stock Preparation Operator: Chapin Bellamy MD RBC (Bld) [#/Vol] 4.70 10*6/uL Normal 3.95-5.11 [facility] Comment on above: Performed By: #### T SH, CDP, BMP, LIVP #### [address] [place] [phone] Stock Preparation Operator: Abeba Parra MD #### GLYHGB, LIPR #### [place] [address] Stock Preparation Operator: Chapin Bellamy MD WBC (Bld) [#/Vol] 10.8 10*3/uL Normal 3.5-11.3 [facility] Comment on above: Performed By: #### T SH, CDP, BMP, LIVP #### [facility] [address] [place] [address] Stock Preparation Operator: Abeba Parra MD #### GLYHGB, LIPR #### [facility] [address] [place], [place] [phone] Stock Preparation Operator: Chapin Bellamy MD Hepatic Function Panelon Albumin [Mass/Vol] 4.2 g/dL 3.5 - 5.2 g/dL [facility] Albumin/Globulin [Mass ratio] 1.3 {ratio} 1.0 - 2.5 [facility] ALP [Catalytic activity/Vol] 80 U/L 35 - 104 U/L [facility] ALT [Catalytic activity/Vol] 23 U/L 5 - 33 U/L [facility] AST [Catalytic activity/Vol] 22 U/L NINF - 32 U/L [facility] Bilirubin [Mass/Vol] 0.5 mg/dL 0.3 - 1 .2 mg/dL [facility] Bilirubin.direct [Mass/Vol] mg/dL NINF - 0.3 mg/dL [facility] Bilirubin.indirect [Mass/Vol] Can not be calculated 0.0 - 1.0 mg/dL [facility] Protein [Mass/Vol] 7.4 g/dL 6.4 - 8.3 g/dL [facility] Lipid Panelon 11-04-2022 Cholesterol [Mass/Vol] 130 mg/dL NINF - 200 mg/dL [facility] Comment on above: Cholesterol Guidelines: <200 Desirable 200-240 Borderline >240 Undesirable Cholesterol in HDL [Mass/Vol] 61 mg/dL 40 - PINF mg/dL [facility] Comment on above: HDL Guidelines: <40 Undesirable 40-59 Borderline >59 Desirable Cholesterol in LDL [Mass/Vol] 56 mg/dL 0 - 130 mg/dL [facility] Comment on above: LDL Guidelines: <100 Desirable 100-129 Near to/above Desirable 130-159 Borderline >159 Undesirable Direct (measured) LDL and calculated LDL are not interchangeable tests. Cholesterol.total/Ch olesterol in HDL [Mass ratio] 2.1 {ratio} NINF - 5 [facility] Triglyceride [Mass/Vol] 64 mg/dL NINF - 150 mg/dL [facility] Comment on above: Triglyceride Guidelines: <150 Desirable 150-199 Borderline 200-499 High >499 Very high Based on AHA Guidelines for fasting triglyceride, January 2012. [facility] Liver Profileon 11-04-2022 Albumin [Mass/Vol] 4.2 g/dL Normal 3.5-5.2 [facility] Comment on above: Performed By: #### T SH, CDP, BMP, LIVP #### [facility] [address] [place], [place] [phone] Stock Preparation Operator: Abeba Parra MD #### GLYHGB, LIPR #### [address] [phone] Stock Preparation Operator: Chapin Bellamy MD Albumin/Glob Ratio 1.3 Normal 1.0-2.5 [facility] Comment on above: Performed By: #### T SH, CDP, BMP, LIVP #### [facility] [address] [place], [place] [phone] Stock Preparation Operator: Abeba Parra MD #### GLYHGB, LIPR #### [address] [place], [place] [phone] Stock Preparation Operator: Chapin Bellamy MD Alkaline Phos 80 U/L Normal 35-104 [facility] Comment on above: Performed By: #### T SH, CDP, BMP, LIVP #### [facility] [address] [place], [place] [phone] Stock Preparation Operator: Abeba Parra MD #### GLYHGB, LIPR #### [address] [place] [address] Stock Preparation Operator: Chapin Bellamy MD ALT [Catalytic activity/Vol] 23 U/L Normal 5-33 [facility] Comment on above: Performed By: #### T SH, CDP, BMP, LIVP #### [facility] [address] [place], [place] [phone] Stock Preparation Operator: Abeba Parra MD #### GLYHGB, LIPR #### [address] [place], [place] [phone] Stock Preparation Operator: Chapin Bellamy MD AST [Catalytic activity/Vol] 22 U/L Normal <32 [facility] Comment on above: Performed By: #### T SH, CDP, BMP, LIVP #### [facility] [address] [place], [place] [phone] Stock Preparation Operator: Abeba Parra MD #### GLYHGB, LIPR #### [address] [phone] Stock Preparation Operator: Chapin Bellamy MD Bilirubin [Mass/Vol] 0.5 mg/dL Normal 0.3-1.2 [facility] Comment on above: Performed By: #### T SH, CDP, BMP, LIVP #### [facility] [address] [place], [place] [phone] Stock Preparation Operator: Abeba Parra MD #### GLYHGB, LIPR #### [address] [id number] Stock Preparation Operator: Chapin Bellamy MD Bilirubin, Indirect Can not be calculated Normal 0.0-1 .0 [facility] Comment on above: Performed By: #### T SH, CDP, BMP, LIVP #### [facility] [address] [place], [place] [phone] Stock Preparation Operator: Abeba Parra MD #### GLYHGB, LIPR #### [address] [place], [place] [phone] Stock Preparation Operator: Chapin Bellamy MD Bilirubin.indirect [Mass/Vol] mg/dL Normal <0.3 [facility] Comment on above: Performed By: #### T SH, CDP, BMP, LIVP #### [address] [place] [address] Stock Preparation Operator: Abeba Parra MD #### GIOVANNI, LIPR #### [address] [place], [place] [phone] Stock Preparation Operator: Chapin Bellamy MD Protein [Mass/Vol] 7.4 g/dL Normal 6.4-8.3 [facility] Comment on above: Performed By: #### T SH, CDP, BMP, LIVP #### [address] [place] [place] [address] Stock Preparation Operator: Abeba Parra MD #### GIOVANNI, LIPR #### [address] [place] [address] Stock Preparation Operator: Chapin Bellamy MD No Panel Informationon 11-04 [facility] TSHon 11-04-2022 TSH Qn 1.57 m[IU]/L [facility] Thyroid Stim. Horm.on 2022 Thyroid Stim. Horm. 1.57 uIU/mL Normal 0.30-5.00 [facility] Comment on above: Performed By: #### T SH, CDP, BMP, LIVP #### [address] [place] [address] Stock Preparation Operator: Abeba Parra MD #### GIOVANNI, LIPR #### [id number] [place] [address] Stock Preparation Operator: Chapin Bellamy MD NM HEPATOBILIARY SCAN W [...] by: ABEBA APODACA Date: 2020-01-30 09:[address] [facility] US SINGLE QUAD RT UPPERon US [...] by: ABEBA APODACA Date: 2020-01-22 11:[address] [facility] Vital Signs Date Time Vital Sign Value Performing Clinician Vinnie reilly 11-18-2024 10:41-0400 Body mass index (BMI) [Ratio] 35.45 kg/m2 Zayo Work Phone: [facility] 11-18-2024 10:41-0400 Body weight 96.62 kg Zayo Work Phone: [facility] 11-18-2024 10:41-0400 Diastolic blood pressure 72 mm[Hg] Zayo Work Phone: [facility] 11-18-2024 10:41-0400 Systolic blood pressure 118 mm[Hg] Zayo Work Phone: [facility] 10-23-2024 11:16-0400 Body mass index (BMI) [Ratio] 35.58 kg/m2 Nida Alisson DO Work Phone: [facility] 10-23-2024 11:16-0400 Body weight 96.98 kg Nida Alisson DO Work Phone: [facility] 10-23-2024 11:16-0400 Diastolic blood pressure 80 mm[Hg] Nida Alisson DO Work Phone: [facility] 10-23-2024 11:16-0400 Systolic blood pressure 120 mm[Hg] Nida Alisson DO Work Phone: [facility] 06-10-2024 12:11-0500 Body mass index (BMI) [Ratio] 35.11 kg/m2 Nida Alisson DO Work Phone: [facility] 06-10-2024 12:11-0500 Body weight 95.71 kg Nida Alisson DO Work Phone: [facility] 05-02-2024 09:47-0500 Body mass index (BMI) [Ratio] 36.11 kg/m2 Nida Alisson DO Work Phone: [facility] 05-02-2024 09:47-0500 Body weight 98.43 kg Nida Alisson DO Work Phone: [facility] 05-02-2024 09:47-0500 Diastolic blood pressure 76 mm[Hg] Nida Alisson DO Work Phone: [facility] 05-02-2024 09:47-0500 Systolic blood pressure 128 mm[Hg] Nida Alisson DO Work Phone: [facility] 03-27-2024 15:39-0500 Body mass index (BMI) [Ratio] 39.07 kg/m2 [place] [facility] Work Phone: [facility] 03-27-2024 15:39-0500 Body weight 106.5 kg [place] [facility] Work Phone: [facility] 03-27-2024 15:39-0500 Diastolic blood pressure 88 mm[Hg] Venice Wadley PA Work Phone: [facility] 03-27-2024 15:39-0500 Systolic blood pressure 140 mm[Hg] Venice George PA Work Phone: [facility] 03-20-2024 11:15-0500 Body mass index (BMI) [Ratio] 40.44 kg/m2 Venice Wadley PA Work Phone: [facility] 03-20-2024 11:15-0500 Body weight 110.22 kg Venice George PA Work Phone: [facility] 03-20-2024 11:15-0500 Diastolic blood pressure 78 mm[Hg] Venice Wadley PA Work Phone: [facility] 03-20-2024 11:15-0500 Systolic blood pressure 122 mm[Hg] Venice Wadley PA Work Phone: [facility] 03-11-2024 08:39-0500 Body mass index (BMI) [Ratio] 40.12 kg/m2 Venice George PA Work Phone: [facility] 03-11-2024 08:39-0500 Body weight 109.37 kg Venice Wadley PA Work Phone: [facility] 03-11-2024 08:39-0500 Diastolic blood pressure 80 mm[Hg] Venice Wadley PA Work Phone: [facility] 03-11-2024 08:39-0500 Systolic blood pressure 130 mm[Hg] Venice Wadley PA Work Phone: [facility] 03-04-2024 11:28-0500 Body mass index (BMI) [Ratio] 40.29 kg/m2 Nida Alisson DO Work Phone: [facility] 03-04-2024 11:28-0500 Body weight 109.83 kg Nida Alisson DO Work Phone: [facility] 03-04-2024 11:28-0500 Diastolic blood pressure 74 mm[Hg] Nida Alisson DO Work Phone: [facility] 03-04-2024 11:28-0500 Systolic blood pressure 106 mm[Hg] Nida Alisson DO Work Phone: [facility] 02-26-2024 14:25-0500 Body mass index (BMI) [Ratio] 40.07 kg/m2 Nida Alisson DO Work Phone: [facility] 02-26-2024 14:25-0500 Body weight 109.23 kg Nida Alisson DO Work Phone: [facility] 02-26-2024 14:25-0500 Diastolic blood pressure 76 mm[Hg] Nida Alisson DO Work Phone: [facility] 02-26-2024 14:25-0500 Systolic blood pressure 126 mm[Hg] Nida Alisson DO Work Phone: [facility] 02-12-2024 16:31-0500 Body mass index (BMI) [Ratio] 39.77 kg/m2 Venice Vazquez PA Work Phone: [facility] 02-12-2024 16:31-0500 Body weight 108.41 kg Venice George PA Work Phone: [facility] 02-12-2024 16:31-0500 Diastolic blood pressure 78 mm[Hg] Venice Vazquez PA Work Phone: [facility] 02-12-2024 16:31-0500 Systolic blood pressure 124 mm[Hg] Venice Vazquez PA Work Phone: [facility] 01-29-2024 16:01-0400 Body mass index (BMI) [Ratio] 38.77 kg/m2 Nida Alisson DO Work Phone: [facility] 01-29-2024 16:01-0400 Body weight 105.69 kg Nida Alisson DO Work Phone: [facility] 01-29-2024 16:01-0400 Diastolic blood pressure 70 mm[Hg] Nida Alisson DO Work Phone: [facility] 01-29-2024 16:01-0400 Systolic blood pressure 118 mm[Hg] Nida Alisson DO Work Phone: [facility] 01-15-2024 14:56-0400 Body mass index (BMI) [Ratio] 38.11 kg/m2 Venice Vazquez PA Work Phone: [facility] 01-15-2024 14:56-0400 Body weight 103.87 kg Venice Vazquez PA Work Phone: [facility] 01-15-2024 14:56-0400 Diastolic blood pressure 74 mm[Hg] Venice Vazquez PA Work Phone: [facility] 01-15-2024 14:56-0400 Systolic blood pressure 120 mm[Hg] Venice Vazquez PA Work Phone: [facility] 01-01-2024 15:28-0400 Body mass index (BMI) [Ratio] 37.67 kg/m2 Nida Alisson DO Work Phone: [facility] 01-01-2024 15:28-0400 Body weight 102.69 kg Nida Alisson DO Work Phone: [facility] 01-01-2024 15:28-0400 Diastolic blood pressure 70 mm[Hg] Nida Alisson DO Work Phone: [facility] 01-01-2024 15:28-0400 Systolic blood pressure 120 mm[Hg] Ndia Alisson DO Work Phone: [facility] 12-04-2023 16:21-0400 Body mass index (BMI) [Ratio] 36.8 kg/m2 Nida Alisson DO Work Phone: [facility] 12-04-2023 16:21-0400 Body weight 100.3 kg Nida Alisson DO Work Phone: [facility] 12-04-2023 16:21-0400 Diastolic blood pressure 70 mm[Hg] Nida Alisson DO Work Phone: [facility] 12-04-2023 16:21-0400 Systolic blood pressure 120 mm[Hg] Nida Alisson DO Work Phone: [facility] Encounters Encounter Date Encounter Type Care Provider Facility Start: 11-18-2024 End: 11-18-2024 Bamboo flowsheet Nida Alisson DO Work Phone: [facility] Start: 11-18-2024 End: 11-18-2024 Bamboo flowsheet Nida Alisson DO Work Phone: [facility] Start: 11-18-2024 End: 11-18-2024 ambulatory NIDA ALISSON Not Available Start: 11-18-2024 End: 11-18-2024 Office outpatient visit 15 minutes Nida Alisson DO Work Phone: [facility] Comment on above: Encounter to discuss test results; Pre-op examination; Pelvic pain; Menorrhagia with irregular cycle; Thickened endometrium; Isthmocele Start: 11-18-2024 End: 11-18-2024 Preprocedural examination done Nida Alisson DO Work Phone: [facility] Start: 11-05-2024 End: 11-05-2024 ambulatory NIDA ALISSON Not Available Start: 10-23-2024 End: 10-23-2024 Bamboo flowsheet Nida Alisson DO Work Phone: [facility] Start: 10-23-2024 End: 10-23-2024 Bamboo flowsheet Nida Alisson DO Work Phone: [facility] Start: 10-23-2024 End: 10-23-2024 ambulatory NIDA ALISSON Not Available Start: 10-23-2024 End: 10-23-2024 Office outpatient visit 15 minutes Nida Alisson DO Work Phone: [facility] Comment on above: Pain following surge ry or procedure Start: 06-10-2024 End: 06-10-2024 Bamboo flowsheet Nida Alisson DO Work Phone: [facility] Start: 06-10-2024 End: 06-13-2024 Bamboo flowsheet Nida Alisson DO Work Phone: [facility] Start: 06-10-2024 End: 06-13-2024 Clinisync Result Encounter Nida Alisson DO Work Phone: [facility] Unsolicited Start: 06-10-2024 End: 06-10-2024 ambulatory NIDA ALISSON Not Available Start: 06-10-2024 End: 06-10-2024 Patient encounter procedure Nida Alisson DO Work Phone: [facility] Start: 06-10-2024 End: 06-10-2024 Periodic preventive med est patient 18-39 yrs Nida Alisson DO Work Phone: [facility] Comment on above: Well woman exam with routine gynecological exam Start: 05-02-2024 End: 05-02-2024 care visit Nida Alisson DO Work Phone: [facility] Comment on above: 6 weeks f ollow-up; S/P section; Cephalopelvic disproportion, due to unspecified factor Start: 05-02-2024 End: 05-02-2024 ambulatory NIDA ALISSON Not Available Start: 03-27-2024 End: 03-27-2024 ambulatory VENICE VAZQUEZ Not Available Start: 03-27-2024 End: 03-27-2024 Postop follow up visit related to original px [place] [facility] Work Phone: [facility] Comment on above: S/P section ; Postoperative examination Start: 03-27-2024 End: 03-27-2024 Bamboo flowsheet [place] [facility] Work Phone: [facility] Start: 03-27-2024 End: 03-27-2024 Bamboo flowsheet [place] [facility] Work Phone: [facility] Start: 03-22-2024 End: 03-22-2024 Clinisync Result Encounter Nida Alisson DO Work Phone: [facility] Unsolicited Start: 03-22-2024 End: 03-22-2024 Clinisync Result Encounter Nida Alisson DO Work Phone: [facility] Unsolicited Start: 03-20-2024 End: 03-20-2024 Bamboo flowsheet [place] [facility] Work Phone: [facility] Start: 03-20-2024 End: 03-20-2024 Bamboo flowsheet [place] [facility] Work Phone: [facility] Start: 03-20-2024 End: 03-20-2024 Clinisync Result Encounter Nida Alisson DO Work Phone: [facility] Unsolicited Start: 03-20-2024 End: 03-20-2024 ambulatory VENICE VAZQUEZ Not Available Start: 03-20-2024 End: 03-20-2024 flow sheet [place] [facility] Work Phone: [facility] Comment on above: Third trimester preg yefri; 39 weeks gestation of Start: 03-11-2024 End: 03-11-2024 Bamboo flowsheet [place] [employer] Work Phone: [facility] Start: 03-11-2024 End: 03-11-2024 Bamboo flowsheet [place] AERNAS Work Phone: [facility] Start: 03-11-2024 End: 03-11-2024 ambulatory VENICE VAZQUEZ Not Available Start: 03-11-2024 End: 03-11-2024 flow sheet [place] [facility] Work Phone: [facility] Comment on above: Third trimester preg yefri; 38 weeks gestation of Start: 03-04-2024 End: 03-04-2024 Bamboo flowsheet Nida Alisson DO Work Phone: [facility] Start: 03-04-2024 End: 03-04-2024 Bamboo flowsheet Nida Alisson DO Work Phone: [facility] Start: 03-04-2024 End: 03-04-2024 flow sheet Nida Alisson DO Work Phone: [facility] Comment on above: 37 weeks gestation o f ; Third trimester Start: 03-04-2024 End: 03-04-2024 ambulatory NIDA ALISSON Not Available Start: 02-26-2024 End: 02-26-2024 Bamboo flowsheet Nida Alisson DO Work Phone: [facility] Start: 02-26-2024 End: 02-29-2024 Clinisync Result Encounter Generic External Data Provider [facility] Unsolicited Start: 02-26-2024 End: 02-29-2024 Clinisync Result Encounter Generic External Data Provider [facility] Unsolicited Start: 02-26-2024 End: 02-26-2024 ambulatory NIDA ALISSON Not Available Start: 02-26-2024 End: 02-26-2024 flow sheet Nida Alisson DO Work Phone: [facility] Comment on above: Third trimester preg yefri; 36 weeks gestation of Start: 02-12-2024 End: 02-12-2024 flow sheet [place] [facility] Work Phone: [facility] Comment on above: 34 weeks gestation o f ; Third trimester ; Excessive growth affecting management of in third trimester, single or unspecified fetus Start: 02-12-2024 End: 02-12-2024 ambulatory VENICE VAZQUEZ Not Available Start: 02-12-2024 End: 02-12-2024 Bamboo flowsheet [place] [facility] Work Phone: [facility] Start: 02-12-2024 End: 02-12-2024 Bamboo flowsheet [place] [employer] Work Phone: [facility] Start: 01-29-2024 End: 01-29-2024 ambulatory NIDA ALISSON Not Available Start: 01-29-2024 End: 01-29-2024 flow sheet Nida Alisson DO Work Phone: [facility] Comment on above: Third trimester preg yefri; 32 weeks gestation of Start: 01-29-2024 End: 01-29-2024 Bamboo flowsheet Nida Alisson DO Work Phone: [facility] Start: 01-29-2024 End: 01-29-2024 Bamboo flowsheet Nida Alisson DO Work Phone: [facility] Start: 01-15-2024 End: 01-15-2024 flow sheet [place] [facility] Work Phone: [facility] Comment on above: 30 weeks gestation o f ; Third trimester Start: 01-15-2024 End: 01-15-2024 ambulatory VENICE VAZQUEZ Not Available Start: 01-15-2024 End: 01-15-2024 Bamboo flowsheet [place] [facility] Work Phone: [facility] Start: 01-15-2024 End: 01-15-2024 Bamboo flowsheet [place] [facility] Work Phone: [facility] Start: 01-01-2024 End: 01-01-2024 flow sheet Nida Alisson DO Work Phone: [facility] Comment on above: 28 weeks gestation o f ; Encounter for follow-up ultrasound of anatomy; Excessive growth affecting management of , antepartum, single or unspecified fetus Start: 01-01-2024 End: 01-01-2024 ambulatory NIDA ALISSON Not Available Start: 01-01-2024 End: 01-01-2024 Bamboo flowsheet Nida Alisson DO Work Phone: [facility] Start: 01-01-2024 End: 01-01-2024 Bamboo flowsheet Nida Alisson DO Work Phone: [facility] Start: 12-22-2023 End: 12-22-2023 Clinisync Result Encounter Generic External Data Provider [facility] Unsolicited Start: 12-22-2023 End: 12-22-2023 Clinisync Result Encounter Generic External Data Provider [facility] Unsolicited Start: 12-04-2023 End: 12-04-2023 ambulatory NIDA ALISSON Not Available Start: 12-04-2023 End: 12-04-2023 flow sheet Nida Alisson DO Work Phone: [facility] Comment on above: 24 weeks gestation o f ; Diabetes mellitus screening Start: 12-04-2023 End: 12-04-2023 Bamboo flowsheet Nida Alisson DO Work Phone: [facility] Start: 12-04-2023 End: 12-04-2023 Bamboo flowsheet Nida Alisson DO Work Phone: [facility] Start: 11-04-2022 End: 11-05-2022 ambulatory RICHARD DAI [facility] Start: 11-04-2022 End: 11-05-2022 Encounter for general adult medical examination without abnormal findings RICHARD DAI [facility] Start: 11-04-2022 End: 11-04-2022 Subsequent hospital visit by physician Richard Dai MD Work Phone: [facility] Start: 01-30-2020 End: 01-31-2020 Patient encounter procedure ELMER HOY Facility:[facility] Start: 01-22-2020 End: 01-23-2020 Patient encounter procedure ELMER HOY Facility:[facility] Procedures Date Procedure Procedure Detail Performing Clinician Start: 06-10-2024 IGP,APTIMA HPV,AGE GDLN Generic External Data Provider Start: 05-02-2024 H/O: section S/P s ection Nida Alisson DO Work Phone: Start: 03-22-2024 ALL CBC WITH AUTO DIFF Nida Alisson DO Work Phone: Start: 03-20-2024 HMHP CBC WITH PLATEL ET NO DIFFERENTIAL Nida Alisson DO Work Phone: Start: 03-20-2024 Urnls dip stick/tabl et rgnt non-auto w/o micrscp [place] [employer] Work Phone: Start: 03-11-2024 Urnls dip stick/tabl et rgnt non-auto w/o micrscp [place] [facility] Work Phone: Start: 03-04-2024 Urnls dip stick/tabl et rgnt non-auto w/o micrscp Nida Alisson DO Work Phone: Start: 02-26-2024 Urnls dip stick/tabl et rgnt non-auto w/o micrscp Nida Alisson DO Work Phone: Start: 02-26-2024 STREP GP B JAMIL Generic External Data Provider Start: 02-12-2024 Urnls dip stick/tabl et rgnt non-auto w/o micrscp [place] [facility] Work Phone: Start: 01-29-2024 Urnls dip stick/tabl et rgnt non-auto w/o micrscp Nida Alisson DO Work Phone: Start: 01-15-2024 Urnls dip stick/tabl et rgnt non-auto w/o micrscp [place] [facility] Work Phone: Start: 01-01-2024 Urnls dip stick/tabl et rgnt non-auto w/o micrscp Nida Alisson DO Work Phone: Start: 12-22-2023 ALL CBC WITH AUTO DIFF Nida Alisson DO Work Phone: Start: 11-04-2022 Basic metabolic pane l calcium total Richard Dai MD Work Phone: Start: 11-04-2022 Lipid panel Richard Dai MD Work Phone: H/O: section S/P sectio n [place] [facility] Work Phone: Plan of Treatment Date Care Activity Detail Author Start: 11-05-2031 DTaP/Tdap/Td vaccine (8 - Td or Tdap) DTaP/Tdap/Td vaccine (8 - Td or Tdap) [facility] Start: 06-12-2025 End: 06-12-2025 Patient encounter procedure [facility] Start: 12-23-2024 End: 12-23-2024 Patient encounter procedure 12/23/2024 9:20 AM EDT Office Visit [facility] [address] [place] [phone] Nida Vinson, DO [address] [place] [address] [facility] Start: 12-09-2024 Influenza vaccination Influenza Vacc ine (#1) [facility] Start: 11-05-2024 End: 11-05-2024 Professional / ancillary services management 11/05/2024 2:00 PM EDT Ancillary Procedure [facility] [address] [place] [phone] [facility] Start: 10-23-2024 End: 04-25-2025 US Pelvis US Pelvis w/ TV Imaging Routine Pain following surgery or procedure Expected: 10/23/2024, Expires: 04/25/2025 [facility] Work Phone: Comment on above: Expected: 10/23/2024 , Expires: 04/25/2025 Start: 06-10-2024 End: 06-10-2024 Patient encounter procedure 06/10/2024 11:30 AM EST Office Visit [facility] [address] [place] [phone] Nida Vinson, DO [address] [place] [address] [facility] Start: 05-01-2024 End: 05-01-2024 ambulatory 05/01/2024 9:30 AM EST Visit [facility] [address] [place] [phone] Venice Vazquez PA [address] [place] [address] [facility] Start: 04-18-2024 End: 04-18-2024 Patient encounter procedure 04/18/2024 11:00 AM EST Office Visit [facility] [address] [place] [phone] Nida Vinson DO [address] [place], [place] [id number] [facility] Start: 03-20-2024 End: 03-20-2024 Patient encounter procedure 03/20/2024 10:50 AM EST Routine [facility] [address] [place] [phone] Venice Vazquez, PA [address] [place], [place] [phone] [facility] Start: 03-11-2024 End: 03-11-2024 Patient encounter procedure 03/11/2024 8:30 AM EST Routine [facility] [address] [place] [phone] Venice Vazquez, PA [address] [place], [place] [phone] [facility] Start: 03-04-2024 End: 03-04-2024 Patient encounter procedure [facility] Comment on above: Arrived Start: 02-28-2024 End: 02-28-2024 Patient encounter procedure 02/28/2024 8:30 AM EST Routine [facility] [address] [place] [phone] Venice Vazquez, PA [address] [place], [place] [phone] [facility] Start: 02-26-2024 End: 02-25-2025 Strep B DNA probe, amplification Strep B DNA probe, amplification Lab Routine Third trimester Expected: 02/26/2024 (Approximate), Expires: 02/25/2025 [facility] Work Phone: Comment on above: Expected: 02/26/2024 (Approximate), Expires: 02/25/2025 Start: 02-26-2024 End: 02-26-2024 Patient encounter procedure 02/26/2024 1:30 PM EST Routine [facility] [address] [facility] [place] [phone] Nida Vinson, DO [address] [place] [address] [facility] Start: 02-14-2024 End: 02-14-2024 Professional / ancillary services management 02/14/2024 8:00 AM EST Ancillary Procedure [facility] [address] [place] [phone] [facility] Start: 02-12-2024 End: 02-12-2024 Patient encounter procedure [facility] Comment on above: Arrived Start: 02-12-2024 End: 02-11-2025 US for US OB SCAN FOR GROWTH Imaging Routine Excessive growth affecting management of in third trimester, single or unspecified fetus Expected: 02/12/2024 (Approximate), Expires: 02/11/2025 [facility] Work Phone: Comment on above: Expected: 02/12/2024 (Approximate), Expires: 02/11/2025 Start: 01-29-2024 End: 01-29-2024 Patient encounter procedure 01/29/2024 3:10 PM EDT Routine [facility] [address] [place] [phone] Nida Vinson, DO [address] [place] [address] [facility] Start: 01-15-2024 End: 01-15-2024 Patient encounter procedure [facility] Comment on above: Arrived Start: 01-15-2024 End: 01-15-2024 Professional / ancillary services management 01/15/2024 2:00 PM EDT Ancillary Procedure [facility] [address] [place] [phone] [facility] Start: 01-01-2024 End: 01-01-2024 Patient encounter procedure [facility] Comment on above: Arrived Start: 01-01-2024 End: 12-31-2024 US for [facility] Work Phone: Comment on above: Expected: 01/01/2024 (Approximate), Expires: 12/31/2024 Start: 12-10-2023 Influenza vaccination Influenza Vacc ine (#1) [facility] Start: 12-04-2023 End: 12-03-2024 CBC panel - Blood by Automated count CBC Lab Routine Diabetes mellitus screening Expected: 12/04/2023 (Approximate), Expires: 12/03/2024 [facility] Work Phone: Comment on above: Expected: 12/04/2023 (Approximate), Expires: 12/03/2024 Start: 12-04-2023 End: 12-03-2024 Measurement of glucose 1 hour after glucose challenge for glucose tolerance test Glucose tolerance, 1 hour Lab Routine Diabetes mellitus screening Expected: 12/04/2023 (Approximate), Expires: 12/03/2024 [facility] Comment on above: Expected: 12/04/2023 (Approximate), Expires: 12/03/2024 Start: 11-08-2022 Influenza vaccination Flu vaccine (# 1) [facility] Start: 2019 Screening for malign ant neoplasm of cervix Pap smear [facility] Start: 02-10-2016 Hepatitis C screening Hepatitis C sc reen [facility] Start: 2014 Screening for Chlamy zulema trachomatis Chlamydia/GC screen [facility] Start: 2013 HIV screening HIV screen [facility] [employer] Start: 2010 Depression Screen Depression Screen [facility] Start: 2009 HPV vaccine (1 - 2-d ose series) HPV vaccine (1 - 2-dose series) [facility] Start: 1999 Varicella vaccine (1 of 2 - 2-dose childhood series) Varicella vaccine (1 of 2 - 2-dose childhood series) [facility] Start: 1998 COVID-19 Vaccine (#1) COVID-19 Vacci ne (#1) [facility] Cytology Cervical or vaginal smear or scraping study Pap Smear Pathology and Cytology Routine Well woman exam with routine gynecological exam Ordered: 06/10/2024 [facility] Work Phone: Comment on above: Ordered: 06/10/2024 End: 11-04-2022 Hemoglobin A1c/Hemoglobin.total in Blood [facility] Work Phone: Comment on above: Once for 1 Occurrenc es starting 11/04/2022 until 11/04/2022 Immunizations Immunization Date Immunization Notes Care Provider [facility] 11-04-2021 tetanus toxoid, redu sanya diphtheria toxoid, and acellular pertussis vaccine, adsorbed Richard Dai MD Work Phone: [facility] 11-12-2015 meningococcal polysaccharide (groups A, C, Y and W-135) diphtheria toxoid conjugate vaccine (MCV4P) Generic Provider [facility] 05-24-2011 poliovirus vaccine, inactivated Generic Provider [facility] 07-19-2010 tetanus toxoid, redu sanya diphtheria toxoid, and acellular pertussis vaccine, adsorbed Generic Provider [facility] 08-13-2003 diphtheria, tetanus toxoids and acellular pertussis vaccine, unspecified formulation Generic Provider [facility] 08-13-2003 measles, mumps and rubella virus vaccine Generic Provider [facility] 09-15-1999 diphtheria, tetanus toxoids and acellular pertussis vaccine, unspecified formulation Generic Provider [facility] 09-15-1999 haemophilus influenz ae type b vaccine, HbOC conjugate Generic Provider [facility] 02-24-1999 measles, mumps and rubella virus vaccine Generic Provider [facility] 02-24-1999 trivalent poliovirus vaccine, live, oral Generic Provider [facility] 1998 diphtheria, tetanus toxoids and acellular pertussis vaccine, unspecified formulation Generic Provider [facility] 1998 haemophilus influenz ae type b conjugate and Hepatitis B vaccine Generic Provider [facility] 1998 trivalent poliovirus vaccine, live, oral Generic Provider [facility] 1998 diphtheria, tetanus toxoids and acellular pertussis vaccine, unspecified formulation Generic Provider [facility] 1998 haemophilus influenz ae type b vaccine, HbOC conjugate Generic Provider [facility] 1998 trivalent poliovirus vaccine, live, oral Generic Provider [facility] 1998 diphtheria, tetanus toxoids and acellular pertussis vaccine, unspecified formulation Generic Provider [facility] 1998 haemophilus influenz ae type b vaccine, conjugate unspecified formulation Generic Provider [facility] 1998 hepatitis B vaccine, pediatric or pediatric/adolescent dosage Generic Provider [facility] 1998 poliovirus vaccine, inactivated Generic Provider [facility] 1998 hepatitis B vaccine, pediatric or pediatric/adolescent dosage Generic Provider [facility] Payers Date Payer Category Payer [facility] BCBS Memb er Subscriber Plan / Payer (Effective 2022-Present) Name: Yenny Ruff Relation to Subscriber: Spouse Name: HILLARY RUFF Date of : 2000 (Home) Address: [address] [place] [id number] Payer ID: Not on file Type: Not on file Address: [address] [place] [id number] 2022 Unknown BCBS BCBS [id number] [id number] 2022-Present [phone] [address] [place] [id number] 2022 Unknown [id number]. 2.7.3.547425.315 1998 Unknown [id number] 2.16.840.1.342111.3.579. 2.593 1998 Unknown [id number] 2.16.840.1.901016.3.579. 2.593 1998 Unknown [id number] 2.16.840.1.131210.3.579. 2.173 1998 Unknown [id number] 2.16.840.1.702293.3.579. 2.9 1998 Unknown [id number] 2.16.840.1.007233.3.579. 2.1258 1998 Unknown [id number] 2.16.840.1.635534.3.579. 2.1258 1998 Unknown [id number] 2.16.840.1.353414.3.579. 2.1258 1998 Unknown [id number] 2.16.840.1.821246.3.579. 2.1258 1998 Unknown [id number] 2.16.840.1.525454.3.579. 2.1258 1998 Unknown [id number] 2.16.840.1.017894.3.579. 2.1258 1998 Unknown [id number] 2.16.840.1.855302.3.579. 2.1258 1998 Unknown [id number] 2.16.840.1.517663.3.579. 2.1258 1998 Unknown [id number] 2.16.840.1.885936.3.579. 2.1258 1998 Unknown [id number] 2.16.840.1.848650.3.579. 2.1258 1998 Unknown [id number] 2.16.840.1.751806.3.579. 2.1258 1998 Unknown [id number] 2.16.840.1.062806.3.579. 2.9 1998 Unknown [id number] 2.16.840.1.792842.3.579. 2.1258 1998 Unknown [id number] 2.16.840.1.006987.3.579. 2.1259 1959 Unknown [id number] Social History Date Type Detail Facility Tobacco smoking stat [facility] Tobacco smoking consumption unknown [facility] Start: 2000 Sex Assigned At Not on file [facility] Start: 11-18-2022 Tobacco smoking status VTIS Never smoked tobacco [facility] Start: 11-18-2022 Tobacco use and exposure Smokeless tobacco non-user [facility] Start: 01-01-2024 End: 11-18-2024 Alcoholic beverage intake [facility] (finding[facility] Start: 04-20-2023 End: 12-04-2023 History of Social function [facility] Start: 04-20-2023 End: 12-04-2023 Humiliation, Afraid, Rape, and Kick questionnaire [HARK] [facility] Within the last year , have you been afraid of your partner or ex-partner? No [facility] Do you belong to any clubs or organizations such as judaism groups, unions, fraternal or athletic groups, or [...] [OSQ] Very much [facility] (I/We) worried whelaureano er (my/our) food would run out before (I/we) got money to buy more. Never true [facility] Start: 11-18-2022 Alcohol Comment Caffeine: coffee on occasion [facility] Start: 06-30-2023 [facility] Clinical Notes 12-04-2023 to 11-18-2024 Desire Luis - 11/18/2024 10:20 AM Zora Saunders, DOCTOR OF CHIROPRACTIC - 10/23/2024 11:10 AM EDTSsandra Cavazosr, DOCTOR OF CHIROPRACTIC - 06/10/2024 11:30 AM ESTSusarick Cavazosr, DOCTOR OF CHIROPRACTIC - 05/02/2024 9:40 AM EST Note Date & Type Note Facility 11-18-2024 History of Presen t illness Narrative Reason for Appointment: Patient ID: Yenny Ruff is a 24 y.o. female who presents for Follow-up and Pre-op Visit Patient presents today for Pre Op appointment. Patient is scheduled to undergo Diagnostic Laparoscopy, possible JEFFREY, possible FOE, possible BSO and D&C Hysteroscopy, possible Myosure on 12-13-[address] Vinson at [facility]. MEDICATIONS No current outpatient medications ALLERGIES Allergies Allergen Reactions Princess [Fexofenadine] GI intolerance Amoxicillin GI intolerance and Nausea And Vomiting Shakes, chills Sodium Hypochlorite Itching, Rash and Swelling PROBLEMS Active Ambulatory Problems Diagnosis Date Noted Obesity (BMI 30-39.9) 04/24/2023 PCOS (polycystic ovarian syndrome) 04/24/2023 Seasonal allergic rhinitis due to pollen 04/24/2023 Rhomboid muscle strain, initial encounter 04/24/2023 Acute superficial gastritis without hemorrhage 04/24/2023 Yeast infection 09/11/2023 Vaginal spotting 10/10/2023 S/P section 05/02/2024 6 weeks follow-up ([facility]) 05/02/2024 Cephalopelvic disproportion ([facility]) 05/02/2024 Resolved Ambulatory Problems Diagnosis Date Noted 12 weeks gestation of ([facility]) 09/11/2023 32 weeks gestation of ([facility]) 01/30/2024 34 weeks gestation of ([facility]) 02/12/2024 Third trimester ([facility]) 02/12/2024 37 weeks gestation of ([facility]) 03/04/2024 Past Medical History: Diagnosis Date Depression Scoliosis HISTORY PAST MEDICAL HISTORY SOCIAL HISTORY Past Medical History: Diagnosis Date Depression PCOS (polycystic ovarian syndrome) Scoliosis Seasonal allergic rhinitis due to pollen Social History Tobacco Use Smoking status: Never Smokeless tobacco: Never Substance Use Topics Alcohol use: Not Currently Comment: Caffeine: coffee on occasion Drug use: Never FAMILY HISTORY Family History Problem Relation Name Age of Onset Diabetes Father Orestes Gar Depression Father Orestes Gonsalvesper Other (spinal stenosis) Father Orestes Gar Asthma Father Orestes Gar Depression Brother Sulaiman Gar Depression Paternal Grandfather Arpan Gar SURGICAL HISTORY Past Surgical History: Procedure Laterality Date SECTION, LOW TRANSVERSE 03/21/2024 EXCISION INGROWN TOENAIL Bilateral PAP SMEAR 03/10/2021 nilm REVIEW OF SYSTEMS Review of Systems: Review of Systems Constitutional: Negative. HENT: Negative. Eyes: Negative. Respiratory: Negative. Cardiovascular: Negative. Gastrointestinal: Negative. Genitourinary: Positive for menstrual problem and pelvic pain. Musculoskeletal: Negative. Skin: Negative. Neurological: Negative. All [...] nursing note reviewed. Exam conducted with a excelsior picker present. Vitals: Estimated body mass index is 35.45 kg/m as calculated from the following: Height as of 04/24/23: 5' 5 . Weight as of this encounter: 213 lb. BP: 118/72 Patient's last menstrual period was 10/02/2024. ASSESSMENT & PLAN ICD-10-CM 1. Encounter to discuss test results Z71.2 2. Pre-op examination Z01.818 3. Pelvic pain R10.2 4. Menorrhagia with irregular cycle N92.1 5. Thickened endometrium R93.89 6. Isthmocele N85.A Patient presents today to review US results and discuss management from conservative to surgical. Patient desires to proceed to OR for management. Pre Op: Patient is doing well but has complaints of pelvic pain, section niche,menorrhagia and endometrial thickening. I have discussed conservative management vs. surgical management with the patient in detail and patient desires surgical management at this time. Patient will undergo Diagnostic Laparoscopy, possible JEFFREY, possible FOE, possible BSO and D&C Hysteroscopy, possible Myosure on 12-13-24. Surgical consents were signed, mmc was reviewed, and patient is to proceed to [facility] OR. Follow Up: Patient is to follow up between 1-2 weeks post operative to assess proper healing and recovery from procedure. Documented by Jaymie Shaw LPN on behalf of: Nida Vinson DO documented in this encounter [facility] 10-23-2024 History of Presen t illness Narrative Reason for Appointment: Patient ID: Yenny Ruff is a 24 y.o. female who presents for pain around c section scar Patient presents today for Acute Visit. MEDICATIONS No current outpatient medications ALLERGIES Allergies Allergen Reactions Princess [Fexofenadine] GI intolerance Amoxicillin GI intolerance Shakes, chills Sodium Hypochlorite Itching, Rash and Swelling PROBLEMS Active Ambulatory Problems Diagnosis Date Noted Obesity (BMI 30-39.9) 04/24/2023 PCOS (polycystic ovarian syndrome) 04/24/2023 Seasonal allergic rhinitis due to pollen 04/24/2023 Rhomboid muscle strain, initial encounter 04/24/2023 Acute superficial gastritis without hemorrhage 04/24/2023 Yeast infection 09/11/2023 Vaginal spotting 10/10/2023 S/P section 05/02/2024 6 weeks follow-up ([facility]) 05/02/2024 Cephalopelvic disproportion ([facility]) 05/02/2024 Resolved Ambulatory Problems Diagnosis Date Noted 12 weeks gestation of ([facility]) 09/11/2023 32 weeks gestation of ([facility]) 01/30/2024 34 weeks gestation of ([facility]) 02/12/2024 Third trimester ([facility]) 02/12/2024 37 weeks gestation of ([facility]) 03/04/2024 Past Medical History: Diagnosis Date Depression Scoliosis HISTORY PAST MEDICAL HISTORY SOCIAL HISTORY Past Medical History: Diagnosis Date Depression PCOS (polycystic ovarian syndrome) Scoliosis Seasonal allergic rhinitis due to pollen Social History Tobacco Use Smoking status: Never Smokeless tobacco: Never Substance Use Topics Alcohol use: Not Currently Comment: Caffeine: coffee on occasion Drug use: Never FAMILY HISTORY Family History Problem Relation Name Age of Onset Diabetes Father Orestes Gar Depression Father Orestes Gonsalvesper Other (spinal stenosis) Father Orestes Gar Asthma Father Orestes Gar Depression Brother Sulaiman Gar Depression Paternal Grandfather Arpan Gar SURGICAL HISTORY Past Surgical History: Procedure Laterality Date SECTION, LOW TRANSVERSE 03/21/2024 EXCISION INGROWN TOENAIL Bilateral PAP SMEAR 03/10/2021 [...] nursing note reviewed. Exam conducted with a excelsior picker present. Vitals: Estimated body mass index is 35.58 kg/m as calculated from the following: Height as of 04/24/23: 5' 5 . Weight as of this encounter: 213 lb 12.8 oz. BP: 120/80 Patient's last menstrual period was 10/02/2024. ASSESSMENT & PLAN ICD-10-CM 1. Pain following surgery or procedure G89.18 Pt presents with pain around scar. No hernia appreciated. Pt given ultrasound order to have obtained. Pt voiced understanding. Discussed dermatomes and nerve damage with surgery. Documented by Anyi Saunders LPN on behalf of: Nida Vinson DO documented in this encounter [facility] 06-10-2024 History of Presen t illness Narrative Reason for Appointment: Patient ID: Yenny Ruff is a 24 y.o. female who presents for Gynecologic Exam Patient presents today for Annual Exam. MEDICATIONS Current Outpatient Medications Medication Instructions Docusate Sodium (COLACE PO) 1 capsule, As needed ibuprofen 400 mg, Every 6 hours PRN oxyCODONE-acetaminophen (Percocet) 5-325 MG tablet 1 tablet, Every 8 hours MV-Min-Fe Fum-FA-DHA ( 1 PO) 1 tablet, Daily ALLERGIES Allergies Allergen Reactions Princess [Fexofenadine] GI intolerance Amoxicillin GI intolerance Shakes, chills Sodium Hypochlorite Itching, Rash and Swelling PROBLEMS Active Ambulatory Problems Diagnosis Date Noted Obesity (BMI 30-39.9) 04/24/2023 PCOS (polycystic ovarian syndrome) 04/24/2023 Seasonal allergic rhinitis due to pollen 04/24/2023 Rhomboid muscle strain, initial encounter 04/24/2023 Acute superficial gastritis without hemorrhage 04/24/2023 Yeast infection 09/11/2023 Vaginal spotting 10/10/2023 S/P section 05/02/2024 6 weeks follow-up 05/02/2024 Cephalopelvic disproportion 05/02/2024 Resolved Ambulatory Problems Diagnosis Date Noted 12 weeks gestation of 09/11/2023 32 weeks gestation of 01/30/2024 34 weeks gestation of 02/12/2024 Third trimester 02/12/2024 37 weeks gestation of 03/04/2024 Past Medical History: Diagnosis Date Depression (CMS/HCC) [...] Diabetes Father Orestes Gar Depression Father Orestes Gonsalvesper Other (spinal stenosis) Father Orestes Gar Asthma Father Orestes Gar Depression Brother Sulaiman Gar Depression Paternal Grandfather Arpan Gar SURGICAL HISTORY Past Surgical History: Procedure Laterality Date SECTION, LOW TRANSVERSE 03/21/2024 EXCISION INGROWN TOENAIL Bilateral PAP SMEAR 03/10/2021 nilm REVIEW OF SYSTEMS Review of Systems: Review of Systems All other systems reviewed and are negative. OBJECTIVE Objective: Physical Exam Constitutional: Appearance: Normal appearance. She is well-developed. Genitourinary: Vulva normal. Genitourinary Comments: Patient is currently still breast feeding Breasts: Breasts are soft. Right: Normal. Left: Normal. Cardiovascular: Rate and Rhythm: Normal rate and [...] nursing note reviewed. Exam conducted with a excelsior picker present. Vitals: Estimated body mass index is 35.11 kg/m as calculated from the following: Height as of 04/24/23: 5' 5 . Weight as of this encounter: 211 lb. BP: No LMP recorded (lmp unknown). ASSESSMENT & PLAN ICD-10-CM 1. Well woman exam with routine gynecological exam Z01.419 Pap Smear Annual Exam: Patient presents today for an annual exam. Patient states she is doing well and has no complaints. Pap was obtained without difficulty. Follow Up: Patient is to return in one year for annual unless needed otherwise. Documented by Jaymie Shaw LPN on behalf of: SHOAIB Larkin/Nida Vinson DO documented in this encounter [facility] 05-02-2024 History of Presen t illness Narrative Reason for Appointment: Patient ID: Yenny Ruff is a 24 y.o. female who presents for Care (Pt present today for a 6 week post c/s visit. Pt had a c/s on 03/20/2024.) Patient presents today for Consult appointment. MEDICATIONS Current Outpatient Medications Medication Instructions Docusate Sodium (COLACE PO) 1 capsule, As needed ibuprofen 400 mg, Every 6 hours PRN oxyCODONE-acetaminophen (Percocet) 5-325 MG tablet 1 tablet, Every 8 hours MV-Min-Fe Fum-FA-DHA ( 1 PO) 1 tablet, Daily ALLERGIES Allergies Allergen Reactions Princess [Fexofenadine] GI intolerance Amoxicillin GI intolerance Shakes, chills Sodium Hypochlorite Itching, Rash and Swelling PROBLEMS Active Ambulatory Problems Diagnosis Date Noted Obesity (BMI 30-39.9) 04/24/2023 PCOS (polycystic ovarian syndrome) 04/24/2023 Seasonal allergic rhinitis due to pollen 04/24/2023 Rhomboid muscle strain, initial encounter 04/24/2023 Acute superficial gastritis without hemorrhage 04/24/2023 Yeast infection 09/11/2023 Vaginal spotting 10/10/2023 Resolved Ambulatory Problems Diagnosis Date Noted 12 weeks gestation of 09/11/2023 32 weeks gestation of 01/30/2024 34 weeks gestation of 02/12/2024 Third trimester 02/12/2024 37 weeks gestation of 03/04/2024 Past Medical History: Diagnosis Date Depression (CMS/HCC) [...] Brother Sulaiman Gar Depression Paternal Grandfather Arpan Gonsalvesper SURGICAL HISTORY Past Surgical History: Procedure Laterality Date SECTION, LOW TRANSVERSE 03/21/2024 EXCISION INGROWN TOENAIL Bilateral PAP SMEAR 03/10/2021 [...] nursing note reviewed. Exam conducted with a excelsior picker present. Vitals: Estimated body mass index is 36.11 kg/m as calculated from the following: Height as of 04/24/23: 5' 5 . Weight as of this encounter: 217 lb. BP: 128/76 Patient's last menstrual period was 06/16/2023. ASSESSMENT & PLAN ICD-10-CM 1. 6 weeks follow-up Z39.2 2. S/P section Z98.891 Post Follow Up: Patient is doing well but has no complaints. Patient presents today for 6 week visit. Patient is s/p delivery, incision healed well with no signs of infection. Patient states NO depression. Patient and spouse voiced that patients moods are better than before delivery. All options were discussed with the patient regarding control and patient desires none at this time. Discussed delivery and why was performed. Discussed future deliveries. Follow Up: Patient is to return for annual unless needed otherwise. Documented by aJymie Shaw LPN on behalf of: Nida Vinson DO documented in this encounter [facility] 03-27-2024 History of Presen t illness Narrative Reason for Appointment: Patient ID: Yenny Ruff is a 24 y.o. female who presents for Post-op Visit Patient presents today for 1 Week Post Op Follow Up appointment. MEDICATIONS Current Outpatient Medications Medication Instructions Docusate Sodium (COLACE PO) 1 capsule, As needed ibuprofen 400 mg, Every 6 hours PRN oxyCODONE-acetaminophen (Percocet) 5-325 MG tablet 1 tablet, Every 8 hours MV-Min-Fe Fum-FA-DHA ( 1 PO) 1 tablet, Daily ALLERGIES Allergies Allergen Reactions Princess [Fexofenadine] GI [...] weeks gestation of 02/12/2024 Third trimester 02/12/2024 37 weeks gestation of 03/04/2024 Resolved Ambulatory Problems Diagnosis Date Noted No [...] HISTORY Past Surgical History: Procedure Laterality Date SECTION, LOW TRANSVERSE 03/21/2024 EXCISION INGROWN TOENAIL Bilateral PAP SMEAR 03/10/2021 nilm REVIEW OF SYSTEMS Review of Systems: Review of Systems Constitutional: Negative. HENT: Negative. Eyes: Negative. Respiratory: Negative. Cardiovascular: Negative. Gastrointestinal: Negative. Genitourinary: Negative. Musculoskeletal: Negative. Skin: Negative. Neurological: Negative. All other systems reviewed and are negative. Hematological: Negative. Endocrine: Negative. Allergic/Immunologic: Negative. OBJECTIVE Objective: Physical Exam Constitutional: Appearance: Normal appearance. She is normal weight. HENT: Head: Normocephalic. Cardiovascular: Rate and Rhythm: Normal rate. Pulses: Normal pulses. Pulmonary: Effort: Pulmonary effort is normal. Breath sounds: Normal breath sounds. Abdominal: Palpations: Abdomen is soft. Musculoskeletal: General: Normal range of motion. Neurological: General: No focal deficit present. Mental Status: She is alert and oriented to person, place, and time. Psychiatric: Mood and Affect: Mood normal. Behavior: Behavior normal. Thought Content: Thought content normal. Judgment: Judgment normal. Vitals and nursing note reviewed. Vitals: Estimated body mass index is 39.07 kg/m as calculated from the following: Height as of 04/24/23: 5' 5 . Weight as of this encounter: 234 lb 12.8 oz. BP: 140/88 Patient's last menstrual period was 06/16/2023. ASSESSMENT & PLAN ICD-10-CM 1. S/P section Z98.891 2. Postoperative examination Z09 Patient presents today for a one week postop section check. Patient is doing well with minor complaints of pain. Incision has been noted as healing well with no signs and symptoms of infection. Follow Up: Patient is to return in 5 weeks for 6 week evaluation. documented in this encounter [facility] 03-20-2024 History of Presen t illness Narrative Reason for Appointment: Patient ID: Yenny Ruff is a 24 y.o. female who presents for Routine Visit Patient presents today for Return OB appointment. MEDICATIONS Current Outpatient Medications Medication Instructions MV-Min-Fe Fum-FA-DHA ( 1 PO) 1 tablet, Daily ALLERGIES Allergies Allergen Reactions Princess [Fexofenadine] GI [...] weeks gestation of 02/12/2024 Third trimester 02/12/2024 37 weeks gestation of 03/04/2024 Resolved Ambulatory Problems Diagnosis Date Noted No [...] Exam Constitutional: Appearance: Normal appearance. She is normal weight. HENT: Head: Normocephalic. Cardiovascular: Rate and Rhythm: Normal rate. Pulses: Normal pulses. Pulmonary: Effort: Pulmonary effort is normal. Breath sounds: Normal breath sounds. Abdominal: Palpations: Abdomen is soft. Musculoskeletal: General: Normal range of motion. Neurological: General: No focal deficit present. Mental Status: She is alert and oriented to person, place, and time. Psychiatric: Mood and Affect: Mood normal. Behavior: Behavior normal. Thought Content: Thought content normal. Judgment: Judgment normal. Vitals and nursing note reviewed. Vitals: Estimated body mass index is 40.44 kg/m as calculated from the following: Height as of 04/24/23: 5' 5 . Weight as of this encounter: 243 lb. BP: 122/78 Patient's last menstrual period was 06/16/2023. ASSESSMENT & PLAN ICD-10-CM 1. Third trimester Z34.93 POCT urinalysis dipstick manually resulted 2. 39 weeks gestation of Z3A.39 Return OB: Patient presents today for a routine obstetrics appointment. Patient is currently 39w5d . Patient states she is doing well but has complaints of being tired due to current . Patient has verbalizes frequent movement. labor precautions was discussed/given and patient was instructed to perform kick counts three times a day. Pt complains of leaking fluid from vagina for 2 days now. Pt states its clear with some clear mucus discharge. Pt would like to be checked today for dilation and make sure she is not leaking amniotic fluid. Fluid checked today and is amniotic fluid. [facility] will be [facility] to [facility] to receive IV antibiotics and pitocin as she has been leaking for greater than 24 hours. Pt is dilated 1cm and is 80% effaced. Orders Placed This Encounter Procedures POCT urinalysis dipstick manually resulted Follow Up: Patient is to return to office in 1 week for routine OB appointment. Documented by Lety Ingram MA on behalf of: DEEPA An documented in this encounter [facility] 03-11-2024 History of Presen t illness Narrative Reason for Appointment: Patient ID: Yenny Ruff is a 24 y.o. female who presents for Routine Visit Patient presents today for Return OB appointment. MEDICATIONS Current Outpatient Medications Medication Instructions MV-Min-Fe Fum-FA-DHA ( 1 PO) 1 tablet, Daily ALLERGIES Allergies Allergen Reactions Princess [Fexofenadine] GI [...] weeks gestation of 02/12/2024 Third trimester 02/12/2024 37 weeks gestation of 03/04/2024 Resolved Ambulatory Problems Diagnosis Date Noted No [...] nursing note reviewed. Exam conducted with a excelsior picker present. Vitals: Estimated body mass index is 40.12 kg/m as calculated from the following: Height as of 04/24/23: 5' 5 . Weight as of this encounter: 241 lb 1.9 oz. BP: 130/80 Patient's last menstrual period was 06/16/2023. ASSESSMENT & PLAN ICD-10-CM 1. Third trimester Z34.93 POCT urinalysis dipstick manually resulted 2. 38 weeks gestation of Z3A.38 POCT urinalysis dipstick manually resulted Return OB: Patient presents today for a routine obstetrics appointment. Patient is currently 38w3d . Patient states she is doing well but has complaints of being tired due to current . Patient has verbalizes frequent movement. labor precautions was discussed/given and patient was instructed to perform kick counts three times a day. Orders Placed This Encounter Procedures POCT urinalysis dipstick manually resulted Follow Up: Patient is to return to office in 1 week for routine OB appointment. Documented by Rosi Martinez LPN on behalf of: DEEPA An documented in this encounter [facility] 03-04-2024 History of Presen t illness Narrative Reason for Appointment: Patient ID: Yenny Ruff is a 24 y.o. female who presents for Routine Visit Patient presents today for Return OB appointment. MEDICATIONS Current Outpatient Medications Medication Instructions MV-Min-Fe Fum-FA-DHA ( 1 PO) 1 tablet, Oral, Daily ALLERGIES Allergies Allergen Reactions Princess [Fexofenadine] GI [...] weeks gestation of 02/12/2024 Third trimester 02/12/2024 37 weeks gestation of 03/04/2024 Resolved Ambulatory Problems Diagnosis Date Noted No [...] nursing note reviewed. Exam conducted with a excelsior picker present. Vitals: Estimated body mass index is 40.07 kg/m as calculated from the following: Height as of 04/24/23: 5' 5 . Weight as of 02/26/24: 240 lb 12.8 oz. BP: Patient's last menstrual period was 06/16/2023. ASSESSMENT & PLAN ICD-10-CM 1. 37 weeks gestation of Z3A.37 POCT urinalysis dipstick manually resulted 2. Third trimester Z34.93 POCT urinalysis dipstick manually resulted Return OB: Patient presents today for a routine obstetrics appointment. Patient is currently 37w3d . Patient states she is doing well but has complaints of being tired due to current . Patient has verbalizes frequent movement. labor precautions was discussed/given and patient was instructed to perform kick counts three times a day. Orders Placed This Encounter Procedures POCT urinalysis dipstick manually resulted Follow Up: Patient is to return to office in 1 week for routine OB appointment. Documented by Anyi Saunders LPN on behalf of: Nida Vinson DO documented in this encounter [facility] 02-26-2024 History of Presen t illness Narrative Reason for Appointment: Patient ID: Yenny Ruff is a 24 y.o. female who presents for Routine Visit Patient presents today for Return OB appointment. MEDICATIONS No current outpatient medications ALLERGIES Allergies Allergen Reactions Princess [Fexofenadine] GI [...] Orestes Gar Other (spinal stenosis) Father Orestes Gonsalvesper Asthma Father Orestes Gonsalvesper Depression Brother Sulaiman Gar Depression Paternal Grandfather Arpan Gar SURGICAL HISTORY Past Surgical History: Procedure Laterality Date EXCISION INGROWN TOENAIL Bilateral PAP SMEAR 03/10/2021 nilm REVIEW OF SYSTEMS Review of Systems: Review of Systems All other systems reviewed and are negative. OBJECTIVE Objective: Physical Exam Constitutional: Appearance: Normal appearance. She is well-developed. Genitourinary: Vulva normal. Cardiovascular: Rate and Rhythm: Normal rate and [...] nursing note reviewed. Exam conducted with a excelsior picker present. Vitals: Estimated body mass index is 40.07 kg/m as calculated from the following: Height as of 04/24/23: 5' 5 . Weight as of this encounter: 240 lb 12.8 oz. BP: 126/76 Patient's last menstrual period was 06/16/2023. ASSESSMENT & PLAN ICD-10-CM 1. Third trimester Z34.93 POCT urinalysis dipstick manually resulted Strep B DNA probe, amplification Strep B DNA probe, amplification 2. 36 weeks gestation of Z3A.36 POCT urinalysis dipstick manually resulted Patient is doing well but has complaints of being tired and having maternal discomfort due to . Patient verbalized frequent movement and was instructed to perform kick counts three times per day. labor precautions were given, LARC consent was signed/declined, and GBS was obtained. Cervical check was performed and patient is 0cm/ fingertip dilated. Patient and spouse voiced that patient was having some down moods while taking Omeprazole and stopped taking and has done better over the past week. Patient and spouse voiced that they thought either seasonal depression or medication. Orders Placed This Encounter Procedures Strep B DNA probe, amplification POCT urinalysis dipstick manually resulted Follow Up: Patient is to return to office in 1 week for routine OB appointment Documented by Jaymie Shaw LPN on behalf of: Nida Vinson DO documented in this encounter [facility] 02-12-2024 History of Presen t illness Narrative Reason for Appointment: Patient ID: Yenny Ruff is a 24 y.o. female who presents [...] nursing note reviewed. Exam conducted with a excelsior picker present. Vitals: Estimated body mass index is [...] of: DEEPA An documented in this encounter [facility] 01-29-2024 History of Presen t illness Narrative Reason for Appointment: Patient ID: Yenny Ruff is a 23 y.o. female who presents [...] nursing note reviewed. Exam conducted with a excelsior picker present. Vitals: Estimated body mass index is [...] Nida Vinson DO documented in this encounter [facility] 01-01-2024 History of Presen t illness Narrative Reason for Appointment: Patient ID: Yenny Ruff is a 23 y.o. female who presents [...] Problems Past Medical History: Diagnosis Date Depression ([facility]) Scoliosis HISTORY PAST MEDICAL HISTORY SOCIAL HISTORY [...] nursing note reviewed. Exam conducted with a excelsior picker present. Vitals: Estimated body mass index is 37.67 kg/m as calculated from the following: Height as of 04/24/23: 5' 5 . Weight as of this encounter: 226 lb 6.4 oz. BP: 120/70 Patient's last menstrual period was 06/16/2023. ASSESSMENT & PLAN ICD-10-CM 1. 28 weeks gestation of Z3A.28 POCT urinalysis dipstick manually resulted 2. Encounter for follow-up ultrasound of anatomy Z36.2 US OB INCOMPLETE ANATOMY W US OB TRANSVAGINAL 3. Excessive growth affecting management of , antepartum, single or unspecified fetus O36.60X0 US OB SCAN FOR GROWTH Patient presents today for a routine obstetrics appointment. Patient is currently 28w3d with a Estimated Date of Delivery: 03/22/24. Patient given order for repeat Anatomy and growth scan. Patient to return to clinic in 2-3 weeks for routine OB appointment. Documented by Jaymie Shaw LPN on behalf of: Nida Vinson DO documented in this encounter [facility] 12-04-2023 History of Presen t illness Narrative Reason for Appointment: Patient ID: Yenny Ruff is a 23 y.o. female who presents [...] nursing note reviewed. Exam conducted with a excelsior picker present. Vitals: Estimated body mass index is 36.8 kg/m as calculated from the following: Height as of 04/24/23: 5' 5 . Weight as of this encounter: 221 lb 1.9 oz. BP: 120/70 Patient's last menstrual period was 06/16/2023. ASSESSMENT & PLAN ICD-10-CM 1. 24 weeks gestation of Z3A.24 POCT urinalysis dipstick manually resulted 2. Diabetes mellitus screening Z13.1 CBC Glucose tolerance, 1 hour Patient presents today for a routine obstetrics appointment. Patient is currently 24w3d with a Estimated Date of Delivery: 03/22/24. Patient complaints of bilateral hand swelling. Patient given order for 1 hour gtt and CBC order to have obtained. Patient to return to clinic in 4 weeks for routine OB appointment. Documented by Jaymie Shaw LPN on behalf of: Nida Vinson DO documented in this encounter [facility] Evaluation note Diagnosis 30 weeks gestation of Third trimester state, incidental [facility]* Diagnosis Rhomboid muscle strain, initial encounter- Primary Acute superficial gastritis without hemorrhage Third trimester state, incidental 32 weeks gestation of [facility] Diagnosis Rhomboid muscle strain, initial encounter- Primary Acute superficial gastritis without hemorrhage 34 weeks gestation of Third trimester state, incidental Excessive growth affecting management of in third trimester, single or unspecified fetus [facility] Diagnosis Rhomboid muscle strain, initial encounter- Primary Acute superficial gastritis without hemorrhage Third trimester state, incidental 36 weeks gestation of [facility] Diagnosis Rhomboid muscle strain, initial encounter- Primary Acute superficial gastritis without hemorrhage 37 weeks gestation of Third trimester state, incidental [facility] Diagnosis Rhomboid muscle strain, initial encounter- Primary Acute superficial gastritis without hemorrhage Third trimester state, incidental 38 weeks gestation of [facility] Diagnosis Rhomboid muscle strain, initial encounter- Primary Acute superficial gastritis without hemorrhage Third trimester state, incidental 39 weeks gestation of [facility] Diagnosis 24 weeks gestation of Diabetes mellitus screening Screening for diabetes mellitus [facility]* Diagnosis Rhomboid muscle strain, initial encounter- Primary Acute superficial gastritis without hemorrhage S/P section Other postprocedural status Postoperative examination Follow-up examination, following unspecified surgery [facility] Diagnosis 28 weeks gestation of Encounter for follow-up ultrasound of anatomy Excessive growth affecting management of , antepartum, single or unspecified fetus [facility] Diagnosis Rhomboid muscle strain, initial encounter- Primary Acute superficial gastritis without hemorrhage 6 weeks follow-up S/P section Other postprocedural status Cephalopelvic disproportion, due to unspecified factor [facility] Diagnosis Rhomboid muscle strain, initial encounter- Primary Acute superficial gastritis without hemorrhage Well woman exam with routine gynecological exam Routine gynecological examination [facility] Diagnosis Rhomboid muscle strain, initial encounter- Primary Acute superficial gastritis without hemorrhage Pain following surgery or procedure Other acute postoperative pain [facility] Diagnosis Rhomboid muscle strain, initial encounter- Primary Acute superficial gastritis without hemorrhage Encounter to discuss test results Other specified counseling Pre-op examination Pelvic pain Menorrhagia with irregular cycle Thickened endometrium Nonspecific (abnormal) findings on radiological and other examination of genitourinary organs Isthmocele [facility] DEEPA An - 01/15/2024 3:20 PM EDT Reason for Appointment: Patient ID: Yenny Ruff is a 23 y.o. female who presents [...] nursing note reviewed. Exam conducted with a excelsior picker present. Vitals: Estimated body mass index is [...] behalf of: DEEPA An [facility] Purpose Family History No Family History Records FoundNo Family History Records FoundNo Family History Records Found Advance Directives No Advanced Directives Records FoundNo Advanced Directives Records FoundNo Advanced Directives Records Found Additional Source Comments INFORMATION SOURCE (unrecogn ized section and content) DATE CREATED AUTHOR 02/04/2020 [facility] DATE CREATED AUTHOR AUTHOR'S ORGANIZ ATION 11/06/2022 [facility] DATE CREATED AUTHOR AUTHOR'S ORGANIZ ATION 11/19/2024 [facility] Care Teams (unrecognized sec tion and content) Healthcare Marketer Relationship Specialty Start Date End Date Richard Dai MD [address] [place], [place] [id number] PCP - General Family Medicine 11/04/22 Healthcare Marketer Relationship Specialty Start Date End Date Richard Dai MD [address] [place] [phone] PCP - [employer] 03/10/23 Richard Dai MD [address] [place] [phone] PCP - General Family Medicine 09/11/23 Healthcare Marketer Relationship Specialty Start Date End Date Richard Dai MD [address] [place] [phone] PCP - [employer] 03/10/23 Richard Dai MD [address] [place] [phone] PCP - General Family Medicine 09/11/23 Healthcare Marketer Relationship Specialty Start Date End Date Richard Dai MD [address] [place] [phone] PCP - [employer] 03/10/23 Richard Dai MD [address] [place] [phone] PCP - General Family Medicine 09/11/23 Healthcare Marketer Relationship Specialty Start Date End Date Richard Dai MD [address] [place] [phone] PCP - [employer] 03/10/23 Richard Dai MD [address] [place] [phone] PCP - General Family Medicine 09/11/23 Healthcare Marketer Relationship Specialty Start Date End Date Richard Dai MD [address] [place] [address] PCP - [employer] 03/10/23 Richard Dai MD [address] [place] [phone] PCP - General Family Medicine 09/11/23 Healthcare Marketer Relationship Specialty Start Date End Date Richard Dai MD [address] [place] [phone] PCP - [employer] 03/10/23 Richard Dai MD [address] [place] [phone] PCP - General Family Medicine 09/11/23 Healthcare Marketer Relationship Specialty Start Date End Date Richard Dai MD [address] [place] [address] PCP - [employer] 03/10/23 Richard Dai MD [address] [place] [address] PCP - General Family Medicine 09/11/23 Healthcare Marketer Relationship Specialty Start Date End Date Richard Dai MD [address] [place] [phone] PCP - [employer] 03/10/23 Richard Dai MD [address] [place] [phone] PCP - General Family Medicine 09/11/23 Healthcare Marketer Relationship Specialty Start Date End Date Richard Dai MD [address] [place] [phone] PCP - [employer] 03/10/23 Richard Dai MD [address] [place] [phone] PCP - General Family Medicine 09/11/23 Healthcare Marketer Relationship Specialty Start Date End Date Richard Dai MD [address] [place] [address] PCP - [employer] 03/10/23 Richard Dai MD [address] [place] [phone] PCP - General Family Medicine 09/11/23 Healthcare Marketer Relationship Specialty Start Date End Date Richard Dai MD [address] [place] [phone] PCP - [employer] 03/10/23 Richard Dai MD [address] [place] [phone] PCP - General Family Medicine 09/11/23 Healthcare Marketer Relationship Specialty Start Date End Date Richard Dai MD [address] [place] [phone] PCP - [employer] 03/10/23 Richard Dai MD [address] [place] [phone] PCP - General Family Medicine 09/11/23 Healthcare Marketer Relationship Specialty Start Date End Date Richard Dai MD [address] [place] [address] PCP - [employer] 03/10/23 Richard Dai MD [address] [place] [phone] PCP - General Family Medicine 09/11/23 Healthcare Marketer Relationship Specialty Start Date End Date Richard Dai MD [address] [place] [phone] PCP - General Family Medicine 09/11/23 Healthcare Marketer Relationship Specialty Start Date End Date Richard Dai MD [address] [place] [address] PCP - General Family Medicine 09/11/23 Healthcare Marketer Relationship Specialty Start Date End Date Richard Dai MD [address] [place] [address] PCP - General Family Medicine 09/11/23 Healthcare Marketer Relationship Specialty Start Date End Date Richard Dai MD [address] [place] [address] PCP - General Family Medicine 09/11/23 Reason for Visit (unrecogniz ed section and content) Reason Comments Routine Visit Reason Comments Post-op Visit Reason Comments Care Pt present today for a 6 week post c/s visit. Pt had a c/s on 03/20/2024. Reason Comments Gynecologic Exam Reason Comments pain around c section scar Reason Comments Follow-up Pre-op Visit FOR RECORDS PERTAINING TO PATIENTS WHO [...] BE BASED ON THE PRIMARY CLINICAL RECORDS. [employer] provides no warranty or guarantee of the accuracy or completeness of information in this document.
== END 2024-11-27 08:50 | disposition home or self-care (01) ==
LOC: PST 08:50
PROVIDERS: PCP Family Medicine; Visit Provider Obstetrics & Gynecology
DX: Z01.818 Encounter for other preprocedural examination (principal); R10.2 Pelvic and perineal pain; N85.A Isthmocele; N92.1 Excessive and frequent menstruation with irregular cycle; R93.89 Abnormal findings on diagnostic imaging of other specified body structures

== ENCOUNTER 2024-12-13 07:45 | Day surgery (SDC) | payer BC, SELFPAY ==
[2024-11-27 09:42] VITALS: BP 128/87; PULSE 101; TEMP 36.6; O2SAT 98; BMI 35.6
[2024-12-13] VITALS (10 sets, daily range): BP systolic 119–140; BP diastolic 67–102; PULSE 64–95; TEMP 36.2–36.8; O2SAT 97–100; BMI 35.5
--- OUTSIDE RECORDS SUMMARY | 2024-12-13 07:49 | XMS_ITS | CCD ---
Author Organization [facility] Care Team Providers Care Testing Manager Name Role Phone HOY, ELMER Admitting Unavailable [...] Unavailable Richard Dai MD Primary Care Provider [phone] ALISSON, NIDA Attending Unavailable ALISSON, NIDA Attending Unavailable ALISSON, NIDA Attending Unavailable ALISSON, NIDA Referring Unavailable ALISSON, NIDA Attending Unavailable ALISSON, NIDA Attending Unavailable LAISSON, NIDA Attending Unavailable GEORGE, VENICE Attending Unavailable ALISSON, NIDA Attending Unavailable GEORGE, VENICE Attending Unavailable ALISSON, NIDA Attending Unavailable ALISSON, NIDA Attending Unavailable GEORGE, VENICE Attending Unavailable GEORGE, VENICE Attending Unavailable GEORGE, VENICE Attending Unavailable Allergies Allergy Classification Reported Allergen(s) Allergy Type Date of Onset Reaction(s) Facility (20 sources) Amoxicillin Drug Allergy 9 Nausea And Vomiting, GI intolerance [facility] (20 sources) fexofenadine Drug Allergy 9 GI intolerance [facility] (20 sources) Hypochlorite Drug Allergy 8 Itching, [...] II, MD, PHD at 06-Nov-2024 07:34:57 AM [facility] Normal Not Available Comment on above: [...] High,A-Abnormal,AA-Critical Abnormal Performed at: 01 =G [facility] [address] [place] [address] Rachel Berman MD, IGP, RFX APTIMA HPV ASCU Note . [facility] Comment on above: TESTS RESULT FLAG UN ITS REF RANGE LAB DIAGNOSIS: 02 NEGATIVE FOR INTRAEPITHELIAL LESION OR MALIGNANCY. Specimen adequacy: 02 Satisfactory for evaluation. Endocervical and/or squamous metaplastic cells (endocervical component) are present. Performed by: Nelson Sapp, Buffing Wheel Presser ([facility]) . 02 Note: Note 02 The Pap [...] <-Panic Low,>-Panic High,A-Abnormal,AA-Critical Abnormal Performed at: [address] [id number] Rachel Berman MD, Performed at: = - [facility] [id number] Auto Service Instructor: Rachel Berman MD, Phone: [phone] Performed at: [facility] [address] [id number] Auto Service Instructor: Rachel Berman MD, Phone: [phone] BRUSH-SPATULA CERVIX ENDOCERVIX [facility] Healthcar e ALL CBC WITH AUTO DIFFon BASOPHILS ABSOLUTE AUTO 0.1 [facility] Basophils/100 WBC (Bld) 0.3 % 0.2 - 2.0 % [facility] Eosinophils/100 WBC (Bld) 0.2 % Low 0.9 - 7.0 % [facility] Erythrocyte distribution width (RBC) [Ratio] 14.1 % 11.0 - 15.0 % [facility] [employer] Hematocrit (Bld) [Volume fraction] 31.8 % Low 36.0 - 48.0 % [facility] Hemoglobin (Bld) [Mass/Vol] 10.7 g/dL Low 12.0 - 16.0 g/dL [facility] IMMATURE GRANULOCYTES ABS AUTO 0.16 High [facility] [employer] Immature granulocytes/100 WBC (Bld) 0.8 % High 0.0 - 0.5 % [facility] Interpretation and review of laboratory results Abnormal [facility] LYMPHOCYTES ABSOLUTE AUTO 3.1 [facility] Lymphocytes/100 WBC (Bld) 16.7 % Low 20.5 - 60.0 % [facility] MCH (RBC) [Entitic mass] 30.8 pg 26.7 - 34.0 pg [facility] MCHC (RBC) [Mass/Vol] 33.6 g/dL 29.9 - 35.2 g/dL [facility] MCV (RBC) [Entitic vol] 91.6 fL 81.0 - 99.0 fL [facility] MONOCYTES ABSOLUTE AUTO 1 High [facility] Monocytes/100 WBC (Bld) 5.2 % 1.7 - 12.0 % [facility] NEUTROPHILS ABSOLUTE AUTO 14.5 High [facility] Neutrophils/100 WBC (Bld) 76.8 % High 43.0 - 75.0 % [facility] Platelet mean volume (Bld) [Entitic vol] 11.4 fL 9.5 - 13.5 fL [facility] are TBH EO # 0 [facility] TBH PLT 169 [facility] TB[facility] RBC 3.47 Low [facility] TBH WBC 18.9 High [facility] Healthcar e HMHP CBC WITH PLATELET NO DI FFERENTIALon 03-20-2024 Erythrocyte distribution width (RBC) [Ratio] 14 % 11.0 - 15.0 % [facility] Hematocrit (Bld) [Volume fraction] 37.6 % 36.0 - 48.0 % [facility] Hemoglobin (Bld) [Mass/Vol] 12.8 g/dL 12.0 - 16.0 g/dL [facility] Interpretation and review of laboratory results Abnormal [facility] MCH (RBC) [Entitic mass] 30.6 pg 26.7 - 34.0 pg [facility] MCHC (RBC) [Mass/Vol] 34 g/dL 29.9 - 35.2 g/dL [facility] MCV (RBC) [Entitic vol] 90 fL 81.0 - 99.0 fL [facility] Platelet mean volume (Bld) [Entitic vol] 11.8 fL 9.5 - 13.5 fL [facility] are TBH PLT 222 [facility] TBH RBC 4.18 Low [facility] TB WBC 15 High [facility] Healthcar e [facility] Health[facility] e Urinalysis macro (dipstick) panel (U)on 03-20-2024 Bilirubin, UA Negative Negative - 4(70) +++ mg/dL [facility] Blood, UA Negative Negative - 50 Gonzalez/mcL [facility] Healthcare Clarity, UA Clear [facility] Color, UA Adilia [facility] Glucose, UA Negative Negative - 1999(110) ++++ mg/dL [facility] Interpretation and review of laboratory results Normal [facility] Ketones, UA Negative Negative - 160(16) ++++ mg/dL [facility] Leukocytes, UA Negative Negative - 500+++ Meera/mcL [facility] Nitrite, UA Negative Negative - Positive [facility] pH, UA 6.5 5 - 9 [facility] Protein, UA Negative Negative - 1999(20) ++++ mg/dL [facility] Spec Grav, UA 1.025 1 - 1.03 [facility] Urobilinogen, UA 0.2 0.2 - 12 mg/dL [facility] Urinalysis macro (dipstick) panel (U)on 03-11-2024 Bilirubin, UA Negative Negative - 4(70) +++ mg/dL [facility] Blood, UA Negative Negative - 50 Gonzalez/mcL [facility] Healthcare Clarity, UA Clear [facility] Color, UA Yellow [facility] Healthcar e Glucose, UA Negative Negative - 1999(110) ++++ mg/dL [facility] Interpretation and review of laboratory results Abnormal [facility] Ketones, UA Negative Negative - 160(16) ++++ mg/dL [facility] Leukocytes, UA Positive Negative - 500+++ Meera/mcL [facility] Healthcare Comment on above: small Nitrite, UA Negative Negative - Positive [facility] pH, UA 7 5 - 9 [facility] Protein, UA Negative Negative - 1999(20) ++++ mg/dL [facility] Spec Grav, UA 1.025 1 - 1.03 [facility] [place] [facility] Urobilinogen, UA 0.2 0.2 - 12 mg/dL [facility] Urinalysis macro (dipstick) panel (U)on 03-04-2024 Bilirubin, UA Negative Negative - 4(70) +++ mg/dL [facility] Blood, UA Negative Negative - 50 Gonzalez/mcL [facility] Healthcare Clarity, UA Clear [facility] Color, UA Yellow [facility] Glucose, UA Negative Negative - 1999(110) ++++ mg/dL [facility] Interpretation and review of laboratory results Normal [facility] Ketones, UA Negative Negative - 160(16) ++++ mg/dL [facility] Leukocytes, UA Negative Negative - 500+++ Meera/mcL [facility] Nitrite, UA Negative Negative - Positive [facility] pH, UA 0.2 5 - 9 [facility] Protein, UA Negative Negative - 1999(20) ++++ mg/dL [facility] Spec Grav, UA 1.015 1 - 1.03 [facility] Urobilinogen, UA 0.2 0.2 - 12 mg/dL [facility] STREP GP B NAAon 02-29-2024 STREP GP B JAMIL Strep Gp B JAMIL [facility] STREP GP B JAMIL *ABNORMAL* [facility] STRE[facility] GP B JAMIL Positive [facility] ST[facility] GP B JAMIL Centers for Disease Control and Prevention (CDC) and [facility] STREP GP B JAMIL [employer] [employer] [facility] Healthcare STREP GP B JAMIL (ACOG) guidelines fo r prevention of group B [facility] STREP GP B JAMIL streptococcal (GBS) disease specify co-collection of [facility] Healthcare STREP GP B JAMIL a vaginal and rectal swab specimen to maximize [facility] Healthcare STREP GP B JAMIL sensitivity of GBS detection. Per the CDC and ACOG, [facility] Healthcare STREP GP B JAMIL swabbing both the lower vagina and rectum [facility] Healthcare STREP GP B JAMIL substantially increases the yield of detection [facility] Healthcare STREP GP B JAMIL compared with sampling the vagina alone. [facility] Healthcare STREP GP B JAMIL Penicillin G, ampicillin, or cefazolin are indicated [facility] STRE[facility] GP B JAMIL for intrapartum prophylaxis of GBS [facility] STRE[facility] GP B JAMIL colonization. Reflex susceptibility testing should be [facility] Healthcare STREP GP B JAMIL performed prior to use of clindamycin only on GBS [facility] Healthcare STREP GP B JAMIL isolates from penicillin-allergic women who are [facility] STREP GP B JAMIL considered a high risk for anaphylaxis. Treatment with [facility] Healthcare STREP GP B JAMIL vancomycin without additional testing is warranted if [facility] STRE[facility] GP B JAMIL resistance to clindamycin is noted. [facility] Healthcare STREP GP B JAMIL Performed at: [facility] ST[facility] GP B JAMIL [address] [place], [place] [id number] [facility] STREP GP B JAMIL Auto Service Instructor: Timmy Orellana PhD, Phone: [phone] [facility] Urinalysis macro (dipstick) panel (U)on 02-26-2024 Bilirubin, UA Negative Negative - 4(70) +++ mg/dL [facility] Blood, UA Negative Negative - 50 Gonzalez/mcL [facility] Healthcare Clarity, UA Clear [facility] Color, UA Yellow [facility] Glucose, UA Negative Negative - 1999(110) ++++ mg/dL [facility] Interpretation and review of laboratory results Abnormal [facility] Ketones, UA Positive Negative - 160(16) ++++ mg/dL [facility] Leukocytes, UA Negative Negative - 500+++ Meera/mcL [facility] Healthcare Nitrite, UA Negative Negative - Positive [facility] pH, UA 60 5 - 9 [facility] Protein, UA Negative Negative - 1999(20) ++++ mg/dL [facility] Healthcare Spec Grav, UA 1.02 1 - 1.03 [facility] Urobilinogen, UA 1.0 0.2 - 12 mg/dL [facility] Urinalysis macro (dipstick) panel (U)on 02-12-2024 Bilirubin, UA Negative Negative - 4(70) +++ mg/dL [facility] Blood, UA Negative Negative - 50 Gonzalez/mcL [facility] Healthcare Clarity, UA Clear [facility] Healthca re Color, UA Yellow [facility] Healthcar e Glucose, UA Negative Negative - 1999(110) ++++ mg/dL [facility] Interpretation and review of laboratory results Abnormal [facility] Ketones, UA Negative Negative - 160(16) ++++ mg/dL [facility] Leukocytes, UA Trace Negative - 500+++ Meera/mcL [facility] Healthcare Nitrite, UA Negative Negative - Positive [facility] pH, UA 6.5 5 - 9 [facility] Protein, UA Negative Negative - 1999(20) ++++ mg/dL [facility] Healthcare Spec Grav, UA 1.02 1 - 1.03 [facility] Urobilinogen, UA 0.2 0.2 - 12 mg/dL [facility] Urinalysis macro (dipstick) panel (U)on 01-29-2024 Bilirubin, UA Negative Negative - 4(70) +++ mg/dL [facility] Blood, UA Negative Negative - 50 Gonzalez/mcL [facility] Healthcare Clarity, UA Clear [facility] Color, UA Yellow [facility] Glucose, UA Negative Negative - 1999(110) ++++ mg/dL [facility] Interpretation and review of laboratory results Normal [facility] Ketones, UA Negative Negative - 160(16) ++++ mg/dL [facility] Leukocytes, UA Negative Negative - 500+++ Meera/mcL [facility] Healthcare Nitrite, UA Negative Negative - Positive [facility] pH, UA 6.5 5 - 9 [facility] Protein, UA Negative Negative - 1999(20) ++++ mg/dL [facility] Spec Grav, UA 1.025 1 - 1.03 [facility] Urobilinogen, UA 0.2 0.2 - 12 mg/dL [facility] Urinalysis macro (dipstick) panel (U)on 01-15-2024 Bilirubin, UA Negative Negative - 4(70) +++ mg/dL [facility] Blood, UA Negative Negative - 50 Gonzalez/mcL [facility] Healthcare Clarity, UA Clear [facility] Color, UA Yellow [facility] Healthcar e Glucose, UA Negative Negative - 1999(110) ++++ mg/dL [facility] Interpretation and review of laboratory results Normal [facility] Ketones, UA Negative Negative - 160(16) ++++ mg/dL [facility] Leukocytes, UA Negative Negative - 500+++ Meera/mcL [facility] Healthcare Nitrite, UA Negative Negative - Positive [facility] pH, UA 6.5 5 - 9 [facility] Healthcar e Protein, UA Negative Negative - 1999(20) ++++ mg/dL [facility] Spec Grav, UA 1.025 1 - 1.03 [facility] Urobilinogen, UA 0.2 0.2 - 12 mg/dL [facility] Urinalysis macro (dipstick) panel (U)on 01-01-2024 Bilirubin, UA Negative Negative - 4(70) +++ mg/dL [facility] Blood, UA Negative Negative - 50 Gonzalez/mcL [facility] Healthcare Clarity, UA Clear [facility] Color, UA Yellow [facility] Glucose, UA Negative Negative - 1999(110) ++++ mg/dL [facility] Interpretation and review of laboratory results Normal [facility] Ketones, UA Negative Negative - 160(16) ++++ mg/dL [facility] Leukocytes, UA Negative Negative - 500+++ Meera/mcL [facility] Nitrite, UA Negative Negative - Positive [facility] pH, UA 5.5 5 - 9 [facility] Protein, UA Negative Negative - 1999(20) ++++ mg/dL [facility] Spec Grav, UA 1.025 1 - 1.03 [facility] Urobilinogen, UA 0.2 0.2 - 12 mg/dL [facility] CBC WITH AUTO DIFFon BASOPHILS ABSOLUTE AUTO 0.0 [facility] Basophils/100 WBC (Bld) 0.3 % 0.2 - 2.0 % [facility] Eosinophils/100 WBC (Bld) 0.5 % Low 0.9 - 7.0 % [facility] Erythrocyte distribution width (RBC) [Ratio] 13.2 % 11.0 - 15.0 % [facility] Hematocrit (Bld) [Volume fraction] 39.8 % 36.0 - 48.0 % [facility] e Hemoglobin (Bld) [Mass/Vol] 13.2 g/dL 12.0 - 16.0 g/dL [facility] IMMATURE GRANULOCYTES ABS AUTO 0.07 High [facility] Immature granulocytes/100 WBC (Bld) 0.6 % High 0.0 - 0.5 % [facility] Interpretation and review of laboratory results Abnormal [facility] LYMPHOCYTES ABSOLUTE AUTO 2.0 [facility] Lymphocytes/100 WBC (Bld) 16.4 % Low 20.5 - 60.0 % [facility] MCH (RBC) [Entitic mass] 31.1 pg 26.7 - 34.0 pg [facility] MCHC (RBC) [Mass/Vol] 33.2 g/dL 29.9 - 35.2 g/dL [facility] MCV (RBC) [Entitic vol] 93.9 fL 81.0 - 99.0 fL [facility] MONOCYTES ABSOLUTE AUTO 0.4 [facility] Monocytes/100 WBC (Bld) 2.8 % 1.7 - 12.0 % [facility] NEUTROPHILS ABSOLUTE AUTO 9.9 High [facility] Neutrophils/100 WBC (Bld) 79.4 % High 43.0 - 75.0 % [facility] Platelet mean volume (Bld) [Entitic vol] 10.8 fL 9.5 - 13.5 fL [facility] are TBH EO # 0.1 [facility] TBH PLT 193 [facility] Health[facility] e TBH RBC 4.24 [facility] TBH WBC 12.4 High [facility] e Hemoglobin A1Con 11-06-2022 Glucose [Mass/Vol] 103 mg/dL Normal [facility] Comment on above: Result Comment: The ADA and AACC recommend providing the estimated average glucose result to permit better patient understanding of their HBA1c result. Performed By: #### T JOAN GEORGES, BMP, LIVP #### [facility] [address] [place] [address] [place] [address] Auto Service Instructor: Abeba Parra MD #### GIOVANNI, LIPR #### [facility] [employer] [address] [place], [place] [phone] Auto Service Instructor: Chapin Bellamy MD HbA1c (Bld) [Mass fraction] 5.2 % Normal 4.0-6.0 [facility] Comment on above: Performed By: #### T JOAN GEORGES BMP, LIVP #### [address] [place] [phone] Auto Service Instructor: Abeba Parra MD #### GIOVANNI, LIPR #### [address] [phone] Auto Service Instructor: Chapin Bellamy MD Lipid Profileon 11-05-2022 Cholesterol [Mass/Vol] 130 mg/dL Normal <200 [facility] Comment on above: Result Comment: Cholesterol Guidelines: <200 Desirable 200-240 Borderline >240 Undesirable Performed By: #### T DESTINI, JOAN, BMP, LIVP #### [facility] [address] [place] [address] [place] [address] Auto Service Instructor: Abeba Parra MD #### GLYALDEN, LIPR #### [facility] [employer] [address] [place] [address] Auto Service Instructor: Chapin Bellamy MD Cholesterol in HDL [Mass/Vol] 61 mg/dL Normal >40 [facility] Comment on above: Result Comment: HDL Guidelines: <40 Undesirable 40-59 Borderline >59 Desirable Performed By: #### T SH, CDP, BMP, LIVP #### [facility] [address] [place] [address] Dr[address] [place], [place] [phone] Auto Service Instructor: Abeba Parra MD #### GLYHGB, LIPR #### [place] [address] [place], [place] [phone] Auto Service Instructor: Chapin Bellamy MD Cholesterol in LDL [Mass/Vol] 56 mg/dL Normal 0-130 [facility] Comment on above: Result Comment: LDL Guidelines: <100 Desirable 100-129 Near to/above Desirable 130-159 Borderline >159 Undesirable Direct (measured) LDL and calculated LDL are not interchangeable tests. Performed By: #### T SH, CDP, BMP, LIVP #### [address] [place], [place] [phone] Auto Service Instructor: Abeba Parra MD #### GLYHGB, LIPR #### [address] [place], [place] [phone] Auto Service Instructor: Chapin Bellamy MD Cholesterol.total/Ch olesterol in HDL [Mass ratio] 2.1 {ratio} Normal <5 [facility] Comment on above: Performed By: #### T SH, CDP, BMP, LIVP #### [facility] [address] [place] [address] [place] [address] Auto Service Instructor: Abeba Parra MD #### GLYHGB, LIPR #### [address] [place], [place] [phone] Auto Service Instructor: Chapin Bellamy MD Triglyceride [Mass/Vol] 64 mg/dL Normal <150 [facility] Comment on above: Result Comment: Triglyceride Guidelines: <150 Desirable 150-199 Borderline 200-499 High >499 Very high Based on AHA Guidelines for fasting triglyceride, January 2012. Performed By: #### T SH, CDP, BMP, LIVP #### [facility] [address] [place] [address] Auto Service Instructor: Abeba Parra MD #### GLYHGB, LIPR #### [facility] [address] [place], [place] [phone] Auto Service Instructor: Chapin Bellamy MD Basic Metabolic Panelon - Anion gap [Moles/Vol] 11 mmol/L 9 - 17 mmol/L [facility] [employer] Calcium [Mass/Vol] 9.7 mg/dL 8.6 - 10. 4 mg/dL [facility] Chloride [Moles/Vol] 107 mmol/L 98 - 10 7 mmol/L [facility] CO2 [Moles/Vol] 22 mmol/L 20 - 31 mmol/L [facility] [employer] Creatinine [Mass/Vol] 0.6 mg/dL 0.5 - 0.9 mg/dL [facility] [employer] GFR/1.73 sq M.predicted MDRD (S/P/Bld) [Vol rate/Area] - PINF [facility] Comment on above: These results are not [...] [Mass/Vol] 85 mg/dL 70 - 99 mg/dL [facility] [employer] Interpretation and review of laboratory results Abnormal [facility] Potassium [Moles/Vol] 3.9 mmol/L 3.7 - 5.3 mmol/L [facility] [employer] Sodium [Moles/Vol] 140 mmol/L 135 - 144 mmol/L [facility] [employer] Urea nitrogen [Mass/Vol] 18 mg/dL 6 - 20 mg/dL [facility] Urea nitrogen/Creatinine [Mass ratio] 30 mg/mg High 9 - 20 [facility] Basic Metabolic Profon 11-04 Anion gap [Moles/Vol] 11 mmol/L Normal - [facility] Comment on above: Performed By: #### T SH, CDP, BMP, LIVP #### [facility] [address] [place] [address] Auto Service Instructor: Abeba Parra MD #### GLYHGB, LIPR #### [facility] [address] [place], [place] [phone] Auto Service Instructor: Chapin Bellamy MD BUN/CRE Ratio 30 High - [facility] Comment on above: Performed By: #### T SH, CDP, BMP, LIVP #### [facility] [address] [place] [address] Auto Service Instructor: Abeba Parra MD #### GLYHGB, LIPR #### [facility] [address] [place], [place] [phone] Auto Service Instructor: Chapin Bellamy MD Calcium [Mass/Vol] 9.7 mg/dL Normal 8.6-10.4 [facility] Comment on above: Performed By: #### T SH, CDP, BMP, LIVP #### [facility] [address] [place] [address] Auto Service Instructor: Abeba Parra MD #### GLYHGB, LIPR #### [facility] [address] [place], [place] [id number] Auto Service Instructor: Chapin Bellamy MD Chloride [Moles/Vol] 107 mmol/L Normal 98-107 [facility] Comment on above: Performed By: #### T SH, CDP, BMP, LIVP #### [facility] [address] [place] [address] Auto Service Instructor: Abeba Parra MD #### GLYHGB, LIPR #### [address] [place] [place], [place] [phone] Auto Service Instructor: Chapin Bellamy MD CO2 [Moles/Vol] 22 mmol/L Normal 20-31 [facility] Comment on above: Performed By: #### T SH, CDP, BMP, LIVP #### [facility] [address] [place], [place] [address] Auto Service Instructor: Aebba Parra MD #### GLYHGB, LIPR #### [address] [place] [place], [place] [id number] Auto Service Instructor: Chapin Bellamy MD Creatinine [Mass/Vol] 0.6 mg/dL Normal 0.5-0.9 [facility] Comment on above: Performed By: #### T SH, CDP, BMP, LIVP #### [facility] [address] [place], [place] [phone] Auto Service Instructor: Abeba Parra MD #### GLYHGB, LIPR #### [address] [id number] Auto Service Instructor: Chapin Bellamy MD GFR/1.73 sq M.predicted among non-blacks MDRD (S/P/Bld) [Vol rate/Area] mL/min/{1.73_m2} Normal >60 [facility] Comment on above: Result Comment: These results [...] #### T SH, CDP, BMP, LIVP #### [facility] [address] [place], [place] [phone] Auto Service Instructor: Abeba Parra MD #### GLYHGB, LIPR #### [address] [place] [address] Auto Service Instructor: Chapin Bellamy MD Glucose [Mass/Vol] 85 mg/dL Normal 70-99 [facility] Comment on above: Performed By: #### T SH, CDP, BMP, LIVP #### [facility] [address] [place] [address] Dr. [place], [place] [phone] [employer]structor: Abeba Parra MD #### GLYHGB, LIPR #### [address] [address] [employer] Service Instructor: Chapin Bellamy MD Potassium [Moles/Vol] 3.9 mmol/L Normal 3.7-5.3 [facility] Comment on above: Performed By: #### T SH, CDP, BMP, LIVP #### [facility] [address] [place] [address] Dr. [place], [place] [phone] [employer]: Abeba Parra MD #### GLYHGB, LIPR #### [address] [address] [employer] Service Instructor: Chapin Bellamy MD Sodium [Moles/Vol] 140 mmol/L Normal 135-144 [facility] Comment on above: Performed By: #### T SH, CDP, BMP, LIVP #### [address] [place], [place] [phone] [employer] Instructor: Abeba Parra MD #### GLYHGB, LIPR #### [address] [place] [address] Auto Service Instructor: Chapin Bellamy MD Urea nitrogen [Mass/Vol] 18 mg/dL Normal 6-20 [facility] Comment on above: Performed By: #### T SH, CDP, BMP, LIVP #### [facility] [address] [place] [address] Dr. [place], [place] [phone] [employer]structor: Abeba Parra MD #### GLYHGB, LIPR #### [address] [address] [place] [address] [employer] Service Instructor: Chapin Bellamy MD CBC with Auto Differentialon 11-04-2022 Basophils (Bld) [#/Vol] 0.05 10*3/uL [facility] Basophils/100 WBC (Bld) 1 % 0 - 2 % [facility] Eosinophils (Bld) [#/Vol] 0.06 10*3/uL [facility] Eosinophils/100 WBC (Bld) 1 % 1 - 4 % [facility] Erythrocyte distribution width (RBC) [Ratio] 13.0 % 11.8 - 14.4 % [facility] Hematocrit (Bld) [Volume fraction] 43.3 % 36.3 - 47.1 % [facility] Hemoglobin (Bld) [Mass/Vol] 14.2 g/dL 11.9 - 15.1 g/dL [facility] Immature granulocytes (Bld) [#/Vol] [facility] Immature granulocytes/100 WBC (Bld) 0 % 0 [facility] Lymphocytes/100 WBC (Bld) 30 % 24 - 43 % [facility] Lymphocytes/100 WBC (Bld) 3.22 % [facility] MCH (RBC) [Entitic mass] 30.2 pg 25.2 - 33.5 pg [facility] MCHC (RBC) [Mass/Vol] 32.8 g/dL 28.4 - 34.8 g/dL [facility] MCV (RBC) [Entitic vol] 92.1 fL 82.6 - 102.9 fL [facility] Monocytes/100 WBC (Bld) 5 % 3 - 12 % [facility] Monocytes/100 WBC (Bld) 0.50 % [facility] Neutrophils/100 WBC (Bld) 63 % 36 - 65 % [facility] Nucleated RBC/100 WBC (Bld) [Ratio] 0.0 % 0.0 per 100 WBC [facility] Platelet mean volume (Bld) [Entitic vol] 11.0 fL 8.1 - 13.5 fL [facility] Platelets (Bld) [#/Vol] 264 10*3/uL [facility] RBC (Bld) [#/Vol] 4.70 10*6/uL 3.95 - 5.1 1 m/uL [facility] Segmented neutrophils/100 WBC (Bld) 6.95 % [facility] WBC other (Bld) [#/Vol] 10.8 [facility] CBC with Diffon 11-04-2022 Abs. Basophil 0.05 k/uL Normal 0.00-0.20 [facility] Comment on above: Performed By: #### T SH, CDP, BMP, LIVP #### [facility] [address] [place] [address] [place] [address] [employer] Service Instructor: Abeba Parra MD #### GLYHGB, LIPR #### [place] [address] [phone] Auto Service Instructor: Chapin Bellamy MD Abs.Imm.Granulocyte <0.03 Normal 0.00-0.30 [facility] Comment on above: Performed By: #### T SH, CDP, BMP, LIVP #### [address] [place] [phone] Auto Service Instructor: Abeba aPrra MD #### GLYHGTanya, LIPR #### [place] [phone] Auto Service Instructor: Chapin Bellamy MD Abs.Neutrophil (Seg) 6.95 k/uL Normal 1.50-8.10 [facility] Comment on above: Performed By: #### T SH, CDP, BMP, LIVP #### [facility] [address] [place] [address] [place] [address] [employer] Service Instructor: Abeba Parra MD #### GLYHGB, LIPR #### [address] [phone] Auto Service Instructor: Chapin Bellamy MD Basophils/100 WBC (Bld) 1 % Normal 0-2 [facility] Comment on above: Performed By: #### T SH, CDP, BMP, LIVP #### [address] [place] [phone] Auto Service Instructor: Abeba Parra MD #### GLYHGB, LIPR #### [place] [phone] Auto Service Instructor: Chapin Bellamy MD Eosinophils (Bld) [#/Vol] 0.06 10*3/uL Normal 0.00-0.44 [facility] Comment on above: Performed By: #### T SH, CDP, BMP, LIVP #### [address] [place] [address] [employer] Service Instructor: Abeba Parra MD #### GLYHGTanya, LIPR #### [place] [address] Auto Service Instructor: Chapin Bellamy MD Eosinophils/100 WBC (Bld) 1 % Normal 1-4 [facility] Comment on above: Performed By: #### T SH, CDP, BMP, LIVP #### [address] [place] [phone] [employer] Service Instructor: Abeba Parra MD #### GLYHGTanya, LIPR #### [place] [address] Auto Service Instructor: Chapin Bellamy MD Erythrocyte distribution width (RBC) [Ratio] 13.0 % Normal 11.8-14.4 [facility] Comment on above: Performed By: #### T SH, CDP, BMP, LIVP #### [address] [place] [phone] Auto Service Instructor: Abeba Parra MD #### GLYHGB, LIPR #### [place] [phone] Auto Service Instructor: Chapin Bellamy MD Hematocrit (Bld) [Volume fraction] 43.3 % Normal 36.3-47.1 [facility] Comment on above: Performed By: #### T SH, CDP, BMP, LIVP #### [facility] [address] [place] [address] [place] [phone] Auto Service Instructor: Abeba Parra MD #### GLYHGB, LIPR #### [address] [phone] Auto Service Instructor: Chapin Bellamy MD Hemoglobin (Bld) [Mass/Vol] 14.2 g/dL Normal 11.9-15.1 [facility] Comment on above: Performed By: #### T SH, CDP, BMP, LIVP #### [address] [place] [phone] Auto Service Instructor: Abeba Parra MD #### GLYHGB, LIPR #### [place] [phone] Auto Service Instructor: Chapin Bellamy MD Immature granulocytes/100 WBC (Bld) 0 % Normal 0 [facility] Comment on above: Performed By: #### T SH, CDP, BMP, LIVP #### [address] [place] [phone] Auto Service Instructor: Abeba Parra MD #### GLYHGB, LIPR #### [place] [address] Auto Service Instructor: Chapin Bellamy MD Lymphocytes (Bld) [#/Vol] 3.22 10*3/uL Normal 1.10-3.70 [facility] Comment on above: Performed By: #### T SH, CDP, BMP, LIVP #### [facility] [address] [place] [address] [place] [phone] Auto Service Instructor: Abeba Parra MD #### GLYHGB, LIPR #### [address] [place], [place] [phone] Auto Service Instructor: Chapin Bellamy MD Lymphocytes/100 WBC (Bld) 30 % Normal 24-43 [facility] Comment on above: Performed By: #### T SH, CDP, BMP, LIVP #### [facility] [address] [place] [address] Dr. [place] [phone] Auto Service Instructor: Abeba Parra MD #### GLYHGB, LIPR #### [address] [phone] Auto Service Instructor: Chapin Bellamy MD MCH (RBC) [Entitic mass] 30.2 pg Normal 25.2-33.5 [facility] Comment on above: Performed By: #### T SH, CDP, BMP, LIVP #### [address] [place] [phone] Auto Service Instructor: Abeba Parra MD #### GLYHGB, LIPR #### [address] [phone] Auto Service Instructor: Chapin Bellamy MD MCHC (RBC) [Mass/Vol] 32.8 g/dL Normal 28.4-34.8 [facility] Comment on above: Performed By: #### T SH, CDP, BMP, LIVP #### [address] [place] [phone] Auto Service Instructor: Abeba Parra MD #### GLYHGB, LIPR #### [address] [phone] Auto Service Instructor: Chapin Bellamy MD MCV (RBC) [Entitic vol] 92.1 fL Normal 82.6-102.9 [facility] Comment on above: Performed By: #### T SH, CDP, BMP, LIVP #### [address] [place] [address] [employer] Service Instructor: Abeba Parra MD #### GLYHGB, LIPR #### [address] [address] Auto Service Instructor: Chapin Bellamy MD Monocytes (Bld) [#/Vol] 0.50 10*3/uL Normal 0.10-1.20 [facility] Comment on above: Performed By: #### T SH, CDP, BMP, LIVP #### [address] [place] [address] Auto Service Instructor: Abeba Parra MD #### GLYHGB, LIPR #### [place] [address] Auto Service Instructor: Chapin Bellamy MD Monocytes/100 WBC (Bld) 5 % Normal 3-12 [facility] Comment on above: Performed By: #### T SH, CDP, BMP, LIVP #### [address] [place] [address] Auto Service Instructor: Abeba Parra MD #### GLYHGB, LIPR #### [place] [address] Auto Service Instructor: Chapin Bellamy MD Neutrophil (Seg) 63 % Normal 36-65 [facility] Comment on above: Performed By: #### T SH, CDP, BMP, LIVP #### [address] [place] [phone] Auto Service Instructor: Abeba Parra MD #### GLYHGB, LIPR #### [place] [address] Auto Service Instructor: Chapin Bellamy MD NRBC Automated 0.0 per 100 WBC Normal 0.0 [facility] Comment on above: Performed By: #### T SH, CDP, BMP, LIVP #### [address] [place] [phone] ( Auto Service Instructor: Abeba Parra MD #### GLYHGB, LIPR #### [address] [place], [place] [phone] Auto Service Instructor: Chapin Bellamy MD Platelet mean volume (Bld) [Entitic vol] 11.0 fL Normal 8.1-13.5 [facility] Comment on above: Performed By: #### T SH, CDP, BMP, LIVP #### [address] [place] [phone] Auto Service Instructor: Abeba Parra MD #### GLYHGB, LIPR #### [place] [address] Auto Service Instructor: Chapin Bellamy MD Platelets (Bld) [#/Vol] 264 10*3/uL Normal 138-453 [facility] Comment on above: Performed By: #### T SH, CDP, BMP, LIVP #### [address] [place] [phone] Auto Service Instructor: Abeba aPrra MD #### VERONICAHGTanya, LIPR #### [place] [address] Auto Service Instructor: Chapin Bellamy MD RBC (Bld) [#/Vol] 4.70 10*6/uL Normal 3.95-5.11 [facility] Comment on above: Performed By: #### T SH, CDP, BMP, LIVP #### [address] [place] [phone] Auto Service Instructor: Abeba Parra MD #### GLYHGB, LIPR #### [place] [address] Auto Service Instructor: Chapin Bellamy MD WBC (Bld) [#/Vol] 10.8 10*3/uL Normal 3.5-11.3 [facility] Comment on above: Performed By: #### T SH, CDP, BMP, LIVP #### [facility] [address] [place] [address] Auto Service Instructor: Abeba Parra MD #### GLYHGB, LIPR #### [facility] [address] [place], [place] [phone] Auto Service Instructor: Chapin Bellamy MD Hepatic Function Panelon Albumin [Mass/Vol] 4.2 g/dL 3.5 - 5.2 g/dL [facility] Albumin/Globulin [Mass ratio] 1.3 {ratio} 1.0 - 2.5 [facility] ALP [Catalytic activity/Vol] 80 U/L 35 - 104 U/L [facility] ALT [Catalytic activity/Vol] 23 U/L 5 - 33 U/L [facility] AST [Catalytic activity/Vol] 22 U/L NINF - 32 U/L [facility] Bilirubin [Mass/Vol] 0.5 mg/dL 0.3 - 1 .2 mg/dL [facility] Bilirubin.direct [Mass/Vol] mg/dL NINF - 0.3 mg/dL [facility] Bilirubin.indirect [Mass/Vol] Can not be calculated 0.0 - 1.0 mg/dL [facility] Protein [Mass/Vol] 7.4 g/dL 6.4 - 8.3 g/dL [facility] Lipid Panelon 11-04-2022 Cholesterol [Mass/Vol] 130 mg/dL NINF - 200 mg/dL [facility] Comment on above: Cholesterol Guidelines: <200 Desirable 200-240 Borderline >240 Undesirable Cholesterol in HDL [Mass/Vol] 61 mg/dL 40 - PINF mg/dL [facility] Comment on above: HDL Guidelines: <40 Undesirable 40-59 Borderline >59 Desirable Cholesterol in LDL [Mass/Vol] 56 mg/dL 0 - 130 mg/dL [facility] Comment on above: LDL Guidelines: <100 Desirable 100-129 Near to/above Desirable 130-159 Borderline >159 Undesirable Direct (measured) LDL and calculated LDL are not interchangeable tests. Cholesterol.total/Ch olesterol in HDL [Mass ratio] 2.1 {ratio} NINF - 5 [facility] Triglyceride [Mass/Vol] 64 mg/dL NINF - 150 mg/dL [facility] Comment on above: Triglyceride Guidelines: <150 Desirable 150-199 Borderline 200-499 High >499 Very high Based on AHA Guidelines for fasting triglyceride, January 2012. [facility] Liver Profileon 11-04-2022 Albumin [Mass/Vol] 4.2 g/dL Normal 3.5-5.2 [facility] Comment on above: Performed By: #### T SH, CDP, BMP, LIVP #### [facility] [address] [place], [place] [phone] Auto Service Instructor: Abeba Parra MD #### GLYHGB, LIPR #### [address] [phone] Auto Service Instructor: Chapin Bellamy MD Albumin/Glob Ratio 1.3 Normal 1.0-2.5 [facility] Comment on above: Performed By: #### T SH, CDP, BMP, LIVP #### [facility] [address] [place], [place] [phone] Auto Service Instructor: Abeba Parra MD #### GLYHGB, LIPR #### [address] [place], [place] [phone] Auto Service Instructor: Chapin Bellamy MD Alkaline Phos 80 U/L Normal 35-104 [facility] Comment on above: Performed By: #### T SH, CDP, BMP, LIVP #### [facility] [address] [place], [place] [phone] Auto Service Instructor: Abeba Parra MD #### GLYHGB, LIPR #### [address] [place] [address] Auto Service Instructor: Chapin Bellamy MD ALT [Catalytic activity/Vol] 23 U/L Normal 5-33 [facility] Comment on above: Performed By: #### T SH, CDP, BMP, LIVP #### [facility] [address] [place], [place] [phone] Auto Service Instructor: Abeba Parra MD #### GLYHGB, LIPR #### [address] [place], [place] [phone] Auto Service Instructor: Chapin Bellamy MD AST [Catalytic activity/Vol] 22 U/L Normal <32 [facility] Comment on above: Performed By: #### T SH, CDP, BMP, LIVP #### [facility] [address] [place], [place] [phone] Auto Service Instructor: Abeba Parra MD #### GLYHGB, LIPR #### [address] [phone] Auto Service Instructor: Chapin Bellamy MD Bilirubin [Mass/Vol] 0.5 mg/dL Normal 0.3-1.2 [facility] Comment on above: Performed By: #### T SH, CDP, BMP, LIVP #### [facility] [address] [place], [place] [phone] Auto Service Instructor: Abeba Parra MD #### GLYHGB, LIPR #### [address] [address] Auto Service Instructor: Chapin Bellamy MD Bilirubin, Indirect Can not be calculated Normal 0.0-1 .0 [facility] Comment on above: Performed By: #### T SH, CDP, BMP, LIVP #### [facility] [address] [place], [place] [phone] Auto Service Instructor: Abeba Parra MD #### GLYHGB, LIPR #### [address] [place], [place] [phone] Auto Service Instructor: Chapin Bellamy MD Bilirubin.indirect [Mass/Vol] mg/dL Normal <0.3 [facility] Comment on above: Performed By: #### T SH, CDP, BMP, LIVP #### [address] [place] [address] Auto Service Instructor: Abeba Parra MD #### GIOVANNI, LIPR #### [address] [address] [place], [place] [phone] Auto Service Instructor: Chapin Bellamy MD Protein [Mass/Vol] 7.4 g/dL Normal 6.4-8.3 [facility] Comment on above: Performed By: #### T SH, CDP, BMP, LIVP #### [address] [place] [address] Auto Service Instructor: Abeba Parra MD #### GIOVANNI, LIPR #### [address] [place] [address] Auto Service Instructor: Chapin Bellamy MD No Panel Informationon 11-04 [facility] TSHon 11-04-2022 TSH Qn 1.57 m[IU]/L [facility] Thyroid Stim. Horm.on 2022 Thyroid Stim. Horm. 1.57 uIU/mL Normal 0.30-5.00 [facility] Comment on above: Performed By: #### T SH, CDP, BMP, LIVP #### [address] [place] [address] Auto Service Instructor: Abeba Parra MD #### GIOVANNI, LIPR #### [address] [place] [address] Auto Service Instructor: Chapin Bellamy MD NM HEPATOBILIARY SCAN W [...] by: ABEBA APODACA Date: 2020-01-30 09:35 Normal [facility] US SINGLE QUAD RT UPPERon US [...] APODACA Date: 2020-01-22 11:02 Normal [facility] Vital Signs Date Time Vital Sign Value Performing Clinician Vinnie reilly 11-18-2024 10:41-0400 Body mass index (BMI) [Ratio] 35.45 kg/m2 [employer] Work Phone: [facility] 11-18-2024 10:41-0400 Body weight 96.62 kg [employer] Work Phone: [facility] 11-18-2024 10:41-0400 Diastolic blood pressure 72 mm[Hg] [employer] Work Phone: [facility] 11-18-2024 10:41-0400 Systolic blood pressure 118 mm[Hg] [employer] Work Phone: [facility] 10-23-2024 11:16-0400 Body mass index (BMI) [Ratio] 35.58 kg/m2 Nida Alisson DO Work Phone: [facility] 10-23-2024 11:16-0400 Body weight 96.98 kg Nida Alisson DO Work Phone: [facility] 10-23-2024 11:16-0400 Diastolic blood pressure 80 mm[Hg] Nida Alisson DO Work Phone: [facility] 10-23-2024 11:16-0400 Systolic blood pressure 120 mm[Hg] Nida Alisson DO Work Phone: [facility] 06-10-2024 12:11-0500 Body mass index (BMI) [Ratio] 35.11 kg/m2 Nida Alissno DO Work Phone: [facility] 06-10-2024 12:11-0500 Body weight 95.71 kg Nida Alisson DO Work Phone: [facility] 05-02-2024 09:47-0500 Body mass index (BMI) [Ratio] 36.11 kg/m2 Nida Alisson DO Work Phone: [facility] 05-02-2024 09:47-0500 Body weight 98.43 kg Nida Alisson DO Work Phone: [facility] 05-02-2024 09:47-0500 Diastolic blood pressure 76 mm[Hg] Nida Alisson DO Work Phone: [facility] 05-02-2024 09:47-0500 Systolic blood pressure 128 mm[Hg] Nida Alisson DO Work Phone: [facility] 03-27-2024 15:39-0500 Body mass index (BMI) [Ratio] 39.07 kg/m2 [employer] Work Phone: [facility] 03-27-2024 15:39-0500 Body weight 106.5 kg [employer] Work Phone: [facility] 03-27-2024 15:39-0500 Diastolic blood pressure 88 mm[Hg] [place] George PA Work Phone: [facility] 03-27-2024 15:39-0500 Systolic blood pressure 140 mm[Hg] [place] George PA Work Phone: [facility] 03-20-2024 11:15-0500 Body mass index (BMI) [Ratio] 40.44 kg/m2 [place] George PA Work Phone: [facility] 03-20-2024 11:15-0500 Body weight 110.22 kg [place] George PA Work Phone: [facility] 03-20-2024 11:15-0500 Diastolic blood pressure 78 mm[Hg] [place] PA Work Phone: [facility] 03-20-2024 11:15-0500 Systolic blood pressure 122 mm[Hg] [place] George PA Work Phone: [facility] 03-11-2024 08:39-0500 Body mass index (BMI) [Ratio] 40.12 kg/m2 [place] George PA Work Phone: [facility] 03-11-2024 08:39-0500 Body weight 109.37 kg [place] George PA Work Phone: [facility] 03-11-2024 08:39-0500 Diastolic blood pressure 80 mm[Hg] [place] PA Work Phone: [facility] 03-11-2024 08:39-0500 Systolic blood pressure 130 mm[Hg] [place] PA Work Phone: [facility] 03-04-2024 11:28-0500 Body mass index (BMI) [Ratio] 40.29 kg/m2 Nida Alisson DO Work Phone: [facility] 03-04-2024 11:28-0500 Body weight 109.83 kg Nida Alisson DO Work Phone: [facility] 03-04-2024 11:28-0500 Diastolic blood pressure 74 mm[Hg] Nida Alisson DO Work Phone: [facility] 03-04-2024 11:28-0500 Systolic blood pressure 106 mm[Hg] Nida Alisson DO Work Phone: [facility] 02-26-2024 14:25-0500 Body mass index (BMI) [Ratio] 40.07 kg/m2 Nida Alisson DO Work Phone: [facility] 02-26-2024 14:25-0500 Body weight 109.23 kg Nida Alisson DO Work Phone: [facility] 02-26-2024 14:25-0500 Diastolic blood pressure 76 mm[Hg] Nida Alisson DO Work Phone: [facility] 02-26-2024 14:25-0500 Systolic blood pressure 126 mm[Hg] Nida Alisson DO Work Phone: [facility] 02-12-2024 16:31-0500 Body mass index (BMI) [Ratio] 39.77 kg/m2 [place] Vazquez PA Work Phone: [facility] 02-12-2024 16:31-0500 Body weight 108.41 kg [place] George PA Work Phone: [facility] 02-12-2024 16:31-0500 Diastolic blood pressure 78 mm[Hg] [place] Vazquez PA Work Phone: [facility] 02-12-2024 16:31-0500 Systolic blood pressure 124 mm[Hg] [place] Vazquez PA Work Phone: [facility] 01-29-2024 16:01-0400 Body mass index (BMI) [Ratio] 38.77 kg/m2 Nida Alisson DO Work Phone: [facility] 01-29-2024 16:01-0400 Body weight 105.69 kg Nida Alisson DO Work Phone: [facility] 01-29-2024 16:01-0400 Diastolic blood pressure 70 mm[Hg] Nida Alisson DO Work Phone: [facility] 01-29-2024 16:01-0400 Systolic blood pressure 118 mm[Hg] Nida Alisson DO Work Phone: [facility] 01-15-2024 14:56-0400 Body mass index (BMI) [Ratio] 38.11 kg/m2 [place] Vazquez PA Work Phone: [facility] 01-15-2024 14:56-0400 Body weight 103.87 kg [place] Vazquez PA Work Phone: [facility] 01-15-2024 14:56-0400 Diastolic blood pressure 74 mm[Hg] [place] Vazquez PA Work Phone: [facility] 01-15-2024 14:56-0400 Systolic blood pressure 120 mm[Hg] [place] Vazquez PA Work Phone: [facility] 01-01-2024 15:28-0400 Body mass index (BMI) [Ratio] 37.67 kg/m2 Nida Alisson DO Work Phone: [facility] 01-01-2024 15:28-0400 Body weight 102.69 kg Nida Alisson DO Work Phone: [facility] 01-01-2024 15:28-0400 Diastolic blood pressure 70 mm[Hg] Nida Alisson DO Work Phone: [facility] 01-01-2024 15:28-0400 Systolic blood pressure 120 mm[Hg] Nida Alisson DO Work Phone: [facility] 12-04-2023 16:21-0400 Body mass index (BMI) [Ratio] 36.8 kg/m2 Nida Alisson DO Work Phone: [facility] 12-04-2023 16:21-0400 Body weight 100.3 kg Nida Alisson DO Work Phone: [facility] 12-04-2023 16:21-0400 Diastolic blood pressure 70 mm[Hg] Nida Alisson DO Work Phone: [facility] 12-04-2023 16:21-0400 Systolic blood pressure 120 mm[Hg] Nida Alisson DO Work Phone: [facility] Encounters Encounter Date Encounter Type Care Provider Facility Start: 11-18-2024 End: 11-18-2024 Bamboo flowsheet Nida Alisson DO Work Phone: [facility] Start: 11-18-2024 End: 11-18-2024 Bamboo flowsheet Nida Alisson DO Work Phone: [facility] Start: 11-18-2024 End: 11-18-2024 ambulatory NIDA ALISSON Not Available Start: 11-18-2024 End: 11-18-2024 Office outpatient visit 15 minutes Nida Alisson DO Work Phone: [facility] Comment on above: Encounter to discuss test results; Pre-op examination; Pelvic pain; Menorrhagia with irregular cycle; Thickened endometrium; Isthmocele Start: 11-18-2024 End: 11-18-2024 Preprocedural examination done Nida Alisson DO Work Phone: [facility] Start: 11-05-2024 End: 11-05-2024 ambulatory [...] Start: 11-04-2022 End: 11-05-2022 ambulatory RICHARD DAI [facility] Start: 11-04-2022 End: 11-05-2022 Encounter for general adult medical examination without abnormal findings RICHARD DAI [facility] Start: 11-04-2022 End: 11-04-2022 Subsequent hospital visit [...] DTaP/Tdap/Td vaccine (8 - Td or Tdap) [facility] Start: 06-12-2025 End: 06-12-2025 Patient encounter procedure [facility] Start: 12-23-2024 End: 12-23-2024 Patient encounter procedure 12/23/2024 9:20 AM EDT Office Visit [facility] [address] [place] [address] Nida Vinson, DO [address] [place] [address] [facility] Start: 12-09-2024 Influenza vaccination Influenza Vacc ine (#1) [facility] Start: 11-05-2024 End: 11-05-2024 Professional / ancillary services management 11/05/2024 2:00 PM EDT Ancillary Procedure [facility] [address] [place] [phone] [facility] Start: 10-23-2024 End: 04-25-2025 US Pelvis US Pelvis w/ TV Imaging Routine Pain following surgery or procedure Expected: 10/23/2024, Expires: 04/25/2025 [facility] Work Phone: Comment on above: Expected: 10/23/2024 , Expires: 04/25/2025 Start: 06-10-2024 End: 06-10-2024 Patient encounter procedure 06/10/2024 11:30 AM EST Office Visit [facility] [address] [place] [phone] Nida Vinson, DO [address] [place] [address] [facility] Start: 05-01-2024 End: 05-01-2024 ambulatory 05/01/2024 9:30 AM EST Visit [facility] [address] [place] [phone] Venice Vazquez PA [address] [place] [address] [facility] Start: 04-18-2024 End: 04-18-2024 Patient encounter procedure 04/18/2024 11:00 AM EST Office Visit [facility] [address] [place] [phone] Nida Vinson DO [address] [facility] [address] [place], [place] [phone] [facility] Start: 03-20-2024 End: 03-20-2024 Patient encounter procedure 03/20/2024 10:50 AM EST Routine [facility] [address] [place] [phone] Venice Vazquez, PA [address] [facility] [address] [place], [place] [phone] [facility] Start: 03-11-2024 End: 03-11-2024 Patient encounter procedure 03/11/2024 8:30 AM EST Routine [facility] [address] [place] [address] Venice Vazquez, PA [address] [facility] [address] [place], [place] [phone] [facility] Start: 03-04-2024 End: 03-04-2024 Patient encounter procedure [facility] Comment on above: Arrived Start: 02-28-2024 End: 02-28-2024 Patient encounter procedure 02/28/2024 8:30 AM EST Routine [facility] [address] [place] [phone] Venice Vazquez, PA [address] [facility] [address] [place], [place] [phone] [facility] Start: 02-26-2024 End: 02-25-2025 Strep B DNA probe, amplification Strep B DNA probe, amplification Lab Routine Third trimester Expected: 02/26/2024 (Approximate), Expires: 02/25/2025 [facility] Work Phone: Comment on above: Expected: 02/26/2024 (Approximate), Expires: 02/25/2025 Start: 02-26-2024 End: 02-26-2024 Patient encounter procedure 02/26/2024 1:30 PM EST Routine [facility] [address] [place] [phone] Nida Vinson, DO [address] [place] [address] [facility] Start: 02-14-2024 End: 02-14-2024 Professional / ancillary services management 02/14/2024 8:00 AM EST Ancillary Procedure [facility] [address] [place] [phone] [facility] Start: 02-12-2024 End: 02-12-2024 [...] Routine [facility] [address] [place] [phone] Nida Vinson, DO [address] [place] [address] [facility] Start: 01-15-2024 End: 01-15-2024 Patient encounter procedure [facility] Comment on above: Arrived Start: 01-15-2024 End: 01-15-2024 Professional / ancillary services management 01/15/2024 2:00 PM EDT Ancillary Procedure [facility] [address] [place] [address] [facility] Start: 01-01-2024 End: 01-01-2024 Patient encounter procedure [facility] Comment on above: Arrived Start: 01-01-2024 End: 12-31-2024 US for [facility] Work Phone: Comment on above: Expected: 01/01/2024 (Approximate), Expires: 12/31/2024 Start: 12-10-2023 Influenza vaccination Influenza Vacc ine (#1) [facility] Start: 12-04-2023 End: 12-03-2024 CBC panel - Blood by Automated count CBC Lab Routine Diabetes mellitus screening Expected: 12/04/2023 (Approximate), Expires: 12/03/2024 [facility] Work Phone: Comment on above: Expected: 12/04/2023 (Approximate), Expires: 12/03/2024 Start: 12-04-2023 End: 12-03-2024 Measurement of glucose 1 hour after glucose challenge for glucose tolerance test Glucose tolerance, 1 hour Lab Routine Diabetes mellitus screening Expected: 12/04/2023 (Approximate), Expires: 12/03/2024 [facility] Comment on above: Expected: 12/04/2023 (Approximate), Expires: 12/03/2024 Start: 11-08-2022 Influenza vaccination Flu vaccine (# 1) [facility] Start: 2019 Screening for malign ant neoplasm of cervix Pap smear [facility] Start: 02-10-2016 Hepatitis C screening Hepatitis C sc reen [facility] Start: 2014 Screening for Chlamy zulema trachomatis Chlamydia/GC screen [facility] Start: 2013 HIV screening HIV screen [facility] [employer] Start: 2010 Depression Screen Depression Screen [facility] Start: 2009 HPV vaccine (1 - 2-d ose series) HPV vaccine (1 - 2-dose series) [facility] Start: 1999 Varicella vaccine (1 of 2 - 2-dose childhood series) Varicella vaccine (1 of 2 - 2-dose childhood series) [facility] Start: 1998 COVID-19 Vaccine (#1) COVID-19 Vacci ne (#1) [facility] Cytology Cervical or vaginal smear or scraping study Pap Smear Pathology and Cytology Routine Well woman exam with routine gynecological exam Ordered: 06/10/2024 [facility] Work Phone: Comment on above: Ordered: 06/10/2024 End: 11-04-2022 Hemoglobin A1c/Hemoglobin.total in Blood [facility] Work Phone: Comment on above: Once for 1 Occurrenc es starting 11/04/2022 until 11/04/2022 Immunizations Immunization Date Immunization Notes Care Provider [facility] 11-04-2021 tetanus toxoid, redu sanya diphtheria toxoid, and acellular pertussis vaccine, adsorbed Richard Dai MD Work Phone: [facility] 11-12-2015 meningococcal polysaccharide (groups A, C, Y and W-135) diphtheria toxoid conjugate vaccine (MCV4P) Generic Provider [facility] 05-24-2011 poliovirus vaccine, inactivated Generic Provider [facility] 07-19-2010 tetanus toxoid, redu sanya diphtheria toxoid, and acellular pertussis vaccine, adsorbed Generic Provider [facility] 08-13-2003 diphtheria, tetanus toxoids and acellular pertussis vaccine, unspecified formulation Generic Provider [facility] 08-13-2003 measles, mumps and rubella virus vaccine Generic Provider [facility] 09-15-1999 diphtheria, tetanus toxoids and acellular pertussis vaccine, unspecified formulation Generic Provider [facility] 09-15-1999 haemophilus influenz ae type b vaccine, HbOC conjugate Generic Provider [facility] 02-24-1999 measles, mumps and rubella virus vaccine Generic Provider [facility] 02-24-1999 trivalent poliovirus vaccine, live, oral Generic Provider [facility] 1998 diphtheria, tetanus toxoids and acellular pertussis vaccine, unspecified formulation Generic Provider [facility] 1998 haemophilus influenz ae type b conjugate and Hepatitis B vaccine Generic Provider [facility] 1998 trivalent poliovirus vaccine, live, oral Generic Provider [facility] 1998 diphtheria, tetanus toxoids and acellular [...] [facility] Payers Date Payer Category Payer [facility] BCBS Memb er Subscriber Plan / Payer (Effective 2022-Present) Name: Yenny Ruff Relation to Subscriber: Spouse Name: HILLARY RUFF Date of : 2000 (Home) Address: [address] [place] [id number] Payer ID: Not on file Type: Not on file Address: [address] [place] [id number] 2022 Unknown BCBS BCBS xxxxxx [id number] 2022-Present [phone] [address] [place] [id number] 2022 Unknown [id number] [id number]. [id number] 1998 Unknown [id number] 2.16.840.1.521147.3.579. 2.593 1998 Unknown [id number] 2.16.840.1.749300.3.579. 2.593 1998 Unknown [id number] 2.16.840.1.013983.3.579. 2.173 1998 Unknown [id number] 2.16.840.1.907204.3.579. 2.9 1998 Unknown [id number] 2.16.840.1.498262.3.579. 2.1258 1998 Unknown [id number] 2.16.840.1.361384.3.579. 2.1258 1998 Unknown [id number] 2.16.840.1.701062.3.579. 2.1258 1998 Unknown [id number] 2.16.840.1.467047.3.579. 2.1258 1998 Unknown [id number] 2.16.840.1.236678.3.579. 2.1258 1998 Unknown [id number] 2.16.840.1.147324.3.579. 2.1258 1998 Unknown [id number] 2.16.840.1.075920.3.579. 2.1258 1998 Unknown [id number] 2.16.840.1.459195.3.579. 2.1258 1998 Unknown [id number] 2.16.840.1.555930.3.579. 2.1258 1998 Unknown [id number] 2.16.840.1.232474.3.579. 2.1258 1998 Unknown [id number] 2.16.840.1.837757.3.579. 2.1258 1998 Unknown [id number] 2.16.840.1.215987.3.579. 2.9 1998 Unknown [id number] 2.16.840.1.724965.3.579. 2.1258 1998 Unknown [id number] 2.16.840.1.353199.3.579. 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 Vinson at [facility]. MEDICATIONS No current outpatient medications ALLERGIES Allergies [...] 10/10/2023 S/P section 05/02/2024 6 weeks follow-up ([facility]) 05/02/2024 Cephalopelvic disproportion ([facility]) 05/02/2024 Resolved Ambulatory Problems Diagnosis Date Noted 12 weeks gestation of ([facility]) 09/11/2023 32 weeks gestation of ([facility]) 01/30/2024 34 weeks gestation of ([facility]) 02/12/2024 Third trimester ([facility]) 02/12/2024 37 weeks gestation of ([facility]) 03/04/2024 Past Medical History: Diagnosis Date [...] nursing note reviewed. Exam conducted with a odd jobs day worker present. Vitals: Estimated body mass index is [...] reviewed, and patient is to proceed to [facility] OR. Follow Up: Patient is to follow up between 1-2 weeks post operative to assess proper healing and recovery from procedure. Documented by Jaymie Shaw LPN on behalf of: Nida Vinson DO documented in this encounter [facility] 10-23-2024 History of Presen t illness Narrative [...] 10/10/2023 S/P section 05/02/2024 6 weeks follow-up ([facility]) 05/02/2024 Cephalopelvic disproportion ([facility]) 05/02/2024 Resolved Ambulatory Problems Diagnosis Date Noted 12 weeks gestation of ([facility]) 09/11/2023 32 weeks gestation of ([facility]) 01/30/2024 34 weeks gestation of ([facility]) 02/12/2024 Third trimester ([facility]) 02/12/2024 37 weeks [facility] 03/04/2024 Past Medical History: Diagnosis Date Depression [...] nursing note reviewed. Exam conducted with a odd jobs day worker present. Vitals: Estimated body mass index is [...] Nida Vinson DO documented in this encounter [facility] 06-10-2024 History of Presen t illness Narrative [...] nursing note reviewed. Exam conducted with a odd jobs day worker present. Vitals: Estimated body mass index is [...] Larkin/Nida Vinson DO documented in this encounter [facility] 05-02-2024 History of Presen t illness Narrative [...] nursing note reviewed. Exam conducted with a odd jobs day worker present. Vitals: Estimated body mass index is [...] Nida Vinson DO documented in this encounter [facility] 03-27-2024 History of Presen t illness Narrative [...] 6 week evaluation. documented in this encounter [facility] 03-20-2024 History of Presen t illness Narrative [...] of: DEEPA An documented in this encounter [facility] 03-11-2024 History of Presen t illness Narrative [...] nursing note reviewed. Exam conducted with a odd jobs day worker present. Vitals: Estimated body mass index is [...] of: DEEPA An documented in this encounter [facility] 03-04-2024 History of Presen t illness Narrative [...] nursing note reviewed. Exam conducted with a odd jobs day worker present. Vitals: Estimated body mass index is [...] Nida Vinson DO documented in this encounter [facility] 02-26-2024 History of Presen t illness Narrative [...] Onset Diabetes Father Orestes Gar Depression Father Oresets Gar Other (spinal stenosis) Father Orestes Gonsalvesper [...] nursing note reviewed. Exam conducted with a odd jobs day worker present. Vitals: Estimated body mass index is [...] Nida Vinson DO documented in this encounter [facility] 02-12-2024 History of Presen t illness Narrative [...] nursing note reviewed. Exam conducted with a odd jobs day worker present. Vitals: Estimated body mass index is [...] of: DEEPA An documented in this encounter [facility] 01-29-2024 History of Presen t illness Narrative [...] nursing note reviewed. Exam conducted with a odd jobs day worker present. Vitals: Estimated body mass index is [...] Nida Vinson DO documented in this encounter [facility] 01-01-2024 History of Presen t illness Narrative [...] Problems Past Medical History: Diagnosis Date Depression ([facility]) Scoliosis HISTORY PAST MEDICAL HISTORY SOCIAL HISTORY [...] nursing note reviewed. Exam conducted with a odd jobs day worker present. Vitals: Estimated body mass index is [...] Nida Vinson DO documented in this encounter [facility] 12-04-2023 History of Presen t illness Narrative [...] nursing note reviewed. Exam conducted with a odd jobs day worker present. Vitals: Estimated body mass index is [...] [facility] N[facility]* DEEPA nA - 01/15/2024 3:20 PM EDT Reason for [...] Asthma Father Orestes Gar Depression Brother Sulaiman Agr Depression Paternal Grandfather Arpan Gar SURGICAL HISTORY [...] nursing note reviewed. Exam conducted with a odd jobs day worker present. Vitals: Estimated body mass index is [...] DATE CREATED AUTHOR AUTHOR'S ORGANIZ ATION 11/19/2024 [facility] dical Specialists [facility] Care Teams (unrecognized sec tion and content) Testing Manager Relationship Specialty Start Date End Date Richard Dai MD [address] [place], [place] [phone] PCP - General Family Medicine 11/04/22 Testing Manager Relationship Specialty Start Date End Date Richard Dai MD [address] [place] [address] PCP - [employer] 03/10/23 Richard Dai MD [address] [place] [address] PCP - General Family Medicine 09/11/23 Testing Manager Relationship Specialty Start Date End Date Richard Dai MD [address] [place] [address] PCP - [employer] 03/10/23 Richard Dai MD [address] [place] [address] PCP - General Family Medicine 09/11/23 Testing Manager Relationship Specialty Start Date End Date Richard Dai MD [address] [place] [address] PCP - [employer] 03/10/23 Richard Dai MD [address] [place] [address] PCP - General Family Medicine 09/11/23 Testing Manager Relationship Specialty Start Date End Date Richard Dai MD [address] [place] [address] PCP - [employer] 03/10/23 Richard Dai MD [address] [place] [address] PCP - General Family Medicine 09/11/23 Testing Manager Relationship Specialty Start Date End Date Richard Dai MD [address] [place] [address] PCP - [employer] 03/10/23 Richard Dai MD [address] [place] [address] PCP - General Family Medicine 09/11/23 Testing Manager Relationship Specialty Start Date End Date Richard Dai MD [address] [place] [address] PCP - [employer] 03/10/23 Richard Dai MD [address] [place] [address] PCP - General Family Medicine 09/11/23 Testing Manager Relationship Specialty Start Date End Date Richard Dai MD [address] [place] [address] PCP - [employer] 03/10/23 Richard Dai MD [address] [place] [address] PCP - General Family Medicine 09/11/23 Testing Manager Relationship Specialty Start Date End Date Richard Dai MD [address] [place] [address] PCP - [employer] 03/10/23 Richard Dai MD [address] [place] [address] PCP - General Family Medicine 09/11/23 Testing Manager Relationship Specialty Start Date End Date Richard Dai MD [address] [place] [address] PCP - [employer] 03/10/23 Richard Dai MD [address] [place] [address] PCP - General Family Medicine 09/11/23 Testing Manager Relationship Specialty Start Date End Date Richard Dai MD [address] [place] [address] PCP - [employer] 03/10/23 Richard Dai MD [address] [place] [address] PCP - General Family Medicine 09/11/23 Testing Manager Relationship Specialty Start Date End Date Richard Dai MD [address] [place] [address] PCP - [employer] 03/10/23 Richard Dai MD [address] [place] [address] PCP - General Family Medicine 09/11/23 Testing Manager Relationship Specialty Start Date End Date Richard Dai MD [address] [place] [address] PCP - [employer] 03/10/23 Richard Dai MD [address] [place] [address] PCP - General Family Medicine 09/11/23 Testing Manager Relationship Specialty Start Date End Date Richard Dai MD [address] [place] [address] PCP - [employer] 03/10/23 Richard Dai MD [address] [place] [address] PCP - General Family Medicine 09/11/23 Testing Manager Relationship Specialty Start Date End Date Richard Dai MD [address] [place] [address] PCP - General Family Medicine 09/11/23 Testing Manager Relationship Specialty Start Date End Date Richard Dai MD [address] [place] [address] PCP - General Family Medicine 09/11/23 Testing Manager Relationship Specialty Start Date End Date Richard Dai MD [address] [place] [address] PCP - General Family Medicine 09/11/23 Testing Manager Relationship Specialty Start Date End Date Richard Dai MD [address] [place] [address] PCP - General Family Medicine 09/11/23 [...] BE BASED ON THE PRIMARY CLINICAL RECORDS. [employer] provides no warranty or guarantee of the accuracy or completeness of information in this document.
[2024-12-13 07:56] LABS: Hematocrit 42.4 % (36.0-48.0); Hemoglobin 14.6 g/dL (12.0-16.0); Immature Granulocytes Abs Auto 0.03 10^3/uL (0.00-0.03); Immature Granulocytes Pct Auto 0.4 % (0.0-0.5); Lymphocytes Absolute Auto 2.8 10^3/uL (1.2-3.8); Mean Corpuscular HGB Conc 34.4 g/dL (29.9-35.2); Mean Corpuscular Hemoglobin 31.3 pg (26.7-34.0); Mean Corpuscular Volume 91.0 fL (81.0-99.0); Platelet Count 211 10^3/uL (150-450); Red Blood Count 4.66 10^6/uL (4.20-5.40); White Blood Count 7.1 10^3/uL (4.0-11.0)
--- NOTE | 2024-12-13 10:34 | P.ON_ITS ---
Brief Operative Note Date of procedure: 12/13/24 Pre-op diagnosis general: pelvic pain, menorrhagia Post-op diagnosis: same as pre-op Procedure: NAME OF PROCEDURE: [ D&c hysteroscopy, dx laparoscopy] PROCEDURE: The patient was taken back to the Operating Room where she was prepped and draped in normal sterile fashion after being placed under general anesthesia without difficulty. She was also placed in the dorsal lithotomy position. A weighted speculum was placed in the patient?s vagina. The anterior lip of the cervix was identified and grasped with a single tooth tenaculum. The patient?s uterus was then sounded roughly to [? 8] cm. The patient was then gently dilated using Hegar dilators. The hysteroscope was passed through the patient?s cervix into the uterus. Both ostia were identified. fluffy appearing endometrium. No gross evidence of malignancy, no gross evidence of polyps or fibroids. endometrial curretting sent off to pathology. The hysteroscope was then removed from the uterus. The endometrial curettings were sent out to pathology. The single tooth tenaculum was then removed from the patient's anterior lip of the cervix where excellent hemostasis was noted. All instruments were removed from the patient?s vagina. The patient tolerated the procedure well. Sponge, lap and needle counts were correct times two. The patient was taken to the Recovery Room in stable condition.Room in stable condition. A sponge stick was placed into the patient's vagina. Attention was turned to the patient's abdomen, where a small umbilical incision was made. The fascia was tented using Megan clamps and the fascia was entered sharply. Confirmation of intraabdominal placement of the 10 mm port was confirmed under direct visualization using a laparoscope. The patient's abdomen was then insufflated using CO2 gas with approximately 4 liters. A second port was placed left laterally, this was done under direct visualization with a 5 mm port. Survey of the patient's abdomen demonstrated normal liver and gallbladder. Survey of the patient's pelvic anatomy demonstrated normal appearing rt and lt ovary and tubes as well as normal appearing uterus. No endometrial implants could be noted, no evidence of any pelvic disease was seen, normal appearing pelvic cavity. All instruments were removed from the patient's abdomen. The patient's abdomen was deinsufflated of CO2 gas. The patient tolerated the procedure well. Sponge stick was removed from the patient's vagina. The patient's infraumbilical fascia was closed using #0 Vicryl on a GI needle. The patient's skin was closed laterally and infraumbilically using 4-0 Vicryl. The patient tolerated the procedure well. Sponge, lap and needle counts were correct x 2. The patient was taken to Recovery Room in stable condition. Anesthesia: SADIE Surgeon: Jacob Vinson Branch Sales Manager: Ashley Lamb Estimated blood loss (mL): 5 Pathology: other (endometrial curretting) Condition: stable Disposition: PACU Urinary Catheter Management Urinary Catheter Management Urethral: Cath placed during this visit: no
--- NOTE | 2024-12-13 11:26 | PC.NURSE ---
1125: pt drinking juice and eating applesauce.
[2024-12-13] MEDS: ACETAMINOPHEN 500 MG TABLET 1000 MG PO (11:49)
--- NOTE | 2024-12-13 12:53 | PC.NURSE ---
1230: pt ambulates to bathroom with minimal assistance,pt voids without difficulty. clear,yellow
== END 2024-12-13 12:40 | disposition home or self-care (01) ==
LOC: SURGOUT 07:45
PROVIDERS: PCP Family Medicine; Visit Provider Obstetrics & Gynecology
PROC: (CPT 840; principal; 2024-12-13 09:05)
DX: R10.2 Pelvic and perineal pain (principal); R93.89 Abnormal findings on diagnostic imaging of other specified body structures; N85.A Isthmocele; N92.1 Excessive and frequent menstruation with irregular cycle; E28.2 Polycystic ovarian syndrome
CPT/HCPCS: 49320; 58558; 36415; 82948; 84702; 85025; J1100; J1171; J1200; J1885; J2405; J2704